=== PATIENT | female | born 1945 | race Caucasian/White ===

== ENCOUNTER 2017-11-04 10:00 | Outpatient (RCR) | payer MEDICARE, BC, SELFPAY | END 2017-11-12 | LOC: INF 10:00 | PROVIDERS: PCP Family Medicine; Visit Provider Family Medicine | DX: Z45.2 Encounter for adjustment and management of vascular access device (principal) | CPT/HCPCS: 96523 ==

== ENCOUNTER → 2018-08-11 15:41 | Outpatient (CLI) | payer MEDICARE, BC, SELFPAY ==
--- NOTE | 2018-08-11 15:43 | DI.RAD.S_ITS ---
PROCEDURE: XR RIBS RT MIN 3V W CXR 1V INDICATIONS: Right sided rib pain TECHNIQUE: 2 views of the right ribs were acquired, along with a single view chest. COMPARISON: None. FINDINGS: Surgical changes and devices: Port-A-Cath from right sided approach extends with tip in normal position to the atrial caval junction.. Bones and chest wall: No fractures or dislocations. No suspicious bony lesions. Overlying soft tissues appear unremarkable. Lungs and pleura: No pleural effusions or pneumothorax. Lungs appear normal considering reduced inspiratory volume. Mediastinum: Mediastinal contours appear normal. Heart size is normal. IMPRESSION: Source of right-sided rib pain is not seen. No osteolytic or blastic lesion is found. Port-A-Cath in normal position, surgical clips right axilla suggest prior breast carcinoma surgery. Depending on the clinical status followup by nuclear medicine bone scan may be warranted. Dictated by: Jaime Masters M.D. on 08/11/2018 at 16:44 Approved by: Jaime Masters M.D. on 08/11/2018 at 16:45
== END ==
PROVIDERS: Family Provider Orthopaedic Surgery; PCP Family Medicine; Visit Provider Family Medicine
DX: R07.81 Pleurodynia (principal)
CPT/HCPCS: 71101

== ENCOUNTER → 2018-08-22 14:15 | Outpatient (CLI) | payer MEDICARE, BC, SELFPAY ==
--- NOTE | 2018-08-22 14:20 | DI.US.S_ITS ---
PROCEDURE: US ABDOMEN COMPLETE INDICATIONS: RUQ abd pain TECHNIQUE: Real-time scanning was performed of the abdominal and retroperitoneal organs, with image documentation. COMPARISON: None. FINDINGS: Liver: Liver is diffusely increased in echogenicity. No focal hepatic abnormalities identified. Normal hepatic size. Gallbladder: No gallstones identified. Normal gallbladder wall. No pericholecystic fluid. Negative sonographic Morris sign. Biliary ducts: Intrahepatic bile ducts are non-dilated. Extrahepatic bile duct caliber measures 6.0 mm. Normal is 6-7 mm or less in diameter, or 10 mm or less post-cholecystectomy. Pancreas: Visualized portions of the pancreas are sonographically normal. Spleen: Spleen is normal in size and homogeneous in echotexture. Kidneys: Kidneys are normal in size and echotexture. Right kidney measures 12 0.9 cm long; left kidney measures 12.7 cm long. No hydronephrosis or nephrolithiasis. No solid masses. Aorta: Visualized aorta is normal in caliber at less than 3 cm. Iliacs: Not well-seen. IVC: Intrahepatic inferior vena cava is patent. Miscellaneous: No free abdominal fluid. IMPRESSION: Increased hepatic echogenicity noted possibly related to hepatic steatosis but other sources of hepatocellular disease cannot be excluded. Recommend clinical correlation. Dictated by: Lee SMITH Interpreted: Luisa Odell MD on 08/22/2018 at 15:37 Approved by: Luisa Odell M.D. on 08/22/2018 at 16:08
== END ==
PROVIDERS: Family Provider Orthopaedic Surgery; PCP Family Medicine; Visit Provider Physician Assistant
DX: R10.11 Right upper quadrant pain (principal)
CPT/HCPCS: 76700

== ENCOUNTER → 2018-12-29 11:34 | Outpatient (CLI) | payer MEDICARE, BC, SELFPAY ==
--- NOTE | 2018-12-29 11:37 | DI.RAD.S_ITS ---
PROCEDURE: XR CHEST 2V INDICATIONS: cough, chest wall pain TECHNIQUE: 2 views of the chest were acquired. COMPARISON: None. FINDINGS: Surgical changes and devices: Right-sided Port-A-Cath is present with distal tip projecting over the distal SVC. Lungs and pleura: Lungs are clear. No pleural effusions or pneumothorax. Increased pulmonary vascularity is present. Mediastinum: Mediastinal contours are normal. Heart size is normal. Bones and chest wall: No suspicious bony abnormalities. Soft tissues appear unremarkable. IMPRESSION: Increased pulmonary vascularity suggestive of edema. Dictated by: Luisa Odell M.D. on 12/29/2018 at 16:16 Approved by: Luisa Odell M.D. on 12/29/2018 at 16:17
== END ==
PROVIDERS: Family Provider Orthopaedic Surgery; PCP Family Medicine; Visit Provider Hospitalist
DX: R05 Cough (principal); R07.89 Other chest pain; Z95.828 Presence of other vascular implants and grafts
CPT/HCPCS: 71046

== ENCOUNTER → 2019-01-03 20:13 | Outpatient (CLI) | payer MEDICARE, BC, SELFPAY | PROVIDERS: Family Provider Orthopaedic Surgery; PCP Family Medicine; Visit Provider Physician Assistant | DX: N30.01 Acute cystitis with hematuria (principal) | CPT/HCPCS: 87086 ==

== ENCOUNTER → 2019-01-09 14:22 | Outpatient (CLI) | payer MEDICARE, BC, SELFPAY ==
--- NOTE | 2019-01-09 14:28 | DI.CT.S_ITS ---
PROCEDURE: CT KIDNEY URETER BLADDER (KUB) INDICATIONS: r/o kidney stone TECHNIQUE: Noncontrast 5 mm thick sections acquired from the diaphragms to the symphysis. 5 mm thick coronal and sagittal reformats were then performed. For radiation dose reduction, the following was used: automated exposure control, adjustment of mA and/or kV according to patient size. COMPARISON: [facility], CR, XR CHEST 2V, 12/29/2018, 11:41. [facility], US, US ABDOMEN COMPLETE, 08/22/2018, 15:04. FINDINGS: Image quality: Excellent. Lung bases: Mild lingular scars. Heart size is normal. There is a tiny hiatal hernia. Urinary system: A couple of 2 mm stones are present in the inferior pole of the right kidney. Both kidneys are normal in size. No kidney stones. No hydronephrosis or perinephric fat stranding. Both ureters appear non-dilated throughout their expected courses. Bladder wall thickness is normal; no calcified bladder stones. Other solid organs: Liver is normal in size. Gallbladder is normal. Pancreas is normal in contours. Spleen is normal in size. No adrenal nodules. Peritoneum and bowel: Stomach wall may be mildly thickened. There is mild stranding around stomach. Unenhanced bowel loops demonstrate normal wall thickness and caliber. There are colonic diverticula. No evidence for acute diverticulitis. No free fluid or air. Nodes and vessels: No retroperitoneal or mesenteric adenopathy by size criteria. Aorta and inferior vena cava are normal in caliber. Abdominal wall: Tiny fat containing umbilical hernia. Pelvis: No free pelvic fluid. No inguinal hernias or adenopathy. Uterus and ovaries are normal. No pathological free fluid. Bones: No suspicious bony lesions. No vertebral body compression fractures. IMPRESSION: 1. Right nephrolithiasis with 2 small nonobstructive right renal calculi. 2. Stomach wall may be mildly thickened. There is mild stranding around stomach. Recommend clinical correlation for gastritis. 3. Diverticulosis without acute diverticulitis. Dictated by: Larry Mcqueen M.D. on 01/09/2019 at 15:40 Approved by: Larry Mcqueen M.D. on 01/09/2019 at 15:48
== END ==
PROVIDERS: PCP Family Medicine; Visit Provider Physician Assistant
DX: R10.9 Unspecified abdominal pain (principal); N20.0 Calculus of kidney; K57.90 Diverticulosis of intestine, part unspecified, without perforation or abscess without bleeding
CPT/HCPCS: 74176

== ENCOUNTER → 2019-01-19 06:50 | Outpatient (CLI) | payer MEDICARE, BC, SELFPAY ==
--- NOTE | 2019-01-19 06:54 | DI.ECHO.S_ITS ---
[facility]---------+ [facility] +---------+ : : [address] : : : : [id number] : : : : Phone: [phone] Echocardiogram Report + + :Name: LUC GUERRA Study Date: 01/19/2019 Height: 61 in : :[facility] Exam Location: [facility] Weight: 220 lb : : Gender: Female BSA: 2.0 m2 : :: 1945 Age: 73 yrs BP: 118/70 mmHg: :Reason For Study: Elevated BNP/ pulmonary : : Performed By: Marilee Page : :Referring: YANIV HEALY : + + Interpretation Summary Left ventricular systolic function is normal without focal wall motion abnormalities with the ejection fraction visually estimated to be 60-65%. There is mild concentric left ventricular hypertrophy. Diastolic parameters suggest a pseudonormalization pattern, consistent with probable elevated filling pressures. The right ventricle is normal in size and function. Pulmonary artery pressures cannot be estimated because of the lack of a measurable TR jet velocity but the IVC suggests a CVP of around 15 mmHg. The left atrium is severely dilated. There is moderate mitral annular calcification with mild to moderate mitral regurgitation with an eccentric jet of mitral regurgitation that is directed anteriorly. There is no other significant valvular heart disease. The ascending aorta and aortic arch are mildly enlarged. Procedure: A two-dimensional transthoracic echocardiogram with color flow and Doppler was performed. The study quality was technically adequate. There is no prior echocardiogram noted for this patient. The heart rate ranged between 53-70 bpm during the study. Left Ventricle: The left ventricle is normal in size. There is mild concentric left ventricular hypertrophy. Left ventricular systolic function is normal without focal wall motion abnormalities. The ejection fraction is estimated to be 60-65%. Diastolic parameters suggest a pseudonormalization pattern, consistent with probable elevated filling pressures. Right Ventricle: The right ventricle is normal in size and function. Atria: The left atrium is severely dilated. Right atrial size is normal. There is no Doppler evidence for an interatrial shunt. Mitral Valve: There is moderate mitral annular calcification. The mitral valve leaflets appear mildly thickened, but open well. There is mild to moderate mitral regurgitation. There is an eccentric jet of mitral regurgitation that is directed anteriorly. Aortic Valve: The aortic valve is trileaflet. The aortic valve is slightly calcified. The aortic valve opens well. No aortic regurgitation is present. Tricuspid Valve: The tricuspid valve is normal in structure and function. There is trace tricuspid regurgitation. Pulmonary artery pressures cannot be estimated because of the lack of a measurable TR jet velocity but the IVC suggests a CVP of around 15 mmHg. Pulmonic Valve: The pulmonic valve is not well visualized. There is no other significant valvular heart disease. Great Vessels: The aortic root is normal size. The ascending aorta is mildly enlarged. The aortic arch is mildly enlarged. The pulmonary is not well visualized. The IVC is dilated (diameter is greater than 2.1 cm) and it collapses less than 50% with a sniff. This suggests a high right atrial pressure of 15 mm Hg. Pericardium/ Pleura There is no pericardial effusion. There is no pleural effusion. MMode/2D Measurements & Calculations LVIDd: 3.6 cm Ao root diam: 3.4 cm LVIDs: 2.6 cm asc Aorta Diam: 3.6 cm FS: 28.7 % Ao Arch Diam (Prox Trans): 3.1 cm IVSd: 1.1 cm LVPWd: 1.1 cm LV walter. diameter/BSA (cm/m^2): 1.8 LV sys. diameter/BSA (cm/m^2): 1.3 LA A2 area: 30.3 cm2 RA long axis: 5.6 cm LA A4 area: 25.9 cm2 RA area: 17.1 cm2 LA length (vol): 6.3 cm RA vol: 44.2 ml LA vol: 105.7 ml RA : 22.4 ml/m2 LA vol index: 53.7 ml/m2 IVC diam: 2.2 cm RVD1 (basal): 3.4 cm RVD2 (mid): 2.5 cm TAPSE: 1.7 cm Doppler Measurements & Calculations Ao V2 max: 133.7 cm/sec LVOT Max Randall: 103.1 cm/sec Ao V2 mean: 89.1 cm/sec LV V1 max P.3 mmHg Ao max P.2 mmHg LV V1 VTI: 21.0 cm Ao mean P.6 mmHg sev ratio: 0.79 Ao V2 VTI: 26.7 cm MV E max randall: 85.9 cm/sec PA V2 max: 63.6 cm/sec MV A max randall: 103.8 cm/sec PA V2 mean: 43.2 cm/sec MV E/A: 0.83 PA mean P.83 mmHg Med Peak E' Randall: 5.4 cm/sec PA Accel Time: 0.11 sec E/E' med: 16.0 Lat Peak E' Randall: 7.8 cm/sec E/E' lat: 11.0 E/e' average: 13.5 MV dec time: 0.25 sec MV P1/2t: 72.1 msec MV /2t max randall: 85.9 cm/sec MVA(2t): 3.0 cm2 Reading Physician:LIAN
== END ==
PROVIDERS: PCP Family Medicine; Visit Provider Family Medicine
DX: I34.0 Nonrheumatic mitral (valve) insufficiency (principal); J81.1 Chronic pulmonary edema; R79.89 Other specified abnormal findings of blood chemistry; I77.89 Other specified disorders of arteries and arterioles
CPT/HCPCS: 93306

== ENCOUNTER 2019-03-03 08:05 | Inpatient (IN) | payer MEDICARE, BC, SELFPAY ==
[2019-03-03] VITALS (11 sets, daily range): BP systolic 102–146; BP diastolic 54–83; PULSE 70–90; RESP 13–20; TEMP 36.7–36.9; O2SAT 94–100; BMI 40.6
--- NOTE | 2019-03-03 08:27 | ED.NAVMDI ---
HPI - Nausea/Vomiting/Diarrhea General Chief complaint: Nausea/Vomiting/Diarrhea Stated complaint: vomiting Time Seen by Provider: 03/03/19 08:25 Source: patient and family () Mode of arrival: ambulatory Limitations: no limitations History of Present Illness HPI Narrative: This is a 73-year-old female comes in with complaint of 5 days of diarrhea followed by vomiting that started yesterday and continued today. Patient states she has also had some abdominal pain that she describes as generalized. She denies any back or flank pain. No fevers or chills. No current chest pain or shortness of breath. Patient denies any black or bloody stools. She states she had 8 episodes of diarrhea overnight. No frequency urgency or dysuria. Patient thought she had urinated this morning but did last night and stated seems sort of dark. Patient states that she has had issues with abdominal pain on and off for several years as well as diarrhea intermittently. She does have a history significant for prior breast cancer which required mastectomy and chemotherapy. She completed treatment a couple years ago but continues to have a port present. She states that she is supposed to follow up with the [employer] support she was told she had good pumping action but had a calcified mitral valve. She has had kidney stones. States she has also had a hysteroscopy and polypectomy in the past. No other abdominal surgeries. Patient denies any tobacco, alcohol or illicit. She states she is pain-free currently. Related Data Home Medications Medication Instructions Recorded Confirmed anastrozole 1 mg PO QDAY #0 12/27/16 03/03/19 aspirin 81 mg PO QDAY #0 12/27/16 03/03/19 cholecalciferol (vitamin D3) 2,000 unit PO #0 12/27/16 02/06/19 [Vitamin D3] citalopram 20 mg PO QDAY #0 12/27/16 03/03/19 metoprolol succinate [Toprol XL] 25 mg PO QDAY #0 12/27/16 03/03/19 multivitamin [Multiple Vitamins] 1 tab PO QDAY #0 12/27/16 03/03/19 olmesartan [Benicar] 20 mg PO QDAY #0 12/27/16 03/03/19 rosuvastatin [Crestor] 5 mg PO SEE INSTRUCTIONS #0 12/27/16 03/03/19 estradiol [Vagifem] 10 mcg VG #0 05/10/17 02/06/19 Previous Rx's Medication Instructions Recorded albuterol sulfate [Ventolin HFA] 2 puff INH QIDP PRN #1 inh 12/27/16 Allergies Allergy/AdvReac Type Severity Reaction Status Date / Time Penicillins [PENICILLINS] Allergy Unknown Verified 03/03/19 08:19 shellfish derived Allergy Unknown Verified 03/03/19 08:19 [SHELLFISH DERIVED] vancomycin [VANCOMYCIN] Allergy Unknown Verified 03/03/19 08:19 Review of Systems Review of Systems ROS Unobtainable: All systems reviewed & are unremarkable except as noted in HPI and below Constitutional Denies chills, Denies fever(s), Denies lethargy and Denies weakness Neurologic Denies weakness [facility] Medical History Essential hypertension (Chronic 05/10/17) Hyperlipidemia (Chronic 05/10/17) Morbid obesity (Chronic 09/13/17) Malignant neoplasm of breast (Inactive 09/13/17) IBS (irritable bowel syndrome) (Chronic) Osteopenia (Chronic) Lymphedema (Chronic 05/10/17) Primary osteoarthritis of both knees (Chronic 09/13/17) Cataract (Chronic 2016) Hayfever (Chronic) Shoulder pain (Chronic 2014) Tinnitus (Chronic) Breast cancer (Resolved 1990) Chicken pox (Resolved ~1949) Diverticulitis (Resolved 2014) History of heavy periods (Resolved) Measles (Resolved ~1949) Mumps (Resolved 1960) Neutropenia (Resolved 2013) Rosacea (Resolved) Skin cancer (Resolved 02/2017) Thyroid nodule (Resolved 2013) Gout (Inactive) Surgical History Anesthesia (Resolved) History of eye surgery (Inactive ~1950) History of toe surgery (Inactive 1994) History of tonsillectomy (Inactive ~1961) Status post delivery (Inactive 01/01/83) Status post partial mastectomy (Inactive 11/05/13) Status post partial mastectomy (Inactive 09/07/90) Family History Father Heart disease Hypertension High cholesterol Stroke Grandfather Heart disease Grandmother Heart disease Diabetes mellitus Pneumonia CAD (coronary artery disease) Mother Cancer Heart disease Head and neck cancer Grandmother Heart disease Heart attack Grandfather Lung cancer Social History Smoking Status: Never smoker alcohol intake: current substance use type: does not use Family History Father Heart disease Hypertension High cholesterol Stroke Grandfather Heart disease Grandmother Heart disease Diabetes mellitus Pneumonia CAD (coronary artery disease) Mother Cancer Heart disease Head and neck cancer Grandmother Heart disease Heart attack Grandfather Lung cancer Social History household members: spouse Smoking Status: Never smoker alcohol intake: current substance use type: does not use Exam Narrative Exam Narrative: GENERAL: Alert and oriented x three, obese, well-appearing female in mild distress. Patient Um is a little bit sweaty and has the shakes HEENT: Head normocephalic, atraumatic, EOMI, pupils reactive, face symmetric, moist mucous membranes NECK: Supple, full range of motion CARDIOVASCULAR: Regular rate and rhythm without murmurs, rubs or gallops. RESPIRATORY: Breath sounds equal bilaterally, no wheezes rales or rhonchi. ABDOMEN: Soft, mild generalized tenderness. Normoactive bowel sounds all 4 quadrants. No guarding or rebound, rigidity, no mass : No CVA tenderness EXTREMITIES: Normal range of motion, no clubbing or edema. Neurovascularly intact NEUROLOGICAL: Cranial nerves II through XII grossly intact. Moving all extremities SKIN: Warm, dry, no petechiae, no rashes or lesions. Initial Vital Signs Initial Vital Signs: Vital Signs Temperature 98.0 F 03/03/19 08:16 Pulse Rate 70 03/03/19 08:16 Respiratory Rate 18 03/03/19 08:16 Blood Pressure 146/83 H 03/03/19 08:16 Pulse Oximetry 98 03/03/19 08:16 Course Orders Ordered: ED Orders 03/03/19 12:42 Consult to Dietitian, Adult Routine 03/04/19 05:00 Basic Metabolic Panel Routine Complete Blood Count AUTO DIFF Routine Enoxaparin Sodium (Lovenox) 40 mg SUBCUT DAILY PADMINI Hydromorphone HCl (Dilaudid) 1 mg IV Q6HR PRN PRN Reason: Pain, Severe (7-10) Last Admin: 03/03/19 13:37 Dose: 0.5 mg Dextrose/Sodium Chloride (Dextrose 5%-0.9% Ns) 1,000 mls @ 125 mls/hr IV CONT PADMINI Last Admin: 03/03/19 13:04 Dose: 125 mls/hr Metoprolol Tartrate (Lopressor) 5 mg IV Q6H PRN PRN Reason: hypertension Morphine Sulfate (Morphine) 1 mg IV Q2HR PRN PRN Reason: Pain, Moderate (4-6) Morphine Sulfate (Morphine) 2 mg IV Q2HR PRN PRN Reason: Pain, Severe (7-10) Naloxone HCl (Narcan) 0.2 mg IV Q2MIN PRN PRN Reason: Opiate Reversal Ondansetron HCl (Zofran) 4 mg IV Q6HR PRN PRN Reason: Nausea And Vomiting Ondansetron HCl (Zofran) 4 mg IV Q4H PRN PRN Reason: Nausea And Vomiting Discontinued Medications Sodium Chloride (Normal Saline 0.9%) 1,000 mls @ 1,000 mls/hr IV BOLUS ONE Stop: 03/03/19 09:37 Last Infusion: 03/03/19 11:16 Dose: 0 mls/hr Admin: 03/03/19 09:00 Dose: 1,000 mls/hr Sodium Chloride (Normal Saline 0.9%) 1,000 mls @ 1,000 mls/hr IV BOLUS ONE Stop: 03/03/19 09:37 Last Admin: 03/03/19 11:17 Dose: 200 mls/hr Ondansetron HCl (Zofran) 4 mg IV NOW ONE Stop: 03/03/19 08:09 Last Admin: 03/03/19 08:47 Dose: 4 mg Ondansetron HCl (Zofran) 4 mg IV NOW ONE Stop: 03/03/19 08:39 Last Admin: 03/03/19 10:33 Dose: 4 mg Ondansetron HCl (Zofran) 4 mg IV Q8HR PRN PRN Reason: Nausea And Vomiting Last Admin: 03/03/19 13:04 Dose: 4 mg Vital Signs - 8 hr 03/03/19 11:55 03/03/19 12:01 03/03/19 15:45 Temperature 98.1 F 98.3 F Pulse Rate 76 82 90 Respiratory Rate 17 18 Blood Pressure 138/67 102/64 Blood Pressure [Left Arm] 129/72 Pulse Oximetry 99 100 98 03/03/19 16:00 Temperature Pulse Rate Respiratory Rate Blood Pressure Blood Pressure [Left Arm] Pulse Oximetry 96 MDM - Nausea/Vomiting/Diarrhea Lab Data Attestation: I reviewed the patient's lab results. Result diagrams: 03/03/19 08:46 03/03/19 08:46 Lab Results 03/03/19 03/03/19 03/03/19 Range/Units 08:46 08:46 09:58 WBC 7.0 (4.5-11.0) X10^3/uL RBC 4.49 (4.0-5.2) X10^6/uL Hgb 13.4 (12.0-16.0) g/dL Hct 39.7 (36-46) % MCV 88.4 (80-100) fL MCH 29.8 (26-34) PG MCHC 33.7 (30-36) % RDW 12.8 (11.6-14.8) % Plt Count 175 (150-400) X10^3/uL Neut % (Auto) 85.3 H (50-75) % Lymph % (Auto) 6.4 L (25-40) % [place] % (Auto) 7.0 (3-14) % Eos % (Auto) 0.9 L (2-4) % Baso % (Auto) 0.4 (0-2) % Neut # (Auto) 5900 (6766-2565) /uL Lymph # (Auto) 400 L (0901-8718) /uL [place] # (Auto) 500 (0-900) /uL Eos # (Auto) 100 (0-450) /uL Baso # (Auto) 0 (0-100) /uL Sodium 139 (137-145) mmol/L Potassium 3.9 (3.4-5.1) mmol/L Chloride 102 (98-107) mmol/L Carbon Dioxide 28 (22-32) mmol/L BUN 21 H (7-17) mg/dL Creatinine 0.80 (0.52-1.04) mg/dL Estimated GFR > 60.0 (>60) mL/min BUN/Creatinine Ratio 26.3 H (6-22) Glucose 132 H (80-110) mg/dL Lactate 0.9 (0.7-2.1) mmol/L Calcium 9.8 (8.4-10.2) mg/dL Total Bilirubin 0.8 (0.2-1.3) mg/dL AST 25 (14-36) IU/L ALT 25 (9-52) IU/L Alkaline Phosphatase 99 (38-126) U/L Total Protein 7.2 (6.3-8.2) g/dL Albumin 4.7 (3.5-5.0) g/dL Globulin 2.5 (1.7-4.1) g/dL Albumin/Globulin Ratio 1.9 (1.0-2.8) Lipase 191 (23-300) U/L Urine RBC (0-5/HPF) Urine WBC (0-5/HPF) Urine Bacteria (None) Ur Culture Indicated? 03/03/19 Range/Units 10:20 WBC (4.5-11.0) X10^3/uL RBC (4.0-5.2) X10^6/uL Hgb (12.0-16.0) g/dL Hct (36-46) % MCV (80-100) fL MCH (26-34) PG MCHC (30-36) % RDW (11.6-14.8) % Plt Count (150-400) X10^3/uL Neut % (Auto) (50-75) % Lymph % (Auto) (25-40) % [place] % (Auto) (3-14) % Eos % (Auto) (2-4) % Baso % (Auto) (0-2) % Neut # (Auto) (5282-7103) /uL Lymph # (Auto) (8708-3338) /uL [place] # (Auto) (0-900) /uL Eos # (Auto) (0-450) /uL Baso # (Auto) (0-100) /uL Sodium (137-145) mmol/L Potassium (3.4-5.1) mmol/L Chloride (98-107) mmol/L Carbon Dioxide (22-32) mmol/L BUN (7-17) mg/dL Creatinine (0.52-1.04) mg/dL Estimated GFR (>60) mL/min BUN/Creatinine Ratio (6-22) Glucose (80-110) mg/dL Lactate (0.7-2.1) mmol/L Calcium (8.4-10.2) mg/dL Total Bilirubin (0.2-1.3) mg/dL AST (14-36) IU/L ALT (9-52) IU/L Alkaline Phosphatase (38-126) U/L Total Protein (6.3-8.2) g/dL Albumin (3.5-5.0) g/dL Globulin (1.7-4.1) g/dL Albumin/Globulin Ratio (1.0-2.8) Lipase (23-300) U/L Urine RBC 0-1/hpf (0-5/HPF) Urine WBC 1-5/hpf (0-5/HPF) Urine Bacteria None seen (None) Ur Culture Indicated? Specimen cultured Point of Care Testing Glucose POC 130 Urine Dip Bedside Urine Glucose Negative Bedside Urine Bilirubin - Negative Bedside Urine Ketone - Negative Urine Specific Poth 1.015 Bedside Urine Occult Blood - Negative Bedside Urine pH 6.5 Bedside Urine Protein +/- 15 Bedside Urine Urobilinogen - Negative Bedside Urine Nitrite - Negative Bedside Urine Leukocytes +/- [address] scan - abdomen: Radiologist's impression: [place] [address] CT Scan Report Signed Patient: Davina Barrett CMR#: [id number] : [id number]:[id number] Age/Sex: 73 / FDate of Service: 03/03/19 Loc: ED Accession Number: [id number] Procedure: CT abdomen pelvis w con Ordering Provider: Linda Hobbs D.O. PROCEDURE: CT ABDOMEN PELVIS W CON INDICATIONS: diarrhea x 5 days, vomiting last night, abdominal steph TECHNIQUE: After the administration of intravenous contrast, 5 mm thick sections acquired from the diaphragm to the symphysis. 5 mm coronal and sagittal reformats were acquired. For radiation dose reduction, the following was used: automated exposure control, adjustment of mA and/or kV according to patient size. COMPARISON: [facility], CT, CT KIDNEY URETER BLADDER (KUB), 01/09/2019, 14:42. FINDINGS: Image quality: Excellent. ABDOMEN: Lung bases: Lung bases are clear. Heart size is normal. Solid organs: Liver is normal in size and enhancement. Gallbladder is unremarkable. Biliary system is non dilated. Pancreas enhances normally. Spleen is normal in size and enhancement. No adrenal nodules. Kidneys demonstrate normal size and enhancement, without hydronephrosis. Peritoneum and bowel: Stomach is moderately distended with gas and fluid. The distal duodenum and the proximal jejunum are dilated and filled with fluid. Additionally, some of the dilated duodenum is filled with solid appearing stool. A focal transition point is present within the left lower quadrant (series 2, image 60 and series 4, image 29). The downstream small bowel is decompressed. The colon is decompressed. The appendix is thin walled. Trace of low-density fluid is present within the pelvis. Nodes and vessels: No retroperitoneal or mesenteric adenopathy by size criteria. Aorta and inferior vena cava are normal in size. Scattered atheromatous calcifications are present throughout the abdominal aorta. Miscellaneous: No ventral hernias. PELVIS: Genitourinary: Bladder wall thickness is normal. The uterus and ovaries are grossly unremarkable. Miscellaneous: No inguinal hernias or adenopathy. Bones: No suspicious bony lesions. No vertebral body compression fractures. IMPRESSION: 1. Small bowel obstruction with a focal transition point in the left lower quadrant. This finding was discussed with Dr. Hobbs at 8:56 AM on 03/03/19. Dictated by: Jaye Enriquez M.D. on 03/03/2019 at 8:52 Approved by: Jaye Enriquez M.D. on 03/03/2019 at 8:57 MDM Narrative Medical decision making narrative: Patient has normal, lactate is pending. CT shows a small bowel obstruction with a focal point transition in left lower quadrant. There is thickening, per Radiology they state that it could potentially be cancerous but they are unable to pull up old images for comparison. Discussed with patient she has not been able to keep anything down since last night. She has had very small amounts of diarrhea. I spoke with Dr. Wilkerson who is covering for primary care and he accepts for admission. He will write orders. Discharge Plan Departure Patient Disposition: Admitted As Inpatient Clinical Impression: Bowel obstruction Discharge Date/Time: 03/03/19 11:56 Interventions: ED Discharge Assessment Last Done: 03/03/19 11:56 Admit Date/Time: 03/03/19 10:47 Admit Provider: Dakota Wilkerson
--- NOTE | 2019-03-03 08:38 | DI.CT.S_ITS ---
PROCEDURE: CT ABDOMEN PELVIS W CON INDICATIONS: diarrhea x 5 days, vomiting last night, abdominal steph TECHNIQUE: After the administration of intravenous contrast, 5 mm thick sections acquired from the diaphragm to the symphysis. 5 mm coronal and sagittal reformats were acquired. For radiation dose reduction, the following was used: automated exposure control, adjustment of mA and/or kV according to patient size. COMPARISON: [facility], CT, CT KIDNEY URETER BLADDER (KUB), 01/09/2019, 14:42. FINDINGS: Image quality: Excellent. ABDOMEN: Lung bases: Lung bases are clear. Heart size is normal. Solid organs: Liver is normal in size and enhancement. Gallbladder is unremarkable. Biliary system is non dilated. Pancreas enhances normally. Spleen is normal in size and enhancement. No adrenal nodules. Kidneys demonstrate normal size and enhancement, without hydronephrosis. Peritoneum and bowel: Stomach is moderately distended with gas and fluid. The distal duodenum and the proximal jejunum are dilated and filled with fluid. Additionally, some of the dilated duodenum is filled with solid appearing stool. A focal transition point is present within the left lower quadrant (series 2, image 60 and series 4, image 29). The downstream small bowel is decompressed. The colon is decompressed. The appendix is thin walled. Trace of low-density fluid is present within the pelvis. Nodes and vessels: No retroperitoneal or mesenteric adenopathy by size criteria. Aorta and inferior vena cava are normal in size. Scattered atheromatous calcifications are present throughout the abdominal aorta. Miscellaneous: No ventral hernias. PELVIS: Genitourinary: Bladder wall thickness is normal. The uterus and ovaries are grossly unremarkable. Miscellaneous: No inguinal hernias or adenopathy. Bones: No suspicious bony lesions. No vertebral body compression fractures. IMPRESSION: 1. Small bowel obstruction with a focal transition point in the left lower quadrant. This finding was discussed with Dr. Hobbs at 8:56 AM on 03/03/19. Dictated by: Jaye Enriquez M.D. on 03/03/2019 at 8:52 Approved by: Jaye Enriquez M.D. on 03/03/2019 at 8:57
--- NOTE | 2019-03-03 08:44 | ED_ITS ---
HPI - Nausea/Vomiting/Diarrhea General Chief complaint: Nausea/Vomiting/Diarrhea Stated complaint: vomiting Time Seen by Provider: 03/03/19 08:25 Source: patient and family () Mode of arrival: ambulatory Limitations: no limitations History of Present Illness HPI Narrative: This is a 73-year-old female comes in with complaint of 5 days of diarrhea followed by vomiting that started yesterday and continued today. Patient states she has also had some abdominal pain that she describes as generalized. She denies any back or flank pain. No fevers or chills. No current chest pain or shortness of breath. Patient denies any black or bloody stools. She states she had 8 episodes of diarrhea overnight. No frequency urgency or dysuria. Patient thought she had urinated this morning but did last night and stated seems sort of dark. Patient states that she has had issues with abdominal pain on and off for several years as well as diarrhea intermittently. She does have a history significant for prior breast cancer which required mastectomy and chemotherapy. She completed treatment a couple years ago but continues to have a port present. 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 She has had kidney stones. States she has also had a hysteroscopy and polypectomy in the past. No other abdominal surgeries. Patient denies any tobacco, alcohol or illicit. She states she is pain-free currently. Related Data Home Medications Medication Instructions Recorded Confirmed anastrozole 1 mg PO QDAY #0 12/27/16 03/03/19 aspirin 81 mg PO QDAY #0 12/27/16 03/03/19 cholecalciferol (vitamin D3) 2,000 unit PO #0 12/27/16 02/06/19 [Vitamin D3] citalopram 20 mg PO QDAY #0 12/27/16 03/03/19 metoprolol succinate [Toprol XL] 25 mg PO QDAY #0 12/27/16 03/03/19 multivitamin [Multiple Vitamins] 1 tab PO QDAY #0 12/27/16 03/03/19 olmesartan [Benicar] 20 mg PO QDAY #0 12/27/16 03/03/19 rosuvastatin [Crestor] 5 mg PO SEE INSTRUCTIONS #0 12/27/16 03/03/19 estradiol [Vagifem] 10 mcg VG #0 05/10/17 02/06/19 Previous Rx's Medication Instructions Recorded albuterol sulfate [Ventolin HFA] 2 puff INH QIDP PRN #1 inh 12/27/16 Allergies Allergy/AdvReac Type Severity Reaction Status Date / Time Penicillins [PENICILLINS] Allergy Unknown Verified 03/03/19 08:19 shellfish derived Allergy Unknown Verified 03/03/19 08:19 [SHELLFISH DERIVED] vancomycin [VANCOMYCIN] Allergy Unknown Verified 03/03/19 08:19 Review of Systems Review of Systems ROS Unobtainable: All systems reviewed & are unremarkable except as noted in HPI and below Constitutional Denies chills, Denies fever(s), Denies lethargy and Denies weakness Neurologic Denies weakness [facility] Medical History Essential hypertension (Chronic 05/10/17) Hyperlipidemia (Chronic 05/10/17) Morbid obesity (Chronic 09/13/17) Malignant neoplasm of breast (Inactive 09/13/17) IBS (irritable bowel syndrome) (Chronic) Osteopenia (Chronic) Lymphedema (Chronic 05/10/17) Primary osteoarthritis of both knees (Chronic 09/13/17) Cataract (Chronic 2016) Hayfever (Chronic) Shoulder pain (Chronic 2014) Tinnitus (Chronic) Breast cancer (Resolved 1990) Chicken pox (Resolved ~1949) Diverticulitis (Resolved 2014) History of heavy periods (Resolved) Measles (Resolved ~1949) Mumps (Resolved 1960) Neutropenia (Resolved 2013) Rosacea (Resolved) Skin cancer (Resolved 02/2017) Thyroid nodule (Resolved 2013) Gout (Inactive) Surgical History Anesthesia (Resolved) History of eye surgery (Inactive ~1950) History of toe surgery (Inactive 1994) History of tonsillectomy (Inactive ~1961) Status post delivery (Inactive 01/01/83) Status post partial mastectomy (Inactive 11/05/13) Status post partial mastectomy (Inactive 09/07/90) Family History Father Heart disease Hypertension High cholesterol Stroke Grandfather Heart disease Grandmother Heart disease Diabetes mellitus Pneumonia CAD (coronary artery disease) Mother Cancer Heart disease Head and neck cancer Grandmother Heart disease Heart attack Grandfather Lung cancer Social History Smoking Status: Never smoker alcohol intake: current substance use type: does not use Family History Father Heart disease Hypertension High cholesterol Stroke Grandfather Heart disease Grandmother Heart disease Diabetes mellitus Pneumonia CAD (coronary artery disease) Mother Cancer Heart disease Head and neck cancer Grandmother Heart disease Heart attack Grandfather Lung cancer Social History household members: spouse Smoking Status: Never smoker alcohol intake: current substance use type: does not use Exam Narrative Exam Narrative: GENERAL: Alert and oriented x three, obese, well-appearing female in mild distress. Patient Um is a little bit sweaty and has the shakes HEENT: Head normocephalic, atraumatic, EOMI, pupils reactive, face symmetric, moist mucous membranes NECK: Supple, full range of motion CARDIOVASCULAR: Regular rate and rhythm without murmurs, rubs or gallops. RESPIRATORY: Breath sounds equal bilaterally, no wheezes rales or rhonchi. ABDOMEN: Soft, mild generalized tenderness. Normoactive bowel sounds all 4 quadrants. No guarding or rebound, rigidity, no mass : No CVA tenderness EXTREMITIES: Normal range of motion, no clubbing or edema. Neurovascularly intact NEUROLOGICAL: Cranial nerves II through XII grossly intact. Moving all extremities SKIN: Warm, dry, no petechiae, no rashes or lesions. Initial Vital Signs Initial Vital Signs: Vital Signs Temperature 98.0 F 03/03/19 08:16 Pulse Rate 70 03/03/19 08:16 Respiratory Rate 18 03/03/19 08:16 Blood Pressure 146/83 H 03/03/19 08:16 Pulse Oximetry 98 03/03/19 08:16 Course Orders Ordered: ED Orders 03/03/19 12:42 Consult to Dietitian, Adult Routine 03/04/19 05:00 Basic Metabolic Panel Routine Complete Blood Count AUTO DIFF Routine Enoxaparin Sodium (Lovenox) 40 mg SUBCUT DAILY PADMINI Hydromorphone HCl (Dilaudid) 1 mg IV Q6HR PRN PRN Reason: Pain, Severe (7-10) Last Admin: 03/03/19 13:37 Dose: 0.5 mg Dextrose/Sodium Chloride (Dextrose 5%-0.9% Ns) 1,000 mls @ 125 mls/hr IV CONT PADMINI Last Admin: 03/03/19 13:04 Dose: 125 mls/hr Metoprolol Tartrate (Lopressor) 5 mg IV Q6H PRN PRN Reason: hypertension Morphine Sulfate (Morphine) 1 mg IV Q2HR PRN PRN Reason: Pain, Moderate (4-6) Morphine Sulfate (Morphine) 2 mg IV Q2HR PRN PRN Reason: Pain, Severe (7-10) Naloxone HCl (Narcan) 0.2 mg IV Q2MIN PRN PRN Reason: Opiate Reversal Ondansetron HCl (Zofran) 4 mg IV Q6HR PRN PRN Reason: Nausea And Vomiting Ondansetron HCl (Zofran) 4 mg IV Q4H PRN PRN Reason: Nausea And Vomiting Discontinued Medications Sodium Chloride (Normal Saline 0.9%) 1,000 mls @ 1,000 mls/hr IV BOLUS ONE Stop: 03/03/19 09:37 Last Infusion: 03/03/19 11:16 Dose: 0 mls/hr Admin: 03/03/19 09:00 Dose: 1,000 mls/hr Sodium Chloride (Normal Saline 0.9%) 1,000 mls @ 1,000 mls/hr IV BOLUS ONE Stop: 03/03/19 09:37 Last Admin: 03/03/19 11:17 Dose: 200 mls/hr Ondansetron HCl (Zofran) 4 mg IV NOW ONE Stop: 03/03/19 08:09 Last Admin: 03/03/19 08:47 Dose: 4 mg Ondansetron HCl (Zofran) 4 mg IV NOW ONE Stop: 03/03/19 08:39 Last Admin: 03/03/19 10:33 Dose: 4 mg Ondansetron HCl (Zofran) 4 mg IV Q8HR PRN PRN Reason: Nausea And Vomiting Last Admin: 03/03/19 13:04 Dose: 4 mg Vital Signs - 8 hr 03/03/19 11:55 03/03/19 12:01 03/03/19 15:45 Temperature 98.1 F 98.3 F Pulse Rate 76 82 90 Respiratory Rate 17 18 Blood Pressure 138/67 102/64 Blood Pressure [Left Arm] 129/72 Pulse Oximetry 99 100 98 03/03/19 16:00 Temperature Pulse Rate Respiratory Rate Blood Pressure Blood Pressure [Left Arm] Pulse Oximetry 96 MDM - Nausea/Vomiting/Diarrhea Lab Data Attestation: I reviewed the patient's lab results. Result diagrams: 03/03/19 08:46 03/03/19 08:46 Lab Results 03/03/19 03/03/19 03/03/19 Range/Units 08:46 08:46 09:58 WBC 7.0 (4.5-11.0) X10^3/uL RBC 4.49 (4.0-5.2) X10^6/uL Hgb 13.4 (12.0-16.0) g/dL Hct 39.7 (36-46) % MCV 88.4 (80-100) fL MCH 29.8 (26-34) PG MCHC 33.7 (30-36) % RDW 12.8 (11.6-14.8) % Plt Count 175 (150-400) X10^3/uL Neut % (Auto) 85.3 H (50-75) % Lymph % (Auto) 6.4 L (25-40) % [place] % (Auto) 7.0 (3-14) % Eos % (Auto) 0.9 L (2-4) % Baso % (Auto) 0.4 (0-2) % Neut # (Auto) 5900 (2035-2325) /uL Lymph # (Auto) 400 L (0907-3167) /uL [place] # (Auto) 500 (0-900) /uL Eos # (Auto) 100 (0-450) /uL Baso # (Auto) 0 (0-100) /uL Sodium 139 (137-145) mmol/L Potassium 3.9 (3.4-5.1) mmol/L Chloride 102 (98-107) mmol/L Carbon Dioxide 28 (22-32) mmol/L BUN 21 H (7-17) mg/dL Creatinine 0.80 (0.52-1.04) mg/dL Estimated GFR > 60.0 (>60) mL/min BUN/Creatinine Ratio 26.3 H (6-22) Glucose 132 H (80-110) mg/dL Lactate 0.9 (0.7-2.1) mmol/L Calcium 9.8 (8.4-10.2) mg/dL Total Bilirubin 0.8 (0.2-1.3) mg/dL AST 25 (14-36) IU/L ALT 25 (9-52) IU/L Alkaline Phosphatase 99 (38-126) U/L Total Protein 7.2 (6.3-8.2) g/dL Albumin 4.7 (3.5-5.0) g/dL Globulin 2.5 (1.7-4.1) g/dL Albumin/Globulin Ratio 1.9 (1.0-2.8) Lipase 191 (23-300) U/L Urine RBC (0-5/HPF) Urine WBC (0-5/HPF) Urine Bacteria (None) Ur Culture Indicated? 03/03/19 Range/Units 10:20 WBC (4.5-11.0) X10^3/uL RBC (4.0-5.2) X10^6/uL Hgb (12.0-16.0) g/dL Hct (36-46) % MCV (80-100) fL MCH (26-34) PG MCHC (30-36) % RDW (11.6-14.8) % Plt Count (150-400) X10^3/uL Neut % (Auto) (50-75) % Lymph % (Auto) (25-40) % [place] % (Auto) (3-14) % Eos % (Auto) (2-4) % Baso % (Auto) (0-2) % Neut # (Auto) (2544-1941) /uL Lymph # (Auto) (2449-3668) /uL [place] # (Auto) (0-900) /uL Eos # (Auto) (0-450) /uL Baso # (Auto) (0-100) /uL Sodium (137-145) mmol/L Potassium (3.4-5.1) mmol/L Chloride (98-107) mmol/L Carbon Dioxide (22-32) mmol/L BUN (7-17) mg/dL Creatinine (0.52-1.04) mg/dL Estimated GFR (>60) mL/min BUN/Creatinine Ratio (6-22) Glucose (80-110) mg/dL Lactate (0.7-2.1) mmol/L Calcium (8.4-10.2) mg/dL Total Bilirubin (0.2-1.3) mg/dL AST (14-36) IU/L ALT (9-52) IU/L Alkaline Phosphatase (38-126) U/L Total Protein (6.3-8.2) g/dL Albumin (3.5-5.0) g/dL Globulin (1.7-4.1) g/dL Albumin/Globulin Ratio (1.0-2.8) Lipase (23-300) U/L Urine RBC 0-1/hpf (0-5/HPF) Urine WBC 1-5/hpf (0-5/HPF) Urine Bacteria None seen (None) Ur Culture Indicated? Specimen cultured Point of Care Testing Glucose POC 130 Urine Dip Bedside Urine Glucose Negative Bedside Urine Bilirubin - Negative Bedside Urine Ketone - Negative Urine Specific [place] 1.015 Bedside Urine Occult Blood - Negative Bedside Urine pH 6.5 Bedside Urine Protein +/- 15 Bedside Urine Urobilinogen - Negative Bedside Urine Nitrite - Negative Bedside Urine Leukocytes +/- [address] scan - abdomen: Radiologist's impression: [place] [address] CT Scan Report Signed Patient: Davina Barrett CMR#: [id number] : [id number]:[id number] Age/Sex: 73 / FDate of Service: 03/03/19 Loc: ED Accession Number: [id number] Procedure: CT abdomen pelvis w con Ordering Provider: Linda Hobbs D.O. PROCEDURE: CT ABDOMEN PELVIS W CON INDICATIONS: diarrhea x 5 days, vomiting last night, abdominal steph TECHNIQUE: After the administration of intravenous contrast, 5 mm thick sections acquired from the diaphragm to the symphysis. 5 mm coronal and sagittal reformats were acquired. For radiation dose reduction, the following was used: automated exposure control, adjustment of mA and/or kV according to patient size. COMPARISON: [facility], CT, CT KIDNEY URETER BLADDER (KUB), 01/09/2019, 14:42. FINDINGS: Image quality: Excellent. ABDOMEN: Lung bases: Lung bases are clear. Heart size is normal. Solid organs: Liver is normal in size and enhancement. Gallbladder is unr emarkable. Biliary system is non dilated. Pancreas enhances normally. Spleen is normal in size and enhancement. No adrenal nodules. Kidneys demonstrate normal size and enhancement, without hydronephrosis. Peritoneum and bowel: Stomach is moderately distended with gas and fluid. The distal duodenum and the proximal jejunum are dilated and filled with fluid. Additionally, some of the dilated duodenum is filled with solid appearing stool. A focal transition point is present within the left lower quadrant (series 2, image 60 and series 4, image 29). The downstream small bowel is decompressed. The colon is decompressed. The appendix is thin walled. Trace of low-density fluid is present within the pelvis. Nodes and vessels: No retroperitoneal or mesenteric adenopathy by size criteria. Aorta and inferior vena cava are normal in size. Scattered atheromatous calcifications are present throughout the abdominal aorta. Miscellaneous: No ventral hernias. PELVIS: Genitourinary: Bladder wall thickness is normal. The uterus and ovaries are grossly unremarkable. Miscellaneous: No inguinal hernias or adenopathy. Bones: No suspicious bony lesions. No vertebral body compression fractures. IMPRESSION: 1. Small bowel obstruction with a focal transition point in the left lower quadrant. This finding was discussed with Dr. Hobbs at 8:56 AM on 03/03/19. Dictated by: Jaye Enriquez M.D. on 03/03/2019 at 8:52 Approved by: Jaye Enriquez M.D. on 03/03/2019 at 8:57 MDM Narrative Medical decision making narrative: Patient has normal, lactate is pending. CT shows a small bowel obstruction with a focal point transition in left lower quadrant. There is thickening, per Radiology they state that it could potentially be cancerous but they are unable to pull up old images for comparison. Discussed with patient she has not been able to keep anything down since last night. She has had very small amounts of diarrhea. I spoke with Dr. Wilkerson who is covering for primary care and he accepts for admission. He will write orders. Discharge Plan Departure Patient Disposition: Admitted As Inpatient Clinical Impression: Bowel obstruction Discharge Date/Time: 03/03/19 11:56 Interventions: ED Discharge Assessment Last Done: 03/03/19 11:56 Admit Date/Time: 03/03/19 10:47 Admit Provider: Dakota Wilkerson
[2019-03-03] MEDS: ONDANSETRON 4 MG/2 ML INJ IV ×4 (08:47→20:43)
[2019-03-03 08:56] LABS: Add Manual Diff / Slide Review NO; Basophils Absolute Auto 0 /uL (0-100); Basophils Percent Auto 0.4 % (0-2); Eosinophils Absolute Auto 100 /uL (0-450); Eosinophils Percent Auto 0.9 % (2-4); Hematocrit 39.7 % (36-46); Hemoglobin 13.4 g/dL (12.0-16.0); Lymphocytes Absolute Auto 400 /uL (1100-4500); Lymphocytes Percent Auto 6.4 % (25-40); Mean Corpuscular HGB Conc 33.7 % (30-36); Mean Corpuscular Hemoglobin 29.8 PG (26-34); Mean Corpuscular Volume 88.4 fL (80-100); Monocytes Absolute Auto 500 /uL (0-900); Neutrophils Absolute Auto 5900 /uL (1500-7000); Neutrophils Percent Auto 85.3 % (50-75); Platelet Count 175 X10^3/uL (150-400); Red Blood Cell Count 4.49 X10^6/uL (4.0-5.2); Red Cell Distribution Width 12.8 % (11.6-14.8)
[2019-03-03] MEDS: SODIUM CHLORIDE 0.9% 1,000 ML 1000 ML IV (09:00)
[2019-03-03 09:07] LABS: Alanine Aminotransferase 25 IU/L (9-52); Albumin 4.7 g/dL (3.5-5.0); Albumin Globulin Ratio 1.9 (1.0-2.8); Alkaline Phosphatase 99 U/L (38-126); Aspartate Aminotransferase 25 IU/L (14-36); BUN Creatinine Ratio 26.3 (6-22); Bilirubin Total 0.8 mg/dL (0.2-1.3); Blood Urea Nitrogen 21 mg/dL (7-17); Calcium 9.8 mg/dL (8.4-10.2); Carbon Dioxide 28 mmol/L (22-32); Chloride 102 mmol/L (98-107); Estimated Glomerular Filt Rate > 60.0 mL/min (>60); Globulin 2.5 g/dL (1.7-4.1); Glucose 132 mg/dL (80-110); HEMOLYSIS < 15 (0-50); Lipase 191 U/L (23-300); Potassium 3.9 mmol/L (3.4-5.1); Sodium 139 mmol/L (137-145); Total Protein 7.2 g/dL (6.3-8.2)
[2019-03-03 10:22] LABS: Bacteria Urine None Seen
[2019-03-03 10:27] LABS: Lactate (Lactic Acid) 0.9 mmol/L (0.7-2.1)
--- NOTE | 2019-03-03 10:40 | P.HP_ITS ---
History of Present Illness Date Patient Seen: 03/03/19 Time Patient Seen: 10:32 Chief complaint: vomitting Narrative: 73-year-old female, normally a patient of Dr. Blackwell, presented to the [facility] emergency department with 5 days of initially diarrhea followed by vomiting and abdominal pain. The vomiting and abdominal pain started yesterday and continued into today the day of admission. Denies any fever chills. Denies any darkness to her stool or red blood per rectum. Has co ntinued to produce urine although the feels like it is somewhat concentrated or darker than usual. Apparently longstanding history of intermittent abdominal symptoms including abdominal pain and intermittent diarrhea. This has been going on for several months which changes in bowels. May be diminished appetite. She has reported some reflux type symptoms and recently been started on treatment for that which is new for her as well. She wonders about some connection between all of those GI disturbances over the last several months and her current condition. In the Emergency department she was evaluated, and felt to have evidence of a bowel obstruction which was confirmed with CT scanning. She admitted for management of her at least partial bowel obstruction (still producing stool so not complete) by making her NPO with IV fluids and IV antiemetics and/or and gastric decompression if necessary. Patient History Medical History Essential hypertension (Chronic 05/10/17) Hyperlipidemia (Chronic 05/10/17) Morbid obesity (Chronic 09/13/17) Malignant neoplasm of breast (Inactive 09/13/17) IBS (irritable bowel syndrome) (Chronic) Osteopenia (Chronic) Lymphedema (Chronic 05/10/17) Primary osteoarthritis of both knees (Chronic 09/13/17) Cataract (Chronic 2016) Hayfever (Chronic) Shoulder pain (Chronic 2014) Tinnitus (Chronic) Breast cancer (Resolved 1990) Chicken pox (Resolved ~1949) Diverticulitis (Resolved 2014) History of heavy periods (Resolved) Measles (Resolved ~1949) Mumps (Resolved 1960) Neutropenia (Resolved 2013) Rosacea (Resolved) Skin cancer (Resolved 02/2017) Thyroid nodule (Resolved 2013) Gout (Inactive) Surgical History Anesthesia (Resolved) History of eye surgery (Inactive ~1950) History of toe surgery (Inactive 1994) History of tonsillectomy (Inactive ~1961) Status post delivery (Inactive 01/01/83) Status post partial mastectomy (Inactive 11/05/13) Status post partial mastectomy (Inactive 09/07/90) Family History Father Heart disease Hypertension High cholesterol Stroke Grandfather Heart disease Grandmother Heart disease Diabetes mellitus Pneumonia CAD (coronary artery disease) Mother Cancer Heart disease Head and neck cancer Grandmother Heart disease Heart attack Grandfather Lung cancer Social History Smoking Status: Never smoker alcohol intake: current substance use type: does not use Family & Social History Family History Father Heart disease Hypertension High cholesterol Stroke Grandfather Heart disease Grandmother Heart disease Diabetes mellitus Pneumonia CAD (coronary artery disease) Mother Cancer Heart disease Head and neck cancer Grandmother Heart disease Heart attack Grandfather Lung cancer Safety & Behavioral: Feels Safe in Current Yes Environment Been Physically Hurt or No Threatened By a Person Tobacco & Substance use: Smoking Status Never smoker alcohol intake current alcohol intake frequency a few times a month Substance Use Type does not use Meds Home Medications Medication Instructions Recorded Confirmed Type albuterol sulfate [Ventolin HFA] 2 puff INH QIDP PRN #1 inh 12/27/16 02/06/19 Rx anastrozole 1 mg PO QDAY #0 12/27/16 02/06/19 History aspirin 81 mg PO QDAY #0 12/27/16 02/06/19 History cholecalciferol (vitamin D3) 2,000 unit PO #0 12/27/16 02/06/19 History [Vitamin D3] citalopram 20 mg PO QDAY #0 12/27/16 02/06/19 History folic acid 1 mg PO QDAY #0 12/27/16 02/06/19 History metoprolol succinate [Toprol XL] 25 mg PO QDAY #0 12/27/16 02/06/19 History multivitamin [Multiple Vitamins] 1 tab PO QDAY #0 12/27/16 02/06/19 History olmesartan [Benicar] 20 mg PO QDAY #0 12/27/16 02/06/19 History rosuvastatin [Crestor] 5 mg PO SEE INSTRUCTIONS #0 12/27/16 02/06/19 History estradiol [Vagifem] 10 mcg VG #0 05/10/17 02/06/19 History Allergies Allergy/AdvReac Type Severity Reaction Status Date / Time Penicillins [PENICILLINS] Allergy Unknown Verified 03/03/19 08:19 shellfish derived Allergy Unknown Verified 03/03/19 08:19 [SHELLFISH DERIVED] vancomycin [VANCOMYCIN] Allergy Unknown Verified 03/03/19 08:19 Review of Systems Constitutional Constitutional: Denies excessive sweating, Denies fever(s), Denies headache(s), Denies weakness, Denies weight gain and Denies weight loss Eyes Eyes: Denies change in vision, Denies itchy eyes, Denies loss of vision and Denies other visual disturbances ENT Ears, Nose, Mouth, and Throat: No headache(s) and No neck pain Cardiovascular Cardiovascular: Denies chest pain, Denies fainting, Denies fast heart rate, Denies irregular heart rhythm, Denies rapid, pounding, or irregular heartbeat, Denies shortness of breath, Denies shortness of breath with activity and Denies slow heart rate Respiratory Respiratory: Denies dyspnea and Denies dyspnea on exertion Genitourinary Genitourinary: Denies hematuria, Denies urinary frequency and Denies difficulty voiding Musculoskeletal Musculoskeletal: Denies abnormal gait, Denies myalgias, Denies arthralgias, Denies limited range of motion and Denies neck pain Neurologic Neurologic: Denies abnormal gait, Denies behavioral changes, Denies confusion, Denies syncope, Denies headache(s), Denies loss of vision, Denies memory loss and Denies weakness Psychiatric Psychiatric: Denies behavioral changes, Denies change in appetite, Denies confusion, Denies difficulty concentrating and Denies memory loss Endocrine Endocrine: Denies excessive sweating and Denies palpitations Hematologic/Lymphatic Hematologic/Lymphatic: Denies easy bleeding, Denies easy bruising and Denies lymphadenopathy Allergic/Immunologic Allergic/Immunologic: Denies itchy eyes Exam Vital Signs (past 8 hours): - 03/03/19 08:16 03/03/19 08:58 03/03/19 09:19 Temperature 98.0 F 98.1 F Pulse Rate 70 72 73 Respiratory Rate 18 20 18 Blood Pressure 146/83 H Blood Pressure [Left Arm] 138/81 125/54 L Pulse Oximetry 98 97 97 Oxygen Delivery Method Room Air Const General: cooperative, healthy appearing, comfortable, well developed and well groomed Nutritional Appearance: well nourished Orientation: alert, awake and oriented x3 [facility] Head: normocephalic, atraumatic, No cyanosis of lips/distal nose, No raccoon eyes and No periorbital ecchymosis Ears: hearing grossly normal bilaterally and external ears normal Nose: external nose normal and nares normal Face and sinus: normal facial exam and face symmetric Mouth: oral mucosae normal, lip normal and tongue normal Eyes Alignment and Position: alignment normal Eyelids: eyelids normal Sclera: sclerae normal Cornea: corneas normal Pupils: PERRL EOM: EOM intact bilaterally Neck Neck: normal visual inspection, full ROM and trachea midline Thyroid: not diffusely enlarged Carotids: normal carotid upstroke Lymphatic: No lymphadenopathy Chest Chest: normal inspection of the chest, No crepitus and No tenderness Resp Effort & Inspection: normal respiratory effort, able to speak in complete sentences, no audible wheezes, no cough, no retractions and not tachypneic Auscultation: clear to auscultation bilaterally, no rales, no rhonchi and no wheezes Cardio Palpation: normal PMI Rate: regular rate Rhythm: regular rhythm Heart Sounds: S1 normal, S2 normal and normal, physiologic split S2 Bruits: no carotid bruits Pulses: radial pulses present GI Inspection: distended (Minimal versus obesity difficult to differentiate) and obesity Palpation: soft and no hepatosplenomegaly Percussion: normal to percussion Auscultation: absent bowel sounds Back/Spine/Pelvis Back: No CVA tenderness Cervical Spine: normal cervical lordosis Thoracic/Lumbar Spine: thoracic and lumbar spine normal to inspection Skin General: no rashes or lesions noted, No excoriations, No induration, No jaundice, No mottling and No petechiae Lesions: no lesions (no worrisome/abl lesions) Rashes: no rashes Trauma: no lacerations or abrasions Wounds: no wounds Hair: normal Neuro General: alert, awake, oriented x3, tone normal and normal light touch, pain and propioception Cranial Nerves: CN's II-XI intact bilaterally Cognition: normal cognition Speech: speech normal Motor: muscle tone normal throughout Sensory Exam: no sensory deficits noted DTR's: Rt Biceps: 2+, Lt Biceps: 2+, Rt Brachioradialis: 2+, Lt Brachioradialis: 2+, Rt Patellar: 2+ and Lt Patellar: 2+ Extrem General: normal to inspection, no clubbing, cyanosis or edema and No calf tende rness Right upper extremity: normal to inspection Left upper extremity: normal to inspection Right lower extremity: normal to inspection Left lower extremity: normal to inspection Psych Appearance: grossly normal Mental Status: mental status grossly normal Speech and Movement: speech and movement normal and speech clear Mood: congruent mood Affect: normal affect Attitude: cooperative Thought Process: normal Thought Content: normal Judgment: judgment good Objective Labs Result Diagrams: 03/03/19 08:46 03/03/19 08:46 Labs: Laboratory Results - last 24 hr 03/03/19 03/03/19 03/03/19 08:46 08:46 09:58 WBC 7.0 RBC 4.49 Hgb 13.4 Hct 39.7 MCV 88.4 MCH 29.8 MCHC 33.7 RDW 12.8 Plt Count 175 Neut % (Auto) 85.3 H Lymph % (Auto) 6.4 L [place] % (Auto) 7.0 Eos % (Auto) 0.9 L Baso % (Auto) 0.4 Neut # (Auto) 5900 Lymph # (Auto) 400 L [place] # (Auto) 500 Eos # (Auto) 100 Baso # (Auto) 0 Sodium 139 Potassium 3.9 Chloride 102 Carbon Dioxide 28 BUN 21 H Creatinine 0.80 Estimated GFR > 60.0 BUN/Creatinine Ratio 26.3 H Glucose 132 H Lactate 0.9 Calcium 9.8 Total Bilirubin 0.8 AST 25 ALT 25 Alkaline Phosphatase 99 Total Protein 7.2 Albumin 4.7 Globulin 2.5 Albumin/Globulin Ratio 1.9 Lipase 191 Assessment & Plan Assessment & Plan narrative: 1. Small bowel obstruction-this appears to be partial at this point. Only a bdominal surgery was a in the past. It appears she has a partial small-bowel obstruction and at this time she does not appear to need an NG tube for decompression. She should be maintained NPO with supplemental IV fluids and antiemetics Will follow her along clinically perhaps repeat imaging depending on clinical course. If it seems like she has resolved or resolving her symptoms then a cautious trial of refeeding with liquids etc would be appropriate. Difficult to connect her current presentation with partial small-bowel obstruction with her previous constellation of GI symptoms over several months including diarrhea GERD etc. perhaps there is some underlying issue that cause those symptoms and has now resulted in a bowel obstruction. That is not clearly present at this t diann based on initial workup via the ED including her abdominal CT scan but has worth considering depending on patient's clinical course 2. Hypertension-patient on multiple antihypertensives including beta-alessandra therapy. I am going to leave her NPO for now including keeping her off her medications. Will use IV metoprolol as necessary for hypertension and/or rebound tachycardia although her baseline dose of metoprolol orally is relatively small and in my opinion this is unlikely become an issue 3. Breast cancer-patient also on hormonal therapy following breast cancer diagnosis. No evidence of active breast cancer or other breast cancer related to her primary reason for admission but she will need to remain NPO off meds for the moment however soon she is taking orals again will resume her usual medications 4. DVT prophylaxis-Lovenox will be employed 5. Code status-patient appropriate for full code as requested Overall patient desires inpatient hospitalization given the nature of her disease (bowel obstruction) need for IV fluids IV antiemetics careful monitoring etc. She likely will be in the hospital greater than 48 hours to include 2 separate midnights
[2019-03-03 10:41] LABS: Culture Indicated Urine Specimen Cultured; RBC Urine 0-1/HPF (0-5/HPF); WBC Urine 1-5/HPF (0-5/HPF)
[2019-03-03] MEDS: SODIUM CHLORIDE 0.9% 1,000 ML 200 ML IV (11:17)
--- NOTE | 2019-03-03 11:18 | PC.NURSE ---
Dr. Hobbs requested Normal Saline bag # 2, to be decreased to 200 cc hour
[2019-03-03] MEDS: DEXTROSE 5%-0.9% NS 1,000 ML 125 ML IV ×2 (13:04→20:46)
[2019-03-03] MEDS: HYDROMORPHONE 1 MG INJ IV (13:37)
--- NOTE | 2019-03-03 15:31 | PC.NURSE ---
Admit: Arrived to room 210 at 1200. Ambulated into BR (1 unmeasured void), then into bed. NPO status reiterated, given oral swabs and chapstick. BT+, very hypoactive. Denies flatus. Abd soft, uncomfortable all over. C/O nausea, no emesis. Medicated with Zofran for nausea. She was C/O nausea about 2 hours after last dose of Zofran. Dr Wilkerson paged, still awaiting call back, to ask about changing anti-emetic orders. Patient did not like the way the IV Dilaudid made her feel, so plan to ask Dr Wilkerson if there is another pain med option we could try. Eboni sabillon RN aware of page out to Dr Wilkerson. Able to make needs known and calls appropriately. Light in reach, bed alarm on.
[2019-03-03] MEDS: MORPHINE 2 MG/ML INJ 1 MG IV (21:21)
[2019-03-04] VITALS (8 sets, daily range): BP systolic 126–156; BP diastolic 59–86; PULSE 73–81; RESP 16–18; TEMP 36.6–37.2; O2SAT 95–98
[2019-03-04] MEDS: ONDANSETRON 4 MG/2 ML INJ IV ×2 (04:09→08:06)
[2019-03-04] MEDS: DEXTROSE 5%-0.9% NS 1,000 ML 125 ML IV ×3 (05:43→21:07)
[2019-03-04 05:46] LABS: Add Manual Diff / Slide Review NO; Basophils Absolute Auto 0 /uL (0-100); Basophils Percent Auto 0.3 % (0-2); Eosinophils Absolute Auto 0 /uL (0-450); Eosinophils Percent Auto 0.8 % (2-4); Hematocrit 33.2 % (36-46); Hemoglobin 11.3 g/dL (12.0-16.0); Lymphocytes Absolute Auto 400 /uL (1100-4500); Lymphocytes Percent Auto 8.1 % (25-40); Mean Corpuscular HGB Conc 33.9 % (30-36); Mean Corpuscular Volume 88.4 fL (80-100); Monocytes Absolute Auto 600 /uL (0-900); Monocytes Percent Auto 11.1 % (3-14); Neutrophils Absolute Auto 4000 /uL (1500-7000); Neutrophils Percent Auto 79.7 % (50-75); Platelet Count 147 X10^3/uL (150-400); Red Blood Cell Count 3.76 X10^6/uL (4.0-5.2); Red Cell Distribution Width 13.5 % (11.6-14.8)
[2019-03-04 06:11] LABS: BUN Creatinine Ratio 21.4 (6-22); Blood Urea Nitrogen 15 mg/dL (7-17); Calcium 8.8 mg/dL (8.4-10.2); Carbon Dioxide 28 mmol/L (22-32); Chloride 106 mmol/L (98-107); Estimated Glomerular Filt Rate > 60.0 mL/min (>60); Glucose 123 mg/dL (80-110); HEMOLYSIS < 15 (0-50); Potassium 3.6 mmol/L (3.4-5.1); Sodium 139 mmol/L (137-145)
[2019-03-04] MEDS: ENOXAPARIN 40 MG/0.4 ML SYRINGE SUBCUT (07:58)
--- NOTE | 2019-03-04 11:05 | PM.PN.1 ---
Subjective Date Patient Seen: 03/04/19 Time Patient Seen: 10:05 Interval history: Patient Is lying in bed comfortably. She tells me that she is no worse than yesterday. Was up to the bathroom and had 2 small stools this morning and is passing infrequent gas. Continues to feel nauseous. However has not vomited. She is accumulating fluid in her upper extremities secondary to post mastectomy lymphedema. She does have upper extremity compression sleeves which she does not have on at this point in time. Has had no shortness of breath. Did respond well to a very low dose of hydromorphone last night. Tells me that it works much better than the morphine which makes her very nauseous. She would like to go forward with the hydromorphone. Exam Vital Signs (past 8 hours): - 03/04/19 05:00 03/04/19 08:27 03/04/19 08:34 Temperature 98.6 F 98.4 F Pulse Rate 75 76 Respiratory Rate 16 16 Blood Pressure 143/67 H 126/86 Pulse Oximetry 97 95 97 Oxygen Delivery Method Room Air Oxygen Flow Rate 0 Narrative Exam Narrative: General: Well-developed, well-nourished, female, no acute distress. Heart: Regular rate and rhythm, no obvious murmurs appreciated Lungs: Clear to auscultation bilaterally, no wheezes, rales or rhonchi Abd: BS+, heard in all 4 quadrants, soft, LLQ tenderness to palpation, nondistended, no rebound, no guarding Extremities: Warm and well perfused, mild nonpitting edema to both her upper and lower extremities, she does have stasis dermatitis changes in the gaiter area Objective Labs Result Diagrams: 03/04/19 05:20 03/04/19 05:20 Labs: Laboratory Results - last 24 hr 03/04/19 03/04/19 05:20 05:20 WBC 5.0 RBC 3.76 L Hgb 11.3 L Hct 33.2 L MCV 88.4 MCH 30.0 MCHC 33.9 RDW 13.5 Plt Count 147 L Neut % (Auto) 79.7 H Lymph % (Auto) 8.1 L [place] % (Auto) 11.1 Eos % (Auto) 0.8 L Baso % (Auto) 0.3 Neut # (Auto) 4000 Lymph # (Auto) 400 L [place] # (Auto) 600 Eos # (Auto) 0 Baso # (Auto) 0 Sodium 139 Potassium 3.6 Chloride 106 Carbon Dioxide 28 BUN 15 Creatinine 0.70 Estimated GFR > 60.0 BUN/Creatinine Ratio 21.4 Glucose 123 H Calcium 8.8 Assessment & Plan Assessment & Plan narrative: 1. Small bowel obstruction-which continues to appear to be partial. Only abdominal surgery was a in the past. We discussed NG tube placement which I do not feel is necessary at this time. She is no worse today so I believe that observation is appropriate. Will continue to monitor for need an NG tube for decompression. She should be maintained NPO with supplemental IV fluids and antiemetics. Will follow her along clinically perhaps repeat imaging depending on clinical course. If it seems like she has resolved or resolving her symptoms then a cautious trial of refeeding with liquids etc would be appropriate. Difficult to connect her current presentation with partial small-bowel obstruction with her previous constellation of GI symptoms over several months including diarrhea GERD etc. perhaps there is some underlying issue that cause those symptoms and has now resulted in a bowel obstruction. That is not clearly present at this time based on initial workup via the ED including her abdominal CT scan but has worth considering depending on patient's clinical course 2. Hypertension-patient on multiple antihypertensives including beta-alessandra therapy. Continue NPO for now including keeping her off her medications. Has been normotensive but has IV metoprolol as necessary for hypertension and/or rebound tachycardia. 3. Breast cancer-patient also on hormonal therapy following breast cancer diagnosis. No evidence of active breast cancer or other breast cancer related to her primary reason for admission but she will need to remain NPO off meds for the moment however soon she is taking orals again will resume her usual medications. 4. Lymphedema. use sleeves. PT for lymphatic massage. 5. DVT prophylaxis-Lovenox will be employed 6. Code status-patient appropriate for full code as requested Overall patient desires inpatient hospitalization given the nature of her disease (bowel obstruction) need for IV fluids IV antiemetics careful monitoring etc. She likely will be in the hospital another 48 hours. Quality VTE Deep Vein Thrombosis/Pulmonary Embolism Present on Admission: No
--- NOTE | 2019-03-04 11:51 | CM.DANOTE ---
DCP: Case received, EMR reviewed and met with patient. , Agustín, also at bedside. Introduced self and role. Was able to obtain baseline health information from patient. DCP assessment was completed based on information currently available. Patient is a 73 year old female who admitted yesterday morning to the care of the hospitalist team. PCP: Dr. Blackwell. Payer: confirmed: Medicare/BCBS Out of [facility]. Patient came to the hospital via family vehicle secondary to vomiting, as well as five days of diarrhea. Patient holds diagnosis of partial small bowel obstruction. She is here for IV fluids, as well as antiemetic treatment. Met with patient, in the room. She was sitting on the edge of her bed. Stated, she was starting to feel better. She currently resides here in [place] with her spouse, Agustín. They have both lived here for approximately three years, but are originally from [place]. She stated that her and her spouse have been retired since about 2007. She is independent, stated, this is a new thing for her. She is expecting to see Dr. Gama today to make her rounds. P: DCP to continue to follow closely for any needs. Patient should be able to go home when she is medically stable. Leola Desir RN/Power Distributor
--- NOTE | 2019-03-04 13:59 | PT.IPTN ---
Current Diagnoses Partial intestinal obstruction, unspecified as to cause (03/03/19) Physical Therapy Treatment Note M3 PT-IP Subjective Start: 03/04/19 13:58 Freq: NEEDED Status: Active Protocol: Document 03/04/19 13:58 IJS (Rec: 03/04/19 13:59 IJS [id number]) Subjective Physical Therapy Visit Type Notes Per nursing this patient has already been up walking in the halls with SBA. Will check again in a.m. for PT needs.
[2019-03-05] VITALS (12 sets, daily range): BP systolic 124–181; BP diastolic 63–95; PULSE 56–72; RESP 16–18; TEMP 36.6–37.2; O2SAT 95–99; BMI 41.6
[2019-03-05] MEDS: DEXTROSE 5%-0.9% NS 1,000 ML 125 ML IV (05:05)
[2019-03-05 07:01] LABS: Add Manual Diff / Slide Review NO; Basophils Absolute Auto 0 /uL (0-100); Basophils Percent Auto 0.7 % (0-2); Eosinophils Absolute Auto 100 /uL (0-450); Eosinophils Percent Auto 2.5 % (2-4); Hematocrit 31.2 % (36-46); Hemoglobin 10.7 g/dL (12.0-16.0); Lymphocytes Absolute Auto 500 /uL (1100-4500); Lymphocytes Percent Auto 16.6 % (25-40); Mean Corpuscular HGB Conc 34.2 % (30-36); Mean Corpuscular Hemoglobin 30.2 PG (26-34); Mean Corpuscular Volume 88.4 fL (80-100); Monocytes Absolute Auto 400 /uL (0-900); Monocytes Percent Auto 13.5 % (3-14); Neutrophils Absolute Auto 1900 /uL (1500-7000); Neutrophils Percent Auto 66.7 % (50-75); Platelet Count 119 X10^3/uL (150-400); Red Blood Cell Count 3.53 X10^6/uL (4.0-5.2); White Blood Cell Count 2.8 X10^3/uL (4.5-11.0)
--- NOTE | 2019-03-05 07:01 | PC.NURSE ---
Pt's second stooling of the night was guaiac positive.
[2019-03-05 07:11] LABS: BUN Creatinine Ratio 15.7 (6-22); Blood Urea Nitrogen 11 mg/dL (7-17); Calcium 8.5 mg/dL (8.4-10.2); Carbon Dioxide 27 mmol/L (22-32); Chloride 111 mmol/L (98-107); Estimated Glomerular Filt Rate > 60.0 mL/min (>60); Glucose 98 mg/dL (80-110); HEMOLYSIS < 15 (0-50); Potassium 3.3 mmol/L (3.4-5.1); Sodium 140 mmol/L (137-145)
[2019-03-05] MEDS: METOPROLOL TARTRATE 5 MG/5 ML INJ IV (08:35)
--- NOTE | 2019-03-05 08:43 | DI.RAD.S_ITS ---
PROCEDURE: FL SMALL BOWEL FOLLOW THROUGH INDICATIONS: sbo COMPARISON: [facility], CT, CT ABDOMEN PELVIS W CON, 03/03/2019, 9:16. FINDINGS: KUB: Preprocedural outdoor adventure leader film demonstrates a normal bowel gas pattern except for slight prominence of small bowel at the left upper quadrant, also seen on prior CT scanning 03/03/19. No suspicious abdominal calcifications. Visualized solid organ contours appear normal. No suspicious bony abnormalities. Small bowel: There is normal transit time of barium through the small bowel and into the colon, under 2 hours. Small bowel loops are of normal caliber throughout. Mucosal folds are smooth and of normal thickness. No strictures, intraluminal masses, or extrinsic mass effects are noted. The terminal ileum is identified, and is normal in morphology. IMPRESSION: Resolution of high-grade small bowel obstruction pattern, no delay in transit of oral contrast into the colon. Followup CT or MR enterography may be warranted for more accurate assessment of the area of suspected transition point at the left lower quadrant, seen on CT scan in 03/03/19. Dictated by: Jaime Masters M.D. on 03/05/2019 at 12:19 Approved by: Jaime Masters M.D. on 03/05/2019 at 12:23
[2019-03-05 08:56] LABS: Magnesium 1.9 mg/dL (1.6-2.3)
--- NOTE | 2019-03-05 09:51 | PM.PN.1 ---
Subjective Date Patient Seen: 03/05/19 Time Patient Seen: 08:00 Interval history: Patient reports she is feeling better this morning compared to admission but still nauseated and uncomfortable in her abdomen. No further emesis. She did have 3 loose stools yesterday and 2 liquid stools this morning. No tiffany blood however last stool this morning was guaiac positive. Last colonoscopy was reportedly in 2014 and normal however recommended follow-up interval was 5 years due to her history of breast cancer. Denies black tarry stools recently or bright red bleeding. Her main complaint this morning is thirsty and her desire to drink some water. Exam Vital Signs (past 8 hours): - 03/05/19 05:31 03/05/19 08:00 03/05/19 08:05 Temperature 98.1 F 97.8 F Pulse Rate 71 66 Respiratory Rate 17 16 Blood Pressure 162/95 H 181/81 H Pulse Oximetry 98 98 98 Oxygen Delivery Method Room Air Oxygen Flow Rate 0 Narrative Exam Narrative: General: Obese older woman. Awake and alert, no acute distress. HEENT: NCAT, EOMI, moist oral mucosa CV: Regular rate and rhythm, no murmurs Lungs: CTAB, no wheezes, rales, or rhonchi Abdomen: Large, obese abdomen. Few bowel tones though bowel tones are present. Tympanic to percussion and upper abdomen. Tender to palpation in left upper quadrant without guarding. Extremities: Warm, trace edema bilateral lower extremities. Objective Labs Result Diagrams: 03/05/19 06:45 03/05/19 06:45 Labs: Laboratory Results - last 24 hr 03/05/19 03/05/19 03/05/19 06:45 06:45 06:45 WBC 2.8 L RBC 3.53 L Hgb 10.7 L Hct 31.2 L MCV 88.4 MCH 30.2 MCHC 34.2 RDW 13.0 Plt Count 119 L Neut % (Auto) 66.7 Lymph % (Auto) 16.6 L [place] % (Auto) 13.5 Eos % (Auto) 2.5 Baso % (Auto) 0.7 Neut # (Auto) 1900 Lymph # (Auto) 500 L [place] # (Auto) 400 Eos # (Auto) 100 Baso # (Auto) 0 Sodium 140 Potassium 3.3 L Chloride 111 H Carbon Dioxide 27 BUN 11 Creatinine 0.70 Estimated GFR > 60.0 BUN/Creatinine Ratio 15.7 Glucose 98 Calcium 8.5 Magnesium 1.9 Assessment & Plan (1) Bowel obstruction: Qualifiers: Intestinal obstruction extent: Intestinal obstruction type: Current visit: Yes Status: Acute (2) Essential hypertension: Current visit: No Status: Chronic (3) Malignant neoplasm of breast: Problem details: 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 Johnston in [place] at [facility], now on anastrozole Current visit: No Status: Inactive (4) Morbid obesity: Current visit: No Status: Chronic Assessment & Plan narrative: 73-year-old female with history of section as well as two separate breast cancers and hypertension admitted with a partial bowel obstruction. She has improved since admission however still is nauseated and uncomfortable. She is passing small amounts of gas and stool suggesting resolution of the obstruction. Due to a decrease in her H and H, stools were guaiaced overnight and the last one returned positive. Patient denies any tiffany blood. I reviewed her CT with Radiology this morning to further inquire as to the thickened segment of colon seen on CT at the transition point of the obstruction. Radiology cannot rule out a malignancy based on the appearance on CT. Consulted Dr. Spaulding who recommended a small-bowel follow-through. He was not particularly concerned about the guaiac-positive stool given the bowel obstruction and the decrease in H&H is almost certainly delusional from IV fluids at this point. Patient's last colonoscopy was in 2014 and reportedly normal. Plan - Small-bowel follow-through today, appreciate consultation by Dr. Spaulding. If normal, no further intervention needed. - Replace potassium and recheck tomorrow - Continue IV metoprolol for blood pressure control, if patient's small-bowel follow-through was normal then will be able to restart her usual meds for hypertension Disposition: Pending results of small-bowel follow-through. May be able to discharge home tomorrow if normal and tolerating a diet. Quality VTE Deep Vein Thrombosis/Pulmonary Embolism Present on Admission: No
--- NOTE | 2019-03-05 10:32 | PT.IIE ---
Current Diagnoses Partial intestinal obstruction, unspecified as to cause (03/03/19) Surgical History (Last Reviewed 03/03/19 @ 10:36 by Dakota Wilkerson MD) Anesthesia (Resolved) History of eye surgery (Inactive ~1950) History of toe surgery (Inactive 1994) History of tonsillectomy (Inactive ~1961) Status post delivery (Inactive 01/01/83) Status post partial mastectomy (Inactive 11/05/13) Status post partial mastectomy (Inactive 09/07/90) Medical History (Last Reviewed 03/03/19 @ 10:36 by Dakota Wilkerson MD) Essential hypertension (Chronic 05/10/17) Hyperlipidemia (Chronic 05/10/17) Morbid obesity (Chronic 09/13/17) Malignant neoplasm of breast (Inactive 09/13/17) IBS (irritable bowel syndrome) (Chronic) Osteopenia (Chronic) Lymphedema (Chronic 05/10/17) Primary osteoarthritis of both knees (Chronic 09/13/17) Cataract (Chronic 2016) Hayfever (Chronic) Shoulder pain (Chronic 2014) Tinnitus (Chronic) Breast cancer (Resolved 1990) Chicken pox (Resolved ~1950) Diverticulitis (Resolved 2014) History of heavy periods (Resolved) Measles (Resolved ~1949) Mumps (Resolved 1960) Neutropenia (Resolved 2013) Rosacea (Resolved) Skin cancer (Resolved 02/2017) Thyroid nodule (Resolved 2013) Gout (Inactive) Physical Therapy Inpatient Evaluation/Re-Eval M1 PT/OT-IP Prior Functional Status Start: 03/04/19 13:58 Freq: NEEDED Status: Active Protocol: Document 03/05/19 10:32 RS (Rec: 03/05/19 10:38 RS [id number]) Medical Review Prior Functional Status Medical History Reviewed Yes Diet/Fluid Consistency Regular Communication no known deficits Mobility and Gait independent Activities of Daily Living and IADL's independent Social History Household Members spouse Living Arrangements House M2 PT-IP Current Condition Start: 03/04/19 13:58 Freq: NEEDED Status: Active Protocol: Document 03/05/19 10:32 RS (Rec: 03/05/19 10:38 RS [id number]) Physical Therapy Current Condition Current Condition Evaluation Date 03/05/19 Treatment Diagnosis deconditioning Onset Date 03/03/19 M3 PT-IP Subjective Start: 03/04/19 13:58 Freq: NEEDED Status: Active Protocol: Document 03/05/19 10:32 RS (Rec: 03/05/19 10:38 RS [id number]) Subjective Physical Therapy Visit Type Type Initial Evaluation Visit Start Time 10:02 Visit Stop Time 10:32 Total Visit Minutes 30 Physical Therapy Visit Comments Patient Goals go home Therapy Pain Assessment Pain When Pain Assessed At Rest Pain Present Pain Present Denied Pain M4 PT-IP Mobility and Gait Start: 03/04/19 13:58 Freq: NEEDED Status: Active Protocol: Document 03/05/19 10:32 RS (Rec: 03/05/19 10:38 RS [id number]) PT-Bed Mobility Assessment Supine to Sit Supine to Sit Independent Sit to Supine Sit to Supine Independent Scooting Scooting to Edge of Bed Independent PT-Transfer Assessment Sit to and From Stand Sit to and from Stand Independent Equipment Transfer Assistive Device None Transfers Transfer Destination Bed Chair Transfer Technique walked Transfer Ability Level of Assist Independent Gait Assessment Gait Gait Assistance Required: Independent PT-Balance Assessment Sitting Balance and Reactions Static Sitting Balance Ability Normal Dynamic Sitting Balance Ability Normal Standing Balance and Reactions Static Standing Balance Ability Normal Dynamic Standing Balance Ability Good Device Used none M5 PT-IP Objective Assessments Start: 03/04/19 13:58 Freq: NEEDED Status: Active Protocol: Document 03/05/19 10:32 RS (Rec: 03/05/19 10:38 RS [id number]) Orientation Orientation/Cognition Level of Alertness Alert Orientation Name Age Birthday Month Date Year Day of Week Place Situation Language Function Ability No Deficits Noted Safety Awareness Understands Safety Issues Memory Description No Deficits Noted Gross Range of Motion Upper Extremity ROM Assessment Within Functional Limits Lower Extremity ROM Assessment Within Functional Limits Strength Upper Extremity Strength Assessment Within Functional Limits Lower Extremity Strength Assessment Within Functional Limits M6 PT-IP Treatment Start: 03/04/19 13:58 Freq: NEEDED Status: Active Protocol: Document 03/05/19 10:32 RS (Rec: 03/05/19 10:38 RS [id number]) Physical Therapy Treatment Education Education Provided Safety M7 PT-IP Assessment and Plan Start: 03/04/19 13:58 Freq: NEEDED Status: Active Protocol: Document 03/05/19 10:32 RS (Rec: 03/05/19 10:38 RS [id number]) PT Summary Assessment and Plan Potential Rehabilitation Potential Good Status of Condition at Evaluation Evolving Summary Progress Towards Goals Safe For Discharge Assessment Summary Pt presents with slight deconditioning but is otherwise completely independent with mobility and near her baseline. Patient will be safe to discharge home once medically ready. Pt has no acute PT goals/needs, therefore, acute PT will sign off with the anticipation that pt will continue to mobilize with staff research scientist encouragement as tolerated while still here. Frequency of Treatment Frequency Of Treatment Discharge Recommendations To Nursing Amount of Assist Needed Independent Discharge Recommendations PT Discharge Recommendations Home
[2019-03-05] MEDS: METOPROLOL ER 25 MG TABLET PO (13:30)
[2019-03-05] MEDS: ONDANSETRON 4 MG/2 ML INJ IV (13:31)
[2019-03-05] MEDS: OLMESARTAN 20 MG TABLET PO (13:31)
[2019-03-05] MEDS: POTASSIUM CHLORIDE 40 MEQ in SODIUM CHLORIDE 0.9% 500 ML 130 ML IV (13:38)
--- NOTE | 2019-03-05 14:23 | PM.CN ---
History of Present Illness Date Patient Seen: 03/05/19 Time Patient Seen: 09:00 Chief complaint: vomitting Reason for consult: Small-bowel obstruction Narrative: 73-year-old woman hospital day 3. Known remote history of section as well as breast cancer. She presented to the hospital with nausea and obstipation consistent with small-bowel obstruction. CT scan demonstrated a transition point of mid jejunum within the left lower quadrant. She was made NPO no nasogastric tube was placed. General surgery was consulted today due to persistent nausea. She reports that in general she is feeling better. By the time I saw her this morning she was passing gas and had had a bowel movement. The time of my discussions with her primary care team -we had placed a nasogastric tube and started her on a Gastrografin challenge. Of note there has been some discussion by her providers whether not her obstruction could constitute a malignant obstruction from metastatic breast cancer. [facility] Medical History Essential hypertension (Chronic 05/10/17) Hyperlipidemia (Chronic 05/10/17) Morbid obesity (Chronic 09/13/17) Malignant neoplasm of breast (Inactive 09/13/17) IBS (irritable bowel syndrome) (Chronic) Osteopenia (Chronic) Lymphedema (Chronic 05/10/17) Primary osteoarthritis of both knees (Chronic 09/13/17) Cataract (Chronic 2016) Hayfever (Chronic) Shoulder pain (Chronic 2014) Tinnitus (Chronic) Breast cancer (Resolved 1990) Chicken pox (Resolved ~1950) Diverticulitis (Resolved 2014) History of heavy periods (Resolved) Measles (Resolved ~1950) Mumps (Resolved 1960) Neutropenia (Resolved 2013) Rosacea (Resolved) Skin cancer (Resolved 02/2017) Thyroid nodule (Resolved 2013) Gout (Inactive) Surgical History Anesthesia (Resolved) History of eye surgery (Inactive ~1950) History of toe surgery (Inactive 1994) History of tonsillectomy (Inactive ~1961) Status post delivery (Inactive 01/01/83) Status post partial mastectomy (Inactive 11/05/13) Status post partial mastectomy (Inactive 09/07/90) Family History Father Heart disease Hypertension High cholesterol Stroke Grandfather Heart disease Grandmother Heart disease Diabetes mellitus Pneumonia CAD (coronary artery disease) Mother Cancer Heart disease Head and neck cancer Grandmother Heart disease Heart attack Grandfather Lung cancer Social History Smoking Status: Never smoker alcohol intake: current substance use type: does not use Family History Father Heart disease Hypertension High cholesterol Stroke Grandfather Heart disease Grandmother Heart disease Diabetes mellitus Pneumonia CAD (coronary artery disease) Mother Cancer Heart disease Head and neck cancer Grandmother Heart disease Heart attack Grandfather Lung cancer Social History household members: spouse Smoking Status: Never smoker alcohol intake: current substance use type: does not use Meds Home Medications Medication Instructions Recorded Confirmed Type albuterol sulfate [Ventolin HFA] 2 puff INH QIDP PRN #1 inh 12/27/16 03/03/19 Rx anastrozole 1 mg PO QDAY #0 12/27/16 03/03/19 History aspirin 81 mg PO QDAY #0 12/27/16 03/03/19 History cholecalciferol (vitamin D3) 2,000 unit PO #0 12/27/16 02/06/19 History [Vitamin D3] citalopram 20 mg PO QDAY #0 12/27/16 03/03/19 History metoprolol succinate [Toprol XL] 25 mg PO QDAY #0 12/27/16 03/03/19 History multivitamin [Multiple Vitamins] 1 tab PO QDAY #0 12/27/16 03/03/19 History olmesartan [Benicar] 20 mg PO QDAY #0 12/27/16 03/03/19 History rosuvastatin [Crestor] 5 mg PO SEE INSTRUCTIONS #0 12/27/16 03/03/19 History estradiol [Vagifem] 10 mcg VG #0 05/10/17 02/06/19 History Allergies Allergy/AdvReac Type Severity Reaction Status Date / Time Penicillins [PENICILLINS] Allergy Unknown Verified 03/03/19 08:19 shellfish derived Allergy Unknown Verified 03/03/19 08:19 [SHELLFISH DERIVED] vancomycin [VANCOMYCIN] Allergy Unknown Verified 03/03/19 08:19 Review of Systems Constitutional Constitutional: Denies fever(s) Eyes Eyes: Denies bulging eyes ENT Ears, Nose, Mouth, and Throat: No lip swelling Cardiovascular Cardiovascular: Denies generalize swelling Respiratory Respiratory: Denies stridor Gastrointestinal Gastrointestinal: Denies coffee ground emesis Musculoskeletal Musculoskeletal: Denies loss of height Integumentary/Breasts Skin/Breast: Denies wounds Neurologic Neurologic: Denies abnormal speech and Denies confusion Psychiatric Psychiatric: Denies confusion Endocrine Endocrine: Denies deepening of the voice Hematologic/Lymphatic Hematologic/Lymphatic: Denies lymphadenopathy Allergic/Immunologic Allergic/Immunologic: Denies lip swelling Exam Vital Signs (past 8 hours): - 03/05/19 08:00 03/05/19 08:05 03/05/19 13:00 Temperature 97.8 F 98.0 F Pulse Rate 66 72 Respiratory Rate 16 16 Blood Pressure 181/81 H 151/76 H Pulse Oximetry 98 98 98 03/05/19 13:30 Temperature Pulse Rate 72 Respiratory Rate Blood Pressure 151/76 H Pulse Oximetry Oxygen Delivery Method Room Air Oxygen Flow Rate 0 Const General: cooperative and healthy appearing Orientation: alert HENMT Head: normal to inspection Nose: nares normal Mouth: oral mucosae normal and lip normal Eyes Eyelids: eyelids normal Conjunctivae: conjunctivae normal Sclera: sclerae normal Neck Neck: supple and other (No thyromegally) Chest Chest: other (LCTAB , regular respiratory effort) Cardio Rhythm: regular rhythm Heart Sounds: S1 normal, S2 normal, no gallops, no murmurs and no rubs GI Other: Abdomen soft, moderately distended, essentially nontender, dull to percussion Skin General: no rashes or lesions noted Neuro General: alert and awake Psych Appearance: grossly normal Affect: normal affect Objective Labs Result Diagrams: 03/05/19 06:45 03/05/19 06:45 Labs: Laboratory Results - last 24 hr 03/05/19 03/05/19 03/05/19 06:45 06:45 06:45 WBC 2.8 L RBC 3.53 L Hgb 10.7 L Hct 31.2 L MCV 88.4 MCH 30.2 MCHC 34.2 RDW 13.0 Plt Count 119 L Neut % (Auto) 66.7 Lymph % (Auto) 16.6 L [place] % (Auto) 13.5 Eos % (Auto) 2.5 Baso % (Auto) 0.7 Neut # (Auto) 1900 Lymph # (Auto) 500 L [place] # (Auto) 400 Eos # (Auto) 100 Baso # (Auto) 0 Sodium 140 Potassium 3.3 L Chloride 111 H Carbon Dioxide 27 BUN 11 Creatinine 0.70 Estimated GFR > 60.0 BUN/Creatinine Ratio 15.7 Glucose 98 Calcium 8.5 Magnesium 1.9 Assessment & Plan Assessment & Plan narrative: 73-year-old female no hospital day 3 admitted for small bowel obstruction with transition point in the mid jejunum -personally reviewing the images I do not see substantial thickening beyond what would be expected from an obstructive process, I do not see evidence of other metastases within the abdomen. Her Gastrografin study shows prompt movement of contrast into the colon within 2 hours of administration. She is clinically passing gas and stool in feeling improved. Taken together her small-bowel obstruction is now resolved -she may have some residual symptoms given the expected bowel edema that accompanies this process I expect this to resolve over the coming week. In general malignant obstructions do not resolve quickly and frequently recur. Hence I would not work her up for recurrent cancer within the abdomen unless she re-presented with an obstruction in the near or moderate term future. Plan: Remove nasogastric tube Start full liquid diet If tolerates diet okay to discharge home she can advance to general diet over the next few days at General surgery will sign off
--- NOTE | 2019-03-05 15:15 | PC.NURSE ---
Day Shift Informed pt needed NGT for gastrograffin study. 16Fr placed in R nare without issue, pt uncomfortable afterwards. Down for small bowel followthrough study. On return to the floor she started have very frequent and uncontrollable diarrhea. started brown liquid opaque, ending up as clear yellow liquid. pt up independently to BR. took several showers to rinse off. Orders placed by MD to remove NGT which was done. pt informed she was on a clear liquid diet and she chose to have water and apple juice, no fulls yet. Encouraged to go slowly. She is still have frequent stools, sitting on BSC. BP was elevated when checked on her leg, pt stated it's ok to check on R arm which was done and BP significantly improved. Did receive oral BP meds, some nausea after swallowing. Zofran given and queeze-eaze/alcohol wipes for smelling to help with nausea. Once NGT removed pt feels better.
--- NOTE | 2019-03-05 15:45 | DIET.PN ---
Dietary Progress Note Assessment: 73y F reporting early satiety, N/V/D and GERD c nutrition consult for MNA score of 10 (at risk for malnutrition) and 10# wt loss over 3 mo. Pt reports uncomfortable feeling of fullness fpc through meals over past 2-3mo, shirin when eating fatty foods. Feels fullness and burpy needs to burp pressure out. Zantac and tums help. 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 Started taking Activia yogurt as probiotic 1w ago. HT: 154.9cm WT: 100kg BMI: 41.7 Labs: HgB steady decline while in hospital 13.4/11.3/10.7 (L) K+ 3.3 (L) Nutrition Diagnosis: unintended weight loss of 10# over 3 mo r/t decreased appetite and early satiety aeb pt reporting eating less than usual, uncomfortable fullness feeling which only resolves when standing and moving around. Consider gut dysbiosis dx r/t low intake probiotic foods, associated bloating, GI discomfort, new onset GERD sx since returning from cruise in November. Interventions: Pt advanced to full liquid diet, gave apple juice and Ensure Clear, tolerating well despite sitting on commode s/p NG transit study c normal findings. Monitoring/Evaluations: Recc RD f/u in outpatient setting r/t GERD, unanswered questions, appropriate wt loss, probiotic use
[2019-03-05] MEDS: POTASSIUM CHLORIDE 20 MEQ/15 ML UDC 40 MEQ PO (18:38)
[2019-03-06 03:00] VITALS: BP 137/75; PULSE 60; RESP 18; TEMP 37; O2SAT 97
[2019-03-06 07:20] VITALS: BP 136/57; PULSE 62; RESP 16; TEMP 36.8; O2SAT 97
--- NOTE | 2019-03-06 08:16 | PM.DS.1 ---
History of Present Illness Date Patient Seen: 03/06/19 Time Patient Seen: 07:49 Chief complaint: vomitting Narrative: From Dr. Rock Doran&Jose Juan: 73-year-old female presented to the [facility] emergency department with 5 days of initially diarrhea followed by vomiting and abdominal pain. The vomiting and abdominal pain started yesterday and continued into today the day of admission. Denies any fever chills. Denies any darkness to her stool or red blood per rectum. Has continued to produce urine although the feels like it is somewhat concentrated or darker than usual. Apparently longstanding history of intermittent abdominal symptoms including abdominal pain and intermittent diarrhea. This has been going on for several months which changes in bowels. May be diminished appetite. She has reported some reflux type symptoms and recently been started on treatment for that which is new for her as well. She wonders about some connection between all of those GI disturbances over the last several months and her current condition. In the Emergency department she was evaluated, and felt to have evidence of a bowel obstruction which was confirmed with CT scanning. She admitted for management of her at least partial bowel obstruction (still producing stool so not complete) by making her NPO with IV fluids and IV antiemetics and/or and gastric decompression if necessary. Discharge Providers Date of admission: 03/03/19 10:47 Discharge Date: 03/06/19 Primary care physician: Janay Champion DO Consults: 03/03/19 12:42 Consult to Dietitian, Adult Routine Comment: Reason For Exam: 10lb unintentional wt loss in 3mo 03/04/19 11:01 Consult to Physical Therapy Evaluate & Treat Comment: lymphatic massage for lymphedema Physician Instructions: Evaluate and Treat 03/05/19 08:26 Consult to General Surgery Routine Comment: Consulting Provider: Jag Spaulding Reason for consultation: Bowel obstruction Has provider been notified: Yes Discharge provider: Janay Champion DO Summary Discharge Diagnosis: Bowel obstruction Hypertension History of breast cancer Hypokalemia Anemia Hospital Course: Patient admitted with partial bowel obstruction. She was initially placed on IV fluids and made NPO though did not require a nasogastric tube. Over a 2 day course her symptoms gradually improved and she started passing loose stools. She did develop anemia so stools were guaiaced and returned positive though she did not have tiffany bleeding. General surgery was consulted due to the appearance of the partial bowel obstruction on CT (some concern for malignancy) as well as guaiac-positive stools. Small-bowel follow-through demonstrated resolution of the bowel obstruction. Patient developed significant loose stools after the Gastrografin however was feeling much improved with respect to nausea and abdominal pain. She was able to eat without nausea or vomiting. Surgery did not feel her intestinal thickening was suggestive of malignancy but likely due to edema of the bowel obstruction alone. Surgery was not particularly concerned about the guaiac-positive stools as this can be seen with a bowel obstruction. The change in her H&H was almost certainly due to dilution as her white count and platelets also decreased. Follow-up CBC done the day of discharge was improved compared to prior. She also received potassium replacement for hypokalemia with normalization of potassium. Blood pressure was controlled with IV metoprolol while she was NPO then she was transitioned back to her usual oral medications without issues. Patient needs to follow up in clinic in 2 weeks. Exam Vital Signs (past 8 hours): - 03/06/19 03:00 03/06/19 07:20 Temperature 98.6 F 98.2 F Pulse Rate 60 62 Respiratory Rate 18 16 Blood Pressure 137/75 136/57 L Pulse Oximetry 97 97 Oxygen Delivery Method Room Air Oxygen Flow Rate 0 Narrative Exam Narrative: General: Obese older woman, well-appearing. Awake and alert, no acute distress. HEENT: NCAT, EOMI, moist oral mucosa CV: Regular rate and rhythm, no murmurs Lungs: CTAB, no wheezes, rales, or rhonchi Abdomen: Large, obese abdomen. Active bowel tones x4 quadrants. Nontender to palpation with the exception of slight tenderness in the left upper quadrant without guarding. Extremities: Warm, trace edema bilateral lower extremities. Objective Imaging Small bowel follow through: Radiologist's impression: PROCEDURE: FL SMALL BOWEL FOLLOW THROUGH INDICATIONS: sbo COMPARISON: [facility], CT, CT ABDOMEN PELVIS W CON, 03/03/2019, 9:16. FINDINGS: KUB: Preprocedural personnel worker film demonstrates a normal bowel gas pattern except for slight prominence of small bowel at the left upper quadrant, also seen on prior CT scanning 03/03/19. No suspicious abdominal calcifications. Visualized solid organ contours appear normal. No suspicious bony abnormalities. Small bowel: There is normal transit time of barium through the small bowel and into the colon, under 2 hours. Small bowel loops are of normal caliber throughout. Mucosal folds are smooth and of normal thickness. No strictures, intraluminal masses, or extrinsic mass effects are noted. The terminal ileum is identified, and is normal in morphology. IMPRESSION: Resolution of high-grade small bowel obstruction pattern, no delay in transit of oral contrast into the colon. Followup CT or MR enterography may be warranted for more accurate assessment of the area of suspected transition point at the left lower quadrant, seen on CT scan in 03/03/19. Dictated by: Jaime Masters M.D. on 03/05/2019 at 12:19 Approved by: Jaime Masters M.D. on 03/05/2019 at 12:23 CT scan - abdomen: Radiologist's impression: PROCEDURE: CT ABDOMEN PELVIS W CON INDICATIONS: diarrhea x 5 days, vomiting last night, abdominal steph TECHNIQUE: After the administration of intravenous contrast, 5 mm thick sections acquired from the diaphragm to the symphysis. 5 mm coronal and sagittal reformats were acquired. For radiation dose reduction, the following was used: automated exposure control, adjustment of mA and/or kV according to patient size. COMPARISON: [facility], CT, CT KIDNEY URETER BLADDER (KUB), 01/09/2019, 14:42. FINDINGS: Image quality: Excellent. ABDOMEN: Lung bases: Lung bases are clear. Heart size is normal. Solid organs: Liver is normal in size and enhancement. Gallbladder is unremarkable. Biliary system is non dilated. Pancreas enhances normally. Spleen is normal in size and enhancement. No adrenal nodules. Kidneys demonstrate normal size and enhancement, without hydronephrosis. Peritoneum and bowel: Stomach is moderately distended with gas and fluid. The distal duodenum and the proximal jejunum are dilated and filled with fluid. Additionally, some of the dilated duodenum is filled with solid appearing stool. A focal transition point is present within the left lower quadrant (series 2, image 60 and series 4, image 29). The downstream small bowel is decompressed. The colon is decompressed. The appendix is thin walled. Trace of low-density fluid is present within the pelvis. Nodes and vessels: No retroperitoneal or mesenteric adenopathy by size criteria. Aorta and inferior vena cava are normal in size. Scattered atheromatous calcifications are present throughout the abdominal aorta. Miscellaneous: No ventral hernias. PELVIS: Genitourinary: Bladder wall thickness is normal. The uterus and ovaries are grossly unremarkable. Miscellaneous: No inguinal hernias or adenopathy. Bones: No suspicious bony lesions. No vertebral body compression fractures. IMPRESSION: 1. Small bowel obstruction with a focal transition point in the left lower quadrant. This finding was discussed with Dr. Hobbs at 8:56 AM on 03/03/19. Dictated by: Jaye Enriquez M.D. on 03/03/2019 at 8:52 Approved by: Jaye Enriquez M.D. on 03/03/2019 at 8:57 Labs Result Diagrams: 03/06/19 08:10 03/06/19 08:10 Labs: Laboratory Results - last 24 hr 03/05/19 06:45 Magnesium 1.9 Discharge Plan Discharge Plan Patient Disposition: Home Discharge Med Rec/Prescriptions Prescriptions: Continued anastrozole 1 MG tablet 1 mg PO QDAY Qty: 0 RF: 0 citalopram 20 MG tablet 20 mg PO QDAY Qty: 0 RF: 0 olmesartan [Benicar] 20 MG tablet 20 mg PO QDAY Qty: 0 RF: 0 rosuvastatin [Crestor] 5 MG tablet 5 mg PO SEE INSTRUCTIONS Qty: 0 RF: 0 metoprolol succinate [Toprol XL] 25 MG tablet extended release 24 hr 25 mg PO QDAY Qty: 0 RF: 0 multivitamin [Multiple Vitamins] 1 EACH tablet 1 tab PO QDAY Qty: 0 RF: 0 aspirin 81 MG tablet,chewable 81 mg PO QDAY Qty: 0 RF: 0 cholecalciferol (vitamin D3) [Vitamin D3] 2,000 UNIT capsule 2,000 unit PO Qty: 0 RF: 0 albuterol sulfate [Ventolin HFA] 90 MCG/PUFF HFA aerosol inhaler 2 puff INH QIDP PRNQty: 1 RF: 1 estradiol [Vagifem] 10 MCG tablet 10 mcg VG Qty: 0 RF: 0 Follow up/Referrals: Janay Champion DO [Primary Care Provider] - 2 Weeks (appt:03/15 @ 11:[address] champion please check in at 0490 @ [address] (dr champion office)) Provider Discharge Instructions Diet: Diet as Tolerated Visit Report/Discharge Packet Instructions: DI for Small Bowel Obstruction Discharge Data Primary Care Provider: Janay Champion Attending Provider: Rosalva,Janay Admit Date/Time: 03/03/19 10:47 Discharge Interventions Interventions: Discharge assessment Last Done: 03/06/19 09:38 Discharges patient from system. Discharge Date/Time: 03/06/19 11:51 Quality VTE Deep Vein Thrombosis/Pulmonary Embolism Present on Admission: No
[2019-03-06 08:21] VITALS: O2SAT 96
[2019-03-06 08:22] LABS: Add Manual Diff / Slide Review NO; Basophils Absolute Auto 0 /uL (0-100); Basophils Percent Auto 0.6 % (0-2); Eosinophils Absolute Auto 100 /uL (0-450); Eosinophils Percent Auto 1.7 % (2-4); Hematocrit 32.7 % (36-46); Hemoglobin 11.2 g/dL (12.0-16.0); Lymphocytes Absolute Auto 500 /uL (1100-4500); Lymphocytes Percent Auto 13.8 % (25-40); Mean Corpuscular HGB Conc 34.4 % (30-36); Mean Corpuscular Hemoglobin 30.2 PG (26-34); Mean Corpuscular Volume 87.8 fL (80-100); Monocytes Absolute Auto 400 /uL (0-900); Monocytes Percent Auto 10.8 % (3-14); Neutrophils Absolute Auto 2800 /uL (1500-7000); Neutrophils Percent Auto 73.1 % (50-75); Platelet Count 132 X10^3/uL (150-400); Red Blood Cell Count 3.72 X10^6/uL (4.0-5.2); Red Cell Distribution Width 13.1 % (11.6-14.8); White Blood Cell Count 3.8 X10^3/uL (4.5-11.0)
[2019-03-06 08:31] LABS: BUN Creatinine Ratio 12.9 (6-22); Blood Urea Nitrogen 9 mg/dL (7-17); Calcium 9.2 mg/dL (8.4-10.2); Carbon Dioxide 28 mmol/L (22-32); Chloride 108 mmol/L (98-107); Estimated Glomerular Filt Rate > 60.0 mL/min (>60); Glucose 96 mg/dL (80-110); HEMOLYSIS < 15 (0-50); Potassium 3.9 mmol/L (3.4-5.1); Sodium 142 mmol/L (137-145)
[2019-03-06] MEDS: OLMESARTAN 20 MG TABLET PO (08:43)
[2019-03-06] MEDS: METOPROLOL ER 25 MG TABLET PO (08:43)
[2019-03-06] MEDS: SODIUM CHLORIDE 0.9% FLUSH 10 ML IV (08:43)
--- NOTE | 2019-03-06 09:45 | PC.NURSE ---
Addendum entered by Lacey Giraldo R.N. 03/06/19 11:47: Discharge: Portacath de-accessed after flushing, good hemostasis. Reviewed all d/c info with patient and her . No new meds, no changes to previous meds. Diet as tolerated, advance cautiously. Patient reports that she talked at length with the emt/paramedic who gave her a 2-week plan for advancing her diet safely. Given follow up info. Verbalized understanding of all d/c instructions and stated no further questions. Wheeled out to private vehicle by nursing staff. All personal belongings collected and sent with patient. Original Note: Shift summary: Awake and alert, oriented X3. Tolerating full liquid diet without issue. Denies N/V. Denies abd pain or tenderness. Continues to stool post-SB follow through yesterday but feels like it is starting to slow down a bit. BT+, flatus+. Abd soft, nontender. Port to R chest heplocked, a.m. labs drawn by this global technical writer without difficulty. Plans to shower approx 1000, then home assuming all of her labs look good. Patient able to make needs known and calls appropriately. Independent with all ADL's, steady on feet.
== END 2019-03-06 11:51 | disposition home or self-care (01) | DRG 389 ==
LOC: ED 10:19 → AC 10:47
PROVIDERS: Family Medicine; Surgery; Admitting Provider Internal Medicine; Emergency Provider Emergency Medicine; PCP Family Medicine; Visit Provider Family Medicine
DX: K56.600 Partial intestinal obstruction, unspecified as to cause (principal); Z68.41 Body mass index [BMI] 40.0-44.9, adult; E66.01 Morbid (severe) obesity due to excess calories; C50.912 Malignant neoplasm of unspecified site of left female breast; I10 Essential (primary) hypertension; E78.5 Hyperlipidemia, unspecified; D64.9 Anemia, unspecified; E87.6 Hypokalemia
CPT/HCPCS: 36415; 36591; 74177; 74250; 80048; 80053; 81003; 81015; 82962; 83605; 83690; 83735; 85025; 87040; 87086; 93005; 96361; 96374; 96376; 96523; 97161; 97530; 99222; 99232; 99233; 99239; 99283; 99285; J1170; J1642; J1650; J2270; J2405; J3480; Q9967

== ENCOUNTER → 2019-03-21 08:49 | Outpatient (CLI) | payer MEDICARE, BC, SELFPAY ==
[2019-03-03 12:31] VITALS: BMI 40.6
--- NOTE | 2019-03-21 08:51 | DI.US.S_ITS ---
PROCEDURE: US THYROID INDICATIONS: NODULE TECHNIQUE: Real-time scanning was performed of the thyroid gland, with image documentation. COMPARISON: None. FINDINGS: Right: Thyroid lobe measures 2.6 x 1.3 x 1.1 cm, and is homogeneous in echotexture. Left: Thyroid lobe measures 3.2 x 2.3 x 1.9 cm, and is diffusely heterogeneous in echotexture. Isthmus: 5.8 mm thick. Nodule number: 1 Location: Left mid Size: 1.5 x 1.0 x 1.4 cm. Composition: Solid Echogenicity: Isoechoic Shape: wider than tall. Margins: Smooth Echogenic foci: None Total points: 3 ACR TI-RADS category: Mildly suspicious IMPRESSION: Mildly suspicious left thyroid nodule. Recommend continued followup ultrasound as detailed below. ACR TI-RADS definitions and recommendations: TI-RADS 1 (benign): 0 points. FNA not needed. TI-RADS 2 (not suspicious): 2 points. FNA not needed. TI-RADS 3 (mildly suspicious): 3 points. * FNA if 2.5 cm or larger, follow up if 1.5 cm or larger (at 1, 3, and 5 years). TI-RADS 4 (moderately suspicious): 4-6 points. * FNA if 1.5 cm or larger, follow up if 1 cm or larger (at 1, 2, 3, and 5 years). TI-RADS 5 (highly suspicious): 7 points or more. * FNA if 1 cm or larger, follow up if 0.5 cm or larger (every year for 5 years). Dictated by: Lee Hameed [facility] Interpreted: Deana Bowman MD on 03/21/2019 at 10:36 Approved by: Deana Bowman MD, PhD on 03/21/2019 at 14:44
== END ==
PROVIDERS: PCP Family Medicine; Visit Provider Family Medicine
DX: E04.1 Nontoxic single thyroid nodule (principal)
CPT/HCPCS: 76536

== ENCOUNTER 2019-04-11 16:48 | Emergency (ER) | payer MEDICARE, BC, SELFPAY ==
[2019-03-03 12:31] VITALS: BMI 40.6
[2019-04-11 16:51] VITALS: BP 139/82; PULSE 71; RESP 18; TEMP 36.8; O2SAT 98; BMI 39.6
--- NOTE | 2019-04-11 19:30 | PC.NURSE ---
pt now states she remembers a shimmering around outside of eye and then having a mild headache.
--- NOTE | 2019-04-11 19:37 | PC.NURSE ---
Patient with a visual disturbance that has resolved. Pt reports having 10 mins of looking through water with flashing lights. Resolved after 10 mins. Patient with no sx at this time.
[2019-04-11 19:39] VITALS: BP 121/73; PULSE 64; RESP 16; TEMP 36.6; O2SAT 99
--- NOTE | 2019-04-11 20:22 | ED_ITS ---
HPI - Eye Problem General Chief complaint: Eye Problems Stated complaint: LEFT EYE THINKS RETINA IS DETATCHING Time Seen by Provider: 04/11/19 19:25 Source: patient Mode of arrival: ambulatory Limitations: no limitations History of Present Illness HPI Narrative: Patient is a 73-year-old female who presents with left eye changes. She states she was watching TV when she had flashes of light and tingles around them. She had blurry vision but no loss of vision no curtain closing. She then started noticed some mild headache above her eyes. However now emergency department her symptoms have completely gone. She has no numbness tingling weakness speech difficulty or facial drooping. MD chief complaint: vision change Onset (ago): hour(s) Location: left eye Place: home Related Data Home Medications Medication Instructions Recorded Confirmed anastrozole 1 mg PO QDAY #0 12/27/16 03/03/19 aspirin 81 mg PO QDAY #0 12/27/16 03/03/19 cholecalciferol (vitamin D3) 2,000 unit PO #0 12/27/16 02/06/19 [Vitamin D3] citalopram 20 mg PO QDAY #0 12/27/16 03/03/19 metoprolol succinate [Toprol XL] 25 mg PO QDAY #0 12/27/16 03/03/19 multivitamin [Multiple Vitamins] 1 tab PO QDAY #0 12/27/16 03/03/19 olmesartan [Benicar] 20 mg PO QDAY #0 12/27/16 03/03/19 rosuvastatin [Crestor] 5 mg PO SEE INSTRUCTIONS #0 12/27/16 03/03/19 estradiol [Vagifem] 10 mcg VG #0 05/10/17 02/06/19 Previous Rx's Medication Instructions Recorded albuterol sulfate [Ventolin HFA] 2 puff INH QIDP PRN #1 inh 12/27/16 Allergies Allergy/AdvReac Type Severity Reaction Status Date / Time Penicillins [PENICILLINS] Allergy Unknown Verified 03/03/19 08:19 shellfish derived Allergy Unknown Verified 03/03/19 08:19 [SHELLFISH DERIVED] vancomycin [VANCOMYCIN] Allergy Unknown Verified 03/03/19 08:19 Review of Systems Review of Systems ROS Unobtainable: All systems reviewed & are unremarkable except as noted in HPI and below Constitutional Constitutional: Denies chills, Denies fever(s), Denies lethargy and Denies weakness Eyes Eyes: Reports as per HPI Cardiovascular Cardiovascular: Denies chest pain, Denies irregular heart rhythm, Denies lightheadedness, Denies palpitations, Denies dyspnea, Denies dyspnea on exertion and Denies orthopnea Respiratory Respiratory: Denies cough, Denies dyspnea, Denies dyspnea on exertion and Denies wheezing Gastrointestinal Gastrointestinal: Denies abdominal pain, Denies change in bowel habits, Denies diarrhea, Denies nausea and Denies vomiting Musculoskeletal Musculoskeletal: Denies back pain, Denies muscle weakness, Denies numbness and Denies tingling Integumentary/Breasts Skin/Breast: Denies pruritus, Denies erythema, Denies rash and Denies wounds Neurologic Neurologic: Denies numbness, Denies tingling and Denies weakness Endocrine Endocrine: Denies palpitations Allergic/Immunologic Allergic/Immunologic: Denies wheezing [facility] Medical History Breast cancer (Resolved 1990) Cataract (Chronic 2016) Chicken pox (Resolved ~1949) Diverticulitis (Resolved 2014) Essential hypertension (Chronic 05/10/17) Gout (Inactive) Hayfever (Chronic) History of heavy periods (Resolved) Hyperlipidemia (Chronic 05/10/17) IBS (irritable bowel syndrome) (Chronic) Lymphedema (Chronic 05/10/17) Malignant neoplasm of breast (Inactive 09/13/17) Measles (Resolved ~1949) Morbid obesity (Chronic 09/13/17) Mumps (Resolved 1960) Neutropenia (Resolved 2013) Osteopenia (Chronic) Primary osteoarthritis of both knees (Chronic 09/13/17) Rosacea (Resolved) Shoulder pain (Chronic 2014) Skin cancer (Resolved 02/2017) Thyroid nodule (Resolved 2013) Tinnitus (Chronic) Surgical History Anesthesia (Resolved) History of eye surgery (Inactive ~1950) History of toe surgery (Inactive 1994) History of tonsillectomy (Inactive ~1961) Status post delivery (Inactive 01/01/83) Status post partial mastectomy (Inactive 11/05/13) Status post partial mastectomy (Inactive 09/07/90) Family History Father Heart disease Hypertension High cholesterol Stroke Grandfather Heart disease Grandmother Heart disease Diabetes mellitus Pneumonia CAD (coronary artery disease) Mother Cancer Heart disease Head and neck cancer Grandmother Heart disease Heart attack Grandfather Lung cancer Social History household members: spouse Smoking Status: Never smoker alcohol intake: current substance use type: does not use Family History Father Heart disease Hypertension High cholesterol Stroke Grandfather Heart disease Grandmother Heart disease Diabetes mellitus Pneumonia CAD (coronary artery disease) Mother Cancer Heart disease Head and neck cancer Grandmother Heart disease Heart attack Grandfather Lung cancer Social History household members: spouse Smoking Status: Never smoker alcohol intake: current substance use type: does not use Exam Initial Vital Signs Initial Vital Signs: Vital Signs Temperature 98.2 F 04/11/19 16:51 Pulse Rate 71 04/11/19 16:51 Respiratory Rate 18 04/11/19 16:51 Blood Pressure 139/82 04/11/19 16:51 Pulse Oximetry 98 04/11/19 16:51 GENERAL: Well-appearing, well-nourished and in no acute distress. CARDIOVASCULAR: peripheral pulses in tact, cap refill <2 sec RESPIRATORY: No respiratory distress, speaks in full sentences without difficulty [ABDOMEN: Soft, nontender, no guarding or rebound] EXTREMITIES: Normal range of motion, no clubbing or edema. Neurovascularly intact NEUROLOGICAL: Cranial nerves II through XII grossly intact. Normal gait and speech. SKIN: Warm, dry, no petechiae, no rashes or lesions. Eyes General: appearance normal, both eyes and all related structures Visual Blanc: normal visual blanc by confrontation Alignment and Position: alignment normal Periorbital: periorbital findings normal Eyelids: eyelids normal Conjunctivae: conjunctivae normal Sclera: sclerae normal Cornea: corneas normal and fluorescein used (No dye uptake in left eye) Pupils: PERRL, normal by confrontation and pupil size EOM: EOM intact bilaterally Direct ophthalmoscopy: normal light reflex Other: Pressure in left eye 13 mg of mercury, pressure in right eye 14 mg of mercury Ultrasound used on the left eye, no retinal or vitreous humor detached. Images have been saved on ultrasound. Scores NIH Stroke Scale Level of Conciousness: Alert, keenly responsive Ask month/age: Answers both questions correctly. Open/close eyes, close hand: Performs both tasks correctly Best gaze horizontal: Normal Visual blanc: No visual loss Facial palsy: Normal symetrical movement Left arm drift: No drift for full 10 sec Right arm drift: No drift for full 10 sec Left leg drift: No drift for full 10 sec Right leg drift: No drift for full 10 sec Limb ataxia: Absent Sensory on face/arms/legs: Normal, no sensory loss Best language: No aphasia, normal Dysarthria: Normal Extinction or inattention: No abnormality Total NIH Stroke scale score: 0 Course Orders Ordered: Discontinued Medications Proparacaine HCl (Parcaine 0.5% Ophth Mayi) 1 drops EYE-BOTH NOW ONE Stop: 04/11/19 20:20 Last Admin: 04/11/19 20:25 Dose: 2 drop Documented by: LREED Vital Signs Vital signs: Vital Signs - 8 hr 04/11/19 19:39 04/11/19 21:06 Temperature 97.9 F 98.0 F Pulse Rate 64 65 Respiratory Rate 16 16 Blood Pressure 117/60 Blood Pressure [Right Arm] 121/73 Pulse Oximetry 99 100 MDM - Eye Problem MDM Narrative Medical decision making narrative: At this time patient likely has ocular migraine. Symptoms do not correlate with retinal detachment or vitreous humor detachment. Her symptoms have overall improved. She has no focal deficits to suggest stroke she has no loss of vision. I have explained stroke symptoms to her. I did recommend that she follow up with an land reclamation specialist. Discharge Plan Departure Patient Disposition: Home Clinical Impression: Ocular migraine Discharge Date/Time: 04/11/19 21:06 Instructions: DI for Eye Floaters Activity Restrictions/Additional Instructions: *You have been diagnosed with ocular migraines *What to do: He likely had an ocular migraine today. Eye exam was within normal limits. *Continue to take medications as directed *Follow up with your primary care provider in 2-3 days, recommend following up with Ophthalmology call tomorrow to schedule appointment *Return to ER if you should have blackening loss of vision, numbness tingling, facial droop or any new, worsening or concerning symptoms Prescriptions: No Action anastrozole 1 MG tablet 1 mg PO QDAY Qty: 0 RF: 0 citalopram 20 MG tablet 20 mg PO QDAY Qty: 0 RF: 0 olmesartan [Benicar] 20 MG tablet 20 mg PO QDAY Qty: 0 RF: 0 rosuvastatin [Crestor] 5 MG tablet 5 mg PO SEE INSTRUCTIONS Qty: 0 RF: 0 metoprolol succinate [Toprol XL] 25 MG tablet extended release 24 hr 25 mg PO QDAY Qty: 0 RF: 0 multivitamin [Multiple Vitamins] 1 EACH tablet 1 tab PO QDAY Qty: 0 RF: 0 aspirin 81 MG tablet,chewable 81 mg PO QDAY Qty: 0 RF: 0 cholecalciferol (vitamin D3) [Vitamin D3] 2,000 UNIT capsule 2,000 unit PO Qty: 0 RF: 0 albuterol sulfate [Ventolin HFA] 90 MCG/PUFF HFA aerosol inhaler 2 puff INH QIDP PRNQty: 1 RF: 1 estradiol [Vagifem] 10 MCG tablet 10 mcg VG Qty: 0 RF: 0 Referrals: Shirlene Hairston MD [Physician] - Nael Hoyt MD [Physician] - Janay Blackwell DO [Primary Care Provider] -
[2019-04-11] MEDS: PROPARACAINE 0.5% OPHTH SOL 1 DROPS EYE-BOTH (20:25)
[2019-04-11 21:06] VITALS: BP 117/60; PULSE 65; RESP 16; TEMP 36.7; O2SAT 100
== END 2019-04-11 21:06 | disposition home or self-care (01) ==
PROVIDERS: Emergency Provider Emergency Medicine; PCP Family Medicine
DX: G43.109 Migraine with aura, not intractable, without status migrainosus (principal)
CPT/HCPCS: 99282; 99283

== ENCOUNTER → 2019-05-09 12:34 | Outpatient (CLI) | payer MEDICARE, BC, SELFPAY ==
[2019-03-03 12:31] VITALS: BMI 40.6
--- NOTE | 2019-05-09 12:57 | DIET.PN ---
Dietary Progress Note Assessment: 73y F pt always has had sensitive stomach-spicy foods do irritate, br ca x2. Had Influenza A in November on cruise, then developed GERD, dx c IBS, had SBO. Reports mother likely had digestive issues, didn't eat a lot, and didn't talk openly about health conditions. foods which cause issue: fatty fried foods, not sure of others. Pt has handouts on GERD, IBS, and other dietary patterns but feeling confused on what she can actually eat. Started using almond milk and almond yogurt to reduce dairy intake. Not so sure she can tolerate many beans or large amounts of dairy (milk and ice cream). WT: 210# Usual Intake: 7am wakes up has lemon water (occasionally wakes c D) 8am black tea c sugar, baybel cheese 11am packet oatmeal c craisins, almond milk, brown sugar, sometimes sprinkle of walnuts/almonds, water or more tea 2pm half can chicken noodle or chicken wild rice soup, or fruit, or leftovers Dinner 7pm: WW style meals-fish, chicken, some beef, salad and veg 1030 yogurt, slice toast, fruit if hungry GERD Sx:burping, repetitive burping, fullness and px in breastbone, not necessarily burning, but passes. not so much at night. sometimes spits up but is instantaneous. Feels like prilosec does seem to help. IBS sx: waking c diarrhea in am, some urgency during day, occasional constipation. Pt does use immodium type products and carries change of clothes. Nutrition Diagnosis: Nutrition related knowledge deficit r/t foods which cause GI upset aeb pt has multiple nutrition handouts but feels advice contradicts, pt has diarrhea almost daily, fullness in breastbone even with small meals. Interventions: Discussed foods which tend to aggravate GERD, to only avoid those which actively cause symptoms. Pt will trial tomato soup to see if cooked tomato products cause problems. Discussed moderating fiber consumption at each meal as a high fiber load likely triggers diarrhea. Pt will use fiber handout to learn high fiber foods and use trial and error to see how much she can tolerate at one time. 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 Pt will continue eating yogurt daily (dairy based or other) as probiotic supp. Pt will stick to oatmeal, pb and toast, or hard boiled egg for breakfasts, Protein on salad c light dressing and/or cup of broth based soup for lunch, and focus on lean PRO c veggies for dinner while on vacation next week. Monitoring/Evaluations: Pt will come to f/u after GI appt and endo to further refine reccs. Consider low FODMAP diet if pt has not found considerable relief.
== END ==
PROVIDERS: PCP Family Medicine; Visit Provider Family Medicine
DX: K58.9 Irritable bowel syndrome, unspecified (principal); K21.9 Gastro-esophageal reflux disease without esophagitis
CPT/HCPCS: 97802

== ENCOUNTER 2019-06-03 10:29 | Emergency (ER) | payer MEDICARE, BC, SELFPAY ==
[2019-03-03 12:31] VITALS: BMI 40.6
[2019-06-03 10:46] VITALS: BP 130/67; PULSE 77; RESP 16; TEMP 36.6; O2SAT 97
--- NOTE | 2019-06-03 10:55 | PC.NURSE ---
Diarrhea x 8 days. has been taking immodium. Has gone 8-12 times and needing to wear Depends. reports Loose and appears mucous-y and light in color Reports h/o Bowel Obx last spring. h/o Double Mastectomy for B/L Breast CA. Port [facility] and under care of [facility]. Has been seeing Paliwal for pulmonary edema issues Denies SOB denies CP. Lungs clear. Made aware of stool and urine sample
--- NOTE | 2019-06-03 11:05 | DI.RAD.S_ITS ---
PROCEDURE: XR ACUTE ABDOMEN SERIES INDICATIONS: cramping, h/o bowel obstruction TECHNIQUE: One view chest and two views of the abdomen were acquired. COMPARISON: [facility], CT, CT ABDOMEN PELVIS W CON, 03/03/2019, 9:16. FINDINGS: Surgical changes and devices: Right-sided chest port is present.. Chest: Lungs are clear. Heart size is normal. No pleural effusions. No pneumoperitoneum. Abdomen: There are dilated loops of small bowel in the central abdomen with associated air-fluid levels. No definite air identified in the colon or rectum. No suspicious calcifications. Visualized solid organ contours appear normal. Bones: No suspicious bony lesions. Degenerative changes of the spine. IMPRESSION: Findings suggestive of a small bowel obstruction. Dictated by: Daryl Beckett M.D. on 06/03/2019 at 10:46 Approved by: Daryl Beckett M.D. on 06/03/2019 at 10:50
--- NOTE | 2019-06-03 11:31 | PC.NURSE ---
Pt is moving around freely after motrin, denies arm/elbow pain. playing on ipad. NAD
[2019-06-03 11:40] LABS: Bacteria Urine Few (2-10); Culture Indicated Urine Specimen Cultured; Mucus Urine 1+ (Negative); RBC Urine 0-1/HPF (0-5/HPF); Squamous Epithelial Cell Urine 0-1 /HPF (0-5/HPF); WBC Urine 10-30/HPF (0-5/HPF)
--- NOTE | 2019-06-03 12:45 | ED_ITS ---
HPI - Nausea/Vomiting/Diarrhea General Chief complaint: Nausea/Vomiting/Diarrhea Stated complaint: bowel movement issue Time Seen by Provider: 06/03/19 11:34 Source: patient Mode of arrival: Ambulatory Limitations: no limitations History of Present Illness HPI Narrative: Patient comes emergency department complaining of diarrhea for the last 8 days. Episodes have been intermittent. Patient states she traveled to [place] but has not been anywhere exotic recently. She states that she had a ?stomach flu? type of illness in the summer and that her bowels have not been the same since. She states that normally, she swings between diarrhea and constipation with her IBS, but that over the last several days, she has had watery diarrhea which sometimes comes out spontaneously. She states she took some Imodium yesterday and it seemed to help somewhat. Patient had about 5 episodes of diarrhea this morning prior to coming, but now, states she has no urge to defecate whatsoever. Patient denies any fevers or chills. No nausea or vomiting. She states she was recently treated for urinary tract infection, and finished antibiotics yesterday. No other complaints at this time. No abdominal pain. Related Data Home Medications Medication Instructions Recorded Confirmed anastrozole 1 mg PO QDAY #0 12/27/16 03/03/19 aspirin 81 mg PO QDAY #0 12/27/16 03/03/19 cholecalciferol (vitamin D3) 2,000 unit PO #0 12/27/16 02/06/19 [Vitamin D3] citalopram 20 mg PO QDAY #0 12/27/16 03/03/19 metoprolol succinate [Toprol XL] 25 mg PO QDAY #0 12/27/16 03/03/19 multivitamin [Multiple Vitamins] 1 tab PO QDAY #0 12/27/16 03/03/19 olmesartan [Benicar] 20 mg PO QDAY #0 12/27/16 03/03/19 rosuvastatin [Crestor] 5 mg PO SEE INSTRUCTIONS #0 12/27/16 03/03/19 estradiol [Vagifem] 10 mcg VG #0 05/10/17 02/06/19 Previous Rx's Medication Instructions Recorded albuterol sulfate [Ventolin HFA] 2 puff INH QIDP PRN #1 inh 12/27/16 Allergies Allergy/AdvReac Type Severity Reaction Status Date / Time Penicillins [PENICILLINS] Allergy Unknown Verified 03/03/19 08:19 shellfish derived Allergy Unknown Verified 03/03/19 08:19 [SHELLFISH DERIVED] vancomycin [VANCOMYCIN] Allergy Unknown Verified 03/03/19 08:19 Review of Systems Constitutional Constitutional: Denies chills, Denies fatigue, Denies fever(s), Denies frequent falls, Denies lethargy and Denies weakness Eyes Eyes: Denies change in vision, Denies eye discharge, Denies irritation and Denies loss of vision ENT Ears, Nose, Mouth, and Throat: Denies change in voice, Denies dizziness, Denies neck pain, Denies sore throat and Denies throat swelling Cardiovascular Cardiovascular: Denies chest pain, Denies irregular heart rhythm, Denies lightheadedness, Denies palpitations, Denies dyspnea, Denies dyspnea on exertion and Denies orthopnea Respiratory Respiratory: Denies cough, Denies dyspnea, Denies dyspnea on exertion and Denies wheezing Gastrointestinal Gastrointestinal: Denies abdominal pain, Denies change in bowel habits, Reports diarrhea, Denies nausea and Denies vomiting Genitourinary Genitourinary: Denies hematuria, Denies flank pain, Denies urinary incontinence and Denies urinary urgency Musculoskeletal Musculoskeletal: Denies back pain, Denies muscle weakness, Denies neck pain, Denies numbness and Denies tingling Integumentary/Breasts Skin/Breast: Denies pruritus, Denies erythema, Denies rash and Denies wounds Neurologic Neurologic: Denies behavioral changes, Denies confusion, Denies dizziness, Denies frequent falls, Denies loss of vision, Denies numbness, Denies tingling and Denies weakness Psychiatric Psychiatric: Denies anxiety, Denies behavioral changes, Denies confusion, Denies depression, Denies homicidal ideation and Denies suicidal ideation Endocrine Endocrine: Denies fatigue, Denies flushing and Denies palpitations Hematologic/Lymphatic Hematologic/Lymphatic: Denies easy bruising Allergic/Immunologic Allergic/Immunologic: Denies urticaria, Denies throat swelling and Denies wheezing Patient History Medical History Breast cancer (Resolved 1990) Cataract (Chronic 2016) Chicken pox (Resolved ~1950) Diverticulitis (Resolved 2014) Essential hypertension (Chronic 05/10/17) Gout (Inactive) Hayfever (Chronic) History of heavy periods (Resolved) Hyperlipidemia (Chronic 05/10/17) IBS (irritable bowel syndrome) (Chronic) Lymphedema (Chronic 05/10/17) Malignant neoplasm of breast (Inactive 09/13/17) Measles (Resolved ~1949) Morbid obesity (Chronic 09/13/17) Mumps (Resolved 1960) Neutropenia (Resolved 2013) Osteopenia (Chronic) Primary osteoarthritis of both knees (Chronic 09/13/17) Rosacea (Resolved) Shoulder pain (Chronic 2014) Skin cancer (Resolved 02/2017) Thyroid nodule (Resolved 2013) Tinnitus (Chronic) Surgical History Anesthesia (Resolved) History of eye surgery (Inactive ~1950) History of toe surgery (Inactive 1994) History of tonsillectomy (Inactive ~1961) Status post delivery (Inactive 01/01/83) Status post partial mastectomy (Inactive 11/05/13) Status post partial mastectomy (Inactive 09/07/90) Family History Father Heart disease Hypertension High cholesterol Stroke Grandfather Heart disease Grandmother Heart disease Diabetes mellitus Pneumonia CAD (coronary artery disease) Mother Cancer Heart disease Head and neck cancer Grandmother Heart disease Heart attack Grandfather Lung cancer Social History household members: spouse Smoking Status: Never smoker alcohol intake: current substance use type: does not use Family History Father Heart disease Hypertension High cholesterol Stroke Grandfather Heart disease Grandmother Heart disease Diabetes mellitus Pneumonia CAD (coronary artery disease) Mother Cancer Heart disease Head and neck cancer Grandmother Heart disease Heart attack Grandfather Lung cancer Social History household members: spouse Smoking Status: Never smoker alcohol intake: current substance use type: does not use alcohol intake frequency: a few times a month Substance Use Type: does not use Exam Initial Vital Signs Initial Vital Signs: Vital Signs Temperature 97.9 F 06/03/19 10:46 Pulse Rate 77 06/03/19 10:46 Respiratory Rate 16 06/03/19 10:46 Blood Pressure 130/67 06/03/19 10:46 Pulse Oximetry 97 06/03/19 10:46 Const General: cooperative and well developed Nutritional Appearance: well nourished Orientation: alert, awake, oriented x3 and not confused [facility] Head: normocephalic and atraumatic Ears: external ears normal Nose: external nose normal and No nasal discharge Face and sinus: face symmetric and No dry mucous membranes Mouth: oral mucosae normal and moist mucous membranes Teeth and gingiva: dentition normal Eyes General: appearance normal, both eyes and all related structures Eyelids: eyelids normal Conjunctivae: conjunctivae normal Sclera: sclerae normal Pupils: PERRL EOM: EOM intact bilaterally Neck Neck: normal visual inspection, trachea midline, No lymphadenopathy, No midline deformity and No JVD Lymphatic: No lymphedema Chest Chest: normal inspection of the chest Resp Effort & Inspection: normal respiratory effort, able to speak in complete sentences, no respiratory distress and no use of accessory muscles Auscultation: clear to auscultation bilaterally, no rales, no rhonchi and no wheezes Cardio Rate: regular rate Rhythm: regular rhythm Heart Sounds: no click, no gallops, no murmurs and no rubs Pulses: normal peripheral pulses GI Inspection: non-distended Palpation: soft, no hepatosplenomegaly, No guarding, No pulsatile mass and No tender Auscultation: normal bowel sounds Back/Spine/Pelvis Back: No CVA tenderness Cervical Spine: cervical ROM normal and No pain with cervical ROM Thoracic/Lumbar Spine: thoracic and lumbar spine normal to inspection Skin General: no rashes or lesions noted, No jaundice and No petechiae Neuro General: alert, oriented x3, gait normal and no focal motor deficits Speech: speech normal Extrem General: full ROM, no clubbing, cyanosis or edema, no pedal edema and no calf tenderness Psych Appearance: well kempt Mental Status: mental status grossly normal Attitude: cooperative Thought Content: normal and suicidality Judgment: judgment good Course Course Course Narrative: The patient was well appearing overall, and I discussed with her that the most helpful test that we could do in the emergency department would be to send a stool sample for evaluation. Urinalysis was also obtained, and found to be very mildly positive with presence of white blood cells and bacteria. The patient was not able to give a stool sample, and I discussed with her that she may try to obtain 1 at home and bring it to her primary care physician's office tomorrow. The patient is advised regarding diet for diarrhea. She has Imodium already. She is afebrile and without clinically significant abdominal pain or tenderness, and I feel she is stable for discharge. We will wait for urine culture to determine whether any further urine treatment is needed. We have discussed the usual indications for return. Orders Ordered: ED Orders 06/03/19 11:05 XR acute abdomen series Stat 06/03/19 11:19 Urine Culture Stat Urine Microscopic Stat 06/03/19 13:37 GI Panel (Film Array) Stat Stool Culture Stat Vital Signs Vital signs: Vital Signs - 8 hr 06/03/19 10:46 Temperature 97.9 F Pulse Rate 77 Respiratory Rate 16 Blood Pressure 130/67 Pulse Oximetry 97 MDM - Nausea/Vomiting/Diarrhea Medical Records Attestation: I reviewed the patient's medical records. Lab Data Attestation: I reviewed the patient's lab results. Labs: Lab Results 06/03/19 Range/Units 11:19 Urine RBC 0-1/hpf (0-5/HPF) Urine WBC 10-30/hpf H (0-5/HPF) Ur Squamous Epith Cells 0-1 /hpf (0-5/HPF) Urine Bacteria Few (2-10) H (None) Urine Mucus 1+ H (Negative) Ur Culture Indicated? Specimen cultured Urine Dip Bedside Urine Ketone +/- 5 Urine Specific Elora 1.020 Bedside Urine Occult Blood - Negative Bedside Urine pH 6.0 Bedside Urine Protein + 30 Bedside Urine Urobilinogen - Negative Bedside Urine Nitrite - Negative Bedside Urine Leukocytes +++ 500 Esterase Discharge Plan Departure Patient Disposition: Home Clinical Impression: Diarrhea Qualifiers: Diarrhea type: unspecified type Qualified Code(s): R19.7 - Diarrhea, unspecified Irritable bowel syndrome Qualifiers: Irritable bowel syndrome type: with diarrhea Qualified Code(s): K58.0 - Irritable bowel syndrome with diarrhea Instructions: DI for Diarrhea and Traveler's Diarrhea -- Adult Prescriptions: No Action anastrozole 1 MG tablet 1 mg PO QDAY Qty: 0 RF: 0 citalopram 20 MG tablet 20 mg PO QDAY Qty: 0 RF: 0 olmesartan [Benicar] 20 MG tablet 20 mg PO QDAY Qty: 0 RF: 0 rosuvastatin [Crestor] 5 MG tablet 5 mg PO SEE INSTRUCTIONS Qty: 0 RF: 0 metoprolol succinate [Toprol XL] 25 MG tablet extended release 24 hr 25 mg PO QDAY Qty: 0 RF: 0 multivitamin [Multiple Vitamins] 1 EACH tablet 1 tab PO QDAY Qty: 0 RF: 0 aspirin 81 MG tablet,chewable 81 mg PO QDAY Qty: 0 RF: 0 cholecalciferol (vitamin D3) [Vitamin D3] 2,000 UNIT capsule 2,000 unit PO Qty: 0 RF: 0 albuterol sulfate [Ventolin HFA] 90 MCG/PUFF HFA aerosol inhaler 2 puff INH QIDP PRNQty: 1 RF: 1 estradiol [Vagifem] 10 MCG tablet 10 mcg VG Qty: 0 RF: 0 Referrals: Janay Blackwell DO [Primary Care Provider] -
[2019-06-03 13:53] VITALS: BP 129/80; PULSE 62; RESP 16; O2SAT 98
[2019-06-04 14:56] LABS: Adenovirus F 40/41 Not Detected (Not Detect); Astrovirus Not Detected (Not Detect); Campylobacter Not Detected (Not Detect); Clostridium difficile toxin AB Not Detected (Not Detect); Cryptosporidium Not Detected (Not Detect); Cyclospora cayetanensis Not Detected (Not Detect); Entamoeba histolytica Not Detected (Not Detect); Enteroaggregative E.coli Not Detected (Not Detect); Enteropathogenic E.coli Not Detected (Not Detect); Enterotoxigenic E.coli It/st Not Detected (Not Detect); Giardia lamblia Not Detected (Not Detect); Norovirus GI/GII Not Detected (Not Detect); Plesiomonsa shigelloides Not Detected (Not Detect); Rotavirus A Not Detected (Not Detect); Salmonella Not Detected (Not Detect); Shiga-like toxin-prod E.coli Not Detected (Not Detect); Shigella/Enteroinvasive E.coli Not Detected (Not Detect); Vibrio Not Detected (Not Detect); Vibrio cholerae Not Detected (Not Detect); Yersinia enterocolitica Not Detected (Not Detect)
== END 2019-06-03 14:20 | disposition home or self-care (01) ==
PROVIDERS: Emergency Provider Emergency Medicine; PCP Family Medicine
DX: K58.0 Irritable bowel syndrome with diarrhea (principal); R10.9 Unspecified abdominal pain
CPT/HCPCS: 74022; 81003; 81015; 87086; 87177; 87507; 99283

== ENCOUNTER → 2019-06-14 09:54 | Outpatient (CLI) | payer MEDICARE, BC, SELFPAY ==
[2019-03-03 12:31] VITALS: BMI 40.6
[2019-06-18 14:25] LABS: Fecal Fat, Qualitative NORMAL (NORMAL)
[2019-06-20 20:36] LABS: Calprotectin, Stool 82.4 mcg/g
== END ==
PROVIDERS: Family Provider Family Medicine; PCP Family Medicine; Visit Provider Internal Medicine
DX: R19.7 Diarrhea, unspecified (principal); G47.30 Sleep apnea, unspecified; E66.01 Morbid (severe) obesity due to excess calories
CPT/HCPCS: 82710; 83993; 87177; 87329

== ENCOUNTER 2019-06-15 06:20 | Inpatient (IN) | payer MEDICARE, BC, SELFPAY ==
[2019-03-03 12:31] VITALS: BMI 40.6
[2019-06-15] VITALS (12 sets, daily range): BP systolic 118–143; BP diastolic 61–95; PULSE 69–90; RESP 16–18; TEMP 36.4–37.4; O2SAT 94–99; BMI 37.8
--- NOTE | 2019-06-15 06:42 | ED_ITS ---
HPI - Abdominal Pain <Alba Johannafany, DO - Last Filed: 06/21/19 07:11> General Chief Complaint: Abdominal Pain Stated Complaint: thinks she has bowel obstruction/vomiting/diarrhea Time Seen by Provider: 06/15/19 06:34 Source: patient Mode of arrival: Family Vehicle Limitations: no limitations History of Present Illness HPI narrative: Patient is a 73-year-old female with history of small-bowel obstruction, recurrent breast cancer pain diarrhea and vomiting. She says it started around midnight last night. She is has had multiple episodes of vomiting since unable to keep anything down to feels like her abdomen is bloated and distended. She has also had multiple episodes of diarrhea. Both which are nonbloody. She denies any fever or chills she has no chest pain dizziness lightheadedness or heart palpitations. She says this feels similar to her previous small bowel obstruction when she was admitted at this hospital in February. Treated conservatively and resolved on its own. MD complaint: abdominal pain Onset (ago): hour(s) Pain Consistency: intermittent Location: diffuse Severity: mild Quality: cramping Radiation: none Migration to: no migration Relieving factors: nothing Related Data Home Medications Medication Instructions Recorded Confirmed anastrozole 1 mg PO DAILY #0 12/27/16 06/15/19 aspirin 81 mg PO DAILY #0 12/27/16 06/15/19 cholecalciferol (vitamin D3) 2,000 unit PO DAILY #0 12/27/16 06/15/19 [Vitamin D3] citalopram 20 mg PO DAILY #0 12/27/16 06/15/19 multivitamin [Multiple Vitamins] 1 tab PO DAILY #0 12/27/16 06/15/19 olmesartan [Benicar] 20 mg PO DAILY #0 12/27/16 06/15/19 rosuvastatin [Crestor] 5 mg PO SEE INSTRUCTIONS #0 12/27/16 06/15/19 estradiol [Vagifem] 10 mcg VG DIRECTED #0 05/10/17 06/15/19 furosemide 20 mg PO DAILY 06/15/19 06/15/19 Previous Rx's Medication Instructions Recorded albuterol sulfate [Ventolin HFA] 2 puff INH QIDP PRN #1 inh 12/27/16 Allergies Allergy/AdvReac Type Severity Reaction Status Date / Time Penicillins [PENICILLINS] Allergy Unknown Verified 03/03/19 08:19 shellfish derived Allergy Unknown Verified 03/03/19 08:19 [SHELLFISH DERIVED] vancomycin [VANCOMYCIN] Allergy Unknown Verified 03/03/19 08:19 Review of Systems <Alba Leahy DO - Last Filed: 06/21/19 07:11> Review of Systems Narrative: GENERAL: Denies chills, fatigue, malaise, fever, sweats, travel HEENT: Denies sinus pain, ear pain, sore throat, difficulty swallowing, neck pain RESPIRATORY: Denies dyspnea, cough, wheezing, hemoptysis, sputum. CARDIOVASCULAR: Denies chest pain, palpitations, orthopnea, edema GASTROINTESTINAL: See HPI : Denies dysuria, frequency, incontinence, hematuria, urinary retention, flank pain. MUSCULOSKELETAL: Denies weakness, joint pain, or bony pain SKIN: No rash, no erythema, no pruritus NEUROLOGIC: Denies weakness, dizziness, headache, numbness, change in speech, confusion PSYCHIATRIC: No concerning psychosocial issues. 12 point review of systems is negative except for those stated above and HPI Patient History <Alba Leahy DO - Last Filed: 06/21/19 07:11> Medical History Breast cancer (Resolved 1990) Cataract (Chronic 2016) Chicken pox (Resolved ~1949) Diverticulitis (Resolved 2014) Essential hypertension (Chronic 05/10/17) Gout (Inactive) Hayfever (Chronic) History of heavy periods (Resolved) Hyperlipidemia (Chronic 05/10/17) IBS (irritable bowel syndrome) (Chronic) Lymphedema (Chronic 05/10/17) Malignant neoplasm of breast (Inactive 09/13/17) Measles (Resolved ~1950) Morbid obesity (Chronic 09/13/17) Mumps (Resolved 1960) Neutropenia (Resolved 2013) Osteopenia (Chronic) Primary osteoarthritis of both knees (Chronic 09/13/17) Rosacea (Resolved) Shoulder pain (Chronic 2014) Skin cancer (Resolved 02/2017) Thyroid nodule (Resolved 2013) Tinnitus (Chronic) Surgical History Anesthesia (Resolved) History of eye surgery (Inactive ~1950) History of toe surgery (Inactive 1994) History of tonsillectomy (Inactive ~1961) Status post delivery (Inactive 01/01/83) Status post partial mastectomy (Inactive 11/05/13) Status post partial mastectomy (Inactive 09/07/90) Family History Father Heart disease Hypertension High cholesterol Stroke Grandfather Heart disease Grandmother Heart disease Diabetes mellitus Pneumonia CAD (coronary artery disease) Mother Cancer Heart disease Head and neck cancer Grandmother Heart disease Heart attack Grandfather Lung cancer Social History household members: spouse Smoking Status: Never smoker alcohol intake: current substance use type: does not use alcohol intake frequency: a few times a month Alcohol type: wine Substance Use Type: does not use Exam <Alba eLahy DO - Last Filed: 06/21/19 07:11> Initial Vital Signs Initial Vital Signs: Vital Signs Temperature 97.8 F 06/15/19 06:31 GENERAL: Alert pleasant female and in no acute distress. HEENT: Head atraumatic,EOMI, pupils reactive, face symmetric, CARDIOVASCULAR: Regular rate and rhythm without murmurs, rubs or gallops. RESPIRATORY: Breath sounds equal bilaterally, no wheezes rales or rhonchi. ABDOMEN: Soft, mild distension no guarding no rebound no localization of pain EXTREMITIES: Normal range of motion, no clubbing or edema. Neurovascularly intact NEUROLOGICAL: Alert and oriented x4.Normal gait and speech. Cranial nerves II through XII grossly intact. SKIN: Warm, dry, no laceration, no petechiae, no rashes or lesions. <Linda Hobbs DO - Last Filed: 06/15/19 18:10> Initial Vital Signs Initial Vital Signs: Vital Signs Temperature 97.8 F 06/15/19 06:31 <Janay Blackwell DO - Last Filed: 06/17/19 09:03> Initial Vital Signs Initial Vital Signs: Vital Signs Temperature 97.8 F 06/15/19 06:31 Course <Alba Leahy DO - Last Filed: 06/21/19 07:11> Orders Ordered: Discontinued Medications Enoxaparin Sodium (Lovenox) 40 mg SUBCUT DAILY [facility] Last Admin: 06/17/19 08:10 Dose: 40 mg Documented by: Admin: 06/16/19 09:07 Dose: 40 mg Documented by: MICHAEL Furosemide (Lasix) 20 mg PO DAILY [facility] Last Admin: 06/17/19 10:17 Dose: 20 mg Documented by: ANKITA Heparin Sodium (Porcine) (Heparin Lock Port) 500 unit IV PRN PRN PRN Reason: Flush Hydromorphone HCl (Dilaudid) 0.5 mg IV Q6H PRN PRN Reason: Pain, Moderate (4-6) Sodium Chloride (Normal Saline 0.9%) 1,000 mls @ 1,000 mls/hr IV BOLUS ONE Stop: 06/15/19 08:46 Last Infusion: 06/15/19 08:35 Dose: 0 mls/hr Documented by: Admin: 06/15/19 07:48 Dose: 1,000 mls/hr Documented by: TRAVIS Sodium Chloride (Normal Saline 0.9%) 1,000 mls @ 100 mls/hr IV CONT PADMINI Last Admin: 06/17/19 01:20 PST Dose: 100 mls/hr Documented by: Infusion: 06/17/19 01:00 PST Dose: 100 mls/hr Documented by: Admin: 06/16/19 16:55 Dose: 100 mls/hr Documented by: Infusion: 06/16/19 16:32 Dose: 100 mls/hr Documented by: Infusion: 06/16/19 09:03 Dose: 100 mls/hr Documented by: Admin: 06/16/19 07:47 Dose: 200 mls/hr Documented by: Infusion: 06/16/19 07:28 Dose: 200 mls/hr Documented by: Admin: 06/16/19 02:28 Dose: 200 mls/hr Documented by: Infusion: 06/16/19 02:28 Dose: 200 mls/hr Documented by: Admin: 06/15/19 22:08 Dose: 200 mls/hr Documented by: Infusion: 06/15/19 22:08 Dose: 200 mls/hr Documented by: Admin: 06/15/19 16:43 Dose: 200 mls/hr Documented by: Infusion: 06/15/19 16:43 Dose: 200 mls/hr Documented by: Admin: 06/15/19 11:28 Dose: 200 mls/hr Documented by: CLEO Lidocaine HCl (Xylocaine 1% (Pf)) 2 ml INJ NOW ONE Stop: 06/15/19 06:40 Last Admin: 06/15/19 06:44 Dose: 2 ml Documented by: KENDRA Metoclopramide HCl (Reglan) 5 mg IV Q6HR PRN PRN Reason: Nausea And Vomiting Last Admin: 06/16/19 17:22 Dose: 5 mg Documented by: Admin: 06/16/19 11:52 Dose: 5 mg Documented by: Admin: 06/16/19 06:05 Dose: 5 mg Documented by: Admin: 06/15/19 13:41 Dose: 5 mg Documented by: CLEO Morphine Sulfate (Morphine) 2 mg IV NOW ONE Stop: 06/15/19 06:56 Last Admin: 06/15/19 07:35 Dose: 2 mg Documented by: TRAVIS Ondansetron HCl (Zofran) 4 mg IV NOW ONE Stop: 06/15/19 06:56 Last Admin: 06/15/19 07:34 Dose: 4 mg Documented by: TRAVIS Ondansetron HCl (Zofran) 4 mg IV Q8HR PRN PRN Reason: Nausea And Vomiting Last Admin: 06/15/19 11:28 Dose: 4 mg Documented by: CLEO Ondansetron HCl (Zofran) 4 mg IV Q4H PRN PRN Reason: Nausea And Vomiting Last Admin: 06/15/19 23:56 Dose: 4 mg Documented by: EVAN Pantoprazole Sodium (Protonix) 40 mg IV NOW ONE Stop: 06/15/19 10:34 Last Admin: 06/15/19 10:47 Dose: 40 mg Documented by: TRAVIS Ranitidine HCl (Zantac) 150 mg PO NOW ONE Stop: 06/17/19 09:00 Last Admin: 06/17/19 10:17 Dose: 150 mg Documented by: ANKITA Sodium Chloride (Normal Saline 0.9% Flush) 10 ml IV PRN PRN PRN Reason: Flush Last Admin: 06/16/19 06:07 Dose: 10 ml Documented by: EVAN Vital Signs Vital signs: Vital Signs - 8 hr 06/15/19 06:31 06/15/19 06:34 06/15/19 07:41 Temperature 97.8 F Pulse Rate 76 77 Respiratory Rate 18 16 Blood Pressure [Left Arm] 143/95 H 143/95 H Pulse Oximetry 97 97 06/15/19 08:33 Temperature Pulse Rate 71 Respiratory Rate 16 Blood Pressure [Left Arm] 133/72 Pulse Oximetry 94 <Linda Hobbs DO - Last Filed: 06/15/19 18:10> Orders Ordered: Discontinued Medications Enoxaparin Sodium (Lovenox) 40 mg SUBCUT DAILY [facility] Last Admin: 06/17/19 08:10 Dose: 40 mg Documented by: Admin: 06/16/19 09:07 Dose: 40 mg Documented by: MICHAEL Furosemide (Lasix) 20 mg PO DAILY [facility] Last Admin: 06/17/19 10:17 Dose: 20 mg Documented by: ANKITA Heparin Sodium (Porcine) (Heparin Lock Port) 500 unit IV PRN PRN PRN Reason: Flush Hydromorphone HCl (Dilaudid) 0.5 mg IV Q6H PRN PRN Reason: Pain, Moderate (4-6) Sodium Chloride (Normal Saline 0.9%) 1,000 mls @ 1,000 mls/hr IV BOLUS ONE Stop: 06/15/19 08:46 Last Infusion: 06/15/19 08:35 Dose: 0 mls/hr Documented by: Admin: 06/15/19 07:48 Dose: 1,000 mls/hr Documented by: TRAVIS Sodium Chloride (Normal Saline 0.9%) 1,000 mls @ 100 mls/hr IV CONT [facility] Last Admin: 06/17/19 01:20 PST Dose: 100 mls/hr Documented by: Infusion: 06/17/19 01:00 PST Dose: 100 mls/hr Documented by: Admin: 06/16/19 16:55 Dose: 100 mls/hr Documented by: Infusion: 06/16/19 16:32 Dose: 100 mls/hr Documented by: Infusion: 06/16/19 09:03 Dose: 100 mls/hr Documented by: Admin: 06/16/19 07:47 Dose: 200 mls/hr Documented by: Infusion: 06/16/19 07:28 Dose: 200 mls/hr Documented by: Admin: 06/16/19 02:28 Dose: 200 mls/hr Documented by: Infusion: 06/16/19 02:28 Dose: 200 mls/hr Documented by: Admin: 06/15/19 22:08 Dose: 200 mls/hr Documented by: Infusion: 06/15/19 22:08 Dose: 200 mls/hr Documented by: Admin: 06/15/19 16:43 Dose: 200 mls/hr Documented by: Infusion: 06/15/19 16:43 Dose: 200 mls/hr Documented by: Admin: 06/15/19 11:28 Dose: 200 mls/hr Documented by: CLEO Lidocaine HCl (Xylocaine 1% (Pf)) 2 ml INJ NOW ONE Stop: 06/15/19 06:40 Last Admin: 06/15/19 06:44 Dose: 2 ml Documented by: KENDRA Metoclopramide HCl (Reglan) 5 mg IV Q6HR PRN PRN Reason: Nausea And Vomiting Last Admin: 06/16/19 17:22 Dose: 5 mg Documented by: Admin: 06/16/19 11:52 Dose: 5 mg Documented by: Admin: 06/16/19 06:05 Dose: 5 mg Documented by: Admin: 06/15/19 13:41 Dose: 5 mg Documented by: CLEO Morphine Sulfate (Morphine) 2 mg IV NOW ONE Stop: 06/15/19 06:56 Last Admin: 06/15/19 07:35 Dose: 2 mg Documented by: TRAVIS Ondansetron HCl (Zofran) 4 mg IV NOW ONE Stop: 06/15/19 06:56 Last Admin: 06/15/19 07:34 Dose: 4 mg Documented by: TRAVIS Ondansetron HCl (Zofran) 4 mg IV Q8HR PRN PRN Reason: Nausea And Vomiting Last Admin: 06/15/19 11:28 Dose: 4 mg Documented by: CLEO Ondansetron HCl (Zofran) 4 mg IV Q4H PRN PRN Reason: Nausea And Vomiting Last Admin: 06/15/19 23:56 Dose: 4 mg Documented by: EVAN Pantoprazole Sodium (Protonix) 40 mg IV NOW ONE Stop: 06/15/19 10:34 Last Admin: 06/15/19 10:47 Dose: 40 mg Documented by: TRAVIS Ranitidine HCl (Zantac) 150 mg PO NOW ONE Stop: 06/17/19 09:00 Last Admin: 06/17/19 10:17 Dose: 150 mg Documented by: ANKITA Sodium Chloride (Normal Saline 0.9% Flush) 10 ml IV PRN PRN PRN Reason: Flush Last Admin: 06/16/19 06:07 Dose: 10 ml Documented by: EVAN Vital Signs Vital signs: Vital Signs - 8 hr 06/15/19 06:31 06/15/19 06:34 06/15/19 07:41 Temperature 97.8 F Pulse Rate 76 77 Respiratory Rate 18 16 Blood Pressure [Left Arm] 143/95 H 143/95 H Pulse Oximetry 97 97 06/15/19 08:33 Temperature Pulse Rate 71 Respiratory Rate 16 Blood Pressure [Left Arm] 133/72 Pulse Oximetry 94 <Janay Blackwell DO - Last Filed: 06/17/19 09:03> Orders Ordered: Discontinued Medications Enoxaparin Sodium (Lovenox) 40 mg SUBCUT DAILY [facility] Last Admin: 06/17/19 08:10 Dose: 40 mg Documented by: Admin: 06/16/19 09:07 Dose: 40 mg Documented by: MICHAEL Furosemide (Lasix) 20 mg PO DAILY [facility] Last Admin: 06/17/19 10:17 Dose: 20 mg Documented by: ANKITA Heparin Sodium (Porcine) (Heparin Lock Port) 500 unit IV PRN PRN PRN Reason: Flush Hydromorphone HCl (Dilaudid) 0.5 mg IV Q6H PRN PRN Reason: Pain, Moderate (4-6) Sodium Chloride (Normal Saline 0.9%) 1,000 mls @ 1,000 mls/hr IV BOLUS ONE Stop: 06/15/19 08:46 Last Infusion: 06/15/19 08:35 Dose: 0 mls/hr Documented by: Admin: 06/15/19 07:48 Dose: 1,000 mls/hr Documented by: TRAVIS Sodium Chloride (Normal Saline 0.9%) 1,000 mls @ 100 mls/hr IV CONT PADMINI Last Admin: 06/17/19 01:20 PST Dose: 100 mls/hr Documented by: Infusion: 06/17/19 01:00 PST Dose: 100 mls/hr Documented by: Admin: 06/16/19 16:55 Dose: 100 mls/hr Documented by: Infusion: 06/16/19 16:32 Dose: 100 mls/hr Documented by: Infusion: 06/16/19 09:03 Dose: 100 mls/hr Documented by: Admin: 06/16/19 07:47 Dose: 200 mls/hr Documented by: Infusion: 06/16/19 07:28 Dose: 200 mls/hr Documented by: Admin: 06/16/19 02:28 Dose: 200 mls/hr Documented by: Infusion: 06/16/19 02:28 Dose: 200 mls/hr Documented by: Admin: 06/15/19 22:08 Dose: 200 mls/hr Documented by: Infusion: 06/15/19 22:08 Dose: 200 mls/hr Documented by: Admin: 06/15/19 16:43 Dose: 200 mls/hr Documented by: Infusion: 06/15/19 16:43 Dose: 200 mls/hr Documented by: Admin: 06/15/19 11:28 Dose: 200 mls/hr Documented by: CLEO Lidocaine HCl (Xylocaine 1% (Pf)) 2 ml INJ NOW ONE Stop: 06/15/19 06:40 Last Admin: 06/15/19 06:44 Dose: 2 ml Documented by: KENDRA Metoclopramide HCl (Reglan) 5 mg IV Q6HR PRN PRN Reason: Nausea And Vomiting Last Admin: 06/16/19 17:22 Dose: 5 mg Documented by: Admin: 06/16/19 11:52 Dose: 5 mg Documented by: Admin: 06/16/19 06:05 Dose: 5 mg Documented by: Admin: 06/15/19 13:41 Dose: 5 mg Documented by: CLEO Morphine Sulfate (Morphine) 2 mg IV NOW ONE Stop: 06/15/19 06:56 Last Admin: 06/15/19 07:35 Dose: 2 mg Documented by: TRAVIS Ondansetron HCl (Zofran) 4 mg IV NOW ONE Stop: 06/15/19 06:56 Last Admin: 06/15/19 07:34 Dose: 4 mg Documented by: TRAVIS Ondansetron HCl (Zofran) 4 mg IV Q8HR PRN PRN Reason: Nausea And Vomiting Last Admin: 06/15/19 11:28 Dose: 4 mg Documented by: CLEO Ondansetron HCl (Zofran) 4 mg IV Q4H PRN PRN Reason: Nausea And Vomiting Last Admin: 06/15/19 23:56 Dose: 4 mg Documented by: EVAN Pantoprazole Sodium (Protonix) 40 mg IV NOW ONE Stop: 06/15/19 10:34 Last Admin: 06/15/19 10:47 Dose: 40 mg Documented by: TRAVIS Ranitidine HCl (Zantac) 150 mg PO NOW ONE Stop: 06/17/19 09:00 Last Admin: 06/17/19 10:17 Dose: 150 mg Documented by: ANKITA Sodium Chloride (Normal Saline 0.9% Flush) 10 ml IV PRN PRN PRN Reason: Flush Last Admin: 06/16/19 06:07 Dose: 10 ml Documented by: EVAN Vital Signs Vital signs: Vital Signs - 8 hr 06/15/19 06:31 06/15/19 06:34 06/15/19 07:41 Temperature 97.8 F Pulse Rate 76 77 Respiratory Rate 18 16 Blood Pressure [Left Arm] 143/95 H 143/95 H Pulse Oximetry 97 97 06/15/19 08:33 Temperature Pulse Rate 71 Respiratory Rate 16 Blood Pressure [Left Arm] 133/72 Pulse Oximetry 94 MDM - Abdominal Pain <Alba Leahy DO - Last Filed: 06/21/19 07:11> Lab Data Result diagrams: 06/17/19 05:53 06/17/19 05:53 Labs: Lab Results 06/15/19 06/15/19 06/15/19 Range/Units 07:28 07:28 07:28 WBC 6.3 (4.5-11.0) X10^3/uL RBC 4.26 (4.0-5.2) X10^6/uL Hgb 12.6 (12.0-16.0) g/dL Hct 36.9 (36-46) % MCV 86.6 (80-100) fL MCH 29.7 (26-34) PG MCHC 34.3 (30-36) % RDW 13.1 (11.6-14.8) % Plt Count 163 (150-400) X10^3/uL Neut % (Auto) 87.3 H (50-75) % Lymph % (Auto) 7.9 L (25-40) % [place] % (Auto) 3.9 (3-14) % Eos % (Auto) 0.3 L (2-4) % Baso % (Auto) 0.6 (0-2) % Neut # (Auto) 5500 (8074-4301) /uL Lymph # (Auto) 500 L (1508-3383) /uL [place] # (Auto) 200 (0-900) /uL Eos # (Auto) 0 (0-450) /uL Baso # (Auto) 0 (0-100) /uL PT 12.6 (10.1-12.7) SECONDS INR 1.1 (0.9-1.3) APTT 50 H (26.4-36.2) SECONDS Sodium 139 (137-145) mmol/L Potassium 4.2 (3.4-5.1) mmol/L Chloride 103 (98-107) mmol/L Carbon Dioxide 27 (22-32) mmol/L BUN 16 (7-17) mg/dL Creatinine 0.70 (0.52-1.04) mg/dL Estimated GFR > 60.0 (>60) mL/min BUN/Creatinine Ratio 22.9 H (6-22) Glucose 122 H (80-110) mg/dL Calcium 9.3 (8.4-10.2) mg/dL Total Bilirubin 0.7 (0.2-1.3) mg/dL AST 32 (14-36) IU/L ALT 25 (<35) IU/L Alkaline Phosphatase 88 (38-126) U/L Total Protein 6.6 (6.3-8.2) g/dL Albumin 4.4 (3.5-5.0) g/dL Globulin 2.2 (1.7-4.1) g/dL Albumin/Globulin Ratio 2.0 (1.0-2.8) Lipase 7952 H (23-300) U/L Urine RBC (0-5/HPF) Urine WBC (0-5/HPF) Ur Squamous Epith Cells (0-5/HPF) Amorphous Sediment Urine Bacteria (None) Urine Mucus (Negative) Ur Culture Indicated? 06/15/19 Range/Units 07:50 WBC (4.5-11.0) X10^3/uL RBC (4.0-5.2) X10^6/uL Hgb (12.0-16.0) g/dL Hct (36-46) % MCV (80-100) fL MCH (26-34) PG MCHC (30-36) % RDW (11.6-14.8) % Plt Count (150-400) X10^3/uL Neut % (Auto) (50-75) % Lymph % (Auto) (25-40) % [place] % (Auto) (3-14) % Eos % (Auto) (2-4) % Baso % (Auto) (0-2) % Neut # (Auto) (5909-9478) /uL Lymph # (Auto) (1655-2106) /uL [place] # (Auto) (0-900) /uL Eos # (Auto) (0-450) /uL Baso # (Auto) (0-100) /uL PT (10.1-12.7) SECONDS INR (0.9-1.3) APTT (26.4-36.2) SECONDS Sodium (137-145) mmol/L Potassium (3.4-5.1) mmol/L Chloride (98-107) mmol/L Carbon Dioxide (22-32) mmol/L BUN (7-17) mg/dL Creatinine (0.52-1.04) mg/dL Estimated GFR (>60) mL/min BUN/Creatinine Ratio (6-22) Glucose (80-110) mg/dL Calcium (8.4-10.2) mg/dL Total Bilirubin (0.2-1.3) mg/dL AST (14-36) IU/L ALT (<35) IU/L Alkaline Phosphatase (38-126) U/L Total Protein (6.3-8.2) g/dL Albumin (3.5-5.0) g/dL Globulin (1.7-4.1) g/dL Albumin/Globulin Ratio (1.0-2.8) Lipase (23-300) U/L Urine RBC 0-1/hpf (0-5/HPF) Urine WBC 30-100/hpf H (0-5/HPF) Ur Squamous Epith Cells 0-1 /hpf (0-5/HPF) Amorphous Sediment 1+ Urine Bacteria Few (2-10) H (None) Urine Mucus 1+ H (Negative) Ur Culture Indicated? Specimen cultured Point of care testing: Urine Dip Bedside Urine Glucose Negative Bedside Urine Bilirubin - Negative Bedside Urine Ketone ++ 40 Urine Specific [place] 1.015 Bedside Urine Occult Blood +/- Bedside Urine pH 6.5 Bedside Urine Protein +/- 15 Bedside Urine Urobilinogen - Negative Bedside Urine Nitrite - Negative Bedside Urine Leukocytes +++ 500 Esterase MDM Narrative Medical decision making narrative: Patient signed out to Dr. Hobbs for further management. Blood work and CT pending <Linda Hobbs, - Last Filed: 06/15/19 18:10> Lab Data Attestation: I reviewed the patient's lab results. Labs: Lab Results 06/15/19 06/15/19 06/15/19 Range/Units 07:28 07:28 07:28 WBC 6.3 (4.5-11.0) X10^3/uL RBC 4.26 (4.0-5.2) X10^6/uL Hgb 12.6 (12.0-16.0) g/dL Hct 36.9 (36-46) % MCV 86.6 (80-100) fL MCH 29.7 (26-34) PG MCHC 34.3 (30-36) % RDW 13.1 (11.6-14.8) % Plt Count 163 (150-400) X10^3/uL Neut % (Auto) 87.3 H (50-75) % Lymph % (Auto) 7.9 L (25-40) % [place] % (Auto) 3.9 (3-14) % Eos % (Auto) 0.3 L (2-4) % Baso % (Auto) 0.6 (0-2) % Neut # (Auto) 5500 (6497-2923) /uL Lymph # (Auto) 500 L (2964-1732) /uL [place] # (Auto) 200 (0-900) /uL Eos # (Auto) 0 (0-450) /uL Baso # (Auto) 0 (0-100) /uL PT 12.6 (10.1-12.7) SECONDS INR 1.1 (0.9-1.3) APTT 50 H (26.4-36.2) SECONDS Sodium 139 (137-145) mmol/L Potassium 4.2 (3.4-5.1) mmol/L Chloride 103 (98-107) mmol/L Carbon Dioxide 27 (22-32) mmol/L BUN 16 (7-17) mg/dL Creatinine 0.70 (0.52-1.04) mg/dL Estimated GFR > 60.0 (>60) mL/min BUN/Creatinine Ratio 22.9 H (6-22) Glucose 122 H (80-110) mg/dL Calcium 9.3 (8.4-10.2) mg/dL Total Bilirubin 0.7 (0.2-1.3) mg/dL AST 32 (14-36) IU/L ALT 25 (<35) IU/L Alkaline Phosphatase 88 (38-126) U/L Total Protein 6.6 (6.3-8.2) g/dL Albumin 4.4 (3.5-5.0) g/dL Globulin 2.2 (1.7-4.1) g/dL Albumin/Globulin Ratio 2.0 (1.0-2.8) Lipase 7952 H (23-300) U/L Urine RBC (0-5/HPF) Urine WBC (0-5/HPF) Ur Squamous Epith Cells (0-5/HPF) Amorphous Sediment Urine Bacteria (None) Urine Mucus (Negative) Ur Culture Indicated? 06/15/19 Range/Units 07:50 WBC (4.5-11.0) X10^3/uL RBC (4.0-5.2) X10^6/uL Hgb (12.0-16.0) g/dL Hct (36-46) % MCV (80-100) fL MCH (26-34) PG MCHC (30-36) % RDW (11.6-14.8) % Plt Count (150-400) X10^3/uL Neut % (Auto) (50-75) % Lymph % (Auto) (25-40) % [place] % (Auto) (3-14) % Eos % (Auto) (2-4) % Baso % (Auto) (0-2) % Neut # (Auto) (8209-6673) /uL Lymph # (Auto) (2502-1932) /uL [place] # (Auto) (0-900) /uL Eos # (Auto) (0-450) /uL Baso # (Auto) (0-100) /uL PT (10.1-12.7) SECONDS INR (0.9-1.3) APTT (26.4-36.2) SECONDS Sodium (137-145) mmol/L Potassium (3.4-5.1) mmol/L Chloride (98-107) mmol/L Carbon Dioxide (22-32) mmol/L BUN (7-17) mg/dL Creatinine (0.52-1.04) mg/dL Estimated GFR (>60) mL/min BUN/Creatinine Ratio (6-22) Glucose (80-110) mg/dL Calcium (8.4-10.2) mg/dL Total Bilirubin (0.2-1.3) mg/dL AST (14-36) IU/L ALT (<35) IU/L Alkaline Phosphatase (38-126) U/L Total Protein (6.3-8.2) g/dL Albumin (3.5-5.0) g/dL Globulin (1.7-4.1) g/dL Albumin/Globulin Ratio (1.0-2.8) Lipase (23-300) U/L Urine RBC 0-1/hpf (0-5/HPF) Urine WBC 30-100/hpf H (0-5/HPF) Ur Squamous Epith Cells 0-1 /hpf (0-5/HPF) Amorphous Sediment 1+ Urine Bacteria Few (2-10) H (None) Urine Mucus 1+ H (Negative) Ur Culture Indicated? Specimen cultured Point of care testing: Urine Dip Bedside Urine Glucose Negative Bedside Urine Bilirubin - Negative Bedside Urine Ketone ++ 40 Urine Specific Edwards 1.015 Bedside Urine Occult Blood +/- Bedside Urine pH 6.5 Bedside Urine Protein +/- 15 Bedside Urine Urobilinogen - Negative Bedside Urine Nitrite - Negative Bedside Urine Leukocytes +++ [address] scan - abdomen: Radiologist's impression: [address] [address] [address] Scan Report Signed Patient: Davina Barrett CMR#: [id number] : 7Acct:[id number] Age/Sex: 73 / FDate of Service: 06/15/19 Loc: ED Accession Number: [id number] Procedure: CT abdomen pelvis w con Ordering Provider: Alba Leahy D.O. PROCEDURE: CT ABDOMEN PELVIS W CON INDICATIONS: vomiting diarrhea history of small bowel obstruction TECHNIQUE: After the administration of intravenous contrast, 5 mm thick sections acquired from the diaphragm to the symphysis. 5 mm coronal and sagittal reformats were acquired. For radiation dose reduction, the following was used: automated exposure control, adjustment of mA and/or kV according to patient size. COMPARISON: [facility], CT, CT ABDOMEN PELVIS W CON, 03/03/2019, 9:16. FINDINGS: Image quality: Excellent. ABDOMEN: Lung bases: Lung bases are clear. Heart size is enlarged, no pericardial effusion. Solid organs: Liver is normal in size and enhancement. Hepatic steatosis is seen. Gallbladder is within normal limits. Biliary system is non dilated. Pancreas enhances normally. Spleen is normal in size and enhancement. No adrenal nodules. Kidneys demonstrate normal size and enhancement, without hydronephrosis. Peritoneum and bowel: There is mild to moderate mid to distal gastric wall thickening. Moderately distended gastric lumen is seen with air fluid level. Fluid distended distal duodenum and proximal jejunum is seen with few air-fluid levels in maximal diameter of 4.3 cm. There is a focal transition point seen in left lower quadrant series 2 image 54 and series 4 image 17. More distal portion of small bowel loops and colon loops are normal in caliber. No free fluid or free air. Mild sigmoid diverticulosis is seen, no CT evidence of acute diverticulitis. Nodes and vessels: No retroperitoneal or mesenteric adenopathy by size criteria. Aorta and inferior vena cava are normal in size. Miscellaneous: No ventral hernias. PELVIS: Genitourinary: Bladder wall thickness is normal. Miscellaneous: No inguinal hernias or adenopathy. Bones: No suspicious bony lesions. No vertebral body compression fractures. IMPRESSION: 1. Findings suggestive of small bowel obstruction with transition point involving proximal to mid jejunum in left lower quadrant abdomen. 2. Sigmoid diverticulosis, no CT evidence of acute diverticulitis. 3. Mild mid to distal gastric wall thickening, suspicious for infectious or inflammatory gastritis. No free fluid or free air. 4. Hepatic steatosis. Dictated by: Blake Foster M.D. on 06/15/2019 at 8:46 Approved by: Blake Foster M.D. on 06/15/2019 at 8:58 MDM Narrative Medical decision making narrative: Patient signed out to myself by Dr. Leahy, patient's case was reviewed, she was re-evaluated. She is feeling better at this time. Her labs show a pancreatitis with a lipase in the 7900 range., anemia and platelets are 163. Patient has neutrophils at 87%. Patient's CMP shows a glucose of 122 otherwise normal LFTs, renal function electrolytes. Patient's CT does not show any changes to the pancreas, intrahepatic bile ducts or surrounding area there is finding suspicious for a bowel obstruction and with patient's recent history of vomiting and diarrhea potentially partial bowel obstruction. Patient's primary care is Dr. Blackwell who was contacted for admission she accepts the patient. Will defer NG tube is patient is not actively vomiting at this time. Patient's pain has improved while she is in the department. <Janay Blackwell, DO - Last Filed: 06/17/19 09:03> Lab Data Labs: Lab Results 06/15/19 06/15/19 06/15/19 Range/Units 07:28 07:28 07:28 WBC 6.3 (4.5-11.0) X10^3/uL RBC 4.26 (4.0-5.2) X10^6/uL Hgb 12.6 (12.0-16.0) g/dL Hct 36.9 (36-46) % MCV 86.6 (80-100) fL MCH 29.7 (26-34) PG MCHC 34.3 (30-36) % RDW 13.1 (11.6-14.8) % Plt Count 163 (150-400) X10^3/uL Neut % (Auto) 87.3 H (50-75) % Lymph % (Auto) 7.9 L (25-40) % [place] % (Auto) 3.9 (3-14) % Eos % (Auto) 0.3 L (2-4) % Baso % (Auto) 0.6 (0-2) % Neut # (Auto) 5500 (6470-4058) /uL Lymph # (Auto) 500 L (6092-0074) /uL [place] # (Auto) 200 (0-900) /uL Eos # (Auto) 0 (0-450) /uL Baso # (Auto) 0 (0-100) /uL PT 12.6 (10.1-12.7) SECONDS INR 1.1 (0.9-1.3) APTT 50 H (26.4-36.2) SECONDS Sodium 139 (137-145) mmol/L Potassium 4.2 (3.4-5.1) mmol/L Chloride 103 (98-107) mmol/L Carbon Dioxide 27 (22-32) mmol/L BUN 16 (7-17) mg/dL Creatinine 0.70 (0.52-1.04) mg/dL Estimated GFR > 60.0 (>60) mL/min BUN/Creatinine Ratio 22.9 H (6-22) Glucose 122 H (80-110) mg/dL Calcium 9.3 (8.4-10.2) mg/dL Total Bilirubin 0.7 (0.2-1.3) mg/dL AST 32 (14-36) IU/L ALT 25 (<35) IU/L Alkaline Phosphatase 88 (38-126) U/L Total Protein 6.6 (6.3-8.2) g/dL Albumin 4.4 (3.5-5.0) g/dL Globulin 2.2 (1.7-4.1) g/dL Albumin/Globulin Ratio 2.0 (1.0-2.8) Lipase 7952 H (23-300) U/L Urine RBC (0-5/HPF) Urine WBC (0-5/HPF) Ur Squamous Epith Cells (0-5/HPF) Amorphous Sediment Urine Bacteria (None) Urine Mucus (Negative) Ur Culture Indicated? 06/15/19 Range/Units 07:50 WBC (4.5-11.0) X10^3/uL RBC (4.0-5.2) X10^6/uL Hgb (12.0-16.0) g/dL Hct (36-46) % MCV (80-100) fL MCH (26-34) PG MCHC (30-36) % RDW (11.6-14.8) % Plt Count (150-400) X10^3/uL Neut % (Auto) (50-75) % Lymph % (Auto) (25-40) % [place] % (Auto) (3-14) % Eos % (Auto) (2-4) % Baso % (Auto) (0-2) % Neut # (Auto) (5405-0099) /uL Lymph # (Auto) (8182-7239) /uL [place] # (Auto) (0-900) /uL Eos # (Auto) (0-450) /uL Baso # (Auto) (0-100) /uL PT (10.1-12.7) SECONDS INR (0.9-1.3) APTT (26.4-36.2) SECONDS Sodium (137-145) mmol/L Potassium (3.4-5.1) mmol/L Chloride (98-107) mmol/L Carbon Dioxide (22-32) mmol/L BUN (7-17) mg/dL Creatinine (0.52-1.04) mg/dL Estimated GFR (>60) mL/min BUN/Creatinine Ratio (6-22) Glucose (80-110) mg/dL Calcium (8.4-10.2) mg/dL Total Bilirubin (0.2-1.3) mg/dL AST (14-36) IU/L ALT (<35) IU/L Alkaline Phosphatase (38-126) U/L Total Protein (6.3-8.2) g/dL Albumin (3.5-5.0) g/dL Globulin (1.7-4.1) g/dL Albumin/Globulin Ratio (1.0-2.8) Lipase (23-300) U/L Urine RBC 0-1/hpf (0-5/HPF) Urine WBC 30-100/hpf H (0-5/HPF) Ur Squamous Epith Cells 0-1 /hpf (0-5/HPF) Amorphous Sediment 1+ Urine Bacteria Few (2-10) H (None) Urine Mucus 1+ H (Negative) Ur Culture Indicated? Specimen cultured Point of care testing: Urine Dip Bedside Urine Glucose Negative Bedside Urine Bilirubin - Negative Bedside Urine Ketone ++ 40 Urine Specific [place] 1.015 Bedside Urine Occult Blood +/- Bedside Urine pH 6.5 Bedside Urine Protein +/- 15 Bedside Urine Urobilinogen - Negative Bedside Urine Nitrite - Negative Bedside Urine Leukocytes +++ 500 Esterase Discharge Plan Departure Patient Disposition: Admitted As Inpatient Clinical Impression: Pancreatitis, Partial bowel obstruction Discharge Date/Time: 06/15/19 10:51 Instructions: DI for Pancreatitis, DI for Small Bowel Obstruction Referrals: Janay Blackwell DO [Primary Care Provider] - 2 Weeks Admit Date/Time: 06/15/19 10:24 Admit Provider: Janay Blackwell
[2019-06-15] MEDS: LIDOCAINE 1% (PF) 2 ML INJ (06:44)
--- NOTE | 2019-06-15 06:55 | DI.CT.S_ITS ---
PROCEDURE: CT ABDOMEN PELVIS W CON INDICATIONS: vomiting diarrhea history of small bowel obstruction TECHNIQUE: After the administration of intravenous contrast, 5 mm thick sections acquired from the diaphragm to the symphysis. 5 mm coronal and sagittal reformats were acquired. For radiation dose reduction, the following was used: automated exposure control, adjustment of mA and/or kV according to patient size. COMPARISON: [facility], CT, CT ABDOMEN PELVIS W CON, 03/03/2019, 9:16. FINDINGS: Image quality: Excellent. ABDOMEN: Lung bases: Lung bases are clear. Heart size is enlarged, no pericardial effusion. Solid organs: Liver is normal in size and enhancement. Hepatic steatosis is seen. Gallbladder is within normal limits. Biliary system is non dilated. Pancreas enhances normally. Spleen is normal in size and enhancement. No adrenal nodules. Kidneys demonstrate normal size and enhancement, without hydronephrosis. Peritoneum and bowel: There is mild to moderate mid to distal gastric wall thickening. Moderately distended gastric lumen is seen with air fluid level. Fluid distended distal duodenum and proximal jejunum is seen with few air-fluid levels in maximal diameter of 4.3 cm. There is a focal transition point seen in left lower quadrant series 2 image 54 and series 4 image 17. More distal portion of small bowel loops and colon loops are normal in caliber. No free fluid or free air. Mild sigmoid diverticulosis is seen, no CT evidence of acute diverticulitis. Nodes and vessels: No retroperitoneal or mesenteric adenopathy by size criteria. Aorta and inferior vena cava are normal in size. Miscellaneous: No ventral hernias. PELVIS: Genitourinary: Bladder wall thickness is normal. Miscellaneous: No inguinal hernias or adenopathy. Bones: No suspicious bony lesions. No vertebral body compression fractures. IMPRESSION: 1. Findings suggestive of small bowel obstruction with transition point involving proximal to mid jejunum in left lower quadrant abdomen. 2. Sigmoid diverticulosis, no CT evidence of acute diverticulitis. 3. Mild mid to distal gastric wall thickening, suspicious for infectious or inflammatory gastritis. No free fluid or free air. 4. Hepatic steatosis. Dictated by: Blake Foster M.D. on 06/15/2019 at 8:46 Approved by: Blake Foster M.D. on 06/15/2019 at 8:58
[2019-06-15 07:34] LABS: Add Manual Diff / Slide Review NO; Basophils Absolute Auto 0 /uL (0-100); Basophils Percent Auto 0.6 % (0-2); Eosinophils Absolute Auto 0 /uL (0-450); Eosinophils Percent Auto 0.3 % (2-4); Hematocrit 36.9 % (36-46); Hemoglobin 12.6 g/dL (12.0-16.0); Lymphocytes Absolute Auto 500 /uL (1100-4500); Lymphocytes Percent Auto 7.9 % (25-40); Mean Corpuscular HGB Conc 34.3 % (30-36); Mean Corpuscular Hemoglobin 29.7 PG (26-34); Mean Corpuscular Volume 86.6 fL (80-100); Monocytes Absolute Auto 200 /uL (0-900); Monocytes Percent Auto 3.9 % (3-14); Neutrophils Absolute Auto 5500 /uL (1500-7000); Neutrophils Percent Auto 87.3 % (50-75); Platelet Count 163 X10^3/uL (150-400); Red Blood Cell Count 4.26 X10^6/uL (4.0-5.2); Red Cell Distribution Width 13.1 % (11.6-14.8); White Blood Cell Count 6.3 X10^3/uL (4.5-11.0)
[2019-06-15] MEDS: ONDANSETRON 4 MG/2 ML INJ IV ×3 (07:34→23:56)
[2019-06-15] MEDS: MORPHINE 2 MG/ML INJ IV (07:35)
[2019-06-15 07:41] LABS: INR 1.1 (0.9-1.3); Prothrombin Time 12.6 SECONDS (10.1-12.7)
[2019-06-15 07:44] LABS: PTT Partial Thromboplastin Tim 50 SECONDS (26.4-36.2)
[2019-06-15 07:47] LABS: Alanine Aminotransferase 25 IU/L (<35); Albumin 4.4 g/dL (3.5-5.0); Alkaline Phosphatase 88 U/L (38-126); Aspartate Aminotransferase 32 IU/L (14-36); BUN Creatinine Ratio 22.9 (6-22); Bilirubin Total 0.7 mg/dL (0.2-1.3); Blood Urea Nitrogen 16 mg/dL (7-17); Calcium 9.3 mg/dL (8.4-10.2); Carbon Dioxide 27 mmol/L (22-32); Chloride 103 mmol/L (98-107); Estimated Glomerular Filt Rate > 60.0 mL/min (>60); Globulin 2.2 g/dL (1.7-4.1); Glucose 122 mg/dL (80-110); HEMOLYSIS < 15 (0-50); Potassium 4.2 mmol/L (3.4-5.1); Sodium 139 mmol/L (137-145); Total Protein 6.6 g/dL (6.3-8.2)
[2019-06-15] MEDS: SODIUM CHLORIDE 0.9% 1,000 ML 1000 ML IV (07:48)
[2019-06-15 08:05] LABS: Lipase 7952 U/L (23-300)
[2019-06-15 08:28] LABS: Amorphous Sediment Urine 1+; Bacteria Urine Few (2-10); Culture Indicated Urine Specimen Cultured; Mucus Urine 1+ (Negative); RBC Urine 0-1/HPF (0-5/HPF); Squamous Epithelial Cell Urine 0-1 /HPF (0-5/HPF); WBC Urine 30-100/HPF (0-5/HPF)
[2019-06-15] MEDS: PANTOPRAZOLE 40 MG VIAL IV (10:47)
[2019-06-15] MEDS: SODIUM CHLORIDE 0.9% 1,000 ML 200 ML IV ×3 (11:28→22:08)
--- NOTE | 2019-06-15 12:16 | PM.HP.1 ---
History of Present Illness History of Present Illness Date Patient Seen: 06/15/19 Time Patient Seen: 12:00 Chief complaint: thinks she has bowel obstruction/vomiting/diarrhea Patient History Medical History Breast cancer (Resolved 1990) Cataract (Chronic 2016) Chicken pox (Resolved ~1950) Diverticulitis (Resolved 2014) Essential hypertension (Chronic 05/10/17) Gout (Inactive) Hayfever (Chronic) History of heavy periods (Resolved) Hyperlipidemia (Chronic 05/10/17) IBS (irritable bowel syndrome) (Chronic) Lymphedema (Chronic 05/10/17) Malignant neoplasm of breast (Inactive 09/13/17) Measles (Resolved ~1950) Morbid obesity (Chronic 09/13/17) Mumps (Resolved 1960) Neutropenia (Resolved 2013) Osteopenia (Chronic) Primary osteoarthritis of both knees (Chronic 09/13/17) Rosacea (Resolved) Shoulder pain (Chronic 2014) Skin cancer (Resolved 02/2017) Thyroid nodule (Resolved 2013) Tinnitus (Chronic) Surgical History Anesthesia (Resolved) History of eye surgery (Inactive ~1950) History of toe surgery (Inactive 1994) History of tonsillectomy (Inactive ~1961) Status post delivery (Inactive 01/01/83) Status post partial mastectomy (Inactive 11/05/13) Status post partial mastectomy (Inactive 09/07/90) Family & Social History Family History Father Heart disease Hypertension High cholesterol Stroke Grandfather Heart disease Grandmother Heart disease Diabetes mellitus Pneumonia CAD (coronary artery disease) Mother Cancer Heart disease Head and neck cancer Grandmother Heart disease Heart attack Grandfather Lung cancer Social History: household members spouse Safety & Behavioral: Feels Safe in Current Yes Environment Tobacco & Substance use: Smoking Status Never smoker alcohol intake current alcohol intake frequency a few times a month Substance Use Type does not use Meds Home Medications and Allergies Home Medications Medication Instructions Recorded Confirmed Type albuterol sulfate [Ventolin HFA] 2 puff INH QIDP PRN #1 inh 12/27/16 06/15/19 Rx anastrozole 1 mg PO DAILY #0 12/27/16 06/15/19 History aspirin 81 mg PO DAILY #0 12/27/16 06/15/19 History cholecalciferol (vitamin D3) 2,000 unit PO DAILY #0 12/27/16 06/15/19 History [Vitamin D3] citalopram 20 mg PO DAILY #0 12/27/16 06/15/19 History multivitamin [Multiple Vitamins] 1 tab PO DAILY #0 12/27/16 06/15/19 History olmesartan [Benicar] 20 mg PO DAILY #0 12/27/16 06/15/19 History rosuvastatin [Crestor] 5 mg PO SEE INSTRUCTIONS #0 12/27/16 06/15/19 History estradiol [Vagifem] 10 mcg VG DIRECTED #0 05/10/17 06/15/19 History furosemide 20 mg PO DAILY 06/15/19 06/15/19 History metoprolol tartrate 25 mg PO DAILY 06/15/19 06/15/19 History Allergies Allergy/AdvReac Type Severity Reaction Status Date / Time Penicillins [PENICILLINS] Allergy Unknown Verified 03/03/19 08:19 shellfish derived Allergy Unknown Verified 03/03/19 08:19 [SHELLFISH DERIVED] vancomycin [VANCOMYCIN] Allergy Unknown Verified 03/03/19 08:19 Exam Vital Signs (past 8 hours): - 06/15/19 06:31 06/15/19 06:34 06/15/19 07:41 Temperature 97.8 F Pulse Rate 76 77 Respiratory Rate 18 16 Blood Pressure Blood Pressure [Left Arm] 143/95 H 143/95 H Pulse Oximetry 97 97 06/15/19 08:33 06/15/19 10:42 06/15/19 11:06 Temperature 97.6 F Pulse Rate 71 74 77 Respiratory Rate 16 16 17 Blood Pressure 139/84 Blood Pressure [Left Arm] 133/72 120/64 Pulse Oximetry 94 98 96 06/15/19 12:00 Temperature 98 F Pulse Rate 90 Respiratory Rate 16 Blood Pressure 123/80 Blood Pressure [Left Arm] Pulse Oximetry 95 Oxygen Delivery Method Room Air Oxygen Flow Rate 0 Objective Labs Result Diagrams: 06/15/19 07:28 06/15/19 07:28 Labs: Laboratory Results - last 24 hr 06/15/19 06/15/19 06/15/19 07:28 07:28 07:28 WBC 6.3 RBC 4.26 Hgb 12.6 Hct 36.9 MCV 86.6 MCH 29.7 MCHC 34.3 RDW 13.1 Plt Count 163 Neut % (Auto) 87.3 H Lymph % (Auto) 7.9 L [place] % (Auto) 3.9 Eos % (Auto) 0.3 L Baso % (Auto) 0.6 Neut # (Auto) 5500 Lymph # (Auto) 500 L [place] # (Auto) 200 Eos # (Auto) 0 Baso # (Auto) 0 PT 12.6 INR 1.1 APTT 50 H Sodium 139 Potassium 4.2 Chloride 103 Carbon Dioxide 27 BUN 16 Creatinine 0.70 Estimated GFR > 60.0 BUN/Creatinine Ratio 22.9 H Glucose 122 H Calcium 9.3 Total Bilirubin 0.7 AST 32 ALT 25 Alkaline Phosphatase 88 Total Protein 6.6 Albumin 4.4 Globulin 2.2 Albumin/Globulin Ratio 2.0 Lipase 7952 H Urine RBC Urine WBC Ur Squamous Epith Cells Amorphous Sediment Urine Bacteria Urine Mucus Ur Culture Indicated? 06/15/19 07:50 WBC RBC Hgb Hct MCV MCH MCHC RDW Plt Count Neut % (Auto) Lymph % (Auto) [place] % (Auto) Eos % (Auto) Baso % (Auto) Neut # (Auto) Lymph # (Auto) [place] # (Auto) Eos # (Auto) Baso # (Auto) PT INR APTT Sodium Potassium Chloride Carbon Dioxide BUN Creatinine Estimated GFR BUN/Creatinine Ratio Glucose Calcium Total Bilirubin AST ALT Alkaline Phosphatase Total Protein Albumin Globulin Albumin/Globulin Ratio Lipase Urine RBC 0-1/hpf Urine WBC 30-100/hpf H Ur Squamous Epith Cells 0-1 /hpf Amorphous Sediment 1+ Urine Bacteria Few (2-10) H Urine Mucus 1+ H Ur Culture Indicated? Specimen cultured
--- NOTE | 2019-06-15 12:56 | PM.HP.1 ---
History of Present Illness History of Present Illness Date Patient Seen: 06/15/19 Time Patient Seen: 12:00 Chief complaint: Vomiting Narrative: 73-year-old female with history of 2 separate breast cancers, hypertension, prior and hospitalization for bowel obstruction in February of this year now with vomiting and abdominal pain similar to when she had a bowel obstruction. She has not felt right for several months due to ongoing GERD and diarrhea issues but felt acutely worse last night about 11:00 p.m. when she developed profuse vomiting, diarrhea and epigastric/right upper quadrant pain. She thinks she has had about 20 episodes of diarrhea and 20 episodes of vomiting since last night. Now she is ?dry a bone and nauseated though states she also feels hungry. Pain is currently a 3/10 in the epigastric and right upper quadrant regions. She passed a considerable amount of gas with her diarrhea during the night but denies passing of gas this morning. She presented to the ER early this morning where CT showed evidence of a small-bowel obstruction and lipase was quite elevated as well. Patient drinks very little alcohol denies a past history of pancreatitis. She was treated in the ER with pain medication, IV fluids and Zofran. Will be admitted for continued evaluation and treatment. In February her bowel obstruction resolved with conservative treatment and she did not require an NG tube for decompression. She was seen by surgery. There was some question as to whether the area of interest for the obstruction could be due to malignancy due to the appearance on CT however general surgery did not feel this was likely. She did have an NG tube placed for Gastrografin administration for a small-bowel follow-through which was normal. She did well immediately after the hospitalization. Most recently she saw Gastroenterology last week due to ongoing diarrhea. Further workup is pending and there is a plan for an EGD and colonoscopy in August. Patient History Medical History Breast cancer (Resolved 1990) Cataract (Chronic 2016) Chicken pox (Resolved ~1950) Diverticulitis (Resolved 2014) Essential hypertension (Chronic 05/10/17) Gout (Inactive) Hayfever (Chronic) History of heavy periods (Resolved) Hyperlipidemia (Chronic 05/10/17) IBS (irritable bowel syndrome) (Chronic) Lymphedema (Chronic 05/10/17) Malignant neoplasm of breast (Inactive 09/13/17) Measles (Resolved ~1950) Morbid obesity (Chronic 09/13/17) Mumps (Resolved 1960) Neutropenia (Resolved 2013) Osteopenia (Chronic) Primary osteoarthritis of both knees (Chronic 09/13/17) Rosacea (Resolved) Shoulder pain (Chronic 2014) Skin cancer (Resolved 02/2017) Thyroid nodule (Resolved 2013) Tinnitus (Chronic) Surgical History Anesthesia (Resolved) History of eye surgery (Inactive ~1950) History of toe surgery (Inactive 1994) History of tonsillectomy (Inactive ~1961) Status post delivery (Inactive 01/01/83) Status post partial mastectomy (Inactive 11/05/13) Status post partial mastectomy (Inactive 09/07/90) Family & Social History Family History Father Heart disease Hypertension High cholesterol Stroke Grandfather Heart disease Grandmother Heart disease Diabetes mellitus Pneumonia CAD (coronary artery disease) Mother Cancer Heart disease Head and neck cancer Grandmother Heart disease Heart attack Grandfather Lung cancer Social History: household members spouse Safety & Behavioral: Feels Safe in Current Yes Environment Tobacco & Substance use: Smoking Status Never smoker alcohol intake current alcohol intake frequency a few times a month Substance Use Type does not use Meds Home Medications and Allergies Home Medications Medication Instructions Recorded Confirmed Type albuterol sulfate [Ventolin HFA] 2 puff INH QIDP PRN #1 inh 12/27/16 06/15/19 Rx anastrozole 1 mg PO DAILY #0 12/27/16 06/15/19 History aspirin 81 mg PO DAILY #0 12/27/16 06/15/19 History cholecalciferol (vitamin D3) 2,000 unit PO DAILY #0 12/27/16 06/15/19 History [Vitamin D3] citalopram 20 mg PO DAILY #0 12/27/16 06/15/19 History multivitamin [Multiple Vitamins] 1 tab PO DAILY #0 12/27/16 06/15/19 History olmesartan [Benicar] 20 mg PO DAILY #0 12/27/16 06/15/19 History rosuvastatin [Crestor] 5 mg PO SEE INSTRUCTIONS #0 12/27/16 06/15/19 History estradiol [Vagifem] 10 mcg VG DIRECTED #0 05/10/17 06/15/19 History furosemide 20 mg PO DAILY 06/15/19 06/15/19 History metoprolol tartrate 25 mg PO DAILY 06/15/19 06/15/19 History Allergies Allergy/AdvReac Type Severity Reaction Status Date / Time Penicillins [PENICILLINS] Allergy Unknown Verified 03/03/19 08:19 shellfish derived Allergy Unknown Verified 03/03/19 08:19 [SHELLFISH DERIVED] vancomycin [VANCOMYCIN] Allergy Unknown Verified 03/03/19 08:19 Review of Systems Constitutional Constitutional: Reports fatigue and Denies fever(s) Cardiovascular Cardiovascular: Denies chest pain and Denies shortness of breath Respiratory Respiratory: Denies cough and Denies dyspnea Gastrointestinal Gastrointestinal: Reports abdominal pain, Reports loose stools, Reports nausea and Reports vomiting Genitourinary Genitourinary: Denies urinary urgency and Denies other (Dysuria) Endocrine Endocrine: Reports fatigue Exam Vital Signs (past 8 hours): - 06/15/19 06:31 06/15/19 06:34 06/15/19 07:41 Temperature 97.8 F Pulse Rate 76 77 Respiratory Rate 18 16 Blood Pressure Blood Pressure [Left Arm] 143/95 H 143/95 H Pulse Oximetry 97 97 06/15/19 08:33 06/15/19 10:42 06/15/19 11:06 Temperature 97.6 F Pulse Rate 71 74 77 Respiratory Rate 16 16 17 Blood Pressure 139/84 Blood Pressure [Left Arm] 133/72 120/64 Pulse Oximetry 94 98 96 06/15/19 12:00 Temperature 98 F Pulse Rate 90 Respiratory Rate 16 Blood Pressure 123/80 Blood Pressure [Left Arm] Pulse Oximetry 95 Oxygen Delivery Method Room Air Oxygen Flow Rate 0 Narrative Exam Narrative: General: Awake and alert, no acute distress. Resting in bed holding emesis bag. HEENT: NCAT, EOMI, tacky mucous membranes CV: Regular rate and rhythm, no murmurs, rubs or gallops Lungs: CTAB, no wheezes, rales, or rhonchi Abdomen: Large obese abdomen. Bowel tones active x4. Tender to palpation in epigastric and right upper quadrant without guarding. Nontender and remainder of abdomen. Extremities: Warm, trace edema bilaterally Objective Imaging CT scan - abdomen: Radiologist's impression: PROCEDURE: CT ABDOMEN PELVIS W CON INDICATIONS: vomiting diarrhea history of small bowel obstruction TECHNIQUE: After the administration of intravenous contrast, 5 mm thick sections acquired from the diaphragm to the symphysis. 5 mm coronal and sagittal reformats were acquired. For radiation dose reduction, the following was used: automated exposure control, adjustment of mA and/or kV according to patient size. COMPARISON: [facility], CT, CT ABDOMEN PELVIS W CON, 03/03/2019, 9:16. FINDINGS: Image quality: Excellent. ABDOMEN: Lung bases: Lung bases are clear. Heart size is enlarged, no pericardial effusion. Solid organs: Liver is normal in size and enhancement. Hepatic steatosis is seen. Gallbladder is within normal limits. Biliary system is non dilated. Pancreas enhances normally. Spleen is normal in size and enhancement. No adrenal nodules. Kidneys demonstrate normal size and enhancement, without hydronephrosis. Peritoneum and bowel: There is mild to moderate mid to distal gastric wall thickening. Moderately distended gastric lumen is seen with air fluid level. Fluid distended distal duodenum and proximal jejunum is seen with few air-fluid levels in maximal diameter of 4.3 cm. There is a focal transition point seen in left lower quadrant series 2 image 54 and series 4 image 17. More distal portion of small bowel loops and colon loops are normal in caliber. No free fluid or free air. Mild sigmoid diverticulosis is seen, no CT evidence of acute diverticulitis. Nodes and vessels: No retroperitoneal or mesenteric adenopathy by size criteria. Aorta and inferior vena cava are normal in size. Miscellaneous: No ventral hernias. PELVIS: Genitourinary: Bladder wall thickness is normal. Miscellaneous: No inguinal hernias or adenopathy. Bones: No suspicious bony lesions. No vertebral body compression fractures. IMPRESSION: 1. Findings suggestive of small bowel obstruction with transition point involving proximal to mid jejunum in left lower quadrant abdomen. 2. Sigmoid diverticulosis, no CT evidence of acute diverticulitis. 3. Mild mid to distal gastric wall thickening, suspicious for infectious or inflammatory gastritis. No free fluid or free air. 4. Hepatic steatosis. Dictated by: Blake Fotser M.D. on 06/15/2019 at 8:46 Approved by: Blake Foster M.D. on 06/15/2019 at 8:58 Labs Result Diagrams: 06/15/19 07:28 06/15/19 07:28 Labs: Laboratory Results - last 24 hr 06/15/19 06/15/19 06/15/19 07:28 07:28 07:28 WBC 6.3 RBC 4.26 Hgb 12.6 Hct 36.9 MCV 86.6 MCH 29.7 MCHC 34.3 RDW 13.1 Plt Count 163 Neut % (Auto) 87.3 H Lymph % (Auto) 7.9 L [place] % (Auto) 3.9 Eos % (Auto) 0.3 L Baso % (Auto) 0.6 Neut # (Auto) 5500 Lymph # (Auto) 500 L [place] # (Auto) 200 Eos # (Auto) 0 Baso # (Auto) 0 PT 12.6 INR 1.1 APTT 50 H Sodium 139 Potassium 4.2 Chloride 103 Carbon Dioxide 27 BUN 16 Creatinine 0.70 Estimated GFR > 60.0 BUN/Creatinine Ratio 22.9 H Glucose 122 H Calcium 9.3 Total Bilirubin 0.7 AST 32 ALT 25 Alkaline Phosphatase 88 Total Protein 6.6 Albumin 4.4 Globulin 2.2 Albumin/Globulin Ratio 2.0 Lipase 7952 H Urine RBC Urine WBC Ur Squamous Epith Cells Amorphous Sediment Urine Bacteria Urine Mucus Ur Culture Indicated? 06/15/19 07:50 WBC RBC Hgb Hct MCV MCH MCHC RDW Plt Count Neut % (Auto) Lymph % (Auto) [place] % (Auto) Eos % (Auto) Baso % (Auto) Neut # (Auto) Lymph # (Auto) [place] # (Auto) Eos # (Auto) Baso # (Auto) PT INR APTT Sodium Potassium Chloride Carbon Dioxide BUN Creatinine Estimated GFR BUN/Creatinine Ratio Glucose Calcium Total Bilirubin AST ALT Alkaline Phosphatase Total Protein Albumin Globulin Albumin/Globulin Ratio Lipase Urine RBC 0-1/hpf Urine WBC 30-100/hpf H Ur Squamous Epith Cells 0-1 /hpf Amorphous Sediment 1+ Urine Bacteria Few (2-10) H Urine Mucus 1+ H Ur Culture Indicated? Specimen cultured Assessment & Plan Assessment and plan (1) Partial bowel obstruction: Current visit: Yes Status: Acute (2) Pancreatitis: Current visit: Yes Status: Acute (3) Malignant neoplasm of breast: Problem details: 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 Johnston in [place] at [facility], now on anastrozole Current visit: No Status: Inactive (4) Morbid obesity: Current visit: No Status: Chronic (5) Essential hypertension: Current visit: No Status: Chronic Assessment & Plan narrative: 73-year-old female with history of breast cancer, hypertension and hospitalization in February of this year for small bowel obstruction now with recurrent partial obstruction as well as evidence of pancreatitis. She has had numerous episodes of emesis though I am not sure that can cause quite the elevation in lipase that she has. Denies regular alcohol use or history of pancreatitis. She responded well to fluids, pain medication and antiemetics in the ER. She has also been undergoing an outpatient evaluation with GI due to diarrhea and is scheduled for a colonoscopy and EGD in August of 2019. Partial bowel obstruction: Will hold off on NG tube at this time as she has bowel tones. Continue aggressive IV fluids and antiemetics. Hydromorphone as needed. She does not do well with morphine. Pancreatitis: Fortunately appears mild. Normal transaminases. Patient does not appear septic. Will trend lipase, IV fluids as above. Increase diet as able but she will remain NPO until tomorrow at least. Hypertension: Hold all oral medications, will treat hypertension with IV metoprolol if needed. Breast cancer: No evidence of active disease. Managed with anastrozole which we will hold for now but resume when she is taking orals. Diet: NPO DVT prophylaxis: SCDs and Lovenox Code status: Full code. Disposition: Anticipate the care of this patient to require at least 2 midnights due to the need for IV fluids, pain medication and antiemetics well awaiting return of bowel function.
[2019-06-15] MEDS: METOCLOPRAMIDE 10 MG/2 ML INJ 5 MG IV (13:41)
--- NOTE | 2019-06-15 15:37 | PC.NURSE ---
Day Shift- Report rec'd from RN Coordinator Emiliano at 1049 who had previously taken report from ED. Pt arrived at 1105 via stretcher into room 221 with all belongings. Pt assisted to BR by COLOR CHECKER, stated feeling nauseated and generally slight weakness upon arrival. No history of any recent falls. Pt oriented to call light, ambulation OOB, IVF started per order into right chest post. Brisk blood return and flushes well. PRN Zofran IV given at 1128, pt had 1 episode of emesis at 1245 for approx 300mls unseen by this RN. PRN Reglan IV given at 1340 with good effect. Pt remains NPO per order. Mouth swabs and lip balm given for comfort.
[2019-06-16] VITALS (8 sets, daily range): BP systolic 115–136; BP diastolic 66–86; PULSE 71–81; RESP 16–18; TEMP 37.1–37.7; O2SAT 95–97
[2019-06-16] MEDS: SODIUM CHLORIDE 0.9% 1,000 ML 200 ML IV ×2 (02:28→07:47)
--- NOTE | 2019-06-16 04:04 | PC.NURSE ---
Pt VSS, denies nausea, pain. Pt's abdomen is soft and tender, bowel tones positive in all 4 quadrants. Pt is NPO, NS running at 200ml/hr. Call light is within reach. Pt refused SCD's this night.
[2019-06-16] MEDS: METOCLOPRAMIDE 10 MG/2 ML INJ 5 MG IV ×3 (06:05→17:22)
[2019-06-16] MEDS: SODIUM CHLORIDE 0.9% FLUSH 10 ML IV (06:07)
[2019-06-16 06:16] LABS: Add Manual Diff / Slide Review NO; Basophils Absolute Auto 0 /uL (0-100); Basophils Percent Auto 0.9 % (0-2); Eosinophils Absolute Auto 200 /uL (0-450); Eosinophils Percent Auto 3.3 % (2-4); Hematocrit 31.8 % (36-46); Hemoglobin 10.9 g/dL (12.0-16.0); Lymphocytes Absolute Auto 600 /uL (1100-4500); Lymphocytes Percent Auto 10.9 % (25-40); Mean Corpuscular HGB Conc 34.2 % (30-36); Mean Corpuscular Volume 87.7 fL (80-100); Monocytes Absolute Auto 600 /uL (0-900); Monocytes Percent Auto 10.8 % (3-14); Neutrophils Absolute Auto 3900 /uL (1500-7000); Neutrophils Percent Auto 74.1 % (50-75); Platelet Count 123 X10^3/uL (150-400); Red Blood Cell Count 3.63 X10^6/uL (4.0-5.2); Red Cell Distribution Width 12.7 % (11.6-14.8); White Blood Cell Count 5.3 X10^3/uL (4.5-11.0)
[2019-06-16 06:20] LABS: Alanine Aminotransferase 18 IU/L (<35); Albumin 3.3 g/dL (3.5-5.0); Albumin Globulin Ratio 1.7 (1.0-2.8); Alkaline Phosphatase 67 U/L (38-126); Aspartate Aminotransferase 22 IU/L (14-36); Bilirubin Total 0.8 mg/dL (0.2-1.3); Blood Urea Nitrogen 12 mg/dL (7-17); Calcium 8.3 mg/dL (8.4-10.2); Carbon Dioxide 26 mmol/L (22-32); Chloride 108 mmol/L (98-107); Estimated Glomerular Filt Rate > 60.0 mL/min (>60); Glucose 94 mg/dL (80-110); HEMOLYSIS < 15 (0-50); Lipase 858 U/L (23-300); Potassium 3.7 mmol/L (3.4-5.1); Sodium 138 mmol/L (137-145); Total Protein 5.3 g/dL (6.3-8.2)
--- NOTE | 2019-06-16 08:46 | PM.PN.1 ---
Subjective Subjective Date Patient Seen: 06/16/19 Time Patient Seen: 08:30 Interval history: ?I am bored, hungry and thirsty.? Patient had an uneventful night. Her last episode of emesis was yesterday afternoon and her last episode of diarrhea was yesterday morning. Today she denies nausea though she did have some Reglan several hours ago. She has passed a small amount of gas, not much per her report. Abdominal pain has resolved. She feels sore from all of the vomiting but does not have the pain she did on admission. She would like to try drinking some water and having some broth. Exam Vital Signs (past 8 hours): - 06/16/19 04:52 06/16/19 08:01 Temperature 99.0 F Pulse Rate 77 Respiratory Rate 16 Blood Pressure 125/66 Pulse Oximetry 97 96 Oxygen Delivery Method Room Air Oxygen Flow Rate 0 Narrative Exam Narrative: General: Obese older woman period Awake and alert, no acute distress. HEENT: NCAT, EOMI, moist oral mucosa CV: Regular rate and rhythm, no murmurs, rubs or gallops Lungs: CTAB, no wheezes, rales, or rhonchi Abdomen: Obese abdomen. Few bowel tones but bowel tones are present. Nontender to palpation. Extremities: Warm, no edema Objective Labs Result Diagrams: 06/16/19 05:34 06/16/19 05:34 Labs: Laboratory Results - last 24 hr 06/16/19 06/16/19 05:34 05:34 WBC 5.3 RBC 3.63 L Hgb 10.9 L Hct 31.8 L MCV 87.7 MCH 30.0 MCHC 34.2 RDW 12.7 Plt Count 123 L Neut % (Auto) 74.1 Lymph % (Auto) 10.9 L [place] % (Auto) 10.8 Eos % (Auto) 3.3 Baso % (Auto) 0.9 Neut # (Auto) 3900 Lymph # (Auto) 600 L [place] # (Auto) 600 Eos # (Auto) 200 Baso # (Auto) 0 Sodium 138 Potassium 3.7 Chloride 108 H Carbon Dioxide 26 BUN 12 Creatinine 0.80 Estimated GFR > 60.0 BUN/Creatinine Ratio 15.0 Glucose 94 Calcium 8.3 L Total Bilirubin 0.8 AST 22 ALT 18 Alkaline Phosphatase 67 Total Protein 5.3 L Albumin 3.3 L Globulin 2.0 Albumin/Globulin Ratio 1.7 Lipase 858 H D Assessment & Plan Assessment and plan (1) Partial bowel obstruction: Current visit: Yes Status: Acute (2) Pancreatitis: Current visit: Yes Status: Acute (3) Malignant neoplasm of breast: Problem details: 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 Johnston in [place] at [facility], now on anastrozole Current visit: No Status: Inactive (4) Morbid obesity: Current visit: No Status: Chronic (5) Essential hypertension: Current visit: No Status: Chronic Assessment & Plan narrative: Partial bowel obstruction: Clinically improving with bowel rest and IV fluids. Will try clear liquids today. Pancreatitis: Pain has resolved and lipase dramatically improved compared to yesterday after IV fluids. Suspect elevated lipase secondary to copious emesis rather than pancreatitis. Hypertension: Normotensive without medications. Breast cancer: No evidence of active disease. Will resume anastrozole if she tolerates clear liquids. Diet: Clear liquid diet DVT prophylaxis: SCDs and Lovenox Code status: Full code. Disposition: If she continues to clinically improve and tolerate advancing her diet, I anticipate she may be able to discharge home tomorrow.
[2019-06-16] MEDS: ENOXAPARIN 40 MG/0.4 ML SYRINGE SUBCUT (09:07)
--- NOTE | 2019-06-16 14:32 | PC.NURSE ---
Day shift: Pt tolerating clear liquid diet. No nausea and no emesis. Denies any pain or discomfort. Steady on feet. Urine yellow and appears concentrated. IV fluids at 100 ml/hr per MD. Pt also reports passing flatus. Encouraged to ambulate in halls and Pt has done so. Uses call light proper. Friends and family in room for support. Call light in reach.
--- NOTE | 2019-06-16 16:08 | CM.DANOTE ---
Discharge Planning/Care Management DCP: assessment: case received, EMR reviewed. Discussed in Team Rounds Pt is a 73 year old female who admitted yesterday to care of PCP: Dr. Blackwell. Pt with multiple episodes of diarrhea and emesis and concern for bowel obstruction. Pt with hx of bowel obstruction in February of 2019. She has hx of breast CA with recurrance and dx of morbid obesity. (90.2kg Payer: Medicare and [facility] Admission status: INPT: confirmed by UR RN Ramón. Checked in on pt who was just being assessed by the lynn nurse. Pt has been up and ambulating in he halls today as per instructed by Dr. Blackwell. Is on clears, taking anti-nausea medication. Dr. Blackwell states she is considering a d/c to home setting tomorrow if pt continues to improve. P: check in tomorrow and follow prn for any d/c needs that may arise. Advanced directive, confirm from FAMILY Start: 06/15/19 11:34 Freq: Q24H Status: Active Protocol: Document 06/16/19 11:32 YAD (Rec: 06/16/19 11:34 YAD [id number]) Advance Directive, confirm on record Time 11:34 Person contacted patient Copy received No CM Discharge Assessment Start: 06/16/19 16:07 Freq: Status: Active Protocol: Document 06/16/19 16:07 ITV (Rec: 06/16/19 16:08 ITV [id number]) Discharge Planning Assessment Advance Directives? Yes History Provided By Patient,Medical Record Household Members spouse Independent with ADL's Yes Is patient alert and oriented? Yes Whiteboard Updated in Patient Room with Yes name and ext. # of Lamp Cleaner Review Status In Process
[2019-06-16] MEDS: SODIUM CHLORIDE 0.9% 1,000 ML 100 ML IV (16:55)
[2019-06-17 00:10] VITALS: BP 123/60; PULSE 83; RESP 18; TEMP 36.6; O2SAT 96
[2019-06-17] MEDS: SODIUM CHLORIDE 0.9% 1,000 ML 100 ML IV (01:20)
[2019-06-17 03:11] VITALS: BP 113/51; PULSE 70; RESP 16; TEMP 36.3; O2SAT 94
[2019-06-17 05:59] LABS: Add Manual Diff / Slide Review NO; Basophils Absolute Auto 0 /uL (0-100); Basophils Percent Auto 0.6 % (0-2); Eosinophils Absolute Auto 200 /uL (0-450); Eosinophils Percent Auto 3.5 % (2-4); Lymphocytes Absolute Auto 500 /uL (1100-4500); Lymphocytes Percent Auto 11.5 % (25-40); Mean Corpuscular HGB Conc 34.5 % (30-36); Mean Corpuscular Hemoglobin 30.1 PG (26-34); Mean Corpuscular Volume 87.2 fL (80-100); Monocytes Absolute Auto 500 /uL (0-900); Monocytes Percent Auto 11.5 % (3-14); Neutrophils Absolute Auto 3300 /uL (1500-7000); Neutrophils Percent Auto 72.9 % (50-75); Platelet Count 125 X10^3/uL (150-400); Red Blood Cell Count 3.67 X10^6/uL (4.0-5.2); Red Cell Distribution Width 13.2 % (11.6-14.8); White Blood Cell Count 4.5 X10^3/uL (4.5-11.0)
[2019-06-17 06:11] LABS: Alanine Aminotransferase 16 IU/L (<35); Albumin 3.4 g/dL (3.5-5.0); Albumin Globulin Ratio 1.5 (1.0-2.8); Alkaline Phosphatase 68 U/L (38-126); Aspartate Aminotransferase 22 IU/L (14-36); BUN Creatinine Ratio 11.4 (6-22); Bilirubin Total 0.9 mg/dL (0.2-1.3); Blood Urea Nitrogen 8 mg/dL (7-17); Calcium 8.5 mg/dL (8.4-10.2); Carbon Dioxide 26 mmol/L (22-32); Chloride 106 mmol/L (98-107); Estimated Glomerular Filt Rate > 60.0 mL/min (>60); Globulin 2.2 g/dL (1.7-4.1); Glucose 94 mg/dL (80-110); HEMOLYSIS < 15 (0-50); Lipase 332 U/L (23-300); Potassium 3.6 mmol/L (3.4-5.1); Sodium 138 mmol/L (137-145); Total Protein 5.6 g/dL (6.3-8.2)
--- NOTE | 2019-06-17 08:01 | PC.NURSE ---
ASSESS-Pt is a&Ox3. She denies pain. Abdomen is distended and bowel tones heard only in upper right quadrant. Pt has lymph edema to her upper arms from breast cancer two different times in her life. She wears compression wraps to each arm. Lower extremities with 1+edema, non pitting just puffy. She complains of acid reflux, will ask if she can get something ordered for this. Tolerating clear liquids, she is going to stay away from juice at this time, as she feels like the apple juice is what caused her reflux. Pt is a sba to get out of bed and up to the chair or bathroom.
[2019-06-17] MEDS: ENOXAPARIN 40 MG/0.4 ML SYRINGE SUBCUT (08:10)
[2019-06-17 09:00] VITALS: BP 125/69; PULSE 71; RESP 16; TEMP 36.9; O2SAT 97
--- NOTE | 2019-06-17 09:04 | P.PN_ITS ---
Subjective Subjective Date Patient Seen: 06/17/19 Time Patient Seen: 08:45 Interval history: Patient is pleased to report she feels better. She did pass a large amount gas when she first got up this morning. Denies nausea, vomiting or diarrhea. Her abdominal pain is also gone. She is tolerating a clear liquid diet and interested in trying a full liquid diet. She has not had a bowel movement since admission. She worries she could have a UTI because of how f requently she is urinating, every 2 hours. Urine is quite clear. She has been receiving IV fluids. Overall much improved though feeling weak from being in the hospital. Exam Vital Signs (past 8 hours): - 06/17/19 03:11 Temperature 97.4 F L Pulse Rate 70 Respiratory Rate 16 Blood Pressure 113/51 L Pulse Oximetry 94 Oxygen Delivery Method Room Air Oxygen Flow Rate 0 Narrative Exam Narrative: General: Obese older woman. Sitting up eating clear liquid breakfast. HEENT: NCAT, EOMI, moist oral mucosa CV: Regular rate and rhythm, no murmurs, rubs or gallops Lungs: CTAB, no wheezes, rales, or rhonchi Abdomen: Obese abdomen. Bowel tones present x4. Nontender to palpation. Extremities: Warm, 1+ pitting edema of upper extremities bilaterally. Trace edema of lower extremities bilaterally. Objective Labs Result Diagrams: 06/17/19 05:53 06/17/19 05:53 Labs: Laboratory Results - last 24 hr 06/17/19 06/17/19 05:53 05:53 WBC 4.5 RBC 3.67 L Hgb 11.0 L Hct 32.0 L MCV 87.2 MCH 30.1 MCHC 34.5 RDW 13.2 Plt Count 125 L Neut % (Auto) 72.9 Lymph % (Auto) 11.5 L [place] % (Auto) 11.5 Eos % (Auto) 3.5 Baso % (Auto) 0.6 Neut # (Auto) 3300 Lymph # (Auto) 500 L [place] # (Auto) 500 Eos # (Auto) 200 Baso # (Auto) 0 Sodium 138 Potassium 3.6 Chloride 106 Carbon Dioxide 26 BUN 8 Creatinine 0.70 Estimated GFR > 60.0 BUN/Creatinine Ratio 11.4 Glucose 94 Calcium 8.5 Total Bilirubin 0.9 AST 22 ALT 16 Alkaline Phosphatase 68 Total Protein 5.6 L Albumin 3.4 L Globulin 2.2 Albumin/Globulin Ratio 1.5 Lipase 332 H D Assessment & Plan Assessment and plan (1) Partial bowel obstruction: Current visit: Yes Status: Acute (2) Pancreatitis: Current visit: Yes Status: Acute (3) Essential hypertension: Current visit: No Status: Chronic (4) Morbid obesity: Current visit: No Status: Chronic (5) Malignant neoplasm of breast: Problem details: Ductal carcinoma 1990 in right breast, treated with right mastectomy and chemo therapy with 5-FU Infiltrating lobular carcinoma of left breast 2013, left mastectomy and lymph node dissection (removed 17 lymph nodes), aggressive chemo and radiation Oncologist Dr. Johnston in [place] at [facility], now on anastrozole Current visit: No Status: Inactive Assessment & Plan narrative: Patient is symptomatically much improved today. Will advance diet to full liquid diet and if tolerated, discharge home later today. She is concerned about a UTI due to urinary frequency. Explained that she has received considerable amount of IV fluids which likely is the source of her frequency but will check a UA per her request. Blood pressure well controlled without her usual medications. No indication to restart at this time. Anticipate discharge home later today unless she is unable to tolerate advancing her diet.
[2019-06-17] MEDS: FUROSEMIDE 20 MG TABLET PO (10:17)
--- NOTE | 2019-06-17 13:23 | P.DS_ITS ---
History of Present Illness History of Present Illness Chief complaint: Vomiting Narrative: 73-year-old female with history of 2 separate breast cancers, hypertension, prior and hospitalization for bowel obstruction in February of this year now with vomiting and abdominal pain similar to when she had a bowel obstruction. She has not felt right for several months due to ongoing GERD and diarrhea issues but felt acutely worse last night about 11:00 p.m. when she developed profuse vomiting, diarrhea and epigastric/right upper quadrant pain. She thinks she has had about 20 episodes of diarrhea and 20 episodes of vomiting since last night. Now she is ?dry a bone and nauseated though states she also feels hungry. Pain is currently a 3/10 in the epigastric and right upper quadrant regions. She passed a considerable amount of gas with her diarrhea during the night but denies passing of gas this morning. She presented to the ER morning of admission where CT showed evidence of a small-bowel obstruction and lipase was quite elevated as well. Patient drinks very little alcohol denies a past history of pancreatitis. She was treated in the ER with pain medication, IV fluids and Zofran. Will be admitted for continued evaluation and treatment. In February her bowel obstruction resolved with conservative treatment and she did not require an NG tube for decompression. She was seen by surgery. There was some question as to whether the area of interest for the obstruction could be due to malignancy due to the appearance on CT however general surgery did not feel this was likely. She did have an NG tube placed for Gastrografin administration for a small-bowel follow-through which was normal. She did well immediately after the hospitalization. Most recently she saw Gastroenterology last week due to ongoing diarrhea. Further workup is pending and there is a plan for an EGD and colonoscopy in August. Discharge Providers Provider Date of admission: 06/15/19 10:24 Discharge Date: 06/17/19 Primary care physician: Janay Blackwell DO Discharge provider: Janay Blackwell DO Summary Hospital Course Discharge Diagnosis: Small-bowel obstruction Pancreatitis Acute dehydration Hypertension History of breast cancer Hospital Course: Patient was admitted due to partial bowel obstruction as well as possible pancreatitis versus elevated lipase from excessive emesis. She responded very well to IV fluids and did not require NG tube for decompression. Abdominal pain resolved shortly after admission. She did well with clear liquids with return of flatus without nausea or vomiting. She was able to tolerate a full liquid diet was eager to return home. Blood pressure medications were held and blood pressure was normal throughout her hospitalization. Olmesartan restarted on discharge however metoprolol held. No active issues with respect to her history of breast cancer. Resume anastrozole on discharge. She is scheduled to see GI again in August for EGD and colonoscopy and was requesting that these procedures be moved up. I will see what I can do about having these done sooner. May or may not help complete the picture of why she has recurrent small-bowel obstructions since her only abdominal surgery is a C- section. Follow-up in clinic in 2 weeks or sooner if needed. Status at Discharge Cognitive/behavioral status at discharge: at baseline, oriented Overall status at discharge: patient is progressing back to baseline Time Spent with Patient Time spent: Less than 30 minutes Exam Vital Signs (past 8 hours): - 06/17/19 09:00 Temperature 98.4 F Pulse Rate 71 Respiratory Rate 16 Blood Pressure 125/69 Pulse Oximetry 97 Oxygen Delivery Method Room Air Oxygen Flow Rate 0 Narrative Exam Narrative: Please see exam from progress note of the same day Objective Imaging CT scan - abdomen: Radiologist's impression: IMPRESSION: 1. Findings suggestive of small bowel obstruction with transition point involving proximal to mid jejunum in left lower quadrant abdomen. 2. Sigmoid diverticulosis, no CT evidence of acute diverticulitis. 3. Mild mid to distal gastric wall thickening, suspicious for infectious or inflammatory gastritis. No free fluid or free air. 4. Hepatic steatosis. Dictated by: Blake Foster M.D. on 06/15/2019 at 8:46 Approved by: Blake Foster M.D. on 06/15/2019 at 8:58 Labs Result Diagrams: 06/17/19 05:53 06/17/19 05:53 Labs: Laboratory Results - last 24 hr 06/17/19 06/17/19 05:53 05:53 WBC 4.5 RBC 3.67 L Hgb 11.0 L Hct 32.0 L MCV 87.2 MCH 30.1 MCHC 34.5 RDW 13.2 Plt Count 125 L Neut % (Auto) 72.9 Lymph % (Auto) 11.5 L [place] % (Auto) 11.5 Eos % (Auto) 3.5 Baso % (Auto) 0.6 Neut # (Auto) 3300 Lymph # (Auto) 500 L [place] # (Auto) 500 Eos # (Auto) 200 Baso # (Auto) 0 Sodium 138 Potassium 3.6 Chloride 106 Carbon Dioxide 26 BUN 8 Creatinine 0.70 Estimated GFR > 60.0 BUN/Creatinine Ratio 11.4 Glucose 94 Calcium 8.5 Total Bilirubin 0.9 AST 22 ALT 16 Alkaline Phosphatase 68 Total Protein 5.6 L Albumin 3.4 L Globulin 2.2 Albumin/Globulin Ratio 1.5 Lipase 332 H D Discharge Plan Discharge Plan Patient Disposition: Home Discharge Med Rec/Prescriptions Prescriptions: Continued anastrozole 1 MG tablet 1 mg PO DAILY Qty: 0 RF: 0 citalopram 20 MG tablet 20 mg PO DAILY Qty: 0 RF: 0 olmesartan [Benicar] 20 MG tablet 20 mg PO DAILY Qty: 0 RF: 0 rosuvastatin [Crestor] 5 MG tablet 5 mg PO SEE INSTRUCTIONS Qty: 0 RF: 0 multivitamin [Multiple Vitamins] 1 EACH tablet 1 tab PO DAILY Qty: 0 RF: 0 aspirin 81 MG tablet,chewable 81 mg PO DAILY Qty: 0 RF: 0 cholecalciferol (vitamin D3) [Vitamin D3] 2,000 UNIT capsule 2,000 unit PO DAILY Qty: 0 RF: 0 albuterol sulfate [Ventolin HFA] 90 MCG/PUFF HFA aerosol inhaler 2 puff INH QIDP PRNQty: 1 RF: 1 estradiol [Vagifem] 10 MCG tablet 10 mcg VG DIRECTED Qty: 0 RF: 0 furosemide 20 mg tablet 20 mg PO DAILY RF: 0 Discontinued metoprolol tartrate 25 mg tablet 25 mg PO DAILY RF: 0 Follow up/Referrals: Janay Blackwell DO [Primary Care Provider] - 2 Weeks Provider Discharge Instructions Diet: Diet as Tolerated Visit Report/Discharge Packet Instructions: DI for Pancreatitis, DI for Small Bowel Obstruction Visit Report Forms: Patient Portal/API, Stroke Signs & Symptoms Discharge Data Primary Care Provider: Janay Blackwell Discharges patient from system. Discharge Date/Time: 06/17/19 14:15
--- NOTE | 2019-06-17 15:14 | CM.DPC ---
DCP: continued: Pt did continue to improve as expected and was able to d/c to home setting this afternoon. She will followup with Dr. Blackwell in clinic.
== END 2019-06-17 14:15 | disposition home or self-care (01) | DRG 388 ==
LOC: ED 10:01 → AC 10:24
PROVIDERS: Emergency Medicine; Admitting Provider Family Medicine; Emergency Provider Emergency Medicine; Family Provider Family Medicine; PCP Family Medicine; Visit Provider Family Medicine
DX: K56.600 Partial intestinal obstruction, unspecified as to cause (principal); K85.90 Acute pancreatitis without necrosis or infection, unspecified; C50.912 Malignant neoplasm of unspecified site of left female breast; E66.9 Obesity, unspecified; Z68.36 Body mass index [BMI] 36.0-36.9, adult; I10 Essential (primary) hypertension; E78.5 Hyperlipidemia, unspecified; K21.9 Gastro-esophageal reflux disease without esophagitis; E86.0 Dehydration
CPT/HCPCS: 36415; 74177; 80053; 81003; 81015; 82438; 82710; 83690; 83993; 84302; 84311; 85025; 85610; 85730; 87086; 87177; 87329; 96361; 96374; 96375; 97110; 97140; 99223; 99233; 99238; 99283; 99284; C9113; J1650; J2270; J2405; J2765; Q9967

== ENCOUNTER → 2019-07-17 11:35 | Outpatient (CLI) | payer MEDICARE, BC, SELFPAY ==
[2019-06-15 11:06] VITALS: BMI 37.8
== END ==
PROVIDERS: PCP Family Medicine; Visit Provider Family Medicine
DX: K56.609 Unspecified intestinal obstruction, unspecified as to partial versus complete obstruction (principal); Z53.8 Procedure and treatment not carried out for other reasons

== ENCOUNTER → 2019-07-25 11:02 | Outpatient (CLI) | payer MEDICARE, BC, SELFPAY ==
[2019-06-15 11:06] VITALS: BMI 37.8
--- NOTE | 2019-07-25 | DI.CT.S_ITS ---
PROCEDURE: CT ABDOMEN PELVIS W CON INDICATIONS: unspecified intestinal obstruction, TECHNIQUE: After the administration of intravenous contrast, 5 mm thick sections acquired from the diaphragm to the symphysis. 5 mm coronal and sagittal reformats were acquired. For radiation dose reduction, the following was used: automated exposure control, adjustment of mA and/or kV according to patient size. COMPARISON: [facility], CT, CT KIDNEY URETER BLADDER (KUB), 01/09/2019, 14:42. [facility], CR, XR ACUTE ABDOMEN SERIES, 06/03/2019, 11:15. [facility], CT, CT ABDOMEN PELVIS W CON, 06/15/2019, 7:55. [facility], CT, CT ABDOMEN PELVIS W CON, 03/03/2019, 9:16. FINDINGS: Image quality: Excellent. ABDOMEN: Lung bases: Lung bases are clear. Heart size is normal. Solid organs: Liver is normal in size and enhancement. Gallbladder appears normal, partially contracted. Biliary system is non dilated. Pancreas enhances normally. Spleen is normal in size and enhancement. No adrenal nodules. Kidneys demonstrate normal size and enhancement, without hydronephrosis. Peritoneum and bowel: Bowel loops demonstrate normal wall thickness and caliber. No free fluid or air. There is an unusual pattern of mural thickening of the gastric antrum and distal body, virtually identical in appearance to that present 06/15/19. The gastric wall measures up to 2.1 cm at the distal gastric antrum, and the appearance may represent a manifestation of infiltrative neoplasm such as linitis plastica) gastric adenocarcinoma) or infiltrative lymphoma. Nodes and vessels: No retroperitoneal or mesenteric adenopathy by size criteria. Aorta and inferior vena cava are normal in size. Miscellaneous: No ventral hernias. PELVIS: Genitourinary: Bladder wall thickness is normal. Miscellaneous: No inguinal hernias or adenopathy. Bones: No suspicious bony lesions. No vertebral body compression fractures. IMPRESSION: Prior CT scanning has raised concern for possible small bowel obstructive events, but the current study does not show evidence of small bowel obstruction. Rather, a gastric abnormality with fixed wall thickening is present extending through the distal gastric body and antrum towards the duodenal bulb. As noted above linitis plastica (infiltrative gastric adenocarcinoma) and lymphoma both can produce such an appearance. The exact duplication of such an appearance on CT scanning over time is a worrisome finding. Endoscopic assessment or consideration of nuclear medicine PET CT scanning may be warranted. Dictated by: Jaime Masters M.D. on 07/25/2019 at 13:32 Approved by: Jaime Masters M.D. on 07/25/2019 at 13:41
== END ==
PROVIDERS: Family Provider Internal Medicine; PCP Family Medicine; Visit Provider Family Medicine
DX: K56.609 Unspecified intestinal obstruction, unspecified as to partial versus complete obstruction (principal)
CPT/HCPCS: 74177; Q9967

== ENCOUNTER 2019-07-26 11:15 | Outpatient (RCR) | payer MEDICARE, BC, SELFPAY ==
[2019-03-03 12:31] VITALS: BMI 40.6
--- NOTE | 2019-04-05 17:48 | PT.OIE ---
Current Diagnoses Lymphedema, not elsewhere classified (04/03/19) Pain in left shoulder (04/03/19) Stiffness of right shoulder, not elsewhere classified (04/03/19) Stiffness of left shoulder, not elsewhere classified (04/03/19) Abnormal posture (04/03/19) Past Medical History (Last Reviewed 03/17/19 @ 06:32 by Janay Blackwell DO) Essential hypertension (Chronic 05/10/17) Hyperlipidemia (Chronic 05/10/17) Morbid obesity (Chronic 09/13/17) Malignant neoplasm of breast (Inactive 09/13/17) IBS (irritable bowel syndrome) (Chronic) Osteopenia (Chronic) Lymphedema (Chronic 05/10/17) Primary osteoarthritis of both knees (Chronic 09/13/17) Cataract (Chronic 2016) Hayfever (Chronic) Shoulder pain (Chronic 2014) Tinnitus (Chronic) Breast cancer (Resolved 1990) Chicken pox (Resolved ~1950) Diverticulitis (Resolved 2014) History of heavy periods (Resolved) Measles (Resolved ~1949) Mumps (Resolved 1960) Neutropenia (Resolved 2013) Rosacea (Resolved) Skin cancer (Resolved 02/2017) Thyroid nodule (Resolved 2013) Gout (Inactive) Past Surgical History (Last Reviewed 03/17/19 @ 06:32 by Janay Blackwell DO) Anesthesia (Resolved) History of eye surgery (Inactive ~1950) History of toe surgery (Inactive 1994) History of tonsillectomy (Inactive ~1961) Status post delivery (Inactive 01/01/83) Status post partial mastectomy (Inactive 11/05/13) Status post partial mastectomy (Inactive 09/07/90) Provider Visit Care Team Role Provider Type Janay Blackwell DO Attending Provider Physician Primary Care Provider Specialty: Family [facility] Address: [address] [place] [address], [facility] Email: [email or web address] Physical Therapy Initial Evaluation PT-OP-A Visit Information Start: 04/03/19 13:46 Freq: Status: Active Protocol: Document 04/03/19 13:47 JHONATHAN (Rec: 04/05/19 17:45 JHONATHAN [id number]) Out-Patient Physical Therapy Visit Information Visit Information Visit Type Initial Evaluation Visit Start Time 13:45 Visit Stop Time 14:45 Total Visit Minutes 60 Visit Number 1 PT-OP-B Current Condition Start: 04/03/19 13:46 Freq: Status: Active Protocol: Document 04/03/19 13:47 [facility] (Rec: 04/03/19 14:07 [facility] [id number]) Current Condition History of Current Condition Onset Date 1990 Current Complaints lymphedema bilateral UE's History of Current Condition Since last seen in PT patient has had multiple medical issues including influenza December 02 diagnosed while on cruise. Polyps removed due to vaginal bleeding. Then developed pain right side diagnosed as UTI and kidney stones. Also small bowel obstruction, treated non surgically. Diagnosed with GERD and IBS. Diagnosed with initial stages of CHF. Seeing chicle grinder feeder . During all of the above had difficulty being compliant to lymphedema home management, except for mostly wearing compression sleeve. Reports 14lb weight loss due to medical issues. Having some increased shoulder pain and reports feeling her edema has increased some in her arms. Also reporting her chest scarring feels tighter. May need to order new compression sleeves soon. Prior Functional Status Baseline Function- ADL's Independent Baseline Function- Mobility Independent Current Functional Impairments (Reported) Functional Limitations- ADL's more difficulty reaching behind her back and overhead bilateral UE's Personal Factors Other Personal Factors That May Effect multiple recent medical issues Therapy/Recovery as above including CHF. PT-OP-C Subjective Start: 04/03/19 13:46 Freq: Status: Active Protocol: Document 04/03/19 13:47 [facility] (Rec: 04/05/19 17:45 [facility] [id number]) OP-PT Subjective Patient Comments Patient Comments CHF OP-PT Pain Assessment Pain Assessment Grid Paper Pain Assessment Grid Completed Yes Location left subaxillary region Intensity 3 Scale Used Numeric (1 - 10) Description Pulling Tender Frequency Frequent Pain Behaviors Pain Behaviors Facial Grimacing Wincing PT-OP-E Functional Tests Start: 04/03/19 13:46 Freq: Status: Active Protocol: Document 04/03/19 13:47 [facility] (Rec: 04/05/19 17:45 [facility] [id number]) Functional Tests Apley's Scratch Test Action 1- Left anterior shoulder Action 1- Right posterior shoulder Action 2- Left side of neck Action 2- Right T1 Action 3- Left T10 Action 3- Right T7 PT-OP-J Posture/Palpation/Skin Start: 04/03/19 13:46 Freq: Status: Active Protocol: Document 04/03/19 13:47 [facility] (Rec: 04/05/19 17:45 [facility] [id number]) Posture Evaluation Position Standing Head/C-Spine Posture Forward Head T-Spine Posture Increased Kyphosis Shoulder Posture (L) Rounded (R) Rounded Scapula Posture (L) Protracted (R) Protracted Arm Posture (L) Internally Rotated (R) Internally Rotated Palpation Assessment Location left chest and subaxillary region Palpation Findings Edema Soft Tissue Tightness Tenderness Palpation Details from mastectomy scar 2cm long axillary cording PT-OP-K Range of Motion Start: 04/03/19 13:46 Freq: Status: Active Protocol: Document 04/03/19 13:47 [facility]AK (Rec: 04/05/19 17:45 [facility]AK [id number]) Cervical Spine Range of Motion Cervical Spine Active Testing Position Sitting Comments WNL Shoulder Goniometric Range of Motion Shoulder Left Shoulder ROM WFL No Testing Position Sitting Flexion 114 Extension 15 Abduction 110 External Rotation at 45 degrees 45 Abduction Internal Rotation Behind Back (text) T10 right Shoulder ROM WFL No Testing Position Sitting Flexion 122 Extension 20 Abduction 120 External Rotation at 45 degrees 55 Abduction Internal Rotation Behind Back (text) T7 Shoulder ROM Limitations Shoulder ROM Limitations Soft Tissue Tightness Pain PT-OP-N Lymphedema Start: 04/03/19 13:46 Freq: Status: Active Protocol: Document 04/03/19 13:47 [facility]AK (Rec: 04/05/19 17:45 SAK [id number]) Lymphedema Measurements Upper Extremity Circumference Measurements right MCP 20 cm Wrist 19.5 cm 5 cm From Distal Crease 22.4 cm 10 cm From Distal Crease 26.9 cm 15 cm From Distal Crease 30.3 cm 20 cm From Distal Crease 31 cm 25 cm From Distal Crease 30.9 cm 30 cm From Distal Crease 33.6 cm 35 cm From Distal Crease 36.4 cm 40 cm From Distal Crease 37.7 cm 45 cm From Distal Crease 39.6 cm Axilla 39.5 cm left MCP 19.5 cm Wrist 18.9 cm 5 cm From Distal Crease 21.4 cm 10 cm From Distal Crease 24.6 cm 15 cm From Distal Crease 28 cm 20 cm From Distal Crease 29.5 cm 25 cm From Distal Crease 30 cm 30 cm From Distal Crease 32 cm 35 cm From Distal Crease 34.9 cm 40 cm From Distal Crease 36.6 cm 45 cm From Distal Crease 38.7 cm Axilla 41.7 cm Comments Lymphedema Comments measurements taken every 4 cm as with prior visits for comparison: 4,16,20,24,28 ,32,36,40 PT-OP-Q Treatments Start: 04/03/19 13:46 Freq: Status: Active Protocol: Document 04/03/19 13:47 [facility] (Rec: 04/05/19 17:45 [facility] [id number]) Therapeutic Exercises Supine Exercises pec stretch Side bilateral Reps/Minutes 1 min Sitting Exercises pulleys Sitting Exercise Name flexion and scaption Side bilateral Standing Exercises shoulder extension Side bilateral Resistance L1 TB Reps/Minutes 10x row Side bilateral Resistance L1 TB Reps/Minutes 10x Manual Therapy Treatment Soft Tissue Mobilization left chest and subaxillary region Mobilization Type Myofascial Release Self-Care/Home Management Treatment Education Patient Education Home Exercise Program Pain Management Lymphedema Treatment Patient Education Other Encouraged to restart prior lymphedema self-management program and bring prior HEP in for review PT-OP-T Assessment and Plan Start: 04/03/19 13:46 Freq: Status: Active Protocol: Document 04/03/19 13:47 [facility] (Rec: 04/05/19 17:45 [facility] [id number]) Physical Therapy Assessment Rehab Potential Rehabilitation Potential Good Evaluation Complexity Number of Personal Factors/Comorbidities 3 or More Number of Body Systems Impaired 3 Clinical Presentation at Evaluation Evolving Impairments Impairments Edema Pain ROM Soft Tissue Mobility Goals pain Impairment left shoulder pain Lockstitch Topstitcher Goal (LTG) Decrease pain to no greater than 1-2/10 LTG Duration 06/04/19 soft tissue mobility Impairment decreased soft tissue mobility left chest and subaxillary region Lockstitch Topstitcher Goal (LTG) Improve soft tissue mobility left chest and subaxillary region to WNL LTG Duration 06/04/19 ROM Impairment decreased shoulder ROM Lockstitch Topstitcher Goal (LTG) Improve bilateral shoulder ROM to allow her to reach overhead and behind her back for performance of ADL's and usual activities. LTG Duration 06/04/19 edema Impairment cliff UE lymphedema Halfway Goal (LTG) Decrease and stabilize UE lymphedema and make sure patient has correctly-fitting compression sleeves bilaterally. Eliminate axillary cording LTG Duration 06/04/19 Assessment Summary Assessment Patient presents with exacerbation of lymphedema bilateral UE's as well as decreased bilateral shoulder ROM, and palpable axillary cording on the left. Additionally noting increased soft tissue tightness left shoulder and subaxillary region as well as impingement symptoms bilateral UE's. Recommend skilled physical therapy for lymphedema mangement, soft tissue mobilization, ROM and therapeutic exercises to address impingement symptoms bilateral shoulders which will include postural correction exercises due to significant forward head and rounded shoulder posturing. Physical Therapy Plan Frequency and Duration Frequency of Treatment 2x/Week Duration of Treatment 8 wks Plan of Care Start Date 04/03/19 Plan of Care End Date 06/04/19 Therapeutic Interventions Therapeutic Interventions Aquatic Therapy Home Exercise Program Joint Mobilizations Lymphedema Management Manual Therapy Patient/Caregiver Education Self-Care/Home Management Soft Tissue Mobilization Taping Therapeutic Activities Therapeutic Exercises Next Visit Focus/Plan Next Note Type Treatment Note Next Visit Plan Review HEP, progress with rotator cuff exercises, ROM, postural correction exercises, lymphedma management to include manual lymphatic drainage and sequential lymphedema exercises. Assess fit of compression sleeves ( patient did not bring today.)
--- NOTE | 2019-04-05 17:48 | PT.OPPOC ---
Current Diagnoses Lymphedema, not elsewhere classified (04/03/19) Pain in left shoulder (04/03/19) Stiffness of right shoulder, not elsewhere classified (04/03/19) Stiffness of left shoulder, not elsewhere classified (04/03/19) Abnormal posture (04/03/19) Provider Visit Care Team Role Provider Type Janay Blackwell DO Attending Provider Physician Primary Care Provider Specialty: Family Practice Address: [address] [place] [address], [facility] Email: [email or web address] Plan Of Care PT-OP-T Assessment and Plan Start: 04/03/19 13:46 Freq: Status: Active Protocol: Document 04/03/19 13:47 JHONATHAN (Rec: 04/05/19 17:45 SAK [id number]) Physical Therapy Assessment Rehab Potential Rehabilitation Potential Good Evaluation Complexity Number of Personal Factors/Comorbidities 3 or More Number of Body Systems Impaired 3 Clinical Presentation at Evaluation Evolving Impairments Impairments Edema Pain ROM Soft Tissue Mobility Goals pain Impairment left shoulder pain Snf Goal (LTG) Decrease pain to no greater than 1-2/10 LTG Duration 06/04/19 soft tissue mobility Impairment decreased soft tissue mobility left chest and subaxillary region Snf Goal (LTG) Improve soft tissue mobility left chest and subaxillary region to WNL LTG Duration 06/04/19 ROM Impairment decreased shoulder ROM Clinical Trial Data Manager Goal (LTG) Improve bilateral shoulder ROM to allow her to reach overhead and behind her back for performance of ADL's and usual activities. LTG Duration 06/04/19 edema Impairment cliff UE lymphedema Clinical Trial Data Manager Goal (LTG) Decrease and stabilize UE lymphedema and make sure patient has correctly-fitting compression sleeves bilaterally. Eliminate axillary cording LTG Duration 06/04/19 Assessment Summary Assessment Patient presents with exacerbation of lymphedema bilateral UE's as well as decreased bilateral shoulder ROM, and palpable axillary cording on the left. Additionally noting increased soft tissue tightness left shoulder and subaxillary region as well as impingement symptoms bilateral UE's. Recommend skilled physical therapy for lymphedema mangement, soft tissue mobilization, ROM and therapeutic exercises to address impingement symptoms bilateral shoulders which will include postural correction exercises due to significant forward head and rounded shoulder posturing. Physical Therapy Plan Frequency and Duration Frequency of Treatment 2x/Week Duration of Treatment 8 wks Plan of Care Start Date 04/03/19 Plan of Care End Date 06/04/19 Therapeutic Interventions Therapeutic Interventions Aquatic Therapy Home Exercise Program Joint Mobilizations Lymphedema Management Manual Therapy Patient/Caregiver Education Self-Care/Home Management Soft Tissue Mobilization Taping Therapeutic Activities Therapeutic Exercises Next Visit Focus/Plan Next Note Type Treatment Note Next Visit Plan Review HEP, progress with rotator cuff exercises, ROM, postural correction exercises, lymphedma management to include manual lymphatic drainage and sequential lymphedema exercises. Assess fit of compression sleeves ( patient did not bring today.) Plan of Care Dates Plan of Care Start Date 04/03/19 Plan of Care End Date 06/04/19 Please Sign and Return: I have reviewed this Plan of Care and certify that the skilled therapy services above are required to meet the patient?s needs. Physician Signature Date Printed Name and Credentials Clinical Instructor Signature Printed Name and Credentials
--- NOTE | 2019-04-11 16:52 | PT.OTN ---
Current Diagnoses Lymphedema, not elsewhere classified (04/11/19) Pain in left shoulder (04/11/19) Stiffness of right shoulder, not elsewhere classified (04/11/19) Stiffness of left shoulder, not elsewhere classified (04/11/19) Abnormal posture (04/11/19) Physical Therapy Treatment Note PT-OP-A Visit Information Start: 04/03/19 13:46 Freq: Status: Active Protocol: Document 04/11/19 08:47 SAK (Rec: 04/11/19 09:24 SAK [id number]) Out-Patient Physical Therapy Visit Information Visit Information Visit Type Initial Evaluation Visit Start Time 08:45 Visit Stop Time 09:55 Total Visit Minutes 70 Visit Number 2 Number of HAND MARKER Visits 0 PT-OP-B Current Condition Start: 04/03/19 13:46 Freq: Status: Active Protocol: Document 04/03/19 13:47 SAK (Rec: 04/03/19 14:07 SAK [id number]) Current Condition History of Current Condition Onset Date 1990 Current Complaints lymphedema bilateral UE's History of Current Condition Since last seen in PT patient has had multiple medical issues including influenza December 02 diagnosed while on cruise. Polyps removed due to vaginal bleeding. Then developed pain right side diagnosed as UTI and kidney stones. Also small bowel obstruction, treated non surgically. Diagnosed with GERD and IBS. Diagnosed with initial stages of CHF. Seeing oracle bpm developer . During all of the above had difficulty being compliant to lymphedema home management, except for mostly wearing compression sleeve. Reports 14lb weight loss due to medical issues. Having some increased shoulder pain and reports feeling her edema has increased some in her arms. Also reporting her chest scarring feels tighter. May need to order new compression sleeves soon. Prior Functional Status Baseline Function- ADL's Independent Baseline Function- Mobility Independent Current Functional Impairments (Reported) Functional Limitations- ADL's more difficulty reaching behind her back and overhead bilateral UE's Personal Factors Other Personal Factors That May Effect multiple recent medical issues Therapy/Recovery as above including CHF. PT-OP-C Subjective Start: 04/03/19 13:46 Freq: Status: Active Protocol: Document 04/03/19 13:47 SAK (Rec: 04/05/19 17:45 SAK [id number]) OP-PT Subjective Patient Comments Patient Comments CHF OP-PT Pain Assessment Pain Assessment Grid Paper Pain Assessment Grid Completed Yes Location left subaxillary region Intensity 3 Scale Used Numeric (1 - 10) Description Pulling,Tender Frequency Frequent Pain Behaviors Pain Behaviors Facial Grimacing,Wincing PT-OP-E Functional Tests Start: 04/03/19 13:46 Freq: Status: Active Protocol: Document 04/03/19 13:47 SAK (Rec: 04/05/19 17:45 [facility] [id number]) Functional Tests Apley's Scratch Test Action 1- Left anterior shoulder Action 1- Right posterior shoulder Action 2- Left side of neck Action 2- Right T1 Action 3- Left T10 Action 3- Right T7 PT-OP-J Posture/Palpation/Skin Start: 04/03/19 13:46 Freq: Status: Active Protocol: Document 04/03/19 13:47 SAK (Rec: 04/05/19 17:45 [facility] [id number]) Posture Evaluation Position Standing Head/C-Spine Posture Forward Head T-Spine Posture Increased Kyphosis Shoulder Posture (L) Rounded,(R) Rounded Scapula Posture (L) Protracted,(R) Protracted Arm Posture (L) Internally Rotated,(R) Internally Rotated Palpation Assessment Location left chest and subaxillary region Palpation Findings Edema,Soft Tissue Tightness, Tenderness Palpation Details from mastectomy scar 2cm long axillary cording PT-OP-K Range of Motion Start: 04/03/19 13:46 Freq: Status: Active Protocol: Document 04/03/19 13:47 SAK (Rec: 04/05/19 17:45 [facility] [id number]) Cervical Spine Range of Motion Cervical Spine Active Testing Position Sitting Comments WNL Shoulder Goniometric Range of Motion Shoulder Left Shoulder ROM WFL No Testing Position Sitting Flexion 114 Extension 15 Abduction 110 External Rotation at 45 degrees 45 Abduction Internal Rotation Behind Back (text) T10 right Shoulder ROM WFL No Testing Position Sitting Flexion 122 Extension 20 Abduction 120 External Rotation at 45 degrees 55 Abduction Internal Rotation Behind Back (text) T7 Shoulder ROM Limitations Shoulder ROM Limitations Soft Tissue Tightness,Pain PT-OP-N Lymphedema Start: 04/03/19 13:46 Freq: Status: Active Protocol: Document 04/03/19 13:47 SAK (Rec: 04/05/19 17:45 [facility] [id number]) Lymphedema Measurements Upper Extremity Circumference Measurements right MCP 20 cm Wrist 19.5 cm 5 cm From Distal Crease 22.4 cm 10 cm From Distal Crease 26.9 cm 15 cm From Distal Crease 30.3 cm 20 cm From Distal Crease 31 cm 25 cm From Distal Crease 30.9 cm 30 cm From Distal Crease 33.6 cm 35 cm From Distal Crease 36.4 cm 40 cm From Distal Crease 37.7 cm 45 cm From Distal Crease 39.6 cm Axilla 39.5 cm left MCP 19.5 cm Wrist 18.9 cm 5 cm From Distal Crease 21.4 cm 10 cm From Distal Crease 24.6 cm 15 cm From Distal Crease 28 cm 20 cm From Distal Crease 29.5 cm 25 cm From Distal Crease 30 cm 30 cm From Distal Crease 32 cm 35 cm From Distal Crease 34.9 cm 40 cm From Distal Crease 36.6 cm 45 cm From Distal Crease 38.7 cm Axilla 41.7 cm Comments Lymphedema Comments measurements taken every 4 cm as with prior visits for comparison: 4,03/26/16,20,24,28 ,32,36,40 PT-OP-Q Treatments Start: 04/03/19 13:46 Freq: Status: Active Protocol: Document 04/11/19 08:47 [facility] (Rec: 04/11/19 09:24 [facility] [id number]) Cardio Equipment Recumbent Stepper (Sci-Fit) Duration (Minutes) 5 Resistance 1 Seat Position 6 Therapeutic Exercises Supine Exercises shoulder flexion Equipment Used wand Reps/Minutes 10x chest press Equipment Used wand Reps/Minutes 10x Sidelying Exercises shoulder abd Reps/Minutes 5x reach and roll Reps/Minutes 5x Comments manual facilitaiton Sitting Exercises pulleys Sitting Exercise Name flexion and scaption Side bilateral Standing Exercises shld extension Equipment Used wand Reps/Minutes 10x shoulder ER Resistance L1 TB Reps/Minutes 10x shoulder extension Side bilateral Resistance L1 TB Reps/Minutes 10x row Side bilateral Resistance L1 TB Reps/Minutes 10x Lymphedema Treatment Manual Lymphatic Drainage Location left UE Comments included scar mobilization left chest region Compression Garment Assessment Compression Garment Assessment Details helped patient don compression sleeve left. Will bring all compression garments next session PT-OP-T Assessment and Plan Start: 04/03/19 13:46 Freq: Status: Active Protocol: Document 04/11/19 08:47 [facility] (Rec: 04/11/19 09:24 SAK [id number]) Physical Therapy Assessment Goals pain Impairment left shoulder pain Retirement Goal (LTG) Decrease pain to no greater than 1-2/10 LTG Duration 06/04/19 soft tissue mobility Impairment decreased soft tissue mobility left chest and subaxillary region Retirement Goal (LTG) Improve soft tissue mobility left chest and subaxillary region to WNL LTG Duration 06/04/19 ROM Impairment decreased shoulder ROM Director Religious Education Goal (LTG) Improve bilateral shoulder ROM to allow her to reach overhead and behind her back for performance of ADL's and usual activities. LTG Duration 06/04/19 edema Impairment cliff UE lymphedema Director Religious Education Goal (LTG) Decrease and stabilize UE lymphedema and make sure patient has correctly-fitting compression sleeves bilaterally. Eliminate axillary cording LTG Duration 06/04/19 Assessment Summary Assessment Fair tolerance for progression of ex with cues to exercise in pain-free ROM; want stretch not pain in shoulder. Cues to increase compliance to self -management program for lymphedema. Recommended bring HEP notebook and box of compression garments next session for review. Physical Therapy Plan Frequency and Duration Frequency of Treatment 2x/Week Duration of Treatment 8 wks Plan of Care Start Date 04/03/19 Plan of Care End Date 06/04/19 Therapeutic Interventions Therapeutic Interventions Aquatic Therapy,Home Exercise Program,Joint Mobilizations, Lymphedema Management,Manual Therapy,Patient/Caregiver Education,Self-Care/Home Management,Soft Tissue Mobilization,Taping, Therapeutic Activities, Therapeutic Exercises Next Visit Focus/Plan Next Note Type Treatment Note Next Visit Plan Patient to bring HEP notebook for further review and modification as needed. Continue lymphedema management , ther ex and manual therapy techniques to address impingement symptoms.
--- NOTE | 2019-04-18 09:49 | PT.OTN ---
Current Diagnoses Lymphedema, not elsewhere classified (04/18/19) Pain in left shoulder (04/18/19) Stiffness of right shoulder, not elsewhere classified (04/18/19) Stiffness of left shoulder, not elsewhere classified (04/18/19) Abnormal posture (04/18/19) Physical Therapy Treatment Note PT-OP-A Visit Information Start: 04/03/19 13:46 Freq: Status: Active Protocol: Document 04/18/19 08:16 SAK (Rec: 04/18/19 08:30 SAK [id number]) Out-Patient Physical Therapy Visit Information Visit Information Visit Type Treatment Note Visit Start Time 08:25 Visit Stop Time 09:35 Total Visit Minutes 70 Visit Number 3 Number of ELECTRONICS ASSEMBLER Visits 0 Precautions Precautions CHF PT-OP-B Current Condition Start: 04/03/19 13:46 Freq: Status: Active Protocol: Document 04/03/19 13:47 SAK (Rec: 04/03/19 14:07 SAK [id number]) Current Condition History of Current Condition Onset Date 1990 Current Complaints lymphedema bilateral UE's History of Current Condition Since last seen in PT patient has had multiple medical issues including influenza December 02 diagnosed while on cruise. Polyps removed due to vaginal bleeding. Then developed pain right side diagnosed as UTI and kidney stones. Also small bowel obstruction, treated non surgically. Diagnosed with GERD and IBS. Diagnosed with initial stages of CHF. Seeing road conductor . During all of the above had difficulty being compliant to lymphedema home management, except for mostly wearing compression sleeve. Reports 14lb weight loss due to medical issues. Having some increased shoulder pain and reports feeling her edema has increased some in her arms. Also reporting her chest scarring feels tighter. May need to order new compression sleeves soon. Prior Functional Status Baseline Function- ADL's Independent Baseline Function- Mobility Independent Current Functional Impairments (Reported) Functional Limitations- ADL's more difficulty reaching behind her back and overhead bilateral UE's Personal Factors Other Personal Factors That May Effect multiple recent medical issues Therapy/Recovery as above including CHF. PT-OP-C Subjective Start: 04/03/19 13:46 Freq: Status: Active Protocol: Document 04/18/19 08:16 SAK (Rec: 04/18/19 09:46 SAK [id number]) OP-PT Subjective Patient Comments Patient Comments Has had 2 ocularheadaches since last seen, in ER 04/11/[address] Hoyt yesterday, checked lot ok. Then had another SHARMA yesterday. PT-OP-E Functional Tests Start: 04/03/19 13:46 Freq: Status: Active Protocol: Document 04/03/19 13:47 SAK (Rec: 04/05/19 17:45 [facility] [id number]) Functional Tests Apley's Scratch Test Action 1- Left anterior shoulder Action 1- Right posterior shoulder Action 2- Left side of neck Action 2- Right T1 Action 3- Left T10 Action 3- Right T7 PT-OP-J Posture/Palpation/Skin Start: 04/03/19 13:46 Freq: Status: Active Protocol: Document 04/03/19 13:47 SAK (Rec: 04/05/19 17:45 [facility] [id number]) Posture Evaluation Position Standing Head/C-Spine Posture Forward Head T-Spine Posture Increased Kyphosis Shoulder Posture (L) Rounded,(R) Rounded Scapula Posture (L) Protracted,(R) Protracted Arm Posture (L) Internally Rotated,(R) Internally Rotated Palpation Assessment Location left chest and subaxillary region Palpation Findings Edema,Soft Tissue Tightness, Tenderness Palpation Details from mastectomy scar 2cm long axillary cording PT-OP-K Range of Motion Start: 04/03/19 13:46 Freq: Status: Active Protocol: Document 04/03/19 13:47 SAK (Rec: 04/05/19 17:45 [facility] [id number]) Cervical Spine Range of Motion Cervical Spine Active Testing Position Sitting Comments WNL Shoulder Goniometric Range of Motion Shoulder Left Shoulder ROM WFL No Testing Position Sitting Flexion 114 Extension 15 Abduction 110 External Rotation at 45 degrees 45 Abduction Internal Rotation Behind Back (text) T10 right Shoulder ROM WFL No Testing Position Sitting Flexion 122 Extension 20 Abduction 120 External Rotation at 45 degrees 55 Abduction Internal Rotation Behind Back (text) T7 Shoulder ROM Limitations Shoulder ROM Limitations Soft Tissue Tightness,Pain PT-OP-N Lymphedema Start: 04/03/19 13:46 Freq: Status: Active Protocol: Document 04/03/19 13:47 SAK (Rec: 04/05/19 17:45 [facility] [id number]) Lymphedema Measurements Upper Extremity Circumference Measurements right MCP 20 cm Wrist 19.5 cm 5 cm From Distal Crease 22.4 cm 10 cm From Distal Crease 26.9 cm 15 cm From Distal Crease 30.3 cm 20 cm From Distal Crease 31 cm 25 cm From Distal Crease 30.9 cm 30 cm From Distal Crease 33.6 cm 35 cm From Distal Crease 36.4 cm 40 cm From Distal Crease 37.7 cm 45 cm From Distal Crease 39.6 cm Axilla 39.5 cm left MCP 19.5 cm Wrist 18.9 cm 5 cm From Distal Crease 21.4 cm 10 cm From Distal Crease 24.6 cm 15 cm From Distal Crease 28 cm 20 cm From Distal Crease 29.5 cm 25 cm From Distal Crease 30 cm 30 cm From Distal Crease 32 cm 35 cm From Distal Crease 34.9 cm 40 cm From Distal Crease 36.6 cm 45 cm From Distal Crease 38.7 cm Axilla 41.7 cm Comments Lymphedema Comments measurements taken every 4 cm as with prior visits for comparison: 4,03/26/16,20,24,28 ,32,36,40 PT-OP-Q Treatments Start: 04/03/19 13:46 Freq: Status: Active Protocol: Document 04/18/19 08:16 [facility] (Rec: 04/18/19 09:46 [facility] [id number]) Cardio Equipment Recumbent Stepper (Sci-Fit) Duration (Minutes) 6 Resistance 1 Seat Position 6 Therapeutic Exercises Supine Exercises serratus punch Reps/Minutes 10x shoulder flexion Equipment Used wand Reps/Minutes 10x chest press Equipment Used wand Reps/Minutes 10x pec stretch Side bilateral Reps/Minutes 1 min Sidelying Exercises shoulder abd Reps/Minutes 5x reach and roll Reps/Minutes 5x Comments manual facilitaiton Sitting Exercises pulleys Sitting Exercise Name flexion and scaption Side bilateral Standing Exercises UT stretch Reps/Minutes 2x shld extension Equipment Used wand Reps/Minutes 10x shoulder ER Resistance L1 TB Reps/Minutes 10x shoulder extension Side bilateral Resistance L1 TB Reps/Minutes 10x row Side bilateral Resistance L1 TB Reps/Minutes 10x Manual Therapy Treatment Soft Tissue Mobilization left chest and subaxillary region Mobilization Type Myofascial Release Joint Mobilizations scapulo-thoracic Joint left Direction all planes Grade III Body Position Sidelying Self-Care/Home Management Treatment Education Patient Education Home Exercise Program,Pain Management Lymphedema Treatment Manual Lymphatic Drainage Location left UE Comments included scar mobilization left chest region Other Other circumferential measurements cliff UE to assess size for Jobtst Compression garments ( right 7-8, left 10) PT-OP-T Assessment and Plan Start: 04/03/19 13:46 Freq: Status: Active Protocol: Document 04/18/19 08:16 JHONATHAN (Rec: 04/18/19 09:46 [facility] [id number]) Physical Therapy Assessment Goals pain Impairment left shoulder pain Care Home Goal (LTG) Decrease pain to no greater than 1-2/10 LTG Duration 06/04/19 soft tissue mobility Impairment decreased soft tissue mobility left chest and subaxillary region Marine Machinist Goal (LTG) Improve soft tissue mobility left chest and subaxillary region to WNL LTG Duration 06/04/19 ROM Impairment decreased shoulder ROM Marine Machinist Goal (LTG) Improve bilateral shoulder ROM to allow her to reach overhead and behind her back for performance of ADL's and usual activities. LTG Duration 06/04/19 edema Impairment cliff UE lymphedema Care Home Goal (LTG) Decrease and stabilize UE lymphedema and make sure patient has correctly-fitting compression sleeves bilaterally. Eliminate axillary cording LTG Duration 06/04/19 Assessment Summary Assessment Patient has difficulty with any overhead activities left UE. Mod muscle tension throughout scapular region with poor scapular mobility. Demonstrated good understanding of modifications made to HEP Physical Therapy Plan Frequency and Duration Frequency of Treatment 2x/Week Duration of Treatment 8 wks Plan of Care Start Date 04/03/19 Plan of Care End Date 06/04/19 Therapeutic Interventions Therapeutic Interventions Aquatic Therapy,Home Exercise Program,Joint Mobilizations, Lymphedema Management,Manual Therapy,Patient/Caregiver Education,Self-Care/Home Management,Soft Tissue Mobilization,Taping, Therapeutic Activities, Therapeutic Exercises Next Visit Focus/Plan Next Note Type Treatment Note Next Visit Plan Continue PT per POC, combination land and aquatic PT. Encourage deep breathing, muscle relaxation due to high muscle tenswion level throughout.
--- NOTE | 2019-04-24 12:57 | PT.OTN ---
Current Diagnoses Lymphedema, not elsewhere classified (04/23/19) Pain in left shoulder (04/23/19) Stiffness of right shoulder, not elsewhere classified (04/23/19) Stiffness of left shoulder, not elsewhere classified (04/23/19) Abnormal posture (04/23/19) Physical Therapy Treatment Note PT-OP-A Visit Information Start: 04/03/19 13:46 Freq: Status: Active Protocol: Document 04/23/19 17:10 SAK (Rec: 04/23/19 17:44 [facility] [id number]) Out-Patient Physical Therapy Visit Information Visit Information Visit Type Treatment Note Visit Start Time 11:00 Visit Stop Time 11:45 Total Visit Minutes 45 Visit Number 4 Number of MATE SHIP Visits 0 Precautions Precautions CHF PT-OP-B Current Condition Start: 04/03/19 13:46 Freq: Status: Active Protocol: Document 04/03/19 13:47 SAK (Rec: 04/03/19 14:07 SAK [id number]) Current Condition History of Current Condition Onset Date 1990 Current Complaints lymphedema bilateral UE's History of Current Condition Since last seen in PT patient has had multiple medical issues including influenza December 02 diagnosed [place] on cruise. Polyps removed due to vaginal bleeding. Then developed pain right side diagnosed as UTI and kidney stones. Also small bowel obstruction, treated non surgically. Diagnosed with GERD and IBS. Diagnosed with initial stages of CHF. Seeing classer . During all of the above had difficulty being compliant to lymphedema home management, except for mostly wearing compression sleeve. Reports 14lb weight loss due to medical issues. Having some increased shoulder pain and reports feeling her edema has increased some in her arms. Also reporting her chest scarring feels tighter. May need to order new compression sleeves soon. Prior Functional Status Baseline Function- ADL's Independent Baseline Function- Mobility Independent Current Functional Impairments (Reported) Functional Limitations- ADL's more difficulty reaching behind her back and overhead bilateral UE's Personal Factors Other Personal Factors That May Effect multiple recent medical issues Therapy/Recovery as above including CHF. PT-OP-C Subjective Start: 04/03/19 13:46 Freq: Status: Active Protocol: Document 04/23/19 17:10 SAK (Rec: 04/23/19 17:44 [facility] [id number]) OP-PT Subjective Patient Comments Patient Comments No new c/o, looking forward to aquatic PT trial. PT-OP-E Functional Tests Start: 04/03/19 13:46 Freq: Status: Active Protocol: Document 04/03/19 13:47 SAK (Rec: 04/05/19 17:45 SAK [id number]) Functional Tests Apley's Scratch Test Action 1- Left anterior shoulder Action 1- Right posterior shoulder Action 2- Left side of neck Action 2- Right T1 Action 3- Left T10 Action 3- Right T7 PT-OP-J Posture/Palpation/Skin Start: 04/03/19 13:46 Freq: Status: Active Protocol: Document 04/03/19 13:47 SAK (Rec: 04/05/19 17:45 SAK [id number]) Posture Evaluation Position Standing Head/C-Spine Posture Forward Head T-Spine Posture Increased Kyphosis Shoulder Posture (L) Rounded,(R) Rounded Scapula Posture (L) Protracted,(R) Protracted Arm Posture (L) Internally Rotated,(R) Internally Rotated Palpation Assessment Location left chest and subaxillary region Palpation Findings Edema,Soft Tissue Tightness, Tenderness Palpation Details from mastectomy scar 2cm long axillary cording PT-OP-K Range of Motion Start: 04/03/19 13:46 Freq: Status: Active Protocol: Document 04/03/19 13:47 SAK (Rec: 04/05/19 17:45 [facility] [id number]) Cervical Spine Range of Motion Cervical Spine Active Testing Position Sitting Comments WNL Shoulder Goniometric Range of Motion Shoulder Left Shoulder ROM WFL No Testing Position Sitting Flexion 114 Extension 15 Abduction 110 External Rotation at 45 degrees 45 Abduction Internal Rotation Behind Back (text) T10 right Shoulder ROM WFL No Testing Position Sitting Flexion 122 Extension 20 Abduction 120 External Rotation at 45 degrees 55 Abduction Internal Rotation Behind Back (text) T7 Shoulder ROM Limitations Shoulder ROM Limitations Soft Tissue Tightness,Pain PT-OP-N Lymphedema Start: 04/03/19 13:46 Freq: Status: Active Protocol: Document 04/03/19 13:47 SAK (Rec: 04/05/19 17:45 [facility] [id number]) Lymphedema Measurements Upper Extremity Circumference Measurements right MCP 20 cm Wrist 19.5 cm 5 cm From Distal Crease 22.4 cm 10 cm From Distal Crease 26.9 cm 15 cm From Distal Crease 30.3 cm 20 cm From Distal Crease 31 cm 25 cm From Distal Crease 30.9 cm 30 cm From Distal Crease 33.6 cm 35 cm From Distal Crease 36.4 cm 40 cm From Distal Crease 37.7 cm 45 cm From Distal Crease 39.6 cm Axilla 39.5 cm left MCP 19.5 cm Wrist 18.9 cm 5 cm From Distal Crease 21.4 cm 10 cm From Distal Crease 24.6 cm 15 cm From Distal Crease 28 cm 20 cm From Distal Crease 29.5 cm 25 cm From Distal Crease 30 cm 30 cm From Distal Crease 32 cm 35 cm From Distal Crease 34.9 cm 40 cm From Distal Crease 36.6 cm 45 cm From Distal Crease 38.7 cm Axilla 41.7 cm Comments Lymphedema Comments measurements taken every 4 cm as with prior visits for comparison: 4,03/26/16,20,24,28 ,32,36,40 PT-OP-Q Treatments Start: 04/03/19 13:46 Freq: Status: Active Protocol: Document 04/18/19 08:16 [facility] (Rec: 04/18/19 09:46 [facility] [id number]) Cardio Equipment Recumbent Stepper (Sci-Fit) Duration (Minutes) 6 Resistance 1 Seat Position 6 Therapeutic Exercises Supine Exercises serratus punch Reps/Minutes 10x shoulder flexion Equipment Used wand Reps/Minutes 10x chest press Equipment Used wand Reps/Minutes 10x pec stretch Side bilateral Reps/Minutes 1 min Sidelying Exercises shoulder abd Reps/Minutes 5x reach and roll Reps/Minutes 5x Comments manual facilitaiton Sitting Exercises pulleys Sitting Exercise Name flexion and scaption Side bilateral Standing Exercises UT stretch Reps/Minutes 2x shld extension Equipment Used wand Reps/Minutes 10x shoulder ER Resistance L1 TB Reps/Minutes 10x shoulder extension Side bilateral Resistance L1 TB Reps/Minutes 10x row Side bilateral Resistance L1 TB Reps/Minutes 10x Manual Therapy Treatment Soft Tissue Mobilization left chest and subaxillary region Mobilization Type Myofascial Release Joint Mobilizations scapulo-thoracic Joint left Direction all planes Grade III Body Position Sidelying Self-Care/Home Management Treatment Education Patient Education Home Exercise Program,Pain Management Lymphedema Treatment Manual Lymphatic Drainage Location left UE Comments included scar mobilization left chest region Other Other circumferential measurements cliff UE to assess size for Jobtst Compression garments ( right 7-8, left 10) PT-OP-S Aquatic Treatment Start: 04/03/19 13:46 Freq: Status: Active Protocol: Document 04/23/19 17:10 [facility] (Rec: 04/23/19 17:44 [facility] [id number]) Aquatics Treatment Pool Entry/Exit Pool Entry/Exit Method Stairs Assistance Verbal Cues Water Walking october with opposite UE reach Water Level Chest Level Level of Assistance Verbal Cues sideways with shoulder ab/ad Water Level Chest Level Level of Assistance Verbal Cues backward with reverse breastroke UE's Water Level Chest Level Level of Assistance Verbal Cues forward with breastroke UE's Water Level Chest Level Level of Assistance Verbal Cues Upper Extremity Exercises shoulder IR/ER Body Position Standing Water Level Chest Level shoulder flex/ext Water Level Chest Level Reps/Duration 10x hor ab/ad Body Position Standing Water Level Chest Level Reps/Duration 10x circles Body Position Standing Water Level Chest Level Reps/Duration 10x Upper Extremity Stretches walk with pec stretch Equipment small noodle held in UE's behind back [place] Activities [place] Activities Bicycle Equipment flotation belt Comments breastroke UE's with scapular retraction Manual Techniques [place] passive for shoulder girdle ROM: supine with yellow neck float and LE floats Aquatic Massage left periscapular region, left biceps, deltoid, UT PT-OP-T Assessment and Plan Start: 04/03/19 13:46 Freq: Status: Active Protocol: Document 04/23/19 17:10 [facility] (Rec: 04/23/19 17:44 [facility] [id number]) Physical Therapy Assessment Goals pain Impairment left shoulder pain Skilled Nursing Goal (LTG) Decrease pain to no greater than 1-2/10 LTG Duration 06/04/19 soft tissue mobility Impairment decreased soft tissue mobility left chest and subaxillary region Skilled Nursing Goal (LTG) Improve soft tissue mobility left chest and subaxillary region to WNL LTG Duration 06/04/19 ROM Impairment decreased shoulder ROM Wheat Farmer Goal (LTG) Improve bilateral shoulder ROM to allow her to reach overhead and behind her back for performance of ADL's and usual activities. LTG Duration 06/04/19 edema Impairment cliff UE lymphedema Wheat Farmer Goal (LTG) Decrease and stabilize UE lymphedema and make sure patient has correctly-fitting compression sleeves bilaterally. Eliminate axillary cording LTG Duration 06/04/19 Assessment Summary Assessment Good tolerance for aquatic therapy session; combination of therapeutic aquatic exercises and aquatic manual therapy techniques. Physical Therapy Plan Frequency and Duration Frequency of Treatment 2x/Week Duration of Treatment 8 wks Plan of Care Start Date 04/03/19 Plan of Care End Date 06/04/19 Therapeutic Interventions Therapeutic Interventions Aquatic Therapy,Home Exercise Program,Joint Mobilizations, Lymphedema Management,Manual Therapy,Patient/Caregiver Education,Self-Care/Home Management,Soft Tissue Mobilization,Taping, Therapeutic Activities, Therapeutic Exercises Next Visit Focus/Plan Next Note Type Treatment Note Next Visit Plan ASsess response to aquatic PT session, continue per POC.
--- NOTE | 2019-04-26 16:27 | PT.OTN ---
Current Diagnoses Lymphedema, not elsewhere classified (04/26/19) Pain in left shoulder (04/26/19) Stiffness of right shoulder, not elsewhere classified (04/26/19) Stiffness of left shoulder, not elsewhere classified (04/26/19) Abnormal posture (04/26/19) Physical Therapy Treatment Note PT-OP-A Visit Information Start: 04/03/19 13:46 Freq: Status: Active Protocol: Document 04/26/19 09:03 SAK (Rec: 04/26/19 09:37 SAK [id number]) Out-Patient Physical Therapy Visit Information Visit Information Visit Type Treatment Note Visit Start Time 09:02 Visit Stop Time 10:08 Total Visit Minutes 66 Visit Number 5 Number of CARGO MATE Visits 0 Precautions Precautions CHF PT-OP-B Current Condition Start: 04/03/19 13:46 Freq: Status: Active Protocol: Document 04/03/19 13:47 SAK (Rec: 04/03/19 14:07 SAK [id number]) Current Condition History of Current Condition Onset Date 1990 Current Complaints lymphedema bilateral UE's History of Current Condition Since last seen in PT patient has had multiple medical issues including influenza December 02 diagnosed while on cruise. Polyps removed due to vaginal bleeding. Then developed pain right side diagnosed as UTI and kidney stones. Also small bowel obstruction, treated non surgically. Diagnosed with GERD and IBS. Diagnosed with initial stages of CHF. Seeing medical billing clerk . During all of the above had difficulty being compliant to lymphedema home management, except for mostly wearing compression sleeve. Reports 14lb weight loss due to medical issues. Having some increased shoulder pain and reports feeling her edema has increased some in her arms. Also reporting her chest scarring feels tighter. May need to order new compression sleeves soon. Prior Functional Status Baseline Function- ADL's Independent Baseline Function- Mobility Independent Current Functional Impairments (Reported) Functional Limitations- ADL's more difficulty reaching behind her back and overhead bilateral UE's Personal Factors Other Personal Factors That May Effect multiple recent medical issues Therapy/Recovery as above including CHF. PT-OP-C Subjective Start: 04/03/19 13:46 Freq: Status: Active Protocol: Document 04/26/19 09:03 SAK (Rec: 04/26/19 09:37 SAK [id number]) OP-PT Subjective Patient Comments Patient Comments 'I felt the muscles, but no increase in pain with aquatic therapy. PT-OP-E Functional Tests Start: 04/03/19 13:46 Freq: Status: Active Protocol: Document 04/03/19 13:47 SAK (Rec: 04/05/19 17:45 [facility] [id number]) Functional Tests Apley's Scratch Test Action 1- Left anterior shoulder Action 1- Right posterior shoulder Action 2- Left side of neck Action 2- Right T1 Action 3- Left T10 Action 3- Right T7 PT-OP-J Posture/Palpation/Skin Start: 04/03/19 13:46 Freq: Status: Active Protocol: Document 04/03/19 13:47 SAK (Rec: 04/05/19 17:45 [facility] [id number]) Posture Evaluation Position Standing Head/C-Spine Posture Forward Head T-Spine Posture Increased Kyphosis Shoulder Posture (L) Rounded,(R) Rounded Scapula Posture (L) Protracted,(R) Protracted Arm Posture (L) Internally Rotated,(R) Internally Rotated Palpation Assessment Location left chest and subaxillary region Palpation Findings Edema,Soft Tissue Tightness, Tenderness Palpation Details from mastectomy scar 2cm long axillary cording PT-OP-K Range of Motion Start: 04/03/19 13:46 Freq: Status: Active Protocol: Document 04/03/19 13:47 [facility] (Rec: 04/05/19 17:45 [facility] [id number]) Cervical Spine Range of Motion Cervical Spine Active Testing Position Sitting Comments WNL Shoulder Goniometric Range of Motion Shoulder Left Shoulder ROM WFL No Testing Position Sitting Flexion 114 Extension 15 Abduction 110 External Rotation at 45 degrees 45 Abduction Internal Rotation Behind Back (text) T10 right Shoulder ROM WFL No Testing Position Sitting Flexion 122 Extension 20 Abduction 120 External Rotation at 45 degrees 55 Abduction Internal Rotation Behind Back (text) T7 Shoulder ROM Limitations Shoulder ROM Limitations Soft Tissue Tightness,Pain PT-OP-N Lymphedema Start: 04/03/19 13:46 Freq: Status: Active Protocol: Document 04/03/19 13:47 [facility] (Rec: 04/05/19 17:45 [facility] [id number]) Lymphedema Measurements Upper Extremity Circumference Measurements right MCP 20 cm Wrist 19.5 cm 5 cm From Distal Crease 22.4 cm 10 cm From Distal Crease 26.9 cm 15 cm From Distal Crease 30.3 cm 20 cm From Distal Crease 31 cm 25 cm From Distal Crease 30.9 cm 30 cm From Distal Crease 33.6 cm 35 cm From Distal Crease 36.4 cm 40 cm From Distal Crease 37.7 cm 45 cm From Distal Crease 39.6 cm Axilla 39.5 cm left MCP 19.5 cm Wrist 18.9 cm 5 cm From Distal Crease 21.4 cm 10 cm From Distal Crease 24.6 cm 15 cm From Distal Crease 28 cm 20 cm From Distal Crease 29.5 cm 25 cm From Distal Crease 30 cm 30 cm From Distal Crease 32 cm 35 cm From Distal Crease 34.9 cm 40 cm From Distal Crease 36.6 cm 45 cm From Distal Crease 38.7 cm Axilla 41.7 cm Comments Lymphedema Comments measurements taken every 4 cm as with prior visits for comparison: 4,03/26/16,20,24,28 ,32,36,40 PT-OP-Q Treatments Start: 04/03/19 13:46 Freq: Status: Active Protocol: Document 04/26/19 09:03 [facility] (Rec: 04/26/19 09:37 [facility] [id number]) Cardio Equipment Recumbent Stepper (Sci-Fit) Duration (Minutes) 7 Resistance 1 Seat Position 7 Therapeutic Exercises Supine Exercises serratus punch Reps/Minutes 10x shoulder flexion Equipment Used wand Reps/Minutes 10x chest press Equipment Used wand Reps/Minutes 10x pec stretch Side bilateral Reps/Minutes 1 min Sidelying Exercises shoulder abd Reps/Minutes 5x reach and roll Reps/Minutes 5x Comments manual facilitaiton Sitting Exercises lat pull Resistance 15 Reps/Minutes 10x pulleys Sitting Exercise Name flexion and scaption Side bilateral Standing Exercises UT stretch Reps/Minutes 2x shld extension Equipment Used wand Reps/Minutes 10x shoulder ER Resistance L1 TB Reps/Minutes 10x shoulder extension Side bilateral Resistance L1 TB Reps/Minutes 10x row Side bilateral Resistance L1 TB Reps/Minutes 10x Manual Therapy Treatment Taping kinesiotape Body Location right biceps Treatment Focus inhibition Type of Tape kinesiotape Skin Inspection intact Comments educated to remove if uncomfortable or increase in pain, itching. Remove after 5 days if feeling ok. Lymphedema Treatment Manual Lymphatic Drainage Location left UE Comments included scar mobilization left chest region PT-OP-S Aquatic Treatment Start: 04/03/19 13:46 Freq: Status: Active Protocol: Document 04/23/19 17:10 [facility] (Rec: 04/23/19 17:44 [facility] [id number]) Aquatics Treatment Pool Entry/Exit Pool Entry/Exit Method Stairs Assistance Verbal Cues Water Walking october with opposite UE reach Water Level Chest Level Level of Assistance Verbal Cues sideways with shoulder ab/ad Water Level Chest Level Level of Assistance Verbal Cues backward with reverse breastroke UE's Water Level Chest Level Level of Assistance Verbal Cues forward with breastroke UE's Water Level Chest Level Level of Assistance Verbal Cues Upper Extremity Exercises shoulder IR/ER Body Position Standing Water Level Chest Level shoulder flex/ext Water Level Chest Level Reps/Duration 10x hor ab/ad Body Position Standing Water Level Chest Level Reps/Duration 10x circles Body Position Standing Water Level Chest Level Reps/Duration 10x Upper Extremity Stretches walk with pec stretch Equipment small noodle held in UE's behind back [place] Activities [place] Activities Bicycle Equipment flotation belt Comments breastroke UE's with scapular retraction Manual Techniques Bad Ragaz passive for shoulder girdle ROM: supine with yellow neck float and LE floats Aquatic Massage left periscapular region, left biceps, deltoid, UT PT-OP-T Assessment and Plan Start: 04/03/19 13:46 Freq: Status: Active Protocol: Document 04/26/19 09:03 [facility] (Rec: 04/26/19 09:37 [facility] [id number]) Physical Therapy Assessment Goals pain Impairment left shoulder pain Retail Stocker Goal (LTG) Decrease pain to no greater than 1-2/10 LTG Duration 06/04/19 soft tissue mobility Impairment decreased soft tissue mobility left chest and subaxillary region Retail Stocker Goal (LTG) Improve soft tissue mobility left chest and subaxillary region to WNL LTG Duration 06/04/19 ROM Impairment decreased shoulder ROM Retail Stocker Goal (LTG) Improve bilateral shoulder ROM to allow her to reach overhead and behind her back for performance of ADL's and usual activities. LTG Duration 06/04/19 edema Impairment cliff UE lymphedema Retail Stocker Goal (LTG) Decrease and stabilize UE lymphedema and make sure patient has correctly-fitting compression sleeves bilaterally. Eliminate axillary cording LTG Duration 06/04/19 Assessment Summary Assessment impingment signs still evident , requires moderate cues for correct exercise performance, especially to prevent overactivation of upper trap musculature. Physical Therapy Plan Frequency and Duration Frequency of Treatment 2x/Week Duration of Treatment 8 wks Plan of Care Start Date 04/03/19 Plan of Care End Date 06/04/19 Therapeutic Interventions Therapeutic Interventions Aquatic Therapy,Home Exercise Program,Joint Mobilizations, Lymphedema Management,Manual Therapy,Patient/Caregiver Education,Self-Care/Home Management,Soft Tissue Mobilization,Taping, Therapeutic Activities, Therapeutic Exercises Next Visit Focus/Plan Next Note Type Treatment Note Next Visit Plan ASsess response to kinesiotape , consider kinesiotape into left anterior chest/axilla for edema reduction and scar mobility. Continue treatment for lymphedema management and pain left UE.
--- NOTE | 2019-05-01 15:48 | PT.OTN ---
Current Diagnoses Lymphedema, not elsewhere classified (05/01/19) Pain in left shoulder (05/01/19) Stiffness of right shoulder, not elsewhere classified (05/01/19) Stiffness of left shoulder, not elsewhere classified (05/01/19) Abnormal posture (05/01/19) Physical Therapy Treatment Note PT-OP-A Visit Information Start: 04/03/19 13:46 Freq: Status: Active Protocol: Document 05/01/19 14:32 SAK (Rec: 05/01/19 14:46 SAK [id number]) Out-Patient Physical Therapy Visit Information Visit Information Visit Type Treatment Note Visit Start Time 14:30 Visit Stop Time 15:30 Total Visit Minutes 60 Visit Number 6 Number of SURVEY WORKERS SUPERVISOR Visits 0 Precautions Precautions CHF PT-OP-B Current Condition Start: 04/03/19 13:46 Freq: Status: Active Protocol: Document 04/03/19 13:47 SAK (Rec: 04/03/19 14:07 SAK [id number]) Current Condition History of Current Condition Onset Date 1990 Current Complaints lymphedema bilateral UE's History of Current Condition Since last seen in PT patient has had multiple medical issues including influenza December 02 diagnosed [place] on cruise. Polyps removed due to vaginal bleeding. Then developed pain right side diagnosed as UTI and kidney stones. Also small bowel obstruction, treated non surgically. Diagnosed with GERD and IBS. Diagnosed with initial stages of CHF. Seeing galvanometer assembler . During all of the above had difficulty being compliant to lymphedema home management, except for mostly wearing compression sleeve. Reports 14lb weight loss due to medical issues. Having some increased shoulder pain and reports feeling her edema has increased some in her arms. Also reporting her chest scarring feels tighter. May need to order new compression sleeves soon. Prior Functional Status Baseline Function- ADL's Independent Baseline Function- Mobility Independent Current Functional Impairments (Reported) Functional Limitations- ADL's more difficulty reaching behind her back and overhead bilateral UE's Personal Factors Other Personal Factors That May Effect multiple recent medical issues Therapy/Recovery as above including CHF. PT-OP-C Subjective Start: 04/03/19 13:46 Freq: Status: Active Protocol: Document 04/26/19 09:03 SAK (Rec: 04/26/19 09:37 SAK [id number]) OP-PT Subjective Patient Comments Patient Comments 'I felt the muscles, but no increase in pain with aquatic therapy. PT-OP-E Functional Tests Start: 04/03/19 13:46 Freq: Status: Active Protocol: Document 04/03/19 13:47 SAK (Rec: 04/05/19 17:45 [facility] [id number]) Functional Tests Apley's Scratch Test Action 1- Left anterior shoulder Action 1- Right posterior shoulder Action 2- Left side of neck Action 2- Right T1 Action 3- Left T10 Action 3- Right T7 PT-OP-J Posture/Palpation/Skin Start: 04/03/19 13:46 Freq: Status: Active Protocol: Document 04/03/19 13:47 SAK (Rec: 04/05/19 17:45 [facility] [id number]) Posture Evaluation Position Standing Head/C-Spine Posture Forward Head T-Spine Posture Increased Kyphosis Shoulder Posture (L) Rounded,(R) Rounded Scapula Posture (L) Protracted,(R) Protracted Arm Posture (L) Internally Rotated,(R) Internally Rotated Palpation Assessment Location left chest and subaxillary region Palpation Findings Edema,Soft Tissue Tightness, Tenderness Palpation Details from mastectomy scar 2cm long axillary cording PT-OP-K Range of Motion Start: 04/03/19 13:46 Freq: Status: Active Protocol: Document 04/03/19 13:47 [facility] (Rec: 04/05/19 17:45 [facility] [id number]) Cervical Spine Range of Motion Cervical Spine Active Testing Position Sitting Comments WNL Shoulder Goniometric Range of Motion Shoulder Left Shoulder ROM WFL No Testing Position Sitting Flexion 114 Extension 15 Abduction 110 External Rotation at 45 degrees 45 Abduction Internal Rotation Behind Back (text) T10 right Shoulder ROM WFL No Testing Position Sitting Flexion 122 Extension 20 Abduction 120 External Rotation at 45 degrees 55 Abduction Internal Rotation Behind Back (text) T7 Shoulder ROM Limitations Shoulder ROM Limitations Soft Tissue Tightness,Pain PT-OP-N Lymphedema Start: 04/03/19 13:46 Freq: Status: Active Protocol: Document 04/03/19 13:47 [facility] (Rec: 04/05/19 17:45 [facility] [id number]) Lymphedema Measurements Upper Extremity Circumference Measurements right MCP 20 cm Wrist 19.5 cm 5 cm From Distal Crease 22.4 cm 10 cm From Distal Crease 26.9 cm 15 cm From Distal Crease 30.3 cm 20 cm From Distal Crease 31 cm 25 cm From Distal Crease 30.9 cm 30 cm From Distal Crease 33.6 cm 35 cm From Distal Crease 36.4 cm 40 cm From Distal Crease 37.7 cm 45 cm From Distal Crease 39.6 cm Axilla 39.5 cm left MCP 19.5 cm Wrist 18.9 cm 5 cm From Distal Crease 21.4 cm 10 cm From Distal Crease 24.6 cm 15 cm From Distal Crease 28 cm 20 cm From Distal Crease 29.5 cm 25 cm From Distal Crease 30 cm 30 cm From Distal Crease 32 cm 35 cm From Distal Crease 34.9 cm 40 cm From Distal Crease 36.6 cm 45 cm From Distal Crease 38.7 cm Axilla 41.7 cm Comments Lymphedema Comments measurements taken every 4 cm as with prior visits for comparison: 4,03/26/16,20,24,28 ,32,36,40 PT-OP-Q Treatments Start: 04/03/19 13:46 Freq: Status: Active Protocol: Document 05/01/19 14:32 [facility] (Rec: 05/01/19 14:46 [facility] [id number]) Cardio Equipment Recumbent Stepper (Sci-Fit) Duration (Minutes) 5 Resistance 1 Seat Position 7 Therapeutic Exercises Supine Exercises UT stretch Reps/Minutes 2x Comments manual serratus punch Reps/Minutes 15x Comments verbal and manual cues Sidelying Exercises external rotation Comments next session Sitting Exercises pulleys Sitting Exercise Name flexion and scaption Side bilateral Standing Exercises bicep stretch Reps/Minutes 2x30 Manual Therapy Treatment Soft Tissue Mobilization left chest and subaxillary region Mobilization Type Myofascial Release Taping kinesiotape Body Location between scapulae Treatment Focus postural correction Type of Tape kinesiotape Skin Inspection intact Comments 2 I strips. educated to remove if uncomfortable or increase in pain, itching. Remove after 5 days if feeling ok. Lymphedema Treatment Manual Lymphatic Drainage Location left UE Comments included scar mobilization left chest region Other Other soft tissue mobilization along left bicep and pec due to tightness, proximal axillary cording PT-OP-S Aquatic Treatment Start: 04/03/19 13:46 Freq: Status: Active Protocol: Document 04/23/19 17:10 [facility] (Rec: 04/23/19 17:44 [facility] [id number]) Aquatics Treatment Pool Entry/Exit Pool Entry/Exit Method Stairs Assistance Verbal Cues Water Walking october with opposite UE reach Water Level Chest Level Level of Assistance Verbal Cues sideways with shoulder ab/ad Water Level Chest Level Level of Assistance Verbal Cues backward with reverse breastroke UE's Water Level Chest Level Level of Assistance Verbal Cues forward with breastroke UE's Water Level Chest Level Level of Assistance Verbal Cues Upper Extremity Exercises shoulder IR/ER Body Position Standing Water Level Chest Level shoulder flex/ext Water Level Chest Level Reps/Duration 10x hor ab/ad Body Position Standing Water Level Chest Level Reps/Duration 10x circles Body Position Standing Water Level Chest Level Reps/Duration 10x Upper Extremity Stretches walk with pec stretch Equipment small noodle held in UE's behind back [place] Activities [place] Activities Bicycle Equipment flotation belt Comments breastroke UE's with scapular retraction Manual Techniques Bad Ragaz passive for shoulder girdle ROM: supine with yellow neck float and LE floats Aquatic Massage left periscapular region, left biceps, deltoid, UT PT-OP-T Assessment and Plan Start: 04/03/19 13:46 Freq: Status: Active Protocol: Document 05/01/19 14:32 [facility] (Rec: 05/01/19 15:48 [facility] [id number]) Physical Therapy Assessment Goals pain Impairment left shoulder pain Care Home Goal (LTG) Decrease pain to no greater than 1-2/10 LTG Duration 06/04/19 soft tissue mobility Impairment decreased soft tissue mobility left chest and subaxillary region Care Home Goal (LTG) Improve soft tissue mobility left chest and subaxillary region to WNL LTG Duration 06/04/19 ROM Impairment decreased shoulder ROM Cloth Mercerizer Operator Goal (LTG) Improve bilateral shoulder ROM to allow her to reach overhead and behind her back for performance of ADL's and usual activities. LTG Duration 06/04/19 edema Impairment cliff UE lymphedema Care Home Goal (LTG) Decrease and stabilize UE lymphedema and make sure patient has correctly-fitting compression sleeves bilaterally. Eliminate axillary cording LTG Duration 06/04/19 Assessment Summary Assessment Increased time on manual techniques due to axillary cording as well as well as impingement symptoms. Patient has high tension in her upper traps with elevation of first rib left greater than right. Trial postural taping today. Physical Therapy Plan Frequency and Duration Frequency of Treatment 2x/Week Duration of Treatment 8 wks Plan of Care Start Date 04/03/19 Plan of Care End Date 06/04/19 Therapeutic Interventions Therapeutic Interventions Aquatic Therapy,Home Exercise Program,Joint Mobilizations, Lymphedema Management,Manual Therapy,Patient/Caregiver Education,Self-Care/Home Management,Soft Tissue Mobilization,Taping, Therapeutic Activities, Therapeutic Exercises Next Visit Focus/Plan Next Note Type Treatment Note Next Visit Plan ASsess response to kinesiotape , consider kinesiotape into left anterior chest/axilla for edema reduction and scar mobility. Continue treatment for lymphedema management and pain left UE.
--- NOTE | 2019-05-04 16:06 | PT.OTN ---
Current Diagnoses Lymphedema, not elsewhere classified (05/04/19) Pain in left shoulder (05/04/19) Stiffness of right shoulder, not elsewhere classified (05/04/19) Stiffness of left shoulder, not elsewhere classified (05/04/19) Abnormal posture (05/04/19) Physical Therapy Treatment Note PT-OP-A Visit Information Start: 04/03/19 13:46 Freq: Status: Active Protocol: Document 05/04/19 10:15 LJ (Rec: 05/04/19 16:05 LJ [id number]) Out-Patient Physical Therapy Visit Information Visit Information Visit Type Aquatic Treatment Note Visit Start Time 10:15 Visit Stop Time 11:00 Total Visit Minutes 45 Visit Number 7 Number of TUBE LASER OPERATOR Visits 1 PT-OP-B Current Condition Start: 04/03/19 13:46 Freq: Status: Active Protocol: Document 04/03/19 13:47 SAK (Rec: 04/03/19 14:07 SAK [id number]) Current Condition History of Current Condition Onset Date 1990 Current Complaints lymphedema bilateral UE's History of Current Condition Since last seen in PT patient has had multiple medical issues including influenza December 02 diagnosed while on cruise. Polyps removed due to vaginal bleeding. Then developed pain right side diagnosed as UTI and kidney stones. Also small bowel obstruction, treated non surgically. Diagnosed with GERD and IBS. Diagnosed with initial stages of CHF. Seeing furniture removalist's assistant . During all of the above had difficulty being compliant to lymphedema home management, except for mostly wearing compression sleeve. Reports 14lb weight loss due to medical issues. Having some increased shoulder pain and reports feeling her edema has increased some in her arms. Also reporting her chest scarring feels tighter. May need to order new compression sleeves soon. Prior Functional Status Baseline Function- ADL's Independent Baseline Function- Mobility Independent Current Functional Impairments (Reported) Functional Limitations- ADL's more difficulty reaching behind her back and overhead bilateral UE's Personal Factors Other Personal Factors That May Effect multiple recent medical issues Therapy/Recovery as above including CHF. PT-OP-C Subjective Start: 04/03/19 13:46 Freq: Status: Active Protocol: Document 05/04/19 10:15 LJ (Rec: 05/04/19 16:05 LJ [email or web address]) OP-PT Subjective Patient Comments Patient Comments Enjoyed aquatic therapy. Was not sore after last session PT-OP-E Functional Tests Start: 04/03/19 13:46 Freq: Status: Active Protocol: Document 04/03/19 13:47 SAK (Rec: 04/05/19 17:45 SAK [id number]) Functional Tests Apley's Scratch Test Action 1- Left anterior shoulder Action 1- Right posterior shoulder Action 2- Left side of neck Action 2- Right T1 Action 3- Left T10 Action 3- Right T7 PT-OP-J Posture/Palpation/Skin Start: 04/03/19 13:46 Freq: Status: Active Protocol: Document 04/03/19 13:47 SAK (Rec: 04/05/19 17:45 [facility] [id number]) Posture Evaluation Position Standing Head/C-Spine Posture Forward Head T-Spine Posture Increased Kyphosis Shoulder Posture (L) Rounded,(R) Rounded Scapula Posture (L) Protracted,(R) Protracted Arm Posture (L) Internally Rotated,(R) Internally Rotated Palpation Assessment Location left chest and subaxillary region Palpation Findings Edema,Soft Tissue Tightness, Tenderness Palpation Details from mastectomy scar 2cm long axillary cording PT-OP-K Range of Motion Start: 04/03/19 13:46 Freq: Status: Active Protocol: Document 04/03/19 13:47 SAK (Rec: 04/05/19 17:45 [facility] [id number]) Cervical Spine Range of Motion Cervical Spine Active Testing Position Sitting Comments WNL Shoulder Goniometric Range of Motion Shoulder Left Shoulder ROM WFL No Testing Position Sitting Flexion 114 Extension 15 Abduction 110 External Rotation at 45 degrees 45 Abduction Internal Rotation Behind Back (text) T10 right Shoulder ROM WFL No Testing Position Sitting Flexion 122 Extension 20 Abduction 120 External Rotation at 45 degrees 55 Abduction Internal Rotation Behind Back (text) T7 Shoulder ROM Limitations Shoulder ROM Limitations Soft Tissue Tightness,Pain PT-OP-N Lymphedema Start: 04/03/19 13:46 Freq: Status: Active Protocol: Document 04/03/19 13:47 SAK (Rec: 04/05/19 17:45 [facility] [id number]) Lymphedema Measurements Upper Extremity Circumference Measurements right MCP 20 cm Wrist 19.5 cm 5 cm From Distal Crease 22.4 cm 10 cm From Distal Crease 26.9 cm 15 cm From Distal Crease 30.3 cm 20 cm From Distal Crease 31 cm 25 cm From Distal Crease 30.9 cm 30 cm From Distal Crease 33.6 cm 35 cm From Distal Crease 36.4 cm 40 cm From Distal Crease 37.7 cm 45 cm From Distal Crease 39.6 cm Axilla 39.5 cm left MCP 19.5 cm Wrist 18.9 cm 5 cm From Distal Crease 21.4 cm 10 cm From Distal Crease 24.6 cm 15 cm From Distal Crease 28 cm 20 cm From Distal Crease 29.5 cm 25 cm From Distal Crease 30 cm 30 cm From Distal Crease 32 cm 35 cm From Distal Crease 34.9 cm 40 cm From Distal Crease 36.6 cm 45 cm From Distal Crease 38.7 cm Axilla 41.7 cm Comments Lymphedema Comments measurements taken every 4 cm as with prior visits for comparison: 4,03/26/16,20,24,28 ,32,36,40 PT-OP-Q Treatments Start: 04/03/19 13:46 Freq: Status: Active Protocol: Document 05/01/19 14:32 SAK (Rec: 05/01/19 14:46 SAK [id number]) Cardio Equipment Recumbent Stepper (Sci-Fit) Duration (Minutes) 5 Resistance 1 Seat Position 7 Therapeutic Exercises Supine Exercises UT stretch Reps/Minutes 2x Comments manual serratus punch Reps/Minutes 15x Comments verbal and manual cues Sidelying Exercises external rotation Comments next session Sitting Exercises pulleys Sitting Exercise Name flexion and scaption Side bilateral Standing Exercises bicep stretch Reps/Minutes 2x30 Manual Therapy Treatment Soft Tissue Mobilization left chest and subaxillary region Mobilization Type Myofascial Release Taping kinesiotape Body Location between scapulae Treatment Focus postural correction Type of Tape kinesiotape Skin Inspection intact Comments 2 I strips. educated to remove if uncomfortable or increase in pain, itching. Remove after 5 days if feeling ok. Lymphedema Treatment Manual Lymphatic Drainage Location left UE Comments included scar mobilization left chest region Other Other soft tissue mobilization along left bicep and pec due to tightness, proximal axillary cording PT-OP-S Aquatic Treatment Start: 04/03/19 13:46 Freq: Status: Active Protocol: Document 05/04/19 10:15 [facility] (Rec: 05/04/19 16:05 LJ [email or web address]) Aquatics Treatment Pool Entry/Exit Pool Entry/Exit Method Stairs Assistance Verbal Cues Water Walking october with opposite UE reach Water Level Chest Level Level of Assistance Verbal Cues sideways with shoulder ab/ad Water Level Chest Level Level of Assistance Verbal Cues backward with reverse breastroke UE's Water Level Chest Level Level of Assistance Verbal Cues forward with breastroke UE's Water Level Chest Level Level of Assistance Verbal Cues Upper Extremity Exercises rows Details standing back to wall Body Position Standing Water Level Chest Level Equipment hydro band Reps/Duration 15 Comments cues to touck wall with elbows shoulder IR/ER Body Position Standing Water Level Chest Level Equipment hydro band Reps/Duration 10 shoulder flex/ext Water Level Chest Level Reps/Duration 10x hor ab/ad Body Position Standing Water Level Chest Level Reps/Duration 10x circles Body Position Standing Water Level Chest Level Reps/Duration 10x Upper Extremity Stretches walk with pec stretch Equipment small noodle held in UE's behind back Turner Activities Turner Activities Bicycle Equipment flotation belt Comments breastroke UE's with scapular retraction Manual Techniques Bad Ragaz passive for shoulder girdle ROM: supine with yellow neck float and LE floats Aquatic Massage left periscapular region, left biceps, deltoid, UT PT-OP-T Assessment and Plan Start: 04/03/19 13:46 Freq: Status: Active Protocol: Document 05/04/19 10:15 [facility] (Rec: 05/04/19 16:05 [facility] [id number]) Physical Therapy Assessment Goals pain Impairment left shoulder pain Nursing Home Goal (LTG) Decrease pain to no greater than 1-2/10 LTG Duration 06/04/19 soft tissue mobility Impairment decreased soft tissue mobility left chest and subaxillary region Safety Grooving Machine Operator Goal (LTG) Improve soft tissue mobility left chest and subaxillary region to WNL LTG Duration 06/04/19 ROM Impairment decreased shoulder ROM Nursing Home Goal (LTG) Improve bilateral shoulder ROM to allow her to reach overhead and behind her back for performance of ADL's and usual activities. LTG Duration 06/04/19 edema Impairment cliff UE lymphedema Safety Grooving Machine Operator Goal (LTG) Decrease and stabilize UE lymphedema and make sure patient has correctly-fitting compression sleeves bilaterally. Eliminate axillary cording LTG Duration 06/04/19 Assessment Summary Assessment Pt very tight in UT and pectoral region. Educated on how to retract and depress scaps for improving shoulder ROM and posture. Tolerated deep water exercise with no increase in pain. Physical Therapy Plan Frequency and Duration Frequency of Treatment 2x/Week Duration of Treatment 8 wks Plan of Care Start Date 04/03/19 Plan of Care End Date 06/04/19 Therapeutic Interventions Therapeutic Interventions Aquatic Therapy,Home Exercise Program,Joint Mobilizations, Lymphedema Management,Manual Therapy,Patient/Caregiver Education,Self-Care/Home Management,Soft Tissue Mobilization,Taping, Therapeutic Activities, Therapeutic Exercises Next Visit Focus/Plan Next Note Type Treatment Note Next Visit Plan ASsess response to kinesiotape , consider kinesiotape into left anterior chest/axilla for edema reduction and scar mobility. Continue treatment for lymphedema management and pain left UE. Continue with aquatic therapy as tolerated.
--- NOTE | 2019-05-08 16:06 | PT.OTN ---
Current Diagnoses Lymphedema, not elsewhere classified (05/08/19) Pain in left shoulder (05/08/19) Stiffness of right shoulder, not elsewhere classified (05/08/19) Stiffness of left shoulder, not elsewhere classified (05/08/19) Abnormal posture (05/08/19) Physical Therapy Treatment Note PT-OP-A Visit Information Start: 04/03/19 13:46 Freq: Status: Active Protocol: Document 05/08/19 14:29 SAK (Rec: 05/08/19 14:45 SAK [id number]) Out-Patient Physical Therapy Visit Information Visit Information Visit Type Aquatic Treatment Note Visit Start Time 14:32 Visit Stop Time 15:33 Total Visit Minutes 61 Visit Number 8 Number of CREDIT OFFICE MANAGER Visits 1 Precautions Precautions CHF PT-OP-B Current Condition Start: 04/03/19 13:46 Freq: Status: Active Protocol: Document 04/03/19 13:47 SAK (Rec: 04/03/19 14:07 SAK [id number]) Current Condition History of Current Condition Onset Date 1990 Current Complaints lymphedema bilateral UE's History of Current Condition Since last seen in PT patient has had multiple medical issues including influenza December 02 diagnosed [place] on cruise. Polyps removed due to vaginal bleeding. Then developed pain right side diagnosed as UTI and kidney stones. Also small bowel obstruction, treated non surgically. Diagnosed with GERD and IBS. Diagnosed with initial stages of CHF. Seeing information developer . During all of the above had difficulty being compliant to lymphedema home management, except for mostly wearing compression sleeve. Reports 14lb weight loss due to medical issues. Having some increased shoulder pain and reports feeling her edema has increased some in her arms. Also reporting her chest scarring feels tighter. May need to order new compression sleeves soon. Prior Functional Status Baseline Function- ADL's Independent Baseline Function- Mobility Independent Current Functional Impairments (Reported) Functional Limitations- ADL's more difficulty reaching behind her back and overhead bilateral UE's Personal Factors Other Personal Factors That May Effect multiple recent medical issues Therapy/Recovery as above including CHF. PT-OP-C Subjective Start: 04/03/19 13:46 Freq: Status: Active Protocol: Document 05/08/19 14:29 SAK (Rec: 05/08/19 14:45 SAK [id number]) OP-PT Subjective Patient Comments Patient Comments No results from stress test yet. Tolerating kinesiotape ok . Brought all handouts for HEP to review and modify as needed. Brought pulleys to check length of handles. PT-OP-E Functional Tests Start: 04/03/19 13:46 Freq: Status: Active Protocol: Document 04/03/19 13:47 [facility] (Rec: 04/05/19 17:45 [facility] [id number]) Functional Tests Apley's Scratch Test Action 1- Left anterior shoulder Action 1- Right posterior shoulder Action 2- Left side of neck Action 2- Right T1 Action 3- Left T10 Action 3- Right T7 PT-OP-J Posture/Palpation/Skin Start: 04/03/19 13:46 Freq: Status: Active Protocol: Document 04/03/19 13:47 [facility] (Rec: 04/05/19 17:45 [facility] [id number]) Posture Evaluation Position Standing Head/C-Spine Posture Forward Head T-Spine Posture Increased Kyphosis Shoulder Posture (L) Rounded,(R) Rounded Scapula Posture (L) Protracted,(R) Protracted Arm Posture (L) Internally Rotated,(R) Internally Rotated Palpation Assessment Location left chest and subaxillary region Palpation Findings Edema,Soft Tissue Tightness, Tenderness Palpation Details from mastectomy scar 2cm long axillary cording PT-OP-K Range of Motion Start: 04/03/19 13:46 Freq: Status: Active Protocol: Document 04/03/19 13:47 [facility] (Rec: 04/05/19 17:45 [facility] [id number]) Cervical Spine Range of Motion Cervical Spine Active Testing Position Sitting Comments WNL Shoulder Goniometric Range of Motion Shoulder Left Shoulder ROM WFL No Testing Position Sitting Flexion 114 Extension 15 Abduction 110 External Rotation at 45 degrees 45 Abduction Internal Rotation Behind Back (text) T10 right Shoulder ROM WFL No Testing Position Sitting Flexion 122 Extension 20 Abduction 120 External Rotation at 45 degrees 55 Abduction Internal Rotation Behind Back (text) T7 Shoulder ROM Limitations Shoulder ROM Limitations Soft Tissue Tightness,Pain PT-OP-N Lymphedema Start: 04/03/19 13:46 Freq: Status: Active Protocol: Document 04/03/19 13:47 [facility] (Rec: 04/05/19 17:45 [facility] [id number]) Lymphedema Measurements Upper Extremity Circumference Measurements right MCP 20 cm Wrist 19.5 cm 5 cm From Distal Crease 22.4 cm 10 cm From Distal Crease 26.9 cm 15 cm From Distal Crease 30.3 cm 20 cm From Distal Crease 31 cm 25 cm From Distal Crease 30.9 cm 30 cm From Distal Crease 33.6 cm 35 cm From Distal Crease 36.4 cm 40 cm From Distal Crease 37.7 cm 45 cm From Distal Crease 39.6 cm Axilla 39.5 cm left MCP 19.5 cm Wrist 18.9 cm 5 cm From Distal Crease 21.4 cm 10 cm From Distal Crease 24.6 cm 15 cm From Distal Crease 28 cm 20 cm From Distal Crease 29.5 cm 25 cm From Distal Crease 30 cm 30 cm From Distal Crease 32 cm 35 cm From Distal Crease 34.9 cm 40 cm From Distal Crease 36.6 cm 45 cm From Distal Crease 38.7 cm Axilla 41.7 cm Comments Lymphedema Comments measurements taken every 4 cm as with prior visits for comparison: 4,03/26/16,20,24,28 ,32,36,40 PT-OP-Q Treatments Start: 04/03/19 13:46 Freq: Status: Active Protocol: Document 05/08/19 14:29 [facility] (Rec: 05/08/19 14:45 [facility] [id number]) Cardio Equipment Recumbent Stepper (Sci-Fit) Duration (Minutes) 5 Resistance 1 Seat Position 7 Therapeutic Exercises Supine Exercises UT stretch Reps/Minutes 2x Comments manual serratus punch Reps/Minutes 15x Comments verbal and manual cues pec stretch Side bilateral Reps/Minutes 1 min Comments manual Sidelying Exercises scapular clocks Reps/Minutes 10x Comments verbal and tactile cues external rotation Reps/Minutes 10x Sitting Exercises trunk extension Equipment Used 12 ball at sequential levels of mid thoracic spine Reps/Minutes 3x each level Comments extending up and over ball, seated in chair pulleys Sitting Exercise Name flexion and scaption Side bilateral Comments patient purchased own Standing Exercises bicep stretch Reps/Minutes 2x30 Manual Therapy Treatment Soft Tissue Mobilization left chest and subaxillary region Mobilization Type Myofascial Release Intensity/Depth gentle Body Position Hooklying Comments including mastectomy scar Joint Mobilizations scapulo-thoracic Joint left Direction all planes Grade III Body Position Sidelying Taping for edema reduction left subaxillary region Type of Tape Kinesio Tape Skin Inspection intact Comments 2 fan strips kinesiotape Body Location between scapulae Treatment Focus postural correction Type of Tape kinesiotape Skin Inspection intact Comments 2 I strips. educated to remove if uncomfortable or increase in pain, itching. Remove after 5 days if feeling ok. Lymphedema Treatment Manual Lymphatic Drainage Location left UE Comments included scar mobilization left chest region Lymphedema Wrapping Other patient wearing compression sleeve; as above kinesiotape for subaxillary edema PT-OP-S Aquatic Treatment Start: 04/03/19 13:46 Freq: Status: Active Protocol: Document 05/04/19 10:15 LJ (Rec: 05/04/19 16:05 LJ [id number]) Aquatics Treatment Pool Entry/Exit Pool Entry/Exit Method Stairs Assistance Verbal Cues Water Walking march with opposite UE reach Water Level Chest Level Level of Assistance Verbal Cues sideways with shoulder ab/ad Water Level Chest Level Level of Assistance Verbal Cues backward with reverse breastroke UE's Water Level Chest Level Level of Assistance Verbal Cues forward with breastroke UE's Water Level Chest Level Level of Assistance Verbal Cues Upper Extremity Exercises rows Details standing back to wall Body Position Standing Water Level Chest Level Equipment hydro band Reps/Duration 15 Comments cues to touck wall with elbows shoulder IR/ER Body Position Standing Water Level Chest Level Equipment hydro band Reps/Duration 10 shoulder flex/ext Water Level Chest Level Reps/Duration 10x hor ab/ad Body Position Standing Water Level Chest Level Reps/Duration 10x circles Body Position Standing Water Level Chest Level Reps/Duration 10x Upper Extremity Stretches walk with pec stretch Equipment small noodle held in UE's behind back Half Way Activities Half Way Activities Bicycle Equipment flotation belt Comments breastroke UE's with scapular retraction Manual Techniques Bad Ragaz passive for shoulder girdle ROM: supine with yellow neck float and LE floats Aquatic Massage left periscapular region, left biceps, deltoid, UT PT-OP-T Assessment and Plan Start: 04/03/19 13:46 Freq: Status: Active Protocol: Document 05/08/19 14:29 SAK (Rec: 05/08/19 14:45 SAK [id number]) Physical Therapy Assessment Goals pain Impairment left shoulder pain Drilling Field Professional Goal (LTG) Decrease pain to no greater than 1-2/10 LTG Duration 06/04/19 soft tissue mobility Impairment decreased soft tissue mobility left chest and subaxillary region Drilling Field Professional Goal (LTG) Improve soft tissue mobility left chest and subaxillary region to WNL LTG Duration 06/04/19 ROM Impairment decreased shoulder ROM Snf Goal (LTG) Improve bilateral shoulder ROM to allow her to reach overhead and behind her back for performance of ADL's and usual activities. LTG Duration 06/04/19 edema Impairment cliff UE lymphedema Snf Goal (LTG) Decrease and stabilize UE lymphedema and make sure patient has correctly-fitting compression sleeves bilaterally. Eliminate axillary cording LTG Duration 06/04/19 Progress Towards Goals Progress Towards Goals Progressing Toward Goals Assessment Summary Assessment Patient demonstrated improved ability to relax during manual treatments, allowing increased ROM to left shoulder to be attained. Demonstrated good understanding of trunk extension over ball exercise and was issued handout regarding bicep stretch with good understanding. Moderate verbal and tactile cues required for scapular mobility with patient having difficulty isolating movement. Physical Therapy Plan Frequency and Duration Frequency of Treatment 2x/Week Duration of Treatment 8 wks Plan of Care Start Date 04/03/19 Plan of Care End Date 06/04/19 Therapeutic Interventions Therapeutic Interventions Aquatic Therapy,Home Exercise Program,Joint Mobilizations, Lymphedema Management,Manual Therapy,Patient/Caregiver Education,Self-Care/Home Management,Soft Tissue Mobilization,Taping, Therapeutic Activities, Therapeutic Exercises Next Visit Focus/Plan Next Note Type Treatment Note Next Visit Plan Continue treatment for lymphedema management and pain left UE. Assess response to new kinesiotape of left subaxillar region.
--- NOTE | 2019-05-11 13:10 | PT.OTN ---
Current Diagnoses Lymphedema, not elsewhere classified (05/11/19) Pain in left shoulder (05/11/19) Stiffness of right shoulder, not elsewhere classified (05/11/19) Stiffness of left shoulder, not elsewhere classified (05/11/19) Abnormal posture (05/11/19) Physical Therapy Treatment Note PT-OP-A Visit Information Start: 04/03/19 13:46 Freq: Status: Active Protocol: Document 05/11/19 10:15 AMADOR (Rec: 05/11/19 13:10 LJ [email or web address]) Out-Patient Physical Therapy Visit Information Visit Information Visit Type Aquatic Treatment Note Visit Start Time 10:15 Visit Stop Time 11:00 Total Visit Minutes 45 Visit Number 9 Number of CLIN NURSE SPEC Visits 1 Precautions Precautions CHF PT-OP-B Current Condition Start: 04/03/19 13:46 Freq: Status: Active Protocol: Document 04/03/19 13:47 SAK (Rec: 04/03/19 14:07 SAK [id number]) Current Condition History of Current Condition Onset Date 1990 Current Complaints lymphedema bilateral UE's History of Current Condition Since last seen in PT patient has had multiple medical issues including influenza December 02 diagnosed while on cruise. Polyps removed due to vaginal bleeding. Then developed pain right side diagnosed as UTI and kidney stones. Also small bowel obstruction, treated non surgically. Diagnosed with GERD and IBS. Diagnosed with initial stages of CHF. Seeing recycling sorter . During all of the above had difficulty being compliant to lymphedema home management, except for mostly wearing compression sleeve. Reports 14lb weight loss due to medical issues. Having some increased shoulder pain and reports feeling her edema has increased some in her arms. Also reporting her chest scarring feels tighter. May need to order new compression sleeves soon. Prior Functional Status Baseline Function- ADL's Independent Baseline Function- Mobility Independent Current Functional Impairments (Reported) Functional Limitations- ADL's more difficulty reaching behind her back and overhead bilateral UE's Personal Factors Other Personal Factors That May Effect multiple recent medical issues Therapy/Recovery as above including CHF. PT-OP-C Subjective Start: 04/03/19 13:46 Freq: Status: Active Protocol: Document 05/11/19 10:15 AMADOR (Rec: 05/11/19 13:10 AMADOR [id number]) OP-PT Subjective Patient Comments Patient Comments states she was really worked over last therapy appointment in the clinic. Says she does exercises at home. PT-OP-E Functional Tests Start: 04/03/19 13:46 Freq: Status: Active Protocol: Document 04/03/19 13:47 SAK (Rec: 04/05/19 17:45 [facility] [id number]) Functional Tests Apley's Scratch Test Action 1- Left anterior shoulder Action 1- Right posterior shoulder Action 2- Left side of neck Action 2- Right T1 Action 3- Left T10 Action 3- Right T7 PT-OP-J Posture/Palpation/Skin Start: 04/03/19 13:46 Freq: Status: Active Protocol: Document 04/03/19 13:47 SAK (Rec: 04/05/19 17:45 [facility] [id number]) Posture Evaluation Position Standing Head/C-Spine Posture Forward Head T-Spine Posture Increased Kyphosis Shoulder Posture (L) Rounded,(R) Rounded Scapula Posture (L) Protracted,(R) Protracted Arm Posture (L) Internally Rotated,(R) Internally Rotated Palpation Assessment Location left chest and subaxillary region Palpation Findings Edema,Soft Tissue Tightness, Tenderness Palpation Details from mastectomy scar 2cm long axillary cording PT-OP-K Range of Motion Start: 04/03/19 13:46 Freq: Status: Active Protocol: Document 04/03/19 13:47 [facility] (Rec: 04/05/19 17:45 [facility] [id number]) Cervical Spine Range of Motion Cervical Spine Active Testing Position Sitting Comments WNL Shoulder Goniometric Range of Motion Shoulder Left Shoulder ROM WFL No Testing Position Sitting Flexion 114 Extension 15 Abduction 110 External Rotation at 45 degrees 45 Abduction Internal Rotation Behind Back (text) T10 right Shoulder ROM WFL No Testing Position Sitting Flexion 122 Extension 20 Abduction 120 External Rotation at 45 degrees 55 Abduction Internal Rotation Behind Back (text) T7 Shoulder ROM Limitations Shoulder ROM Limitations Soft Tissue Tightness,Pain PT-OP-N Lymphedema Start: 04/03/19 13:46 Freq: Status: Active Protocol: Document 04/03/19 13:47 [facility] (Rec: 04/05/19 17:45 [facility] [id number]) Lymphedema Measurements Upper Extremity Circumference Measurements right MCP 20 cm Wrist 19.5 cm 5 cm From Distal Crease 22.4 cm 10 cm From Distal Crease 26.9 cm 15 cm From Distal Crease 30.3 cm 20 cm From Distal Crease 31 cm 25 cm From Distal Crease 30.9 cm 30 cm From Distal Crease 33.6 cm 35 cm From Distal Crease 36.4 cm 40 cm From Distal Crease 37.7 cm 45 cm From Distal Crease 39.6 cm Axilla 39.5 cm left MCP 19.5 cm Wrist 18.9 cm 5 cm From Distal Crease 21.4 cm 10 cm From Distal Crease 24.6 cm 15 cm From Distal Crease 28 cm 20 cm From Distal Crease 29.5 cm 25 cm From Distal Crease 30 cm 30 cm From Distal Crease 32 cm 35 cm From Distal Crease 34.9 cm 40 cm From Distal Crease 36.6 cm 45 cm From Distal Crease 38.7 cm Axilla 41.7 cm Comments Lymphedema Comments measurements taken every 4 cm as with prior visits for comparison: 4,03/26/16,20,24,28 ,32,36,40 PT-OP-Q Treatments Start: 04/03/19 13:46 Freq: Status: Active Protocol: Document 05/08/19 14:29 [facility] (Rec: 05/08/19 14:45 [facility] [id number]) Cardio Equipment Recumbent Stepper (Sci-Fit) Duration (Minutes) 5 Resistance 1 Seat Position 7 Therapeutic Exercises Supine Exercises UT stretch Reps/Minutes 2x Comments manual serratus punch Reps/Minutes 15x Comments verbal and manual cues pec stretch Side bilateral Reps/Minutes 1 min Comments manual Sidelying Exercises scapular clocks Reps/Minutes 10x Comments verbal and tactile cues external rotation Reps/Minutes 10x Sitting Exercises trunk extension Equipment Used 12 ball at sequential levels of mid thoracic spine Reps/Minutes 3x each level Comments extending up and over ball, seated in chair pulleys Sitting Exercise Name flexion and scaption Side bilateral Comments patient purchased own Standing Exercises bicep stretch Reps/Minutes 2x30 Manual Therapy Treatment Soft Tissue Mobilization left chest and subaxillary region Mobilization Type Myofascial Release Intensity/Depth gentle Body Position Hooklying Comments including mastectomy scar Joint Mobilizations scapulo-thoracic Joint left Direction all planes Grade III Body Position Sidelying Taping for edema reduction left subaxillary region Type of Tape Kinesio Tape Skin Inspection intact Comments 2 fan strips kinesiotape Body Location between scapulae Treatment Focus postural correction Type of Tape kinesiotape Skin Inspection intact Comments 2 I strips. educated to remove if uncomfortable or increase in pain, itching. Remove after 5 days if feeling ok. Lymphedema Treatment Manual Lymphatic Drainage Location left UE Comments included scar mobilization left chest region Lymphedema Wrapping Other patient wearing compression sleeve; as above kinesiotape for subaxillary edema PT-OP-S Aquatic Treatment Start: 04/03/19 13:46 Freq: Status: Active Protocol: Document 05/11/19 10:15 AMADOR (Rec: 05/11/19 13:10 [email or web address]) Aquatics Treatment Pool Entry/Exit Pool Entry/Exit Method Stairs Assistance Verbal Cues Water Walking october with opposite UE reach Water Level Chest Level Level of Assistance Verbal Cues sideways with shoulder ab/ad Water Level Chest Level Level of Assistance Verbal Cues backward with reverse breastroke UE's Water Level Chest Level Level of Assistance Verbal Cues forward with breastroke UE's Water Level Chest Level Level of Assistance Verbal Cues Upper Extremity Exercises ryan Details hydroband hooked on lift Body Position Standing Water Level Chest Level Equipment hydroband Reps/Duration 2 min rows Details standing back to wall Body Position Standing Water Level Chest Level Equipment hydro band Reps/Duration 15 Comments cues to touck wall with elbows shoulder IR/ER Body Position Standing Water Level Chest Level Equipment smiles Reps/Duration 10 shoulder flex/ext Water Level Chest Level Equipment smiles Reps/Duration 10x hor ab/ad Body Position Standing Water Level Chest Level Reps/Duration 10x circles Body Position Standing Water Level Chest Level Reps/Duration 10x Upper Extremity Stretches corner Body Position Standing Water Level Chest Level Reps/Duration 2x45 walk with pec stretch Equipment smiles Reps/Duration 30 m Comments cues to keep shoulders relaxed PT-OP-T Assessment and Plan Start: 04/03/19 13:46 Freq: Status: Active Protocol: Document 05/11/19 10:15 AMADOR (Rec: 05/11/19 13:10 AMADOR [email or web address]) Physical Therapy Assessment Goals pain Impairment left shoulder pain Usp Goal (LTG) Decrease pain to no greater than 1-2/10 LTG Duration 06/04/19 soft tissue mobility Impairment decreased soft tissue mobility left chest and subaxillary region Usp Goal (LTG) Improve soft tissue mobility left chest and subaxillary region to WNL LTG Duration 06/04/19 ROM Impairment decreased shoulder ROM Usp Goal (LTG) Improve bilateral shoulder ROM to allow her to reach overhead and behind her back for performance of ADL's and usual activities. LTG Duration 06/04/19 edema Impairment cliff UE lymphedema Director Of Engineering Goal (LTG) Decrease and stabilize UE lymphedema and make sure patient has correctly-fitting compression sleeves bilaterally. Eliminate axillary cording LTG Duration 06/04/19 Assessment Summary Assessment Pt had no pain with exercises. States the ryan with band worked well. Needs reminding to keep floats pulled underwater and shoulders extended in forwrd walking stretch. Physical Therapy Plan Frequency and Duration Frequency of Treatment 2x/Week Duration of Treatment 8 wks Plan of Care Start Date 04/03/19 Plan of Care End Date 06/04/19 Therapeutic Interventions Therapeutic Interventions Aquatic Therapy,Home Exercise Program,Joint Mobilizations, Lymphedema Management,Manual Therapy,Patient/Caregiver Education,Self-Care/Home Management,Soft Tissue Mobilization,Taping, Therapeutic Activities, Therapeutic Exercises Next Visit Focus/Plan Next Note Type Treatment Note Next Visit Plan Continue with aquatic therapy as tolerated with gradual increase in intensity and resistance equipment
--- NOTE | 2019-05-14 12:30 | PT.OPPN ---
Current Diagnoses Lymphedema, not elsewhere classified (05/14/19) Pain in left shoulder (05/14/19) Stiffness of right shoulder, not elsewhere classified (05/14/19) Stiffness of left shoulder, not elsewhere classified (05/14/19) Abnormal posture (05/14/19) Physical Therapy Progress Note PT-OP-A Visit Information Start: 04/03/19 13:46 Freq: Status: Active Protocol: Document 05/14/19 12:30 SAK (Rec: 05/15/19 10:52 [facility] [id number]) Out-Patient Physical Therapy Visit Information Visit Information Visit Type Aquatic Treatment Note Visit Start Time 12:30 Visit Stop Time 11:15 Total Visit Minutes 45 Visit Number 10 Number of HOME PERFORMANCE CONSULTANT Visits 1 Precautions Precautions CHF PT-OP-B Current Condition Start: 04/03/19 13:46 Freq: Status: Active Protocol: Document 04/03/19 13:47 SAK (Rec: 04/03/19 14:07 SAK [id number]) Current Condition History of Current Condition Onset Date 1990 Current Complaints lymphedema bilateral UE's History of Current Condition Since last seen in PT patient has had multiple medical issues including influenza December 02 diagnosed [place] on cruise. Polyps removed due to vaginal bleeding. Then developed pain right side diagnosed as UTI and kidney stones. Also small bowel obstruction, treated non surgically. Diagnosed with GERD and IBS. Diagnosed with initial stages of CHF. 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 During all of the above had difficulty being compliant to lymphedema home management, except for mostly wearing compression sleeve. Reports 14lb weight loss due to medical issues. Having some increased shoulder pain and reports feeling her edema has increased some in her arms. Also reporting her chest scarring feels tighter. May need to order new compression sleeves soon. Prior Functional Status Baseline Function- ADL's Independent Baseline Function- Mobility Independent Current Functional Impairments (Reported) Functional Limitations- ADL's more difficulty reaching behind her back and overhead bilateral UE's Personal Factors Other Personal Factors That May Effect multiple recent medical issues Therapy/Recovery as above including CHF. PT-OP-C Subjective Start: 04/03/19 13:46 Freq: Status: Active Protocol: Document 05/14/19 12:30 SAK (Rec: 05/15/19 10:52 [facility] [id number]) OP-PT Subjective Patient Comments Patient Comments No new c/o. Had busy weekend so minimal ex at home. PT-OP-E Functional Tests Start: 04/03/19 13:46 Freq: Status: Active Protocol: Document 04/03/19 13:47 [facility] (Rec: 04/05/19 17:45 [facility] [id number]) Functional Tests Apley's Scratch Test Action 1: The subject is instructed to touch the opposite shoulder with his/her hand. This motion checks Glenohumeral adduction, internal rotation , horizontal adduction and scapular protraction Action 2: The subject is instructed to place his/her arm overhead and reach behind the neck to touch his/her upper back. This motion checks Glenohumeral abduction, external rotation and scapular upward rotation and elevation. Action 3: The subject puts his/her hand on the lower back and reaches upward as far as possible. This motion checks glenohumeral adduction, internal rotation and scapular retraction with downward rotation Action 1- Left anterior shoulder Action 1- Right posterior shoulder Action 2- Left side of neck Action 2- Right T1 Action 3- Left T10 Action 3- Right T7 PT-OP-J Posture/Palpation/Skin Start: 04/03/19 13:46 Freq: Status: Active Protocol: Document 04/03/19 13:47 [facility] (Rec: 04/05/19 17:45 [facility] [id number]) Posture Evaluation Position Standing Head/C-Spine Posture Forward Head T-Spine Posture Increased Kyphosis Shoulder Posture (L) Rounded,(R) Rounded Scapula Posture (L) Protracted,(R) Protracted Arm Posture (L) Internally Rotated,(R) Internally Rotated Palpation Assessment Location left chest and subaxillary region Palpation Findings Edema,Soft Tissue Tightness, Tenderness Palpation Details from mastectomy scar 2cm long axillary cording PT-OP-K Range of Motion Start: 04/03/19 13:46 Freq: Status: Active Protocol: Document 04/03/19 13:47 [facility] (Rec: 04/05/19 17:45 [facility] [id number]) Cervical Spine Range of Motion Cervical Spine Active Testing Position Sitting Comments WNL Shoulder Goniometric Range of Motion Shoulder Measured in Degrees Left Shoulder ROM WFL No Testing Position Sitting Flexion 114 Extension 15 Abduction 110 External Rotation at 45 degrees 45 Abduction Internal Rotation Behind Back (text) T10 right Shoulder ROM WFL No Testing Position Sitting Flexion 122 Extension 20 Abduction 120 External Rotation at 45 degrees 55 Abduction Internal Rotation Behind Back (text) T7 Shoulder ROM Limitations Shoulder ROM Limitations Soft Tissue Tightness,Pain PT-OP-N Lymphedema Start: 04/03/19 13:46 Freq: Status: Active Protocol: Document 04/03/19 13:47 JHONATHAN (Rec: 04/05/19 17:45 [facility] [id number]) Lymphedema Measurements Upper Extremity Circumference Measurements right MCP 20 cm Wrist 19.5 cm 5 cm From Distal Crease 22.4 cm 10 cm From Distal Crease 26.9 cm 15 cm From Distal Crease 30.3 cm 20 cm From Distal Crease 31 cm 25 cm From Distal Crease 30.9 cm 30 cm From Distal Crease 33.6 cm 35 cm From Distal Crease 36.4 cm 40 cm From Distal Crease 37.7 cm 45 cm From Distal Crease 39.6 cm Axilla 39.5 cm left MCP 19.5 cm Wrist 18.9 cm 5 cm From Distal Crease 21.4 cm 10 cm From Distal Crease 24.6 cm 15 cm From Distal Crease 28 cm 20 cm From Distal Crease 29.5 cm 25 cm From Distal Crease 30 cm 30 cm From Distal Crease 32 cm 35 cm From Distal Crease 34.9 cm 40 cm From Distal Crease 36.6 cm 45 cm From Distal Crease 38.7 cm Axilla 41.7 cm Comments Lymphedema Comments measurements taken every 4 cm as with prior visits for comparison: 4,16,20,24,28 ,32,36,40 PT-OP-T Assessment and Plan Start: 04/03/19 13:46 Freq: Status: Active Protocol: Document 05/14/19 12:30 [facility] (Rec: 05/15/19 10:52 [facility] [id number]) Physical Therapy Assessment Goals pain Impairment left shoulder pain Certified Procedural Coder Goal (LTG) Decrease pain to no greater than 1-2/10 LTG Duration 06/04/19 soft tissue mobility Impairment decreased soft tissue mobility left chest and subaxillary region Shelter Goal (LTG) Improve soft tissue mobility left chest and subaxillary region to WNL LTG Duration 06/04/19 ROM Impairment decreased shoulder ROM Certified Procedural Coder Goal (LTG) Improve bilateral shoulder ROM to allow her to reach overhead and behind her back for performance of ADL's and usual activities. LTG Duration 06/04/19 edema Impairment cliff UE lymphedema Certified Procedural Coder Goal (LTG) Decrease and stabilize UE lymphedema and make sure patient has correctly-fitting compression sleeves bilaterally. Eliminate axillary cording LTG Duration 06/04/19 Physical Therapy Plan Frequency and Duration Frequency of Treatment 2x/Week Duration of Treatment 8 wks Plan of Care Start Date 04/03/19 Plan of Care End Date 06/04/19 Therapeutic Interventions Therapeutic Interventions Aquatic Therapy,Home Exercise Program,Joint Mobilizations, Lymphedema Management,Manual Therapy,Patient/Caregiver Education,Self-Care/Home Management,Soft Tissue Mobilization,Taping, Therapeutic Activities, Therapeutic Exercises Next Visit Focus/Plan Next Note Type Treatment Note Next Visit Plan next aquatic PT session sequential lymphedema exercises, continue with postural correction, strengthening, and ROM left shoulder to decrease her pain and improve function. Continue lymphedema management .
--- NOTE | 2019-05-14 12:30 | PT.OTN ---
Current Diagnoses Lymphedema, not elsewhere classified (05/14/19) Pain in left shoulder (05/14/19) Stiffness of right shoulder, not elsewhere classified (05/14/19) Stiffness of left shoulder, not elsewhere classified (05/14/19) Abnormal posture (05/14/19) Physical Therapy Treatment Note PT-OP-A Visit Information Start: 04/03/19 13:46 Freq: Status: Active Protocol: Document 05/14/19 12:30 SAK (Rec: 05/15/19 10:52 [facility] [id number]) Out-Patient Physical Therapy Visit Information Visit Information Visit Type Aquatic Treatment Note Visit Start Time 12:30 Visit Stop Time 11:15 Total Visit Minutes 45 Visit Number 10 Number of BAG END SEWER Visits 1 Precautions Precautions CHF PT-OP-B Current Condition Start: 04/03/19 13:46 Freq: Status: Active Protocol: Document 04/03/19 13:47 SAK (Rec: 04/03/19 14:07 SAK [id number]) Current Condition History of Current Condition Onset Date 1990 Current Complaints lymphedema bilateral UE's History of Current Condition Since last seen in PT patient has had multiple medical issues including influenza December 02 diagnosed while on cruise. Polyps removed due to vaginal bleeding. Then developed pain right side diagnosed as UTI and kidney stones. Also small bowel obstruction, treated non surgically. Diagnosed with GERD and IBS. Diagnosed with initial stages of CHF. Seeing property analyst . During all of the above had difficulty being compliant to lymphedema home management, except for mostly wearing compression sleeve. Reports 14lb weight loss due to medical issues. Having some increased shoulder pain and reports feeling her edema has increased some in her arms. Also reporting her chest scarring feels tighter. May need to order new compression sleeves soon. Prior Functional Status Baseline Function- ADL's Independent Baseline Function- Mobility Independent Current Functional Impairments (Reported) Functional Limitations- ADL's more difficulty reaching behind her back and overhead bilateral UE's Personal Factors Other Personal Factors That May Effect multiple recent medical issues Therapy/Recovery as above including CHF. PT-OP-C Subjective Start: 04/03/19 13:46 Freq: Status: Active Protocol: Document 05/14/19 12:30 SAK (Rec: 05/15/19 10:52 [facility] [id number]) OP-PT Subjective Patient Comments Patient Comments No new c/o. Had busy weekend so minimal ex at home. PT-OP-E Functional Tests Start: 04/03/19 13:46 Freq: Status: Active Protocol: Document 04/03/19 13:47 SAK (Rec: 04/05/19 17:45 [facility] [id number]) Functional Tests Apley's Scratch Test Action 1- Left anterior shoulder Action 1- Right posterior shoulder Action 2- Left side of neck Action 2- Right T1 Action 3- Left T10 Action 3- Right T7 PT-OP-J Posture/Palpation/Skin Start: 04/03/19 13:46 Freq: Status: Active Protocol: Document 04/03/19 13:47 SAK (Rec: 04/05/19 17:45 SAK [id number]) Posture Evaluation Position Standing Head/C-Spine Posture Forward Head T-Spine Posture Increased Kyphosis Shoulder Posture (L) Rounded,(R) Rounded Scapula Posture (L) Protracted,(R) Protracted Arm Posture (L) Internally Rotated,(R) Internally Rotated Palpation Assessment Location left chest and subaxillary region Palpation Findings Edema,Soft Tissue Tightness, Tenderness Palpation Details from mastectomy scar 2cm long axillary cording PT-OP-K Range of Motion Start: 04/03/19 13:46 Freq: Status: Active Protocol: Document 04/03/19 13:47 SAK (Rec: 04/05/19 17:45 [facility] [id number]) Cervical Spine Range of Motion Cervical Spine Active Testing Position Sitting Comments WNL Shoulder Goniometric Range of Motion Shoulder Left Shoulder ROM WFL No Testing Position Sitting Flexion 114 Extension 15 Abduction 110 External Rotation at 45 degrees 45 Abduction Internal Rotation Behind Back (text) T10 right Shoulder ROM WFL No Testing Position Sitting Flexion 122 Extension 20 Abduction 120 External Rotation at 45 degrees 55 Abduction Internal Rotation Behind Back (text) T7 Shoulder ROM Limitations Shoulder ROM Limitations Soft Tissue Tightness,Pain PT-OP-N Lymphedema Start: 04/03/19 13:46 Freq: Status: Active Protocol: Document 04/03/19 13:47 SAK (Rec: 04/05/19 17:45 [facility] [id number]) Lymphedema Measurements Upper Extremity Circumference Measurements right MCP 20 cm Wrist 19.5 cm 5 cm From Distal Crease 22.4 cm 10 cm From Distal Crease 26.9 cm 15 cm From Distal Crease 30.3 cm 20 cm From Distal Crease 31 cm 25 cm From Distal Crease 30.9 cm 30 cm From Distal Crease 33.6 cm 35 cm From Distal Crease 36.4 cm 40 cm From Distal Crease 37.7 cm 45 cm From Distal Crease 39.6 cm Axilla 39.5 cm left MCP 19.5 cm Wrist 18.9 cm 5 cm From Distal Crease 21.4 cm 10 cm From Distal Crease 24.6 cm 15 cm From Distal Crease 28 cm 20 cm From Distal Crease 29.5 cm 25 cm From Distal Crease 30 cm 30 cm From Distal Crease 32 cm 35 cm From Distal Crease 34.9 cm 40 cm From Distal Crease 36.6 cm 45 cm From Distal Crease 38.7 cm Axilla 41.7 cm Comments Lymphedema Comments measurements taken every 4 cm as with prior visits for comparison: 4,03/26/16,20,24,28 ,32,36,40 PT-OP-Q Treatments Start: 04/03/19 13:46 Freq: Status: Active Protocol: Document 05/08/19 14:29 [facility] (Rec: 05/08/19 14:45 [facility] [id number]) Cardio Equipment Recumbent Stepper (Sci-Fit) Duration (Minutes) 5 Resistance 1 Seat Position 7 Therapeutic Exercises Supine Exercises UT stretch Reps/Minutes 2x Comments manual serratus punch Reps/Minutes 15x Comments verbal and manual cues pec stretch Side bilateral Reps/Minutes 1 min Comments manual Sidelying Exercises scapular clocks Reps/Minutes 10x Comments verbal and tactile cues external rotation Reps/Minutes 10x Sitting Exercises trunk extension Equipment Used 12 ball at sequential levels of mid thoracic spine Reps/Minutes 3x each level Comments extending up and over ball, seated in chair pulleys Sitting Exercise Name flexion and scaption Side bilateral Comments patient purchased own Standing Exercises bicep stretch Reps/Minutes 2x30 Manual Therapy Treatment Soft Tissue Mobilization left chest and subaxillary region Mobilization Type Myofascial Release Intensity/Depth gentle Body Position Hooklying Comments including mastectomy scar Joint Mobilizations scapulo-thoracic Joint left Direction all planes Grade III Body Position Sidelying Taping for edema reduction left subaxillary region Type of Tape Kinesio Tape Skin Inspection intact Comments 2 fan strips kinesiotape Body Location between scapulae Treatment Focus postural correction Type of Tape kinesiotape Skin Inspection intact Comments 2 I strips. educated to remove if uncomfortable or increase in pain, itching. Remove after 5 days if feeling ok. Lymphedema Treatment Manual Lymphatic Drainage Location left UE Comments included scar mobilization left chest region Lymphedema Wrapping Other patient wearing compression sleeve; as above kinesiotape for subaxillary edema PT-OP-S Aquatic Treatment Start: 04/03/19 13:46 Freq: Status: Active Protocol: Document 05/14/19 12:30 [facility] (Rec: 05/15/19 10:52 [facility] [id number]) Aquatics Treatment Pool Entry/Exit Pool Entry/Exit Method Stairs Assistance Verbal Cues Water Walking march with opposite UE reach Water Level Chest Level Level of Assistance Verbal Cues sideways with shoulder ab/ad Water Level Chest Level Level of Assistance Verbal Cues backward with reverse breastroke UE's Water Level Chest Level Level of Assistance Verbal Cues forward with breastroke UE's Water Level Chest Level Level of Assistance Verbal Cues Upper Extremity Exercises ryan Details hydroband hooked on lift Body Position Standing Water Level Chest Level Equipment hydroband Reps/Duration 2 min rows Details standing back to wall Body Position Standing Water Level Chest Level Equipment hydro band Reps/Duration 15 Comments cues to touck wall with elbows shoulder IR/ER Body Position Standing Water Level Chest Level Equipment smiles Reps/Duration 10 hor ab/ad Body Position Standing Water Level Chest Level Reps/Duration 10x Comments at wall; touching wall with UE 's Upper Extremity Stretches corner Body Position Standing Water Level Chest Level Reps/Duration 2x45 walk with pec stretch Equipment Small Noodle Reps/Duration 30 m Comments cues to keep shoulders relaxed [place] Activities [place] Activities Bicycle Equipment flotation belt Comments breastroke UE's with scapular retraction Manual Techniques Bad Ragaz passive for shoulder girdle ROM: supine with yellow neck float and LE floats Aquatic Massage left periscapular region, left biceps, deltoid, UT PT-OP-T Assessment and Plan Start: 04/03/19 13:46 Freq: Status: Active Protocol: Document 05/14/19 12:30 [facility] (Rec: 05/15/19 10:52 [facility] [id number]) Physical Therapy Assessment Goals pain Impairment left shoulder pain Hoeing Row Boss Goal (LTG) Decrease pain to no greater than 1-2/10 LTG Duration 06/04/19 soft tissue mobility Impairment decreased soft tissue mobility left chest and subaxillary region Fpc Goal (LTG) Improve soft tissue mobility left chest and subaxillary region to WNL LTG Duration 06/04/19 ROM Impairment decreased shoulder ROM Fpc Goal (LTG) Improve bilateral shoulder ROM to allow her to reach overhead and behind her back for performance of ADL's and usual activities. LTG Duration 06/04/19 edema Impairment cliff UE lymphedema Hoeing Row Boss Goal (LTG) Decrease and stabilize UE lymphedema and make sure patient has correctly-fitting compression sleeves bilaterally. Eliminate axillary cording LTG Duration 06/04/19 Physical Therapy Plan Frequency and Duration Frequency of Treatment 2x/Week Duration of Treatment 8 wks Plan of Care Start Date 04/03/19 Plan of Care End Date 06/04/19 Therapeutic Interventions Therapeutic Interventions Aquatic Therapy,Home Exercise Program,Joint Mobilizations, Lymphedema Management,Manual Therapy,Patient/Caregiver Education,Self-Care/Home Management,Soft Tissue Mobilization,Taping, Therapeutic Activities, Therapeutic Exercises Next Visit Focus/Plan Next Note Type Treatment Note Next Visit Plan next aquatic PT session sequential lymphedema exercises, continue with postural correction, strengthening, and ROM left shoulder to decrease her pain and improve function. Continue lymphedema management .
--- NOTE | 2019-05-16 08:27 | PT-OP ANOTE ---
cancelled due to being ill
--- NOTE | 2019-06-05 12:46 | PT.OTN ---
Current Diagnoses Lymphedema, not elsewhere classified (06/05/19) Pain in left shoulder (06/05/19) Stiffness of right shoulder, not elsewhere classified (06/05/19) Stiffness of left shoulder, not elsewhere classified (06/05/19) Abnormal posture (06/05/19) Physical Therapy Treatment Note PT-OP-A Visit Information Start: 04/03/19 13:46 Freq: Status: Active Protocol: Document 06/05/19 11:48 GGD (Rec: 06/05/19 12:46 GGD [email or web address]) Out-Patient Physical Therapy Visit Information Visit Information Visit Type Treatment Note Visit Start Time 09:00 Visit Stop Time 10:10 Total Visit Minutes 70 Visit Number 11 Number of LOOM FIXER HELPER Visits 1 PT-OP-B Current Condition Start: 04/03/19 13:46 Freq: Status: Active Protocol: Document 04/03/19 13:47 SAK (Rec: 04/03/19 14:07 SAK [id number]) Current Condition History of Current Condition Onset Date 1990 Current Complaints lymphedema bilateral UE's History of Current Condition Since last seen in PT patient has had multiple medical issues including influenza December 02 diagnosed while on cruise. Polyps removed due to vaginal bleeding. Then developed pain right side diagnosed as UTI and kidney stones. Also small bowel obstruction, treated non surgically. Diagnosed with GERD and IBS. Diagnosed with initial stages of CHF. 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 During all of the above had difficulty being compliant to lymphedema home management, except for mostly wearing compression sleeve. Reports 14lb weight loss due to medical issues. Having some increased shoulder pain and reports feeling her edema has increased some in her arms. Also reporting her chest scarring feels tighter. May need to order new compression sleeves soon. Prior Functional Status Baseline Function- ADL's Independent Baseline Function- Mobility Independent Current Functional Impairments (Reported) Functional Limitations- ADL's more difficulty reaching behind her back and overhead bilateral UE's Personal Factors Other Personal Factors That May Effect multiple recent medical issues Therapy/Recovery as above including CHF. PT-OP-C Subjective Start: 04/03/19 13:46 Freq: Status: Active Protocol: Document 06/05/19 11:48 GGD (Rec: 06/05/19 12:46 GGD [email or web address]) OP-PT Subjective Patient Comments Patient Comments Pt states she been ill and has lost weight. She been doing HEP a few times a week. OP-PT Pain Assessment Location left subaxillary region Intensity 4 Scale Used Numeric (1 - 10) Description Pulling,Tender Frequency Frequent PT-OP-E Functional Tests Start: 04/03/19 13:46 Freq: Status: Active Protocol: Document 04/03/19 13:47 SAK (Rec: 04/05/19 17:45 SAK [id number]) Functional Tests Apley's Scratch Test Action 1- Left anterior shoulder Action 1- Right posterior shoulder Action 2- Left side of neck Action 2- Right T1 Action 3- Left T10 Action 3- Right T7 PT-OP-J Posture/Palpation/Skin Start: 04/03/19 13:46 Freq: Status: Active Protocol: Document 04/03/19 13:47 SAK (Rec: 04/05/19 17:45 [facility] [id number]) Posture Evaluation Position Standing Head/C-Spine Posture Forward Head T-Spine Posture Increased Kyphosis Shoulder Posture (L) Rounded,(R) Rounded Scapula Posture (L) Protracted,(R) Protracted Arm Posture (L) Internally Rotated,(R) Internally Rotated Palpation Assessment Location left chest and subaxillary region Palpation Findings Edema,Soft Tissue Tightness, Tenderness Palpation Details from mastectomy scar 2cm long axillary cording PT-OP-K Range of Motion Start: 04/03/19 13:46 Freq: Status: Active Protocol: Document 06/05/19 11:48 GGD (Rec: 06/05/19 12:46 GGD [email or web address]) Shoulder Goniometric Range of Motion Shoulder Left Shoulder ROM WFL No Testing Position Sitting Flexion 114 Extension 20 Abduction 110 External Rotation at 45 degrees 45 Abduction Internal Rotation Behind Back (text) T9 right Shoulder ROM WFL No Testing Position Sitting Flexion 126 Extension 20 Abduction 135 External Rotation at 45 degrees 55 Abduction Internal Rotation Behind Back (text) T7 PT-OP-N Lymphedema Start: 04/03/19 13:46 Freq: Status: Active Protocol: Document 06/05/19 11:48 GGD (Rec: 06/05/19 12:46 GGD [email or web address]) Lymphedema Measurements Upper Extremity Circumference Measurements right MCP 19.9 cm Wrist 19.5 cm 5 cm From Distal Crease 21.5 cm 10 cm From Distal Crease 26.1 cm 15 cm From Distal Crease 29.9 cm 20 cm From Distal Crease 31.2 cm 25 cm From Distal Crease 30.6 cm 30 cm From Distal Crease 32.6 cm 35 cm From Distal Crease 36.1 cm 40 cm From Distal Crease 37 cm 45 cm From Distal Crease 38 cm Axilla 39 cm left MCP 20 cm Wrist 18.3 cm 5 cm From Distal Crease 20.5 cm 10 cm From Distal Crease 24.1 cm 15 cm From Distal Crease 28.1 cm 20 cm From Distal Crease 29 cm 25 cm From Distal Crease 30.4 cm 30 cm From Distal Crease 30 cm 35 cm From Distal Crease 33.9 cm 40 cm From Distal Crease 37 cm 45 cm From Distal Crease 40.2 cm Axilla 41.7 cm PT-OP-Q Treatments Start: 04/03/19 13:46 Freq: Status: Active Protocol: Document 06/05/19 11:48 GGD (Rec: 06/05/19 12:46 GGD [email or web address]) Therapeutic Exercises Supine Exercises UT stretch Reps/Minutes 2x Comments manual serratus punch Reps/Minutes 15x Comments verbal and manual cues pec stretch Side bilateral Reps/Minutes 1 min Comments manual Sidelying Exercises scapular clocks Reps/Minutes 10x Comments verbal and tactile cues external rotation Reps/Minutes 10x Sitting Exercises trunk extension Equipment Used 12 ball at sequential levels of mid thoracic spine Reps/Minutes 3x each level Comments extending up and over ball, seated in chair pulleys Sitting Exercise Name flexion and scaption Side bilateral Standing Exercises bicep stretch Reps/Minutes 2x30 Manual Therapy Treatment Soft Tissue Mobilization left chest and subaxillary region Mobilization Type Myofascial Release Intensity/Depth gentle Body Position Hooklying Comments including mastectomy scar Joint Mobilizations scapulo-thoracic Joint left Direction all planes Grade III Body Position Sidelying Taping kinesiotape Body Location between scapulae Treatment Focus postural correction Type of Tape kinesiotape Skin Inspection intact Comments 2 I strips. Lymphedema Treatment Manual Lymphatic Drainage Location left UE Comments included scar mobilization left chest region Other Other soft tissue mobilization along left bicep and pec due to tightness, proximal axillary cording PT-OP-S Aquatic Treatment Start: 04/03/19 13:46 Freq: Status: Active Protocol: Document 05/14/19 12:30 SAK (Rec: 05/15/19 10:52 SAK [id number]) Aquatics Treatment Pool Entry/Exit Pool Entry/Exit Method Stairs Assistance Verbal Cues Water Walking october with opposite UE reach Water Level Chest Level Level of Assistance Verbal Cues sideways with shoulder ab/ad Water Level Chest Level Level of Assistance Verbal Cues backward with reverse breastroke UE's Water Level Chest Level Level of Assistance Verbal Cues forward with breastroke UE's Water Level Chest Level Level of Assistance Verbal Cues Upper Extremity Exercises ryan Details hydroband hooked on lift Body Position Standing Water Level Chest Level Equipment hydroband Reps/Duration 2 min rows Details standing back to wall Body Position Standing Water Level Chest Level Equipment hydro band Reps/Duration 15 Comments cues to touck wall with elbows shoulder IR/ER Body Position Standing Water Level Chest Level Equipment smiles Reps/Duration 10 hor ab/ad Body Position Standing Water Level Chest Level Reps/Duration 10x Comments at wall; touching wall with UE 's Upper Extremity Stretches corner Body Position Standing Water Level Chest Level Reps/Duration 2x45 walk with pec stretch Equipment Small Noodle Reps/Duration 30 m Comments cues to keep shoulders relaxed Garita Activities Garita Activities Bicycle Equipment flotation belt Comments breastroke UE's with scapular retraction Manual Techniques Bad Ragaz passive for shoulder girdle ROM: supine with yellow neck float and LE floats Aquatic Massage left periscapular region, left biceps, deltoid, UT PT-OP-T Assessment and Plan Start: 04/03/19 13:46 Freq: Status: Active Protocol: Document 06/05/19 11:48 GGD (Rec: 06/05/19 12:46 GGD [email or web address]) Physical Therapy Assessment Goals pain Impairment left shoulder pain Longterm Goal (LTG) Decrease pain to no greater than 1-2/10 06/05/19: 4/10 with activity LTG Duration 08/04/19 soft tissue mobility Impairment decreased soft tissue mobility left chest and subaxillary region Longterm Goal (LTG) Improve soft tissue mobility left chest and subaxillary region to WNL 06/05/19: making progress with tissue mobility. LTG Duration 08/04/19 ROM Impairment decreased shoulder ROM Die Stamper Goal (LTG) Improve bilateral shoulder ROM to allow her to reach overhead and behind her back for performance of ADL's and usual activities. 06/05/19: Improving IR ROM. LTG Duration 08/04/19 edema Impairment cliff UE lymphedema Longterm Goal (LTG) Decrease and stabilize UE lymphedema and make sure patient has correctly-fitting compression sleeves bilaterally. Eliminate axillary cording 06/05/19: Decrease in circumferential LTG Duration 06/04/19 Assessment Summary Assessment Pt improving slowly with shoulder ROM. She has improved postural awareness. Pt contiunes to have shoulder pain with overhead activities. Pt good tolerance to scar mobility. Physical Therapy Plan Frequency and Duration Frequency of Treatment 2x/Week Duration of Treatment 8 wks Plan of Care Start Date 06/05/19 Plan of Care End Date 08/04/19 Therapeutic Interventions Therapeutic Interventions Aquatic Therapy,Home Exercise Program,Joint Mobilizations, Lymphedema Management,Manual Therapy,Patient/Caregiver Education,Self-Care/Home Management,Soft Tissue Mobilization,Taping, Therapeutic Activities, Therapeutic Exercises Next Visit Focus/Plan Next Note Type Treatment Note Next Visit Plan next aquatic PT session sequential lymphedema exercises, continue with postural correction, strengthening, and ROM left shoulder to decrease her pain and improve function. Continue lymphedema management .
--- NOTE | 2019-06-05 15:07 | PT.OPPN ---
Current Diagnoses Lymphedema, not elsewhere classified (06/05/19) Pain in left shoulder (06/05/19) Stiffness of right shoulder, not elsewhere classified (06/05/19) Stiffness of left shoulder, not elsewhere classified (06/05/19) Abnormal posture (06/05/19) Physical Therapy Progress Note PT-OP-A Visit Information Start: 04/03/19 13:46 Freq: Status: Active Protocol: Document 06/05/19 11:48 GGD (Rec: 06/05/19 12:46 GGD [email or web address]) Out-Patient Physical Therapy Visit Information Visit Information Visit Type Treatment Note Visit Start Time 09:00 Visit Stop Time 10:10 Total Visit Minutes 70 Visit Number 11 Number of HARNESSMAKER Visits 1 PT-OP-B Current Condition Start: 04/03/19 13:46 Freq: Status: Active Protocol: Document 04/03/19 13:47 SAK (Rec: 04/03/19 14:07 SAK [id number]) Current Condition History of Current Condition Onset Date 1990 Current Complaints lymphedema bilateral UE's History of Current Condition Since last seen in PT patient has had multiple medical issues including influenza December 02 diagnosed [place] on cruise. Polyps removed due to vaginal bleeding. Then developed pain right side diagnosed as UTI and kidney stones. Also small bowel obstruction, treated non surgically. Diagnosed with GERD and IBS. Diagnosed with initial stages of CHF. 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 During all of the above had difficulty being compliant to lymphedema home management, except for mostly wearing compression sleeve. Reports 14lb weight loss due to medical issues. Having some increased shoulder pain and reports feeling her edema has increased some in her arms. Also reporting her chest scarring feels tighter. May need to order new compression sleeves soon. Prior Functional Status Baseline Function- ADL's Independent Baseline Function- Mobility Independent Current Functional Impairments (Reported) Functional Limitations- ADL's more difficulty reaching behind her back and overhead bilateral UE's Personal Factors Other Personal Factors That May Effect multiple recent medical issues Therapy/Recovery as above including CHF. PT-OP-C Subjective Start: 04/03/19 13:46 Freq: Status: Active Protocol: Document 06/05/19 11:48 GGD (Rec: 06/05/19 12:46 GGD [email or web address]) OP-PT Subjective Patient Comments Patient Comments Pt states she been ill and has lost weight. She been doing HEP a few times a week. OP-PT Pain Assessment Location left subaxillary region Intensity 4 Scale Used Numeric (1 - 10) Description Pulling,Tender Frequency Frequent PT-OP-E Functional Tests Start: 04/03/19 13:46 Freq: Status: Active Protocol: Document 04/03/19 13:47 [facility] (Rec: 04/05/19 17:45 [facility] [id number]) Functional Tests Apley's Scratch Test Action 1: The subject is instructed to touch the opposite shoulder with his/her hand. This motion checks Glenohumeral adduction, internal rotation , horizontal adduction and scapular protraction Action 2: The subject is instructed to place his/her arm overhead and reach behind the neck to touch his/her upper back. This motion checks Glenohumeral abduction, external rotation and scapular upward rotation and elevation. Action 3: The subject puts his/her hand on the lower back and reaches upward as far as possible. This motion checks glenohumeral adduction, internal rotation and scapular retraction with downward rotation Action 1- Left anterior shoulder Action 1- Right posterior shoulder Action 2- Left side of neck Action 2- Right T1 Action 3- Left T10 Action 3- Right T7 PT-OP-J Posture/Palpation/Skin Start: 04/03/19 13:46 Freq: Status: Active Protocol: Document 04/03/19 13:47 [facility] (Rec: 04/05/19 17:45 [facility] [id number]) Posture Evaluation Position Standing Head/C-Spine Posture Forward Head T-Spine Posture Increased Kyphosis Shoulder Posture (L) Rounded,(R) Rounded Scapula Posture (L) Protracted,(R) Protracted Arm Posture (L) Internally Rotated,(R) Internally Rotated Palpation Assessment Location left chest and subaxillary region Palpation Findings Edema,Soft Tissue Tightness, Tenderness Palpation Details from mastectomy scar 2cm long axillary cording PT-OP-K Range of Motion Start: 04/03/19 13:46 Freq: Status: Active Protocol: Document 06/05/19 11:48 GGD (Rec: 06/05/19 12:46 GGD [email or web address]) Shoulder Goniometric Range of Motion Shoulder Measured in Degrees Left Shoulder ROM WFL No Testing Position Sitting Flexion 114 Extension 20 Abduction 110 External Rotation at 45 degrees 45 Abduction Internal Rotation Behind Back (text) T9 right Shoulder ROM WFL No Testing Position Sitting Flexion 126 Extension 20 Abduction 135 External Rotation at 45 degrees 55 Abduction Internal Rotation Behind Back (text) T7 PT-OP-N Lymphedema Start: 04/03/19 13:46 Freq: Status: Active Protocol: Document 06/05/19 11:48 GGD (Rec: 06/05/19 12:46 GGD [email or web address]) Lymphedema Measurements Upper Extremity Circumference Measurements right MCP 19.9 cm Wrist 19.5 cm 5 cm From Distal Crease 21.5 cm 10 cm From Distal Crease 26.1 cm 15 cm From Distal Crease 29.9 cm 20 cm From Distal Crease 31.2 cm 25 cm From Distal Crease 30.6 cm 30 cm From Distal Crease 32.6 cm 35 cm From Distal Crease 36.1 cm 40 cm From Distal Crease 37 cm 45 cm From Distal Crease 38 cm Axilla 39 cm left MCP 20 cm Wrist 18.3 cm 5 cm From Distal Crease 20.5 cm 10 cm From Distal Crease 24.1 cm 15 cm From Distal Crease 28.1 cm 20 cm From Distal Crease 29 cm 25 cm From Distal Crease 30.4 cm 30 cm From Distal Crease 30 cm 35 cm From Distal Crease 33.9 cm 40 cm From Distal Crease 37 cm 45 cm From Distal Crease 40.2 cm Axilla 41.7 cm PT-OP-T Assessment and Plan Start: 04/03/19 13:46 Freq: Status: Active Protocol: Document 06/05/19 11:48 GGD (Rec: 06/05/19 12:46 GGD [email or web address]) Physical Therapy Assessment Goals pain Impairment left shoulder pain Skilled Nursing Goal (LTG) Decrease pain to no greater than 1-2/10 06/05/19: 4/10 with activity LTG Duration 08/04/19 soft tissue mobility Impairment decreased soft tissue mobility left chest and subaxillary region Skilled Nursing Goal (LTG) Improve soft tissue mobility left chest and subaxillary region to WNL 06/05/19: making progress with tissue mobility. LTG Duration 08/04/19 ROM Impairment decreased shoulder ROM Decorating Kiln Operator Goal (LTG) Improve bilateral shoulder ROM to allow her to reach overhead and behind her back for performance of ADL's and usual activities. 06/05/19: Improving IR ROM. LTG Duration 08/04/19 edema Impairment cliff UE lymphedema Skilled Nursing Goal (LTG) Decrease and stabilize UE lymphedema and make sure patient has correctly-fitting compression sleeves bilaterally. Eliminate axillary cording 06/05/19: Decrease in circumferential LTG Duration 06/04/19 Assessment Summary Assessment Pt improving slowly with shoulder ROM. She has improved postural awareness. Pt contiunes to have shoulder pain with overhead activities. Pt good tolerance to scar mobility. Physical Therapy Plan Frequency and Duration Frequency of Treatment 2x/Week Duration of Treatment 8 wks Plan of Care Start Date 06/05/19 Plan of Care End Date 08/04/19 Therapeutic Interventions Therapeutic Interventions Aquatic Therapy,Home Exercise Program,Joint Mobilizations, Lymphedema Management,Manual Therapy,Patient/Caregiver Education,Self-Care/Home Management,Soft Tissue Mobilization,Taping, Therapeutic Activities, Therapeutic Exercises Next Visit Focus/Plan Next Note Type Treatment Note Next Visit Plan next aquatic PT session sequential lymphedema exercises, continue with postural correction, strengthening, and ROM left shoulder to decrease her pain and improve function. Continue lymphedema management .
--- NOTE | 2019-06-05 15:12 | PT.OPPOC ---
Current Diagnoses Lymphedema, not elsewhere classified (06/05/19) Pain in left shoulder (06/05/19) Stiffness of right shoulder, not elsewhere classified (06/05/19) Stiffness of left shoulder, not elsewhere classified (06/05/19) Abnormal posture (06/05/19) Visit Care Team Role Provider Type Janay Blackwell DO Attending Provider Physician Primary Care Provider Specialty: [facility] Practice Address: [address] [place] [address], [place], [place], [facility] Email: [email or web address] Plan Of Care PT-OP-T Assessment and Plan Start: 04/03/19 13:46 Freq: Status: Active Protocol: Document 06/05/19 11:48 GGD (Rec: 06/05/19 12:46 GGD [email or web address]) Physical Therapy Assessment Goals pain Impairment left shoulder pain Longterm Goal (LTG) Decrease pain to no greater than 1-2/10 06/05/19: 4/10 with activity LTG Duration 08/04/19 soft tissue mobility Impairment decreased soft tissue mobility left chest and subaxillary region Longterm Goal (LTG) Improve soft tissue mobility left chest and subaxillary region to WNL 06/05/19: making progress with tissue mobility. LTG Duration 08/04/19 ROM Impairment decreased shoulder ROM Lien Searcher Goal (LTG) Improve bilateral shoulder ROM to allow her to reach overhead and behind her back for performance of ADL's and usual activities. 06/05/19: Improving IR ROM. LTG Duration 08/04/19 edema Impairment cliff UE lymphedema Lien Searcher Goal (LTG) Decrease and stabilize UE lymphedema and make sure patient has correctly-fitting compression sleeves bilaterally. Eliminate axillary cording 06/05/19: Decrease in circumferential LTG Duration 06/04/19 Assessment Summary Assessment Pt improving slowly with shoulder ROM. She has improved postural awareness. Pt contiunes to have shoulder pain with overhead activities. Pt good tolerance to scar mobility. Physical Therapy Plan Frequency and Duration Frequency of Treatment 2x/Week Duration of Treatment 8 wks Plan of Care Start Date 06/05/19 Plan of Care End Date 08/04/19 Therapeutic Interventions Therapeutic Interventions Aquatic Therapy,Home Exercise Program,Joint Mobilizations, Lymphedema Management,Manual Therapy,Patient/Caregiver Education,Self-Care/Home Management,Soft Tissue Mobilization,Taping, Therapeutic Activities, Therapeutic Exercises Next Visit Focus/Plan Next Note Type Treatment Note Next Visit Plan next aquatic PT session sequential lymphedema exercises, continue with postural correction, strengthening, and ROM left shoulder to decrease her pain and improve function. Continue lymphedema management . Plan of Care Dates Plan of Care Start Date 06/05/19 Plan of Care End Date 08/04/19
--- NOTE | 2019-06-08 14:50 | PT.OTN ---
Current Diagnoses Lymphedema, not elsewhere classified (06/08/19) Pain in left shoulder (06/08/19) Stiffness of right shoulder, not elsewhere classified (06/08/19) Stiffness of left shoulder, not elsewhere classified (06/08/19) Abnormal posture (06/08/19) Physical Therapy Treatment Note PT-OP-A Visit Information Start: 04/03/19 13:46 Freq: Status: Active Protocol: Document 06/08/19 10:15 LJ (Rec: 06/08/19 14:50 LJ [id number]) Out-Patient Physical Therapy Visit Information Visit Information Visit Type Aquatic Treatment Note Visit Start Time 10:15 Visit Stop Time 11:00 Total Visit Minutes 45 Visit Number 12 Number of PRE K LEAD TEACHER Visits 2 PT-OP-B Current Condition Start: 04/03/19 13:46 Freq: Status: Active Protocol: Document 04/03/19 13:47 SAK (Rec: 04/03/19 14:07 SAK [id number]) Current Condition History of Current Condition Onset Date 1990 Current Complaints lymphedema bilateral UE's History of Current Condition Since last seen in PT patient has had multiple medical issues including influenza December 02 diagnosed while on cruise. Polyps removed due to vaginal bleeding. Then developed pain right side diagnosed as UTI and kidney stones. Also small bowel obstruction, treated non surgically. Diagnosed with GERD and IBS. Diagnosed with initial stages of CHF. 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 During all of the above had difficulty being compliant to lymphedema home management, except for mostly wearing compression sleeve. Reports 14lb weight loss due to medical issues. Having some increased shoulder pain and reports feeling her edema has increased some in her arms. Also reporting her chest scarring feels tighter. May need to order new compression sleeves soon. Prior Functional Status Baseline Function- ADL's Independent Baseline Function- Mobility Independent Current Functional Impairments (Reported) Functional Limitations- ADL's more difficulty reaching behind her back and overhead bilateral UE's Personal Factors Other Personal Factors That May Effect multiple recent medical issues Therapy/Recovery as above including CHF. PT-OP-C Subjective Start: 04/03/19 13:46 Freq: Status: Active Protocol: Document 06/08/19 10:15 LJ (Rec: 06/08/19 14:50 LJ [id number]) OP-PT Subjective Patient Comments Patient Comments Pt reports she is still experiencing tightness in her petcoral muscles and shoulder ROM PT-OP-E Functional Tests Start: 04/03/19 13:46 Freq: Status: Active Protocol: Document 04/03/19 13:47 SAK (Rec: 04/05/19 17:45 SAK [id number]) Functional Tests Apley's Scratch Test Action 1- Left anterior shoulder Action 1- Right posterior shoulder Action 2- Left side of neck Action 2- Right T1 Action 3- Left T10 Action 3- Right T7 PT-OP-J Posture/Palpation/Skin Start: 04/03/19 13:46 Freq: Status: Active Protocol: Document 04/03/19 13:47 SAK (Rec: 04/05/19 17:45 SAK [id number]) Posture Evaluation Position Standing Head/C-Spine Posture Forward Head T-Spine Posture Increased Kyphosis Shoulder Posture (L) Rounded,(R) Rounded Scapula Posture (L) Protracted,(R) Protracted Arm Posture (L) Internally Rotated,(R) Internally Rotated Palpation Assessment Location left chest and subaxillary region Palpation Findings Edema,Soft Tissue Tightness, Tenderness Palpation Details from mastectomy scar 2cm long axillary cording PT-OP-K Range of Motion Start: 04/03/19 13:46 Freq: Status: Active Protocol: Document 06/05/19 11:48 GGD (Rec: 06/05/19 12:46 GGD [id number]) Shoulder Goniometric Range of Motion Shoulder Left Shoulder ROM WFL No Testing Position Sitting Flexion 114 Extension 20 Abduction 110 External Rotation at 45 degrees 45 Abduction Internal Rotation Behind Back (text) T9 right Shoulder ROM WFL No Testing Position Sitting Flexion 126 Extension 20 Abduction 135 External Rotation at 45 degrees 55 Abduction Internal Rotation Behind Back (text) T7 PT-OP-N Lymphedema Start: 04/03/19 13:46 Freq: Status: Active Protocol: Document 06/05/19 11:48 GGD (Rec: 06/05/19 12:46 GGD [id number]) Lymphedema Measurements Upper Extremity Circumference Measurements right MCP 19.9 cm Wrist 19.5 cm 5 cm From Distal Crease 21.5 cm 10 cm From Distal Crease 26.1 cm 15 cm From Distal Crease 29.9 cm 20 cm From Distal Crease 31.2 cm 25 cm From Distal Crease 30.6 cm 30 cm From Distal Crease 32.6 cm 35 cm From Distal Crease 36.1 cm 40 cm From Distal Crease 37 cm 45 cm From Distal Crease 38 cm Axilla 39 cm left MCP 20 cm Wrist 18.3 cm 5 cm From Distal Crease 20.5 cm 10 cm From Distal Crease 24.1 cm 15 cm From Distal Crease 28.1 cm 20 cm From Distal Crease 29 cm 25 cm From Distal Crease 30.4 cm 30 cm From Distal Crease 30 cm 35 cm From Distal Crease 33.9 cm 40 cm From Distal Crease 37 cm 45 cm From Distal Crease 40.2 cm Axilla 41.7 cm PT-OP-Q Treatments Start: 04/03/19 13:46 Freq: Status: Active Protocol: Document 06/05/19 11:48 GGD (Rec: 06/05/19 12:46 GGD [id number]) Therapeutic Exercises Supine Exercises UT stretch Reps/Minutes 2x Comments manual serratus punch Reps/Minutes 15x Comments verbal and manual cues pec stretch Side bilateral Reps/Minutes 1 min Comments manual Sidelying Exercises scapular clocks Reps/Minutes 10x Comments verbal and tactile cues external rotation Reps/Minutes 10x Sitting Exercises trunk extension Equipment Used 12 ball at sequential levels of mid thoracic spine Reps/Minutes 3x each level Comments extending up and over ball, seated in chair pulleys Sitting Exercise Name flexion and scaption Side bilateral Standing Exercises bicep stretch Reps/Minutes 2x30 Manual Therapy Treatment Soft Tissue Mobilization left chest and subaxillary region Mobilization Type Myofascial Release Intensity/Depth gentle Body Position Hooklying Comments including mastectomy scar Joint Mobilizations scapulo-thoracic Joint left Direction all planes Grade III Body Position Sidelying Taping kinesiotape Body Location between scapulae Treatment Focus postural correction Type of Tape kinesiotape Skin Inspection intact Comments 2 I strips. Lymphedema Treatment Manual Lymphatic Drainage Location left UE Comments included scar mobilization left chest region Other Other soft tissue mobilization along left bicep and pec due to tightness, proximal axillary cording PT-OP-S Aquatic Treatment Start: 04/03/19 13:46 Freq: Status: Active Protocol: Document 06/08/19 10:15 LJ (Rec: 06/08/19 14:50 LJ [id number]) Aquatics Treatment Pool Entry/Exit Pool Entry/Exit Method Stairs Assistance Verbal Cues Water Walking [place] October Water Level Chest Level Level of Assistance Verbal Cues march with opposite UE reach Water Level Chest Level Level of Assistance Verbal Cues sideways with shoulder ab/ad Water Level Chest Level Level of Assistance Verbal Cues backward with reverse breastroke UE's Water Level Chest Level Level of Assistance Verbal Cues forward with breastroke UE's Water Level Chest Level Level of Assistance Verbal Cues Upper Extremity Exercises ryan Details hydroband hooked on lift Body Position Standing Water Level Chest Level Equipment hydroband Reps/Duration 2 min rows Details standing back to wall Body Position Standing Water Level Chest Level Equipment hydro band Reps/Duration 15 Comments cues to touck wall with elbows shoulder IR/ER Body Position Standing Water Level Chest Level Equipment UE paddles Reps/Duration 10 shoulder flex/ext Water Level Chest Level Equipment UE paddles Reps/Duration 10x hor ab/ad Body Position Standing Water Level Chest Level Equipment UE paddles Reps/Duration 10x Comments at wall; touching wall with UE 's circles Body Position Standing Water Level Chest Level Reps/Duration 10x Upper Extremity Stretches corner Body Position Standing Water Level Chest Level Reps/Duration 2x45 walk with pec stretch Equipment UE paddles Reps/Duration 30 m Comments cues to keep shoulders relaxed Wingate Activities Wingate Activities Bicycle Equipment flotation belt Comments breastroke UE's with scapular retraction Manual Techniques [place]az passive for shoulder girdle ROM: supine with yellow neck float and LE floats Aquatic Massage left periscapular region, left biceps, deltoid, UT PT-OP-T Assessment and Plan Start: 04/03/19 13:46 Freq: Status: Active Protocol: Document 06/08/19 10:15 AMADOR (Rec: 06/08/19 14:50 AMADOR [id number]) Physical Therapy Assessment Goals pain Impairment left shoulder pain Air Conditioning Coil Assembler Goal (LTG) Decrease pain to no greater than 1-2/10 06/05/19: 4/10 with activity LTG Duration 08/04/19 soft tissue mobility Impairment decreased soft tissue mobility left chest and subaxillary region Detention Goal (LTG) Improve soft tissue mobility left chest and subaxillary region to WNL 06/05/19: making progress with tissue mobility. LTG Duration 08/04/19 ROM Impairment decreased shoulder ROM Air Conditioning Coil Assembler Goal (LTG) Improve bilateral shoulder ROM to allow her to reach overhead and behind her back for performance of ADL's and usual activities. 06/05/19: Improving IR ROM. LTG Duration 08/04/19 edema Impairment cliff UE lymphedema Detention Goal (LTG) Decrease and stabilize UE lymphedema and make sure patient has correctly-fitting compression sleeves bilaterally. Eliminate axillary cording 06/05/19: Decrease in circumferential LTG Duration 06/04/19 Assessment Summary Assessment Pt improving with ROM and scapular control. Still requires cueing to activate muscles more during exercises rather than performing very gentle and small movements. Physical Therapy Plan Frequency and Duration Frequency of Treatment 2x/Week Duration of Treatment 8 wks Plan of Care Start Date 06/05/19 Plan of Care End Date 08/04/19 Therapeutic Interventions Therapeutic Interventions Aquatic Therapy,Home Exercise Program,Joint Mobilizations, Lymphedema Management,Manual Therapy,Patient/Caregiver Education,Self-Care/Home Management,Soft Tissue Mobilization,Taping, Therapeutic Activities, Therapeutic Exercises Next Visit Focus/Plan Next Note Type Treatment Note Next Visit Plan next aquatic PT session sequential lymphedema exercises, continue with postural correction, strengthening, and ROM left shoulder to decrease her pain and improve function. Continue lymphedema management .
--- NOTE | 2019-06-11 15:10 | PT.OTN ---
Current Diagnoses Lymphedema, not elsewhere classified (06/08/19) Pain in left shoulder (06/08/19) Stiffness of right shoulder, not elsewhere classified (06/08/19) Stiffness of left shoulder, not elsewhere classified (06/08/19) Abnormal posture (06/08/19) Physical Therapy Treatment Note PT-OP-A Visit Information Start: 04/03/19 13:46 Freq: Status: Active Protocol: Document 06/11/19 10:15 AMADOR (Rec: 06/11/19 15:10 AMADOR [id number]) Out-Patient Physical Therapy Visit Information Visit Information Visit Type Aquatic Treatment Note Visit Start Time 10:18 Visit Stop Time 11:00 Total Visit Minutes 42 Visit Number 13 Number of SCALEHOUSE ATTENDANT Visits 3 PT-OP-B Current Condition Start: 04/03/19 13:46 Freq: Status: Active Protocol: Document 04/03/19 13:47 SAK (Rec: 04/03/19 14:07 SAK [id number]) Current Condition History of Current Condition Onset Date 1990 Current Complaints lymphedema bilateral UE's History of Current Condition Since last seen in PT patient has had multiple medical issues including influenza December 02 diagnosed [place] on cruise. Polyps removed due to vaginal bleeding. Then developed pain right side diagnosed as UTI and kidney stones. Also small bowel obstruction, treated non surgically. Diagnosed with GERD and IBS. Diagnosed with initial stages of CHF. Seeing marketing program coordinator . During all of the above had difficulty being compliant to lymphedema home management, except for mostly wearing compression sleeve. Reports 14lb weight loss due to medical issues. Having some increased shoulder pain and reports feeling her edema has increased some in her arms. Also reporting her chest scarring feels tighter. May need to order new compression sleeves soon. Prior Functional Status Baseline Function- ADL's Independent Baseline Function- Mobility Independent Current Functional Impairments (Reported) Functional Limitations- ADL's more difficulty reaching behind her back and overhead bilateral UE's Personal Factors Other Personal Factors That May Effect multiple recent medical issues Therapy/Recovery as above including CHF. PT-OP-C Subjective Start: 04/03/19 13:46 Freq: Status: Active Protocol: Document 06/11/19 10:15 AMADOR (Rec: 06/11/19 15:10 AMADOR [id number]) OP-PT Subjective Patient Comments Patient Comments Pt has nothing new to report PT-OP-E Functional Tests Start: 04/03/19 13:46 Freq: Status: Active Protocol: Document 04/03/19 13:47 SAK (Rec: 04/05/19 17:45 SAK [id number]) Functional Tests Apley's Scratch Test Action 1- Left anterior shoulder Action 1- Right posterior shoulder Action 2- Left side of neck Action 2- Right T1 Action 3- Left T10 Action 3- Right T7 PT-OP-J Posture/Palpation/Skin Start: 04/03/19 13:46 Freq: Status: Active Protocol: Document 04/03/19 13:47 SAK (Rec: 04/05/19 17:45 SAK [id number]) Posture Evaluation Position Standing Head/C-Spine Posture Forward Head T-Spine Posture Increased Kyphosis Shoulder Posture (L) Rounded,(R) Rounded Scapula Posture (L) Protracted,(R) Protracted Arm Posture (L) Internally Rotated,(R) Internally Rotated Palpation Assessment Location left chest and subaxillary region Palpation Findings Edema,Soft Tissue Tightness, Tenderness Palpation Details from mastectomy scar 2cm long axillary cording PT-OP-K Range of Motion Start: 04/03/19 13:46 Freq: Status: Active Protocol: Document 06/05/19 11:48 GGD (Rec: 06/05/19 12:46 GGD [id number]) Shoulder Goniometric Range of Motion Shoulder Left Shoulder ROM WFL No Testing Position Sitting Flexion 114 Extension 20 Abduction 110 External Rotation at 45 degrees 45 Abduction Internal Rotation Behind Back (text) T9 right Shoulder ROM WFL No Testing Position Sitting Flexion 126 Extension 20 Abduction 135 External Rotation at 45 degrees 55 Abduction Internal Rotation Behind Back (text) T7 PT-OP-N Lymphedema Start: 04/03/19 13:46 Freq: Status: Active Protocol: Document 06/05/19 11:48 GGD (Rec: 06/05/19 12:46 GGD [email or web address]) Lymphedema Measurements Upper Extremity Circumference Measurements right MCP 19.9 cm Wrist 19.5 cm 5 cm From Distal Crease 21.5 cm 10 cm From Distal Crease 26.1 cm 15 cm From Distal Crease 29.9 cm 20 cm From Distal Crease 31.2 cm 25 cm From Distal Crease 30.6 cm 30 cm From Distal Crease 32.6 cm 35 cm From Distal Crease 36.1 cm 40 cm From Distal Crease 37 cm 45 cm From Distal Crease 38 cm Axilla 39 cm left MCP 20 cm Wrist 18.3 cm 5 cm From Distal Crease 20.5 cm 10 cm From Distal Crease 24.1 cm 15 cm From Distal Crease 28.1 cm 20 cm From Distal Crease 29 cm 25 cm From Distal Crease 30.4 cm 30 cm From Distal Crease 30 cm 35 cm From Distal Crease 33.9 cm 40 cm From Distal Crease 37 cm 45 cm From Distal Crease 40.2 cm Axilla 41.7 cm PT-OP-Q Treatments Start: 04/03/19 13:46 Freq: Status: Active Protocol: Document 06/05/19 11:48 GGD (Rec: 06/05/19 12:46 GGD [email or web address]) Therapeutic Exercises Supine Exercises UT stretch Reps/Minutes 2x Comments manual serratus punch Reps/Minutes 15x Comments verbal and manual cues pec stretch Side bilateral Reps/Minutes 1 min Comments manual Sidelying Exercises scapular clocks Reps/Minutes 10x Comments verbal and tactile cues external rotation Reps/Minutes 10x Sitting Exercises trunk extension Equipment Used 12 ball at sequential levels of mid thoracic spine Reps/Minutes 3x each level Comments extending up and over ball, seated in chair pulleys Sitting Exercise Name flexion and scaption Side bilateral Standing Exercises bicep stretch Reps/Minutes 2x30 Manual Therapy Treatment Soft Tissue Mobilization left chest and subaxillary region Mobilization Type Myofascial Release Intensity/Depth gentle Body Position Hooklying Comments including mastectomy scar Joint Mobilizations scapulo-thoracic Joint left Direction all planes Grade III Body Position Sidelying Taping kinesiotape Body Location between scapulae Treatment Focus postural correction Type of Tape kinesiotape Skin Inspection intact Comments 2 I strips. Lymphedema Treatment Manual Lymphatic Drainage Location left UE Comments included scar mobilization left chest region Other Other soft tissue mobilization along left bicep and pec due to tightness, proximal axillary cording PT-OP-S Aquatic Treatment Start: 04/03/19 13:46 Freq: Status: Active Protocol: Document 06/11/19 10:15 AMADOR (Rec: 06/11/19 15:10 LJ [id number]) Aquatics Treatment Pool Entry/Exit Pool Entry/Exit Method Stairs Assistance Independent Comments #2 wts Water Walking [place] October Water Level Chest Level Level of Assistance Verbal Cues Comments #2 wts march with opposite UE reach Water Level Chest Level Level of Assistance Verbal Cues Comments #2 wts sideways with shoulder ab/ad Water Level Chest Level Level of Assistance Verbal Cues Comments #2 wts backward with reverse breastroke UE's Water Level Chest Level Level of Assistance Verbal Cues Comments #2 wts forward with breastroke UE's Water Level Chest Level Level of Assistance Verbal Cues Comments #2 wts Upper Extremity Exercises wipers Body Position Standing Water Level Chest Level Equipment UE paddles Reps/Duration 15 each direction rows Body Position Standing Water Level Chest Level Equipment UE paddles Reps/Duration 15 Comments cues to adduct elbows shoulder IR/ER Body Position Standing Water Level Chest Level Equipment UE paddles Reps/Duration 2x12 shoulder flex/ext Body Position Standing Water Level Chest Level Equipment UE paddles Reps/Duration 2x12 hor ab/ad Body Position Standing Water Level Chest Level Equipment UE paddles Reps/Duration 10x circles Details CW and CCW Body Position Standing Water Level Chest Level Reps/Duration 10x bilateral Upper Extremity Stretches LUE shoulder abduction Body Position Standing Water Level Chest Level Reps/Duration 1 min Comments holding onto lift chair arm rest corner Body Position Standing Water Level Chest Level Reps/Duration 2x45 walk with pec stretch Equipment UE paddles Reps/Duration 30 m Comments cues to keep shoulders relaxed [place] Activities [place] Activities Bicycle,[place],Hip Abduction/Adduction Other Activities backwards with reverse b stroke ab/ad UEs forward with b stroke Equipment flotation belt, #2 wts PT-OP-T Assessment and Plan Start: 04/03/19 13:46 Freq: Status: Active Protocol: Document 06/11/19 10:15 AMADOR (Rec: 06/11/19 15:10 AMADOR [id number]) Physical Therapy Assessment Goals pain Impairment left shoulder pain Mcc Goal (LTG) Decrease pain to no greater than 1-2/10 06/05/19: 4/10 with activity LTG Duration 08/04/19 soft tissue mobility Impairment decreased soft tissue mobility left chest and subaxillary region Mcc Goal (LTG) Improve soft tissue mobility left chest and subaxillary region to WNL 06/05/19: making progress with tissue mobility. LTG Duration 08/04/19 ROM Impairment decreased shoulder ROM Mcc Goal (LTG) Improve bilateral shoulder ROM to allow her to reach overhead and behind her back for performance of ADL's and usual activities. 06/05/19: Improving IR ROM. LTG Duration 08/04/19 edema Impairment cliff UE lymphedema Heater Worker Goal (LTG) Decrease and stabilize UE lymphedema and make sure patient has correctly-fitting compression sleeves bilaterally. Eliminate axillary cording 06/05/19: Decrease in circumferential LTG Duration 06/04/19 Assessment Summary Assessment Pt improving with ROM and scapular control. Still requires cueing for posture and scapular retraction especially in deep water exercises. Physical Therapy Plan Frequency and Duration Frequency of Treatment 2x/Week Duration of Treatment 8 wks Plan of Care Start Date 06/05/19 Plan of Care End Date 08/04/19 Therapeutic Interventions Therapeutic Interventions Aquatic Therapy,Home Exercise Program,Joint Mobilizations, Lymphedema Management,Manual Therapy,Patient/Caregiver Education,Self-Care/Home Management,Soft Tissue Mobilization,Taping, Therapeutic Activities, Therapeutic Exercises Next Visit Focus/Plan Next Visit Plan next aquatic PT session sequential lymphedema exercises, continue with postural correction, strengthening, and ROM left shoulder to decrease her pain and improve function. Continue lymphedema management .
--- NOTE | 2019-06-13 15:22 | PT.OTN ---
Current Diagnoses Lymphedema, not elsewhere classified (06/13/19) Pain in left shoulder (06/13/19) Stiffness of right shoulder, not elsewhere classified (06/13/19) Stiffness of left shoulder, not elsewhere classified (06/13/19) Abnormal posture (06/13/19) Physical Therapy Treatment Note PT-OP-A Visit Information Start: 04/03/19 13:46 Freq: Status: Active Protocol: Document 06/13/19 13:00 GGD (Rec: 06/13/19 15:18 GGD [email or web address]) Out-Patient Physical Therapy Visit Information Visit Information Visit Type Treatment Note Visit Start Time 13:00 Visit Stop Time 14:10 Total Visit Minutes 70 Visit Number 14 Number of KITCHEN UTILITY ASSOCIATE Visits 4 PT-OP-B Current Condition Start: 04/03/19 13:46 Freq: Status: Active Protocol: Document 04/03/19 13:47 SAK (Rec: 04/03/19 14:07 SAK [id number]) Current Condition History of Current Condition Onset Date 1988 Current Complaints lymphedema bilateral UE's History of Current Condition Since last seen in PT patient has had multiple medical issues including influenza December 02 diagnosed while on cruise. Polyps removed due to vaginal bleeding. Then developed pain right side diagnosed as UTI and kidney stones. Also small bowel obstruction, treated non surgically. Diagnosed with GERD and IBS. Diagnosed with initial stages of CHF. 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 During all of the above had difficulty being compliant to lymphedema home management, except for mostly wearing compression sleeve. Reports 14lb weight loss due to medical issues. Having some increased shoulder pain and reports feeling her edema has increased some in her arms. Also reporting her chest scarring feels tighter. May need to order new compression sleeves soon. Prior Functional Status Baseline Function- ADL's Independent Baseline Function- Mobility Independent Current Functional Impairments (Reported) Functional Limitations- ADL's more difficulty reaching behind her back and overhead bilateral UE's Personal Factors Other Personal Factors That May Effect multiple recent medical issues Therapy/Recovery as above including CHF. PT-OP-C Subjective Start: 04/03/19 13:46 Freq: Status: Active Protocol: Document 06/13/19 13:00 GGD (Rec: 06/13/19 15:18 GGD [email or web address]) OP-PT Subjective Patient Comments Patient Comments Pt states she feeling a little better. PT-OP-E Functional Tests Start: 04/03/19 13:46 Freq: Status: Active Protocol: Document 04/03/19 13:47 SAK (Rec: 04/05/19 17:45 SAK [id number]) Functional Tests Apley's Scratch Test Action 1- Left anterior shoulder Action 1- Right posterior shoulder Action 2- Left side of neck Action 2- Right T1 Action 3- Left T10 Action 3- Right T7 PT-OP-J Posture/Palpation/Skin Start: 04/03/19 13:46 Freq: Status: Active Protocol: Document 04/03/19 13:47 SAK (Rec: 04/05/19 17:45 SAK [id number]) Posture Evaluation Position Standing Head/C-Spine Posture Forward Head T-Spine Posture Increased Kyphosis Shoulder Posture (L) Rounded,(R) Rounded Scapula Posture (L) Protracted,(R) Protracted Arm Posture (L) Internally Rotated,(R) Internally Rotated Palpation Assessment Location left chest and subaxillary region Palpation Findings Edema,Soft Tissue Tightness, Tenderness Palpation Details from mastectomy scar 2cm long axillary cording PT-OP-K Range of Motion Start: 04/03/19 13:46 Freq: Status: Active Protocol: Document 06/05/19 11:48 GGD (Rec: 06/05/19 12:46 GGD [email or web address]) Shoulder Goniometric Range of Motion Shoulder Left Shoulder ROM WFL No Testing Position Sitting Flexion 114 Extension 20 Abduction 110 External Rotation at 45 degrees 45 Abduction Internal Rotation Behind Back (text) T9 right Shoulder ROM WFL No Testing Position Sitting Flexion 126 Extension 20 Abduction 135 External Rotation at 45 degrees 55 Abduction Internal Rotation Behind Back (text) T7 PT-OP-N Lymphedema Start: 04/03/19 13:46 Freq: Status: Active Protocol: Document 06/05/19 11:48 GGD (Rec: 06/05/19 12:46 GGD [email or web address]) Lymphedema Measurements Upper Extremity Circumference Measurements right MCP 19.9 cm Wrist 19.5 cm 5 cm From Distal Crease 21.5 cm 10 cm From Distal Crease 26.1 cm 15 cm From Distal Crease 29.9 cm 20 cm From Distal Crease 31.2 cm 25 cm From Distal Crease 30.6 cm 30 cm From Distal Crease 32.6 cm 35 cm From Distal Crease 36.1 cm 40 cm From Distal Crease 37 cm 45 cm From Distal Crease 38 cm Axilla 39 cm left MCP 20 cm Wrist 18.3 cm 5 cm From Distal Crease 20.5 cm 10 cm From Distal Crease 24.1 cm 15 cm From Distal Crease 28.1 cm 20 cm From Distal Crease 29 cm 25 cm From Distal Crease 30.4 cm 30 cm From Distal Crease 30 cm 35 cm From Distal Crease 33.9 cm 40 cm From Distal Crease 37 cm 45 cm From Distal Crease 40.2 cm Axilla 41.7 cm PT-OP-Q Treatments Start: 04/03/19 13:46 Freq: Status: Active Protocol: Document 06/13/19 13:00 GGD (Rec: 06/13/19 15:22 GGD [email or web address]) Cardio Equipment Recumbent Stepper (Sci-Fit) Duration (Minutes) 5 Resistance 1 Seat Position 7 Therapeutic Exercises Supine Exercises UT stretch Reps/Minutes 2x Comments manual serratus punch Reps/Minutes 15x Comments verbal and manual cues pec stretch Side bilateral Reps/Minutes 1 min Comments manual Sidelying Exercises external rotation Reps/Minutes 10x Sitting Exercises pulleys Sitting Exercise Name flexion and scaption Side bilateral Standing Exercises bicep stretch Reps/Minutes 2x30 Manual Therapy Treatment Soft Tissue Mobilization left chest and subaxillary region Mobilization Type Myofascial Release Intensity/Depth gentle Body Position Hooklying Comments including mastectomy scar Joint Mobilizations scapulo-thoracic Joint left Direction all planes Grade III Body Position Sidelying Taping kinesiotape Comments pt reported skin itchy, no reddness noted Lymphedema Treatment Manual Lymphatic Drainage Location left UE Comments included scar mobilization left chest region Other Other soft tissue mobilization along left bicep and pec due to tightness, proximal axillary cording PT-OP-S Aquatic Treatment Start: 04/03/19 13:46 Freq: Status: Active Protocol: Document 06/11/19 10:15 AMADOR (Rec: 06/11/19 15:10 LJ [id number]) Aquatics Treatment Pool Entry/Exit Pool Entry/Exit Method Stairs Assistance Independent Comments #2 wts Water Walking [place] October Water Level Chest Level Level of Assistance Verbal Cues Comments #2 wts october with opposite UE reach Water Level Chest Level Level of Assistance Verbal Cues Comments #2 wts sideways with shoulder ab/ad Water Level Chest Level Level of Assistance Verbal Cues Comments #2 wts backward with reverse breastroke UE's Water Level Chest Level Level of Assistance Verbal Cues Comments #2 wts forward with breastroke UE's Water Level Chest Level Level of Assistance Verbal Cues Comments #2 wts Upper Extremity Exercises wipers Body Position Standing Water Level Chest Level Equipment UE paddles Reps/Duration 15 each direction rows Body Position Standing Water Level Chest Level Equipment UE paddles Reps/Duration 15 Comments cues to adduct elbows shoulder IR/ER Body Position Standing Water Level Chest Level Equipment UE paddles Reps/Duration 2x12 shoulder flex/ext Body Position Standing Water Level Chest Level Equipment UE paddles Reps/Duration 2x12 hor ab/ad Body Position Standing Water Level Chest Level Equipment UE paddles Reps/Duration 10x circles Details CW and CCW Body Position Standing Water Level Chest Level Reps/Duration 10x bilateral Upper Extremity Stretches LUE shoulder abduction Body Position Standing Water Level Chest Level Reps/Duration 1 min Comments holding onto lift chair arm rest corner Body Position Standing Water Level Chest Level Reps/Duration 2x45 walk with pec stretch Equipment UE paddles Reps/Duration 30 m Comments cues to keep shoulders relaxed [place] Activities [place] Activities Bicycle,[place],Hip Abduction/Adduction Other Activities backwards with reverse b stroke ab/ad UEs forward with b stroke Equipment flotation belt, #2 wts PT-OP-T Assessment and Plan Start: 04/03/19 13:46 Freq: Status: Active Protocol: Document 06/13/19 13:00 GGD (Rec: 06/13/19 15:22 GGD [email or web address]) Physical Therapy Assessment Goals pain Impairment left shoulder pain Relief Docking Master Goal (LTG) Decrease pain to no greater than 1-2/10 06/05/19: 4/10 with activity LTG Duration 08/04/19 soft tissue mobility Impairment decreased soft tissue mobility left chest and subaxillary region Relief Docking Master Goal (LTG) Improve soft tissue mobility left chest and subaxillary region to WNL 06/05/19: making progress with tissue mobility. LTG Duration 08/04/19 ROM Impairment decreased shoulder ROM Relief Docking Master Goal (LTG) Improve bilateral shoulder ROM to allow her to reach overhead and behind her back for performance of ADL's and usual activities. 06/05/19: Improving IR ROM. LTG Duration 08/04/19 edema Impairment cliff UE lymphedema Assisted Goal (LTG) Decrease and stabilize UE lymphedema and make sure patient has correctly-fitting compression sleeves bilaterally. Eliminate axillary cording 06/05/19: Decrease in circumferential LTG Duration 06/04/19 Assessment Summary Assessment pt improving with shoulder ER mobility. She limited in flexion and abd. She improving with tissue mobility. Physical Therapy Plan Frequency and Duration Frequency of Treatment 2x/Week Duration of Treatment 8 wks Plan of Care Start Date 06/05/19 Plan of Care End Date 08/04/19 Therapeutic Interventions Therapeutic Interventions Aquatic Therapy,Home Exercise Program,Joint Mobilizations, Lymphedema Management,Manual Therapy,Patient/Caregiver Education,Self-Care/Home Management,Soft Tissue Mobilization,Taping, Therapeutic Activities, Therapeutic Exercises Next Visit Focus/Plan Next Note Type Treatment Note Next Visit Plan next aquatic PT session sequential lymphedema exercises, continue with postural correction, strengthening, and ROM left shoulder to decrease her pain and improve function. Continue lymphedema management .
--- NOTE | 2019-06-21 11:00 | PT.OTN ---
Current Diagnoses Lymphedema, not elsewhere classified (06/21/19) Pain in left shoulder (06/21/19) Stiffness of right shoulder, not elsewhere classified (06/21/19) Stiffness of left shoulder, not elsewhere classified (06/21/19) Abnormal posture (06/21/19) Physical Therapy Treatment Note PT-OP-A Visit Information Start: 04/03/19 13:46 Freq: Status: Active Protocol: Document 06/13/19 13:00 GGD (Rec: 06/13/19 15:18 GGD [id number]) Out-Patient Physical Therapy Visit Information Visit Information Visit Type Treatment Note Visit Start Time 13:00 Visit Stop Time 14:10 Total Visit Minutes 70 Visit Number 14 Number of MOTH PROOFER Visits 4 PT-OP-B Current Condition Start: 04/03/19 13:46 Freq: Status: Active Protocol: Document 04/03/19 13:47 SAK (Rec: 04/03/19 14:07 SAK [id number]) Current Condition History of Current Condition Onset Date 1990 Current Complaints lymphedema bilateral UE's History of Current Condition Since last seen in PT patient has had multiple medical issues including influenza December 02 diagnosed while on cruise. Polyps removed due to vaginal bleeding. Then developed pain right side diagnosed as UTI and kidney stones. Also small bowel obstruction, treated non surgically. Diagnosed with GERD and IBS. Diagnosed with initial stages of CHF. Seeing dental surgeon . During all of the above had difficulty being compliant to lymphedema home management, except for mostly wearing compression sleeve. Reports 14lb weight loss due to medical issues. Having some increased shoulder pain and reports feeling her edema has increased some in her arms. Also reporting her chest scarring feels tighter. May need to order new compression sleeves soon. Prior Functional Status Baseline Function- ADL's Independent Baseline Function- Mobility Independent Current Functional Impairments (Reported) Functional Limitations- ADL's more difficulty reaching behind her back and overhead bilateral UE's Personal Factors Other Personal Factors That May Effect multiple recent medical issues Therapy/Recovery as above including CHF. PT-OP-C Subjective Start: 04/03/19 13:46 Freq: Status: Active Protocol: Document 06/21/19 10:54 GGD (Rec: 06/21/19 11:00 GGD [email or web address]) OP-PT Subjective Patient Comments Patient Comments Pt states she was in hospital for GI issues. PT-OP-E Functional Tests Start: 04/03/19 13:46 Freq: Status: Active Protocol: Document 04/03/19 13:47 SAK (Rec: 04/05/19 17:45 SAK [id number]) Functional Tests Apley's Scratch Test Action 1- Left anterior shoulder Action 1- Right posterior shoulder Action 2- Left side of neck Action 2- Right T1 Action 3- Left T10 Action 3- Right T7 PT-OP-J Posture/Palpation/Skin Start: 04/03/19 13:46 Freq: Status: Active Protocol: Document 04/03/19 13:47 SAK (Rec: 04/05/19 17:45 SAK [id number]) Posture Evaluation Position Standing Head/C-Spine Posture Forward Head T-Spine Posture Increased Kyphosis Shoulder Posture (L) Rounded,(R) Rounded Scapula Posture (L) Protracted,(R) Protracted Arm Posture (L) Internally Rotated,(R) Internally Rotated Palpation Assessment Location left chest and subaxillary region Palpation Findings Edema,Soft Tissue Tightness, Tenderness Palpation Details from mastectomy scar 2cm long axillary cording PT-OP-K Range of Motion Start: 04/03/19 13:46 Freq: Status: Active Protocol: Document 06/05/19 11:48 GGD (Rec: 06/05/19 12:46 GGD [email or web address]) Shoulder Goniometric Range of Motion Shoulder Left Shoulder ROM WFL No Testing Position Sitting Flexion 114 Extension 20 Abduction 110 External Rotation at 45 degrees 45 Abduction Internal Rotation Behind Back (text) T9 right Shoulder ROM WFL No Testing Position Sitting Flexion 126 Extension 20 Abduction 135 External Rotation at 45 degrees 55 Abduction Internal Rotation Behind Back (text) T7 PT-OP-N Lymphedema Start: 04/03/19 13:46 Freq: Status: Active Protocol: Document 06/05/19 11:48 GGD (Rec: 06/05/19 12:46 GGD [email or web address]) Lymphedema Measurements Upper Extremity Circumference Measurements right MCP 19.9 cm Wrist 19.5 cm 5 cm From Distal Crease 21.5 cm 10 cm From Distal Crease 26.1 cm 15 cm From Distal Crease 29.9 cm 20 cm From Distal Crease 31.2 cm 25 cm From Distal Crease 30.6 cm 30 cm From Distal Crease 32.6 cm 35 cm From Distal Crease 36.1 cm 40 cm From Distal Crease 37 cm 45 cm From Distal Crease 38 cm Axilla 39 cm left MCP 20 cm Wrist 18.3 cm 5 cm From Distal Crease 20.5 cm 10 cm From Distal Crease 24.1 cm 15 cm From Distal Crease 28.1 cm 20 cm From Distal Crease 29 cm 25 cm From Distal Crease 30.4 cm 30 cm From Distal Crease 30 cm 35 cm From Distal Crease 33.9 cm 40 cm From Distal Crease 37 cm 45 cm From Distal Crease 40.2 cm Axilla 41.7 cm PT-OP-Q Treatments Start: 04/03/19 13:46 Freq: Status: Active Protocol: Document 06/21/19 10:54 GGD (Rec: 06/21/19 11:00 GGD [email or web address]) Cardio Equipment Recumbent Stepper (Sci-Fit) Duration (Minutes) 5 Resistance 1 Seat Position 7 Therapeutic Exercises Supine Exercises UT stretch Reps/Minutes 2x Comments manual serratus punch Reps/Minutes 15x Comments verbal and manual cues pec stretch Side bilateral Reps/Minutes 1 min Comments manual Sidelying Exercises external rotation Reps/Minutes 10x Sitting Exercises pulleys Sitting Exercise Name flexion and scaption Side bilateral Standing Exercises bicep stretch Reps/Minutes 2x30 Manual Therapy Treatment Soft Tissue Mobilization left chest and subaxillary region Mobilization Type Myofascial Release Intensity/Depth gentle Body Position Hooklying Comments including mastectomy scar Joint Mobilizations scapulo-thoracic Joint left Direction all planes Grade III Body Position Sidelying Lymphedema Treatment Manual Lymphatic Drainage Location left UE Comments included scar mobilization left chest region Other Other soft tissue mobilization along left bicep and pec due to tightness, proximal axillary cording PT-OP-S Aquatic Treatment Start: 04/03/19 13:46 Freq: Status: Active Protocol: Document 06/11/19 10:15 AMADOR (Rec: 06/11/19 15:10 LJ [id number]) Aquatics Treatment Pool Entry/Exit Pool Entry/Exit Method Stairs Assistance Independent Comments #2 wts Water Walking [place] October Water Level Chest Level Level of Assistance Verbal Cues Comments #2 wts march with opposite UE reach Water Level Chest Level Level of Assistance Verbal Cues Comments #2 wts sideways with shoulder ab/ad Water Level Chest Level Level of Assistance Verbal Cues Comments #2 wts backward with reverse breastroke UE's Water Level Chest Level Level of Assistance Verbal Cues Comments #2 wts forward with breastroke UE's Water Level Chest Level Level of Assistance Verbal Cues Comments #2 wts Upper Extremity Exercises wipers Body Position Standing Water Level Chest Level Equipment UE paddles Reps/Duration 15 each direction rows Body Position Standing Water Level Chest Level Equipment UE paddles Reps/Duration 15 Comments cues to adduct elbows shoulder IR/ER Body Position Standing Water Level Chest Level Equipment UE paddles Reps/Duration 2x12 shoulder flex/ext Body Position Standing Water Level Chest Level Equipment UE paddles Reps/Duration 2x12 hor ab/ad Body Position Standing Water Level Chest Level Equipment UE paddles Reps/Duration 10x circles Details CW and CCW Body Position Standing Water Level Chest Level Reps/Duration 10x bilateral Upper Extremity Stretches LUE shoulder abduction Body Position Standing Water Level Chest Level Reps/Duration 1 min Comments holding onto lift chair arm rest corner Body Position Standing Water Level Chest Level Reps/Duration 2x45 walk with pec stretch Equipment UE paddles Reps/Duration 30 m Comments cues to keep shoulders relaxed [place] Activities [place] Activities Bicycle,Cross Country,Hip Abduction/Adduction Other Activities backwards with reverse b stroke ab/ad UEs forward with b stroke Equipment flotation belt, #2 wts PT-OP-T Assessment and Plan Start: 04/03/19 13:46 Freq: Status: Active Protocol: Document 06/21/19 10:54 GGD (Rec: 06/21/19 11:00 GGD [email or web address]) Physical Therapy Assessment Goals pain Impairment left shoulder pain [facility] Goal (LTG) Decrease pain to no greater than 1-2/10 06/05/19: 4/10 with activity LTG Duration 08/04/19 soft tissue mobility Impairment decreased soft tissue mobility left chest and subaxillary region [facility] Goal (LTG) Improve soft tissue mobility left chest and subaxillary region to WNL 06/05/19: making progress with tissue mobility. LTG Duration 08/04/19 ROM Impairment decreased shoulder ROM [facility] Goal (LTG) Improve bilateral shoulder ROM to allow her to reach overhead and behind her back for performance of ADL's and usual activities. 06/05/19: Improving IR ROM. LTG Duration 08/04/19 edema Impairment cliff UE lymphedema [facility] Goal (LTG) Decrease and stabilize UE lymphedema and make sure patient has correctly-fitting compression sleeves bilaterally. Eliminate axillary cording 06/05/19: Decrease in circumferential LTG Duration 06/04/19 Assessment Summary Assessment Pt improving with tissue mobility. She had decrease in tenderness with pec stretch and STM. Physical Therapy Plan Frequency and Duration Frequency of Treatment 2x/Week Duration of Treatment 8 wks Plan of Care Start Date 06/05/19 Plan of Care End Date 08/04/19 Next Visit Focus/Plan Next Note Type Treatment Note Next Visit Plan next aquatic PT session sequential lymphedema exercises, continue with postural correction, strengthening, and ROM left shoulder to decrease her pain and improve function. Continue lymphedema management .
--- NOTE | 2019-06-28 11:52 | PT.OTN ---
Current Diagnoses Lymphedema, not elsewhere classified (06/28/19) Pain in left shoulder (06/28/19) Stiffness of right shoulder, not elsewhere classified (06/28/19) Stiffness of left shoulder, not elsewhere classified (06/28/19) Abnormal posture (06/28/19) Physical Therapy Treatment Note PT-OP-A Visit Information Start: 04/03/19 13:46 Freq: Status: Active Protocol: Document 06/28/19 11:37 IJS (Rec: 06/28/19 11:52 IJS [email or web address]) Out-Patient Physical Therapy Visit Information Visit Information Visit Type Treatment Note Visit Start Time 10:35 Visit Stop Time 11:31 Total Visit Minutes 56 Visit Number 16 Number of WELDER AND FITTER Visits 0 PT-OP-B Current Condition Start: 04/03/19 13:46 Freq: Status: Active Protocol: Document 04/03/19 13:47 SAK (Rec: 04/03/19 14:07 SAK [id number]) Current Condition History of Current Condition Onset Date 1990 Current Complaints lymphedema bilateral UE's History of Current Condition Since last seen in PT patient has had multiple medical issues including influenza December 02 diagnosed while on cruise. Polyps removed due to vaginal bleeding. Then developed pain right side diagnosed as UTI and kidney stones. Also small bowel obstruction, treated non surgically. Diagnosed with GERD and IBS. Diagnosed with initial stages of CHF. 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 During all of the above had difficulty being compliant to lymphedema home management, except for mostly wearing compression sleeve. Reports 14lb weight loss due to medical issues. Having some increased shoulder pain and reports feeling her edema has increased some in her arms. Also reporting her chest scarring feels tighter. May need to order new compression sleeves soon. Prior Functional Status Baseline Function- ADL's Independent Baseline Function- Mobility Independent Current Functional Impairments (Reported) Functional Limitations- ADL's more difficulty reaching behind her back and overhead bilateral UE's Personal Factors Other Personal Factors That May Effect multiple recent medical issues Therapy/Recovery as above including CHF. PT-OP-C Subjective Start: 04/03/19 13:46 Freq: Status: Active Protocol: Document 06/28/19 11:37 IJS (Rec: 06/28/19 11:52 IJS [email or web address]) OP-PT Subjective Patient Comments Patient Comments Still having GI problems and planning to see MD tomorrow and hopefully have surgery in the next few weeks. Patient Reported Progress Improving PT-OP-E Functional Tests Start: 04/03/19 13:46 Freq: Status: Active Protocol: Document 04/03/19 13:47 SAK (Rec: 04/05/19 17:45 SAK [id number]) Functional Tests Apley's Scratch Test Action 1- Left anterior shoulder Action 1- Right posterior shoulder Action 2- Left side of neck Action 2- Right T1 Action 3- Left T10 Action 3- Right T7 PT-OP-J Posture/Palpation/Skin Start: 04/03/19 13:46 Freq: Status: Active Protocol: Document 04/03/19 13:47 SAK (Rec: 04/05/19 17:45 SAK [id number]) Posture Evaluation Position Standing Head/C-Spine Posture Forward Head T-Spine Posture Increased Kyphosis Shoulder Posture (L) Rounded,(R) Rounded Scapula Posture (L) Protracted,(R) Protracted Arm Posture (L) Internally Rotated,(R) Internally Rotated Palpation Assessment Location left chest and subaxillary region Palpation Findings Edema,Soft Tissue Tightness, Tenderness Palpation Details from mastectomy scar 2cm long axillary cording PT-OP-K Range of Motion Start: 04/03/19 13:46 Freq: Status: Active Protocol: Document 06/05/19 11:48 GGD (Rec: 06/05/19 12:46 GGD [email or web address]) Shoulder Goniometric Range of Motion Shoulder Left Shoulder ROM WFL No Testing Position Sitting Flexion 114 Extension 20 Abduction 110 External Rotation at 45 degrees 45 Abduction Internal Rotation Behind Back (text) T9 right Shoulder ROM WFL No Testing Position Sitting Flexion 126 Extension 20 Abduction 135 External Rotation at 45 degrees 55 Abduction Internal Rotation Behind Back (text) T7 PT-OP-N Lymphedema Start: 04/03/19 13:46 Freq: Status: Active Protocol: Document 06/05/19 11:48 GGD (Rec: 06/05/19 12:46 GGD [email or web address]) Lymphedema Measurements Upper Extremity Circumference Measurements right MCP 19.9 cm Wrist 19.5 cm 5 cm From Distal Crease 21.5 cm 10 cm From Distal Crease 26.1 cm 15 cm From Distal Crease 29.9 cm 20 cm From Distal Crease 31.2 cm 25 cm From Distal Crease 30.6 cm 30 cm From Distal Crease 32.6 cm 35 cm From Distal Crease 36.1 cm 40 cm From Distal Crease 37 cm 45 cm From Distal Crease 38 cm Axilla 39 cm left MCP 20 cm Wrist 18.3 cm 5 cm From Distal Crease 20.5 cm 10 cm From Distal Crease 24.1 cm 15 cm From Distal Crease 28.1 cm 20 cm From Distal Crease 29 cm 25 cm From Distal Crease 30.4 cm 30 cm From Distal Crease 30 cm 35 cm From Distal Crease 33.9 cm 40 cm From Distal Crease 37 cm 45 cm From Distal Crease 40.2 cm Axilla 41.7 cm PT-OP-Q Treatments Start: 04/03/19 13:46 Freq: Status: Active Protocol: Document 06/28/19 11:37 IJS (Rec: 06/28/19 11:52 IJS [email or web address]) Cardio Equipment Recumbent Stepper (Sci-Fit) Duration (Minutes) 5 Seat Position 8 Therapeutic Exercises Supine Exercises UT stretch Side bilateral Resistance Gentle Equipment Used manual Reps/Minutes 1 shoulder flexion Side left Resistance Gentle Equipment Used manual Reps/Minutes 10/2 Comments pain at endrange with gentle stretch pec stretch Side left Resistance Gentle Equipment Used manual Reps/Minutes 3/1 Sidelying Exercises shoulder abd Side left Resistance none Equipment Used Active Reps/Minutes 10/3 reach and roll Side left Resistance active Reps/Minutes 10/2 Manual Therapy Treatment Soft Tissue Mobilization left chest and subaxillary region Mobilization Type Manual Lymphatic Drainage, Myofascial Release Intensity/Depth Superficial Body Position Hooklying Joint Mobilizations scapulo-thoracic Grade II Body Position Sidelying Reps/Duration 3/1 Lymphedema Treatment Manual Lymphatic Drainage Location Primarily left but did work on right arm as well Duration 55 Comments [place] better after the treatment Compression Garment Assessment Compression Garment Assessment Details Patient forgot to bring her sleeve today PT-OP-S Aquatic Treatment Start: 04/03/19 13:46 Freq: Status: Active Protocol: Document 06/11/19 10:15 LJ (Rec: 06/11/19 15:10 LJ [id number]) Aquatics Treatment Pool Entry/Exit Pool Entry/Exit Method Stairs Assistance Independent Comments #2 wts Water Walking [place] October Water Level Chest Level Level of Assistance Verbal Cues Comments #2 wts march with opposite UE reach Water Level Chest Level Level of Assistance Verbal Cues Comments #2 wts sideways with shoulder ab/ad Water Level Chest Level Level of Assistance Verbal Cues Comments #2 wts backward with reverse breastroke UE's Water Level Chest Level Level of Assistance Verbal Cues Comments #2 wts forward with breastroke UE's Water Level Chest Level Level of Assistance Verbal Cues Comments #2 wts Upper Extremity Exercises wipers Body Position Standing Water Level Chest Level Equipment UE paddles Reps/Duration 15 each direction rows Body Position Standing Water Level Chest Level Equipment UE paddles Reps/Duration 15 Comments cues to adduct elbows shoulder IR/ER Body Position Standing Water Level Chest Level Equipment UE paddles Reps/Duration 2x12 shoulder flex/ext Body Position Standing Water Level Chest Level Equipment UE paddles Reps/Duration 2x12 hor ab/ad Body Position Standing Water Level Chest Level Equipment UE paddles Reps/Duration 10x circles Details CW and CCW Body Position Standing Water Level Chest Level Reps/Duration 10x bilateral Upper Extremity Stretches LUE shoulder abduction Body Position Standing Water Level Chest Level Reps/Duration 1 min Comments holding onto lift chair arm rest corner Body Position Standing Water Level Chest Level Reps/Duration 2x45 walk with pec stretch Equipment UE paddles Reps/Duration 30 m Comments cues to keep shoulders relaxed [place] Activities [place] Activities Bicycle,Cross [place],Hip Abduction/Adduction Other Activities backwards with reverse b stroke ab/ad UEs forward with b stroke Equipment flotation belt, #2 wts PT-OP-T Assessment and Plan Start: 04/03/19 13:46 Freq: Status: Active Protocol: Document 06/28/19 11:37 IJS (Rec: 06/28/19 11:52 IJS [email or web address]) Physical Therapy Assessment Rehab Potential Rehabilitation Potential Good Impairments Impairments Pain,Posture,Soft Tissue Mobility Assessment Summary Assessment Patient tolerating the treatment well with decreased tightness and discomfort after visit. Is going to cancel her aquatic visit tomorrow so she can see her GI MD. Physical Therapy Plan Next Visit Focus/Plan Next Note Type Treatment Note Next Visit Plan Continue with manual lymphatic drainage and tissue mobilization.
--- NOTE | 2019-07-03 16:09 | PT.OTN ---
Current Diagnoses Lymphedema, not elsewhere classified (07/03/19) Pain in left shoulder (07/03/19) Stiffness of right shoulder, not elsewhere classified (07/03/19) Stiffness of left shoulder, not elsewhere classified (07/03/19) Abnormal posture (07/03/19) Physical Therapy Treatment Note PT-OP-A Visit Information Start: 04/03/19 13:46 Freq: Status: Active Protocol: Document 07/03/19 15:42 IJS (Rec: 07/03/19 16:09 IJS [email or web address]) Out-Patient Physical Therapy Visit Information Visit Information Visit Type Treatment Note Visit Start Time 14:38 Visit Stop Time 15:35 Total Visit Minutes 58 Visit Number 17 Number of BLACK TOP ROLLER Visits 0 PT-OP-B Current Condition Start: 04/03/19 13:46 Freq: Status: Active Protocol: Document 04/03/19 13:47 SAK (Rec: 04/03/19 14:07 SAK [id number]) Current Condition History of Current Condition Onset Date 1990 Current Complaints lymphedema bilateral UE's History of Current Condition Since last seen in PT patient has had multiple medical issues including influenza December 02 diagnosed [place] on cruise. Polyps removed due to vaginal bleeding. Then developed pain right side diagnosed as UTI and kidney stones. Also small bowel obstruction, treated non surgically. Diagnosed with GERD and IBS. Diagnosed with initial stages of CHF. Seeing remote medical coder . During all of the above had difficulty being compliant to lymphedema home management, except for mostly wearing compression sleeve. Reports 14lb weight loss due to medical issues. Having some increased shoulder pain and reports feeling her edema has increased some in her arms. Also reporting her chest scarring feels tighter. May need to order new compression sleeves soon. Prior Functional Status Baseline Function- ADL's Independent Baseline Function- Mobility Independent Current Functional Impairments (Reported) Functional Limitations- ADL's more difficulty reaching behind her back and overhead bilateral UE's Personal Factors Other Personal Factors That May Effect multiple recent medical issues Therapy/Recovery as above including CHF. PT-OP-C Subjective Start: 04/03/19 13:46 Freq: Status: Active Protocol: Document 07/03/19 15:42 IJS (Rec: 07/03/19 16:05 IJS [email or web address]) OP-PT Subjective Patient Comments Patient Comments Has had a little strain in her right low back since last treatment. Thinks maybe she pulled something. Only uncomfortable with certain movements like side lying Patient Reported Progress Same PT-OP-E Functional Tests Start: 04/03/19 13:46 Freq: Status: Active Protocol: Document 04/03/19 13:47 SAK (Rec: 04/05/19 17:45 SAK [id number]) Functional Tests Apley's Scratch Test Action 1- Left anterior shoulder Action 1- Right posterior shoulder Action 2- Left side of neck Action 2- Right T1 Action 3- Left T10 Action 3- Right T7 PT-OP-J Posture/Palpation/Skin Start: 04/03/19 13:46 Freq: Status: Active Protocol: Document 04/03/19 13:47 SAK (Rec: 04/05/19 17:45 SAK [id number]) Posture Evaluation Position Standing Head/C-Spine Posture Forward Head T-Spine Posture Increased Kyphosis Shoulder Posture (L) Rounded,(R) Rounded Scapula Posture (L) Protracted,(R) Protracted Arm Posture (L) Internally Rotated,(R) Internally Rotated Palpation Assessment Location left chest and subaxillary region Palpation Findings Edema,Soft Tissue Tightness, Tenderness Palpation Details from mastectomy scar 2cm long axillary cording PT-OP-K Range of Motion Start: 04/03/19 13:46 Freq: Status: Active Protocol: Document 06/05/19 11:48 GGD (Rec: 06/05/19 12:46 GGD [email or web address]) Shoulder Goniometric Range of Motion Shoulder Left Shoulder ROM WFL No Testing Position Sitting Flexion 114 Extension 20 Abduction 110 External Rotation at 45 degrees 45 Abduction Internal Rotation Behind Back (text) T9 right Shoulder ROM WFL No Testing Position Sitting Flexion 126 Extension 20 Abduction 135 External Rotation at 45 degrees 55 Abduction Internal Rotation Behind Back (text) T7 PT-OP-N Lymphedema Start: 04/03/19 13:46 Freq: Status: Active Protocol: Document 06/05/19 11:48 GGD (Rec: 06/05/19 12:46 GGD [email or web address]) Lymphedema Measurements Upper Extremity Circumference Measurements right MCP 19.9 cm Wrist 19.5 cm 5 cm From Distal Crease 21.5 cm 10 cm From Distal Crease 26.1 cm 15 cm From Distal Crease 29.9 cm 20 cm From Distal Crease 31.2 cm 25 cm From Distal Crease 30.6 cm 30 cm From Distal Crease 32.6 cm 35 cm From Distal Crease 36.1 cm 40 cm From Distal Crease 37 cm 45 cm From Distal Crease 38 cm Axilla 39 cm left MCP 20 cm Wrist 18.3 cm 5 cm From Distal Crease 20.5 cm 10 cm From Distal Crease 24.1 cm 15 cm From Distal Crease 28.1 cm 20 cm From Distal Crease 29 cm 25 cm From Distal Crease 30.4 cm 30 cm From Distal Crease 30 cm 35 cm From Distal Crease 33.9 cm 40 cm From Distal Crease 37 cm 45 cm From Distal Crease 40.2 cm Axilla 41.7 cm PT-OP-Q Treatments Start: 04/03/19 13:46 Freq: Status: Active Protocol: Document 07/03/19 15:42 IJS (Rec: 07/03/19 16:05 IJS [email or web address]) Cardio Equipment Recumbent Stepper (Sci-Fit) Duration (Minutes) 5 Resistance 40 RPM Seat Position 8 Therapeutic Exercises Supine Exercises shoulder flexion Side left Resistance gentle Equipment Used manual Reps/Minutes 10 pec stretch Side bilateral Resistance gentle Equipment Used manual Reps/Minutes 2/1 Sitting Exercises trunk extension Side bilateral Equipment Used small playground ball Reps/Minutes 5 @ upper thoracic and 5 at lower Comments Reports feeling good pulleys Sitting Exercise Name flexion Side bilateral Resistance none Reps/Minutes 10/3 Lymphedema Treatment Manual Lymphatic Drainage Location left UE Duration 43 Comments Feeling good after treatment some back relief. Scar mobilization and paraspinal mobilization gentle Compression Garment Assessment Compression Garment Assessment Details Had sleeve on today and plans to purchase a new one or two secondary to age of this current sleeve PT-OP-S Aquatic Treatment Start: 04/03/19 13:46 Freq: Status: Active Protocol: Document 06/11/19 10:15 LJ (Rec: 06/11/19 15:10 LJ [id number]) Aquatics Treatment Pool Entry/Exit Pool Entry/Exit Method Stairs Assistance Independent Comments #2 wts Water Walking [place] October Water Level Chest Level Level of Assistance Verbal Cues Comments #2 wts march with opposite UE reach Water Level Chest Level Level of Assistance Verbal Cues Comments #2 wts sideways with shoulder ab/ad Water Level Chest Level Level of Assistance Verbal Cues Comments #2 wts backward with reverse breastroke UE's Water Level Chest Level Level of Assistance Verbal Cues Comments #2 wts forward with breastroke UE's Water Level Chest Level Level of Assistance Verbal Cues Comments #2 wts Upper Extremity Exercises wipers Body Position Standing Water Level Chest Level Equipment UE paddles Reps/Duration 15 each direction rows Body Position Standing Water Level Chest Level Equipment UE paddles Reps/Duration 15 Comments cues to adduct elbows shoulder IR/ER Body Position Standing Water Level Chest Level Equipment UE paddles Reps/Duration 2x12 shoulder flex/ext Body Position Standing Water Level Chest Level Equipment UE paddles Reps/Duration 2x12 hor ab/ad Body Position Standing Water Level Chest Level Equipment UE paddles Reps/Duration 10x circles Details CW and CCW Body Position Standing Water Level Chest Level Reps/Duration 10x bilateral Upper Extremity Stretches LUE shoulder abduction Body Position Standing Water Level Chest Level Reps/Duration 1 min Comments holding onto lift chair arm rest corner Body Position Standing Water Level Chest Level Reps/Duration 2x45 walk with pec stretch Equipment UE paddles Reps/Duration 30 m Comments cues to keep shoulders relaxed [place] Activities [place] Activities Bicycle,Cross [place],Hip Abduction/Adduction Other Activities backwards with reverse b stroke ab/ad UEs forward with b stroke Equipment flotation belt, #2 wts PT-OP-T Assessment and Plan Start: 04/03/19 13:46 Freq: Status: Active Protocol: Document 07/03/19 15:42 IJS (Rec: 07/03/19 16:05 IJS [email or web address]) Physical Therapy Assessment Rehab Potential Rehabilitation Potential Good Assessment Summary Assessment Patient appears to be stable with lymphedema management. Left shoulder flexion 140 AA and right 150 AA with pullies. Left chest scar tissue was more mobile today no tenderness. Some tenderness with diaphramatic breathing secondary to GI issues. Will be in aquatic therapy tomorrow . Anticipate will be ready for discharge soon. Physical Therapy Plan Frequency and Duration Frequency of Treatment 2x/Week Next Visit Focus/Plan Next Note Type Treatment Note Next Visit Plan Acquatic and update home program for progression toward discharge.
--- NOTE | 2019-07-04 10:47 | PT-OP ANOTE ---
Patient cancelled PT appointment with less than 24 hours notice
--- NOTE | 2019-07-11 16:28 | PT.OTN ---
Current Diagnoses Lymphedema, not elsewhere classified (07/11/19) Pain in left shoulder (07/11/19) Stiffness of right shoulder, not elsewhere classified (07/11/19) Stiffness of left shoulder, not elsewhere classified (07/11/19) Abnormal posture (07/11/19) Physical Therapy Treatment Note PT-OP-A Visit Information Start: 04/03/19 13:46 Freq: Status: Active Protocol: Document 07/11/19 11:00 LJ (Rec: 07/11/19 16:28 LJ [email or web address]) Out-Patient Physical Therapy Visit Information Visit Information Visit Type Aquatic Treatment Note Visit Start Time 11:00 Visit Stop Time 11:45 Total Visit Minutes 45 Visit Number 18 Number of RAT CULTURIST Visits 1 PT-OP-B Current Condition Start: 04/03/19 13:46 Freq: Status: Active Protocol: Document 04/03/19 13:47 SAK (Rec: 04/03/19 14:07 SAK [id number]) Current Condition History of Current Condition Onset Date 1990 Current Complaints lymphedema bilateral UE's History of Current Condition Since last seen in PT patient has had multiple medical issues including influenza December 02 diagnosed while on cruise. Polyps removed due to vaginal bleeding. Then developed pain right side diagnosed as UTI and kidney stones. Also small bowel obstruction, treated non surgically. Diagnosed with GERD and IBS. Diagnosed with initial stages of CHF. Seeing route rider . During all of the above had difficulty being compliant to lymphedema home management, except for mostly wearing compression sleeve. Reports 14lb weight loss due to medical issues. Having some increased shoulder pain and reports feeling her edema has increased some in her arms. Also reporting her chest scarring feels tighter. May need to order new compression sleeves soon. Prior Functional Status Baseline Function- ADL's Independent Baseline Function- Mobility Independent Current Functional Impairments (Reported) Functional Limitations- ADL's more difficulty reaching behind her back and overhead bilateral UE's Personal Factors Other Personal Factors That May Effect multiple recent medical issues Therapy/Recovery as above including CHF. PT-OP-C Subjective Start: 04/03/19 13:46 Freq: Status: Active Protocol: Document 07/11/19 11:00 LJ (Rec: 07/11/19 16:28 LJ [email or web address]) OP-PT Subjective Patient Comments Patient Comments feels she is getting better ROM from previous therapy sessions PT-OP-E Functional Tests Start: 04/03/19 13:46 Freq: Status: Active Protocol: Document 04/03/19 13:47 SAK (Rec: 04/05/19 17:45 SAK [id number]) Functional Tests Apley's Scratch Test Action 1- Left anterior shoulder Action 1- Right posterior shoulder Action 2- Left side of neck Action 2- Right T1 Action 3- Left T10 Action 3- Right T7 PT-OP-J Posture/Palpation/Skin Start: 04/03/19 13:46 Freq: Status: Active Protocol: Document 04/03/19 13:47 SAK (Rec: 04/05/19 17:45 SAK [id number]) Posture Evaluation Position Standing Head/C-Spine Posture Forward Head T-Spine Posture Increased Kyphosis Shoulder Posture (L) Rounded,(R) Rounded Scapula Posture (L) Protracted,(R) Protracted Arm Posture (L) Internally Rotated,(R) Internally Rotated Palpation Assessment Location left chest and subaxillary region Palpation Findings Edema,Soft Tissue Tightness, Tenderness Palpation Details from mastectomy scar 2cm long axillary cording PT-OP-K Range of Motion Start: 04/03/19 13:46 Freq: Status: Active Protocol: Document 06/05/19 11:48 GGD (Rec: 06/05/19 12:46 GGD [email or web address]) Shoulder Goniometric Range of Motion Shoulder Left Shoulder ROM WFL No Testing Position Sitting Flexion 114 Extension 20 Abduction 110 External Rotation at 45 degrees 45 Abduction Internal Rotation Behind Back (text) T9 right Shoulder ROM WFL No Testing Position Sitting Flexion 126 Extension 20 Abduction 135 External Rotation at 45 degrees 55 Abduction Internal Rotation Behind Back (text) T7 PT-OP-N Lymphedema Start: 04/03/19 13:46 Freq: Status: Active Protocol: Document 06/05/19 11:48 GGD (Rec: 06/05/19 12:46 GGD [email or web address]) Lymphedema Measurements Upper Extremity Circumference Measurements right MCP 19.9 cm Wrist 19.5 cm 5 cm From Distal Crease 21.5 cm 10 cm From Distal Crease 26.1 cm 15 cm From Distal Crease 29.9 cm 20 cm From Distal Crease 31.2 cm 25 cm From Distal Crease 30.6 cm 30 cm From Distal Crease 32.6 cm 35 cm From Distal Crease 36.1 cm 40 cm From Distal Crease 37 cm 45 cm From Distal Crease 38 cm Axilla 39 cm left MCP 20 cm Wrist 18.3 cm 5 cm From Distal Crease 20.5 cm 10 cm From Distal Crease 24.1 cm 15 cm From Distal Crease 28.1 cm 20 cm From Distal Crease 29 cm 25 cm From Distal Crease 30.4 cm 30 cm From Distal Crease 30 cm 35 cm From Distal Crease 33.9 cm 40 cm From Distal Crease 37 cm 45 cm From Distal Crease 40.2 cm Axilla 41.7 cm PT-OP-Q Treatments Start: 04/03/19 13:46 Freq: Status: Active Protocol: Document 07/03/19 15:42 IJS (Rec: 07/03/19 16:05 IJS [email or web address]) Cardio Equipment Recumbent Stepper (Sci-Fit) Duration (Minutes) 5 Resistance 40 RPM Seat Position 8 Therapeutic Exercises Supine Exercises shoulder flexion Side left Resistance gentle Equipment Used manual Reps/Minutes 10 pec stretch Side bilateral Resistance gentle Equipment Used manual Reps/Minutes 2/1 Sitting Exercises trunk extension Side bilateral Equipment Used small playground ball Reps/Minutes 5 @ upper thoracic and 5 at lower Comments Reports feeling good pulleys Sitting Exercise Name flexion Side bilateral Resistance none Reps/Minutes 10/3 Lymphedema Treatment Manual Lymphatic Drainage Location left UE Duration 43 Comments Feeling good after treatment some back relief. Scar mobilization and paraspinal mobilization gentle Compression Garment Assessment Compression Garment Assessment Details Had sleeve on today and plans to purchase a new one or two secondary to age of this current sleeve PT-OP-S Aquatic Treatment Start: 04/03/19 13:46 Freq: Status: Active Protocol: Document 07/11/19 11:00 AMADOR (Rec: 07/11/19 16:28 LJ [email or web address]) Aquatics Treatment Pool Entry/Exit Pool Entry/Exit Method Stairs Assistance Independent Water Walking sideways crossover w/ Water Level Chest Level Walking Equipment Ankle Weight- 2.5# Level of Assistance Verbal Cues Comments hor abd add; cues for scap retraction [place] October Water Level Chest Level Level of Assistance Verbal Cues Comments #2 wts march with opposite UE reach Water Level Chest Level Level of Assistance Verbal Cues Comments #2 wts sideways with shoulder ab/ad Water Level Chest Level Level of Assistance Verbal Cues Comments #2 wts backward with reverse breastroke UE's Water Level Chest Level Level of Assistance Verbal Cues Comments #2 wts forward with breastroke UE's Water Level Chest Level Level of Assistance Verbal Cues Comments #2 wts Upper Extremity Exercises wipers Body Position Standing Water Level Chest Level Equipment UE paddles Reps/Duration 15 each direction Comments braced in seated postion rows Body Position Standing Water Level Chest Level Equipment UE paddles Reps/Duration 15 Comments cues to adduct elbows shoulder IR/ER Body Position Standing Water Level Chest Level Equipment UE paddles Reps/Duration 2x12 Comments braced at wall seated position shoulder flex/ext Body Position Standing Water Level Chest Level Equipment UE paddles Reps/Duration 2x12 Comments braced at wall seated position hor ab/ad Body Position Standing Water Level Chest Level Equipment UE paddles Reps/Duration 10x Comments braced at wall seated position circles Details CW and CCW Body Position Standing Water Level Chest Level Reps/Duration 10x bilateral Upper Extremity Stretches LUE shoulder abduction Body Position Standing Water Level Chest Level Reps/Duration 1 min Comments holding onto lift chair arm rest corner Body Position Standing Water Level Chest Level Reps/Duration 2x45 walk with pec stretch Equipment UE paddles Reps/Duration 30 m Comments cues to keep shoulders relaxed [place] Activities [place] Activities Bicycle Other Activities backwards with reverse b stroke ab/ad UEs forward with b stroke Equipment flotation belt, #2 wts PT-OP-T Assessment and Plan Start: 04/03/19 13:46 Freq: Status: Active Protocol: Document 07/11/19 11:00 AMADOR (Rec: 07/11/19 16:28 AMADOR [email or web address]) Physical Therapy Assessment Rehab Potential Rehabilitation Potential Good Assessment Summary Assessment Pt appears to have better ROM in UEs. Still requiring cues for scapular involvement during some UE exercises. Overall pt is increasing intensity when cues. Physical Therapy Plan Next Visit Focus/Plan Next Note Type Treatment Note Next Visit Plan Acquatic and update home program for progression toward discharge.
--- NOTE | 2019-07-20 15:17 | PT.OTN ---
Current Diagnoses Lymphedema, not elsewhere classified (07/20/19) Pain in left shoulder (07/20/19) Stiffness of right shoulder, not elsewhere classified (07/20/19) Stiffness of left shoulder, not elsewhere classified (07/20/19) Abnormal posture (07/20/19) Physical Therapy Treatment Note PT-OP-A Visit Information Start: 04/03/19 13:46 Freq: Status: Active Protocol: Document 07/20/19 11:00 LJ (Rec: 07/20/19 15:17 LJ [id number]) Out-Patient Physical Therapy Visit Information Visit Information Visit Type Aquatic Treatment Note Visit Start Time 11:00 Visit Stop Time 11:45 Total Visit Minutes 45 Visit Number 19 Number of LACING PRESSER Visits 2 PT-OP-B Current Condition Start: 04/03/19 13:46 Freq: Status: Active Protocol: Document 04/03/19 13:47 SAK (Rec: 04/03/19 14:07 SAK [id number]) Current Condition History of Current Condition Onset Date 1990 Current Complaints lymphedema bilateral UE's History of Current Condition Since last seen in PT patient has had multiple medical issues including influenza December 02 diagnosed [place] on cruise. Polyps removed due to vaginal bleeding. Then developed pain right side diagnosed as UTI and kidney stones. Also small bowel obstruction, treated non surgically. Diagnosed with GERD and IBS. Diagnosed with initial stages of CHF. Seeing pet adoption counselor . During all of the above had difficulty being compliant to lymphedema home management, except for mostly wearing compression sleeve. Reports 14lb weight loss due to medical issues. Having some increased shoulder pain and reports feeling her edema has increased some in her arms. Also reporting her chest scarring feels tighter. May need to order new compression sleeves soon. Prior Functional Status Baseline Function- ADL's Independent Baseline Function- Mobility Independent Current Functional Impairments (Reported) Functional Limitations- ADL's more difficulty reaching behind her back and overhead bilateral UE's Personal Factors Other Personal Factors That May Effect multiple recent medical issues Therapy/Recovery as above including CHF. PT-OP-C Subjective Start: 04/03/19 13:46 Freq: Status: Active Protocol: Document 07/20/19 11:00 LJ (Rec: 07/20/19 15:17 LJ [id number]) OP-PT Subjective Patient Comments Patient Comments Reports she has not been very good at keeping up with her exercises or stretches but feels things have improved. PT-OP-E Functional Tests Start: 04/03/19 13:46 Freq: Status: Active Protocol: Document 04/03/19 13:47 SAK (Rec: 04/05/19 17:45 SAK [id number]) Functional Tests Apley's Scratch Test Action 1- Left anterior shoulder Action 1- Right posterior shoulder Action 2- Left side of neck Action 2- Right T1 Action 3- Left T10 Action 3- Right T7 PT-OP-J Posture/Palpation/Skin Start: 04/03/19 13:46 Freq: Status: Active Protocol: Document 04/03/19 13:47 SAK (Rec: 04/05/19 17:45 SAK [id number]) Posture Evaluation Position Standing Head/C-Spine Posture Forward Head T-Spine Posture Increased Kyphosis Shoulder Posture (L) Rounded,(R) Rounded Scapula Posture (L) Protracted,(R) Protracted Arm Posture (L) Internally Rotated,(R) Internally Rotated Palpation Assessment Location left chest and subaxillary region Palpation Findings Edema,Soft Tissue Tightness, Tenderness Palpation Details from mastectomy scar 2cm long axillary cording PT-OP-K Range of Motion Start: 04/03/19 13:46 Freq: Status: Active Protocol: Document 06/05/19 11:48 GGD (Rec: 06/05/19 12:46 GGD [email or web address]) Shoulder Goniometric Range of Motion Shoulder Left Shoulder ROM WFL No Testing Position Sitting Flexion 114 Extension 20 Abduction 110 External Rotation at 45 degrees 45 Abduction Internal Rotation Behind Back (text) T9 right Shoulder ROM WFL No Testing Position Sitting Flexion 126 Extension 20 Abduction 135 External Rotation at 45 degrees 55 Abduction Internal Rotation Behind Back (text) T7 PT-OP-N Lymphedema Start: 04/03/19 13:46 Freq: Status: Active Protocol: Document 06/05/19 11:48 GGD (Rec: 06/05/19 12:46 GGD [email or web address]) Lymphedema Measurements Upper Extremity Circumference Measurements right MCP 19.9 cm Wrist 19.5 cm 5 cm From Distal Crease 21.5 cm 10 cm From Distal Crease 26.1 cm 15 cm From Distal Crease 29.9 cm 20 cm From Distal Crease 31.2 cm 25 cm From Distal Crease 30.6 cm 30 cm From Distal Crease 32.6 cm 35 cm From Distal Crease 36.1 cm 40 cm From Distal Crease 37 cm 45 cm From Distal Crease 38 cm Axilla 39 cm left MCP 20 cm Wrist 18.3 cm 5 cm From Distal Crease 20.5 cm 10 cm From Distal Crease 24.1 cm 15 cm From Distal Crease 28.1 cm 20 cm From Distal Crease 29 cm 25 cm From Distal Crease 30.4 cm 30 cm From Distal Crease 30 cm 35 cm From Distal Crease 33.9 cm 40 cm From Distal Crease 37 cm 45 cm From Distal Crease 40.2 cm Axilla 41.7 cm PT-OP-Q Treatments Start: 04/03/19 13:46 Freq: Status: Active Protocol: Document 07/03/19 15:42 IJS (Rec: 07/03/19 16:05 IJS [email or web address]) Cardio Equipment Recumbent Stepper (Sci-Fit) Duration (Minutes) 5 Resistance 40 RPM Seat Position 8 Therapeutic Exercises Supine Exercises shoulder flexion Side left Resistance gentle Equipment Used manual Reps/Minutes 10 pec stretch Side bilateral Resistance gentle Equipment Used manual Reps/Minutes 2/1 Sitting Exercises trunk extension Side bilateral Equipment Used small playground ball Reps/Minutes 5 @ upper thoracic and 5 at lower Comments Reports feeling good pulleys Sitting Exercise Name flexion Side bilateral Resistance none Reps/Minutes 10/3 Lymphedema Treatment Manual Lymphatic Drainage Location left UE Duration 43 Comments Feeling good after treatment some back relief. Scar mobilization and paraspinal mobilization gentle Compression Garment Assessment Compression Garment Assessment Details Had sleeve on today and plans to purchase a new one or two secondary to age of this current sleeve PT-OP-S Aquatic Treatment Start: 04/03/19 13:46 Freq: Status: Active Protocol: Document 07/20/19 11:00 LJ (Rec: 07/20/19 15:17 LJ [id number]) Aquatics Treatment Pool Entry/Exit Pool Entry/Exit Method Stairs Assistance Independent Water Walking sideways crossover w/ Water Level Chest Level Walking Equipment Ankle Weight- 2.5# Level of Assistance Verbal Cues Comments hor abd add; cues for scap retraction [place] March Level of Assistance Verbal Cues october with opposite UE reach Water Level Chest Level Level of Assistance Verbal Cues Comments #2 wts sideways with shoulder ab/ad Water Level Chest Level Level of Assistance Verbal Cues Comments #2 wts backward with reverse breastroke UE's Water Level Chest Level Level of Assistance Verbal Cues Comments #2 wts forward with breastroke UE's Water Level Chest Level Level of Assistance Verbal Cues Comments #2 wts Upper Extremity Exercises rows Body Position Standing Water Level Chest Level Equipment UE paddles Reps/Duration 15 Comments cues to adduct elbows shoulder IR/ER Body Position Standing Water Level Chest Level Equipment UE paddles Reps/Duration 2x12 Comments braced at wall seated position shoulder flex/ext Body Position Standing Water Level Chest Level Equipment UE paddles Reps/Duration 2x12 Comments braced at wall seated position hor ab/ad Body Position Standing Water Level Chest Level Equipment UE paddles Reps/Duration 10x Comments braced at wall seated position circles Details CW and CCW Body Position Standing Water Level Chest Level Reps/Duration 10x bilateral Upper Extremity Stretches postural stretching Body Position Standing Water Level Waist Level Equipment Large Noodle Reps/Duration 2 min Comments wall angels with stretching ER LUE Body Position Standing Water Level Chest Level Reps/Duration 2x45 IR LUE Body Position Standing Water Level Chest Level Reps/Duration 2x45 Comments assisted LUE shoulder abduction Body Position Standing Water Level Chest Level Reps/Duration 1 min Comments holding onto lift chair arm rest walk with pec stretch Equipment UE paddles Reps/Duration 30 m Comments cues to keep shoulders relaxed PT-OP-T Assessment and Plan Start: 04/03/19 13:46 Freq: Status: Active Protocol: Document 07/20/19 11:00 AMADOR (Rec: 07/20/19 15:17 [id number]) Physical Therapy Assessment Assessment Summary Assessment Pt required repeated cueing for improving effort and ROM. Has improved ROM in stretching and continues to need manual cueing for scapular involvement. Physical Therapy Plan Next Visit Focus/Plan Next Note Type Treatment Note Next Visit Plan Aquatic and update home program for progression toward discharge.
--- NOTE | 2019-07-23 16:36 | PT.OTN ---
Current Diagnoses Lymphedema, not elsewhere classified (07/23/19) Pain in left shoulder (07/23/19) Stiffness of right shoulder, not elsewhere classified (07/23/19) Stiffness of left shoulder, not elsewhere classified (07/23/19) Abnormal posture (07/23/19) Physical Therapy Treatment Note PT-OP-A Visit Information Start: 04/03/19 13:46 Freq: Status: Active Protocol: Document 07/23/19 15:20 SAK (Rec: 07/23/19 16:32 SAK [id number]) Out-Patient Physical Therapy Visit Information Visit Information Visit Type Progress Note Visit Start Time 15:20 Visit Stop Time 16:08 Total Visit Minutes 48 Visit Number 20 Number of [employer] Visits 3 PT-OP-B Current Condition Start: 04/03/19 13:46 Freq: Status: Active Protocol: Document 04/03/19 13:47 SAK (Rec: 04/03/19 14:07 SAK [id number]) Current Condition History of Current Condition Onset Date 1990 Current Complaints lymphedema bilateral UE's History of Current Condition Since last seen in PT patient has had multiple medical issues including influenza December 02 diagnosed while on cruise. Polyps removed due to vaginal bleeding. Then developed pain right side diagnosed as UTI and kidney stones. Also small bowel obstruction, treated non surgically. Diagnosed with GERD and IBS. Diagnosed with initial stages of CHF. 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 During all of the above had difficulty being compliant to lymphedema home management, except for mostly wearing compression sleeve. Reports 14lb weight loss due to medical issues. Having some increased shoulder pain and reports feeling her edema has increased some in her arms. Also reporting her chest scarring feels tighter. May need to order new compression sleeves soon. Prior Functional Status Baseline Function- ADL's Independent Baseline Function- Mobility Independent Current Functional Impairments (Reported) Functional Limitations- ADL's more difficulty reaching behind her back and overhead bilateral UE's Personal Factors Other Personal Factors That May Effect multiple recent medical issues Therapy/Recovery as above including CHF. PT-OP-C Subjective Start: 04/03/19 13:46 Freq: Status: Active Protocol: Document 07/23/19 15:20 SAK (Rec: 07/23/19 16:20 SAK [id number]) OP-PT Subjective Patient Comments Patient Comments Improved, but states most difficult things are reaching overhead, behind back, reaching for seatbelt, putting bra on/off. Has been going to doctor for intestinal issues and tests, not able to spend as much time on ther ex, self-massage. PT-OP-E Functional Tests Start: 04/03/19 13:46 Freq: Status: Active Protocol: Document 04/03/19 13:47 SAK (Rec: 04/05/19 17:45 SAK [id number]) Functional Tests Apley's Scratch Test Action 1- Left anterior shoulder Action 1- Right posterior shoulder Action 2- Left side of neck Action 2- Right T1 Action 3- Left T10 Action 3- Right T7 PT-OP-J Posture/Palpation/Skin Start: 04/03/19 13:46 Freq: Status: Active Protocol: Document 04/03/19 13:47 SAK (Rec: 04/05/19 17:45 [facility] [id number]) Posture Evaluation Position Standing Head/C-Spine Posture Forward Head T-Spine Posture Increased Kyphosis Shoulder Posture (L) Rounded,(R) Rounded Scapula Posture (L) Protracted,(R) Protracted Arm Posture (L) Internally Rotated,(R) Internally Rotated Palpation Assessment Location left chest and subaxillary region Palpation Findings Edema,Soft Tissue Tightness, Tenderness Palpation Details from mastectomy scar 2cm long axillary cording PT-OP-K Range of Motion Start: 04/03/19 13:46 Freq: Status: Active Protocol: Document 06/05/19 11:48 GGD (Rec: 06/05/19 12:46 GGD [id number]) Shoulder Goniometric Range of Motion Shoulder Left Shoulder ROM WFL No Testing Position Sitting Flexion 114 Extension 20 Abduction 110 External Rotation at 45 degrees 45 Abduction Internal Rotation Behind Back (text) T9 right Shoulder ROM WFL No Testing Position Sitting Flexion 126 Extension 20 Abduction 135 External Rotation at 45 degrees 55 Abduction Internal Rotation Behind Back (text) T7 PT-OP-N Lymphedema Start: 04/03/19 13:46 Freq: Status: Active Protocol: Document 06/05/19 11:48 GGD (Rec: 06/05/19 12:46 GGD [id number]) Lymphedema Measurements Upper Extremity Circumference Measurements right MCP 19.9 cm Wrist 19.5 cm 5 cm From Distal Crease 21.5 cm 10 cm From Distal Crease 26.1 cm 15 cm From Distal Crease 29.9 cm 20 cm From Distal Crease 31.2 cm 25 cm From Distal Crease 30.6 cm 30 cm From Distal Crease 32.6 cm 35 cm From Distal Crease 36.1 cm 40 cm From Distal Crease 37 cm 45 cm From Distal Crease 38 cm Axilla 39 cm left MCP 20 cm Wrist 18.3 cm 5 cm From Distal Crease 20.5 cm 10 cm From Distal Crease 24.1 cm 15 cm From Distal Crease 28.1 cm 20 cm From Distal Crease 29 cm 25 cm From Distal Crease 30.4 cm 30 cm From Distal Crease 30 cm 35 cm From Distal Crease 33.9 cm 40 cm From Distal Crease 37 cm 45 cm From Distal Crease 40.2 cm Axilla 41.7 cm PT-OP-Q Treatments Start: 04/03/19 13:46 Freq: Status: Active Protocol: Document 07/23/19 15:20 SAK (Rec: 07/23/19 16:32 SAK [id number]) Cardio Equipment Recumbent Stepper (Sci-Fit) Duration (Minutes) 5 Resistance 40 RPM Seat Position 8 Therapeutic Exercises Supine Exercises shoulder IR/ER Equipment Used manual Reps/Minutes 10x Comments manual stretch, gentle contract/relax, active; towel roll at thoracic spine shoulder flexion Side left Resistance gentle Equipment Used manual Reps/Minutes 10 Comments towel roll along thoracic spine Sitting Exercises pulleys Sitting Exercise Name flexion Side bilateral Resistance none Reps/Minutes 10/3 Lymphedema Treatment Manual Lymphatic Drainage Location left UE Duration 40 PT-OP-S Aquatic Treatment Start: 04/03/19 13:46 Freq: Status: Active Protocol: Document 07/20/19 11:00 AMADOR (Rec: 07/20/19 15:17 LJ [id number]) Aquatics Treatment Pool Entry/Exit Pool Entry/Exit Method Stairs Assistance Independent Water Walking sideways crossover w/ Water Level Chest Level Walking Equipment Ankle Weight- 2.5# Level of Assistance Verbal Cues Comments hor abd add; cues for scap retraction Dalton March Level of Assistance Verbal Cues october with opposite UE reach Water Level Chest Level Level of Assistance Verbal Cues Comments #2 wts sideways with shoulder ab/ad Water Level Chest Level Level of Assistance Verbal Cues Comments #2 wts backward with reverse breastroke UE's Water Level Chest Level Level of Assistance Verbal Cues Comments #2 wts forward with breastroke UE's Water Level Chest Level Level of Assistance Verbal Cues Comments #2 wts Upper Extremity Exercises rows Body Position Standing Water Level Chest Level Equipment UE paddles Reps/Duration 15 Comments cues to adduct elbows shoulder IR/ER Body Position Standing Water Level Chest Level Equipment UE paddles Reps/Duration 2x12 Comments braced at wall seated position shoulder flex/ext Body Position Standing Water Level Chest Level Equipment UE paddles Reps/Duration 2x12 Comments braced at wall seated position hor ab/ad Body Position Standing Water Level Chest Level Equipment UE paddles Reps/Duration 10x Comments braced at wall seated position circles Details CW and CCW Body Position Standing Water Level Chest Level Reps/Duration 10x bilateral Upper Extremity Stretches postural stretching Body Position Standing Water Level Waist Level Equipment Large Noodle Reps/Duration 2 min Comments wall angels with stretching ER LUE Body Position Standing Water Level Chest Level Reps/Duration 2x45 IR LUE Body Position Standing Water Level Chest Level Reps/Duration 2x45 Comments assisted LUE shoulder abduction Body Position Standing Water Level Chest Level Reps/Duration 1 min Comments holding onto lift chair arm rest walk with pec stretch Equipment UE paddles Reps/Duration 30 m Comments cues to keep shoulders relaxed PT-OP-T Assessment and Plan Start: 04/03/19 13:46 Freq: Status: Active Protocol: Document 07/23/19 15:20 [facility] (Rec: 07/23/19 16:20 [facility] [id number]) Physical Therapy Assessment Goals pain Impairment left shoulder pain Intermediate Goal (LTG) Decrease pain to no greater than 1-2/10 06/05/19: 4/10 with activity LTG Duration 08/04/19 soft tissue mobility Impairment decreased soft tissue mobility left chest and subaxillary region Chiropractor Assistant Goal (LTG) Improve soft tissue mobility left chest and subaxillary region to WNL 06/05/19: making progress with tissue mobility. LTG Duration 08/04/19 ROM Impairment decreased shoulder ROM Intermediate Goal (LTG) Improve bilateral shoulder ROM to allow her to reach overhead and behind her back for performance of ADL's and usual activities. 06/05/19: Improving IR ROM. LTG Duration 08/04/19 edema Impairment cliff UE lymphedema Intermediate Goal (LTG) Decrease and stabilize UE lymphedema and make sure patient has correctly-fitting compression sleeves bilaterally. Eliminate axillary cording 06/05/19: Decrease in circumferential LTG Duration 06/04/19 Assessment Summary Assessment Due to intestinal issues less time with ex. Still with some limitations in left shoulder function due to pain and soft tissue restrictions with signs and symptoms of impingement, though ROM some improved. Discussed 2 further visits, then reassess in 1 month to determine need for further PT after approx 1 month of self- care. Will need updated written HEP and aquatic ex program handouts. Physical Therapy Plan Next Visit Focus/Plan Next Note Type Re-Evaluation Next Visit Plan full reassessment of ROM and all goals. Patient to fill out questionnaires for pain, lymphedema life impact, and UE function.
--- NOTE | 2019-07-26 17:07 | PT.OTRE ---
Current Diagnoses Lymphedema, not elsewhere classified (07/26/19) Pain in left shoulder (07/26/19) Stiffness of right shoulder, not elsewhere classified (07/26/19) Stiffness of left shoulder, not elsewhere classified (07/26/19) Abnormal posture (07/26/19) Past Medical History (Last Reviewed 07/02/19 @ 09:09 by Janay Blackwell DO) Breast cancer (Resolved 1990) Cataract (Chronic 2016) Chicken pox (Resolved ~1950) Diverticulitis (Resolved 2014) Essential hypertension (Chronic 05/10/17) Gout (Inactive) Hayfever (Chronic) History of heavy periods (Resolved) Hyperlipidemia (Chronic 05/10/17) IBS (irritable bowel syndrome) (Chronic) Lymphedema (Chronic 05/10/17) Malignant neoplasm of breast (Inactive 09/13/17) Measles (Resolved ~1950) Morbid obesity (Chronic 09/13/17) Mumps (Resolved 1960) Neutropenia (Resolved 2013) Osteopenia (Chronic) Primary osteoarthritis of both knees (Chronic 09/13/17) Rosacea (Resolved) Shoulder pain (Chronic 2014) Skin cancer (Resolved 02/2017) Thyroid nodule (Resolved 2013) Tinnitus (Chronic) Surgical History (Last Reviewed 07/02/19 @ 09:09 by Janay Blackwell DO) Anesthesia (Resolved) History of eye surgery (Inactive ~1950) History of toe surgery (Inactive 1994) History of tonsillectomy (Inactive ~1961) Status post delivery (Inactive 01/01/83) Status post partial mastectomy (Inactive 11/05/13) Status post partial mastectomy (Inactive 09/07/90) Visit Care Team Role Provider Type Janay Blackwell DO Attending Provider Physician Primary Care Provider Specialty: [facility] Address: [address] [place] [address], [facility] Email: [email or web address] Physical Therapy Re-Evaluation PT-OP-A Visit Information Start: 04/03/19 13:46 Freq: Status: Active Protocol: Document 07/26/19 16:43 SAK (Rec: 07/26/19 17:06 JHONATHAN [id number]) Out-Patient Physical Therapy Visit Information Visit Information Visit Type Progress Note Visit Start Time 11:15 Visit Stop Time 12:13 Total Visit Minutes 58 Visit Number 21 Number of [employer] Visits 3 PT-OP-B Current Condition Start: 04/03/19 13:46 Freq: Status: Active Protocol: Document 04/03/19 13:47 SAK (Rec: 04/03/19 14:07 [facility] [id number]) Current Condition History of Current Condition Onset Date 1990 Current Complaints lymphedema bilateral UE's History of Current Condition Since last seen in PT patient has had multiple medical issues including influenza December 02 diagnosed while on cruise. Polyps removed due to vaginal bleeding. Then developed pain right side diagnosed as UTI and kidney stones. Also small bowel obstruction, treated non surgically. Diagnosed with GERD and IBS. Diagnosed with initial stages of CHF. 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 During all of the above had difficulty being compliant to lymphedema home management, except for mostly wearing compression sleeve. Reports 14lb weight loss due to medical issues. Having some increased shoulder pain and reports feeling her edema has increased some in her arms. Also reporting her chest scarring feels tighter. May need to order new compression sleeves soon. Prior Functional Status Baseline Function- ADL's Independent Baseline Function- Mobility Independent Current Functional Impairments (Reported) Functional Limitations- ADL's more difficulty reaching behind her back and overhead bilateral UE's Personal Factors Other Personal Factors That May Effect multiple recent medical issues Therapy/Recovery as above including CHF. PT-OP-C Subjective Start: 04/03/19 13:46 Freq: Status: Active Protocol: Document 07/26/19 16:43 SAK (Rec: 07/26/19 17:06 [facility] [id number]) OP-PT Subjective Patient Comments Patient Comments Agreeable to continue with land-based PT, have 1 more aquatic PT session then continue aquatic exercise on her own. States she is frustrated by continued difficulty with left UE function including reaching overhead, behind her back, donning/doffing bra, reaching for seatbelt. She is concerned today over test showing thickening in her intestines and she will be having further testing August 22. After last aquatic PT visit would like to put PT on hold until after that test and follow-up with physician. PT-OP-E Functional Tests Start: 04/03/19 13:46 Freq: Status: Active Protocol: Document 04/03/19 13:47 SAK (Rec: 04/05/19 17:45 [facility] [id number]) Functional Tests Apley's Scratch Test Action 1: The subject is instructed to touch the opposite shoulder with his/her hand. This motion checks Glenohumeral adduction, internal rotation , horizontal adduction and scapular protraction Action 2: The subject is instructed to place his/her arm overhead and reach behind the neck to touch his/her upper back. This motion checks Glenohumeral abduction, external rotation and scapular upward rotation and elevation. Action 3: The subject puts his/her hand on the lower back and reaches upward as far as possible. This motion checks glenohumeral adduction, internal rotation and scapular retraction with downward rotation Action 1- Left anterior shoulder Action 1- Right posterior shoulder Action 2- Left side of neck Action 2- Right T1 Action 3- Left T10 Action 3- Right T7 PT-OP-J Posture/Palpation/Skin Start: 04/03/19 13:46 Freq: Status: Active Protocol: Document 04/03/19 13:47 [facility] (Rec: 04/05/19 17:45 [facility] [id number]) Posture Evaluation Position Standing Head/C-Spine Posture Forward Head T-Spine Posture Increased Kyphosis Shoulder Posture (L) Rounded,(R) Rounded Scapula Posture (L) Protracted,(R) Protracted Arm Posture (L) Internally Rotated,(R) Internally Rotated Palpation Assessment Location left chest and subaxillary region Palpation Findings Edema,Soft Tissue Tightness, Tenderness Palpation Details from mastectomy scar 2cm long axillary cording PT-OP-K Range of Motion Start: 04/03/19 13:46 Freq: Status: Active Protocol: Document 06/05/19 11:48 GGD (Rec: 06/05/19 12:46 GGD [id number]) Shoulder Goniometric Range of Motion Shoulder Measured in Degrees Left Shoulder ROM WFL No Testing Position Sitting Flexion 114 Extension 20 Abduction 110 External Rotation at 45 degrees 45 Abduction Internal Rotation Behind Back (text) T9 right Shoulder ROM WFL No Testing Position Sitting Flexion 126 Extension 20 Abduction 135 External Rotation at 45 degrees 55 Abduction Internal Rotation Behind Back (text) T7 PT-OP-N Lymphedema Start: 04/03/19 13:46 Freq: Status: Active Protocol: Document 06/05/19 11:48 GGD (Rec: 06/05/19 12:46 GGD [id number]) Lymphedema Measurements Upper Extremity Circumference Measurements right MCP 19.9 cm Wrist 19.5 cm 5 cm From Distal Crease 21.5 cm 10 cm From Distal Crease 26.1 cm 15 cm From Distal Crease 29.9 cm 20 cm From Distal Crease 31.2 cm 25 cm From Distal Crease 30.6 cm 30 cm From Distal Crease 32.6 cm 35 cm From Distal Crease 36.1 cm 40 cm From Distal Crease 37 cm 45 cm From Distal Crease 38 cm Axilla 39 cm left MCP 20 cm Wrist 18.3 cm 5 cm From Distal Crease 20.5 cm 10 cm From Distal Crease 24.1 cm 15 cm From Distal Crease 28.1 cm 20 cm From Distal Crease 29 cm 25 cm From Distal Crease 30.4 cm 30 cm From Distal Crease 30 cm 35 cm From Distal Crease 33.9 cm 40 cm From Distal Crease 37 cm 45 cm From Distal Crease 40.2 cm Axilla 41.7 cm PT-OP-Q Treatments Start: 04/03/19 13:46 Freq: Status: Active Protocol: Document 07/26/19 16:43 [facility] (Rec: 07/26/19 17:06 [facility] [id number]) Manual Therapy Treatment Soft Tissue Mobilization bilateral thoracic paraspinals, periscapular mm Mobilization Type Myofascial Release,Strumming Intensity/Depth gentle Body Position prone over prone pillow Comments to improve soft tissue mobility for improved shoulder function Taping for pain management left shoulder Body Location left shoulder Treatment Focus pain management Type of Tape kinesiotape Skin Inspection intact Comments 1 Y strip: base at deltoid insertion, strips around deltoid with 25% stretch for postural correction Body Location between scapulae Treatment Focus postural correction Type of Tape kinesiotape Skin Inspection intact Comments 2 I strips Manual Techniques 1 Type PA's Body Location upper thoracic spine Body Position prone over prone pillow Reps/Duration 5 min Comments for increased thoracic mobility to facilitate improvement in left shoulder function Lymphedema Treatment Other Other circumferential measurements; see paper chart PT-OP-T Assessment and Plan Start: 04/03/19 13:46 Freq: Status: Active Protocol: Document 07/26/19 16:43 SAK (Rec: 07/26/19 17:06 [facility] [id number]) Physical Therapy Assessment Goals pain Impairment left shoulder pain Lcac Operator Goal (LTG) Decrease pain to no greater than 1-206/05/19: 4/10 with activity 07/26/19: 3/10 LTG Duration 09/26/19 soft tissue mobility Impairment decreased soft tissue mobility left chest and subaxillary region Lcac Operator Goal (LTG) Improve soft tissue mobility left chest and subaxillary region to WNL 06/05/19: making progress with tissue mobility. 07/26/19:Minimal progress recently with patient not able to be as compliant with self- massage LTG Duration 09/26/19 ROM Impairment decreased shoulder ROM Lcac Operator Goal (LTG) Improve bilateral shoulder ROM to allow her to reach overhead and behind her back for performance of ADL's and usual activities. 06/05/19: Improving IR ROM. 07/26/19: Had appeared to be plateauing though after trial prone manual techniques patient able to reach her bra, further treatment of this type appears indicated. Impingement symptoms have limited progress LTG Duration 09/26/19 edema Impairment cliff UE lymphedema Lcac Operator Goal (LTG) Decrease and stabilize UE lymphedema and make sure patient has correctly-fitting compression sleeves bilaterally. Eliminate axillary cording 06/05/19: Decrease in circumferential 08/02/19: Some increases noted bilateral UE's today indicating need for further monitoring and treatment. Patient instructed to wear compression sleeves more frequently LTG Duration 09/26/19 Assessment Summary Assessment Patient demonstrated improvement in ability to reach behind her back after trial of prone manual techniques. Feel she would benefit from further PT with additional emphasis on manual techniques and ther ex for decreasing left shoulder pain and improving ROM and function . Her medical issues are a factor at this time so we will see her one further time for aquatic therapy to transition her to [facility] aquatic exercise program then plan to resume land-based therapy after she has further testing and follow-up with physician regarding her intestinal issues and new CT finding. Physical Therapy Plan Frequency and Duration Frequency of Treatment 2x/Week Duration of Treatment 8 wks Plan of Care Start Date 07/26/19 Plan of Care End Date 09/26/19 Next Visit Focus/Plan Next Note Type Treatment Note Next Visit Plan last aquatic PT session, then patient on hold for PT until after testing and follow-up with physician.
--- NOTE | 2019-07-26 17:07 | PT.OPPOC ---
Current Diagnoses Lymphedema, not elsewhere classified (07/26/19) Pain in left shoulder (07/26/19) Stiffness of right shoulder, not elsewhere classified (07/26/19) Stiffness of left shoulder, not elsewhere classified (07/26/19) Abnormal posture (07/26/19) Visit Care Team Role Provider Type Janay Blackwell DO Attending Provider Physician Primary Care Provider Specialty: Family Practice Address: [address] [place] [address], [place], [address] Email: [email or web address] Plan Of Care PT-OP-T Assessment and Plan Start: 04/03/19 13:46 Freq: Status: Active Protocol: Document 07/26/19 16:43 SAK (Rec: 07/26/19 17:06 SAK [id number]) Physical Therapy Assessment Goals pain Impairment left shoulder pain 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 07/26/19:Minimal progress recently with patient not able to be as compliant with self- massage LTG Duration 09/26/19 ROM Impairment decreased shoulder ROM Residential Goal (LTG) Improve bilateral shoulder ROM to allow her to reach overhead and behind her back for performance of ADL's and usual activities. 06/05/19: Improving IR ROM. 07/26/19: Had appeared to be plateauing though after trial prone manual techniques patient able to reach her bra, further treatment of this type appears indicated. 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 Eliminate axillary cording 06/05/19: Decrease in circumferential 08/02/19: Some increases noted bilateral UE's today indicating need for further monitoring and treatment. Patient instructed to wear compression sleeves more frequently LTG Duration 09/26/19 Assessment Summary Assessment Patient demonstrated improvement in ability to reach behind her back after trial of prone manual techniques. Feel she would benefit from further PT with additional emphasis on manual techniques and ther ex for decreasing left shoulder pain and improving ROM and function . Her medical issues are a factor at this time so we will see her one further time for aquatic therapy to transition her to [facility] aquatic exercise program then plan to resume land-based therapy after she has further testing and follow-up with physician regarding her intestinal issues and new CT finding. Physical Therapy Plan Frequency and Duration Frequency of Treatment 2x/Week Duration of Treatment 8 wks Plan of Care Start Date 07/26/19 Plan of Care End Date 09/26/19 Next Visit Focus/Plan Next Note Type Treatment Note Next Visit Plan last aquatic PT session, then patient on hold for PT until after testing and follow-up with physician. Plan of Care Dates Plan of Care Start Date 07/26/19 Plan of Care End Date 09/26/19
--- NOTE | 2019-08-02 11:41 | PT.OPDS ---
Current Diagnoses Lymphedema, not elsewhere classified (07/26/19) Pain in left shoulder (07/26/19) Stiffness of right shoulder, not elsewhere classified (07/26/19) Stiffness of left shoulder, not elsewhere classified (07/26/19) Abnormal posture (07/26/19) Visit Care Team Role Provider Type Janay Blackwell DO Attending Provider Physician Primary Care Provider Specialty: Family Practice Address: [address] [place] [address], [facility] Email: [email or web address] Visit Number Visit Number [id number] Discharge Summary PT-OP-B Current Condition Start: 04/03/19 13:46 Freq: Status: Active Protocol: Document 04/03/19 13:47 SAK (Rec: 04/03/19 14:07 SAK [id number]) Current Condition History of Current Condition Onset Date 1990 Current Complaints lymphedema bilateral UE's History of Current Condition Since last seen in PT patient has had multiple medical issues including influenza December 02 diagnosed while on cruise. Polyps removed due to vaginal bleeding. Then developed pain right side diagnosed as UTI and kidney stones. Also small bowel obstruction, treated non surgically. Diagnosed with GERD and IBS. Diagnosed with initial stages of CHF. Seeing back office medical assistant . During all of the above had difficulty being compliant to lymphedema home management, except for mostly wearing compression sleeve. Reports 14lb weight loss due to medical issues. Having some increased shoulder pain and reports feeling her edema has increased some in her arms. Also reporting her chest scarring feels tighter. May need to order new compression sleeves soon. Prior Functional Status Baseline Function- ADL's Independent Baseline Function- Mobility Independent Current Functional Impairments (Reported) Functional Limitations- ADL's more difficulty reaching behind her back and overhead bilateral UE's Personal Factors Other Personal Factors That May Effect multiple recent medical issues Therapy/Recovery as above including CHF. PT-OP-C Subjective Start: 04/03/19 13:46 Freq: Status: Active Protocol: Document 07/26/19 16:43 SAK (Rec: 07/26/19 17:06 SAK [id number]) OP-PT Subjective Patient Comments Patient Comments Agreeable to continue with land-based PT, have 1 more aquatic PT session then continue aquatic exercise on her own. States she is frustrated by continued difficulty with left UE function including reaching overhead, behind her back, donning/doffing bra, reaching for seatbelt. She is concerned today over test showing thickening in her intestines and she will be having further testing August 22. After last aquatic PT visit would like to put PT on hold until after that test and follow-up with physician. PT-OP-E Functional Tests Start: 04/03/19 13:46 Freq: Status: Active Protocol: Document 04/03/19 13:47 SAK (Rec: 04/05/19 17:45 SAK [id number]) Functional Tests Apley's Scratch Test Action 1- Left anterior shoulder Action 1- Right posterior shoulder Action 2- Left side of neck Action 2- Right T1 Action 3- Left T10 Action 3- Right T7 PT-OP-J Posture/Palpation/Skin Start: 04/03/19 13:46 Freq: Status: Active Protocol: Document 04/03/19 13:47 SAK (Rec: 04/05/19 17:45 [facility] [id number]) Posture Evaluation Position Standing Head/C-Spine Posture Forward Head T-Spine Posture Increased Kyphosis Shoulder Posture (L) Rounded,(R) Rounded Scapula Posture (L) Protracted,(R) Protracted Arm Posture (L) Internally Rotated,(R) Internally Rotated Palpation Assessment Location left chest and subaxillary region Palpation Findings Edema,Soft Tissue Tightness, Tenderness Palpation Details from mastectomy scar 2cm long axillary cording PT-OP-K Range of Motion Start: 04/03/19 13:46 Freq: Status: Active Protocol: Document 06/05/19 11:48 GGD (Rec: 06/05/19 12:46 GGD [id number]) Shoulder Goniometric Range of Motion Shoulder Left Shoulder ROM WFL No Testing Position Sitting Flexion 114 Extension 20 Abduction 110 External Rotation at 45 degrees 45 Abduction Internal Rotation Behind Back (text) T9 right Shoulder ROM WFL No Testing Position Sitting Flexion 126 Extension 20 Abduction 135 External Rotation at 45 degrees 55 Abduction Internal Rotation Behind Back (text) T7 PT-OP-N Lymphedema Start: 04/03/19 13:46 Freq: Status: Active Protocol: Document 06/05/19 11:48 GGD (Rec: 06/05/19 12:46 GGD [id number]) Lymphedema Measurements Upper Extremity Circumference Measurements right MCP 19.9 cm Wrist 19.5 cm 5 cm From Distal Crease 21.5 cm 10 cm From Distal Crease 26.1 cm 15 cm From Distal Crease 29.9 cm 20 cm From Distal Crease 31.2 cm 25 cm From Distal Crease 30.6 cm 30 cm From Distal Crease 32.6 cm 35 cm From Distal Crease 36.1 cm 40 cm From Distal Crease 37 cm 45 cm From Distal Crease 38 cm Axilla 39 cm left MCP 20 cm Wrist 18.3 cm 5 cm From Distal Crease 20.5 cm 10 cm From Distal Crease 24.1 cm 15 cm From Distal Crease 28.1 cm 20 cm From Distal Crease 29 cm 25 cm From Distal Crease 30.4 cm 30 cm From Distal Crease 30 cm 35 cm From Distal Crease 33.9 cm 40 cm From Distal Crease 37 cm 45 cm From Distal Crease 40.2 cm Axilla 41.7 cm PT-OP-T Assessment and Plan Start: 04/03/19 13:46 Freq: Status: Active Protocol: Document 08/02/19 11:40 JHONATHAN (Rec: 08/02/19 11:41 JHONATHAN [id number]) Physical Therapy Plan Discharge Physical Therapy Discharge Reasons Change in Medical Status Discharge Comments as above
== END 2019-07-26 12:15 ==
LOC: PHYS 11:15
PROVIDERS: PCP Family Medicine; Visit Provider Family Medicine
DX: I89.0 Lymphedema, not elsewhere classified (principal); M25.512 Pain in left shoulder; R29.3 Abnormal posture; M25.612 Stiffness of left shoulder, not elsewhere classified; M25.611 Stiffness of right shoulder, not elsewhere classified
CPT/HCPCS: 97110; 97113; 97140; 97162; 97535

== ENCOUNTER 2019-07-28 23:23 | Inpatient (IN) | payer MEDICARE, BC, SELFPAY ==
[2019-06-15 11:06] VITALS: BMI 37.8
[2019-07-28 23:53] VITALS: BP 169/94; PULSE 77; RESP 16; TEMP 36.9; O2SAT 100; BMI 37.8
[2019-07-29] VITALS (24 sets, daily range): BP systolic 121–155; BP diastolic 65–95; PULSE 69–113; RESP 8–20; TEMP 36.2–37.1; O2SAT 89–100; BMI 38.1
--- NOTE | 2019-07-29 | PATH_ITS ---
[facility] Accession Number: [id number] . 01 Material submitted: . PART A: gastrointestinal site - GASTRIC BIOPSY PART B: jejunum - JEJUNUM SEGMENT WITH TUMOR . 01 Clinical history: . SUSPECTED BOWEL OBSTRUCTION . 02 Diagnosis: A. Stomach, Biopsy: Invasive lobular breast carcinoma infiltrating smooth muscle. . B. Segment of Jegunum with Tumor, Resection: Metastatic lobular breast carcinoma involving a segment of small bowel forming a 3.2 cm mural mass. Carcinoma is present at the radial/mesenteric margin; no evidence of carcinoma at proximal or distal margins. . BREAST PROGNOSTIC MARKERS: Estrogen Receptor (ER) Status: Positive, 90%. Average intensity of staining: Strong. Progesterone Receptor (PgR) Status: Negative. Average intensity of staining: N/A. HER2 (by immunohistochemistry): Negative (1+). . Testing performed on block B4. [facility] 08/03/2019 1638 Local . 02 Comment: As part of routine quality process auditor, Dr. Bingham has reviewed block B4 and the preliminary (non-prognostic) immunohistochemical stains and agrees with the diagnosis of metastatic lobular breast carcinoma. The finding of lobular breast carcinoma was reported to Dr. Morocho via his RN, Estelita, by Dr. Harvey on 08/02/2019. . 02 Electronically signed: . Gaston Harvey MD, PhD, Pathologist NPI- [id number] . 01 Gross description: . (A) Received in formalin, labeled gastric biopsy, is a piece of muñoz-white, semi-translucent, rubbery tissue (0.9 x 0.6 x 0.2 cm). The apparent resection margin is inked blue. Trisected and entirely submitted in cassette A1. (B) Received in formalin, labeled jejunum seg. w/tumor, is an unoriented segment of small bowel (length-6.9 cm, resection margin #1 diameter-3.1 cm, resection margin #2 diameter-4.2 cm) with attached adipose tissue (up to 1.7 cm in depth). The resection margins are received stapled. The serosa is chaudhry, smooth and shiny. The mucosa is chaudhry with normal folds containing a firm area with compact distorted folds (3.2 x 3.2 cm) located 2.0 cm from resection margin #1, 1.8 cm from resection margin #2, and 1.5 cm from the radial resection margin. The cut surface of this area appears to be a mass which extends through the wall into the adipose tissue. This area appears to be 0.2 cm from the closest serosa. No other nodules, masses or lesions are identified. The resection margins are inked black and the serosa is blue. Section code: (B1) resection margin #1, sales representative consultant longitudinal sections; (B2) resection margin #2, sales representative consultant longitudinal sections; (B3-B7) sales representative consultant serial sections; (B8) adipose tissue with no mass. ([id number]) /MRV 07/31/2019 1411 Local . 02 Microscopic: . B. Sections are of small bowel with expansion of the submucosa, muscularis propria and mesentery by proliferation of small epithelioid cells with a diffuse and single-file growth pattern. To further classify the malignant cells, a panel of immunohistochemical stains is performed (each with an appropriately positive control). The malignant cells are strongly and diffusely positive for CONSTANCE, cytokeratin 7, DEISY-3, mammaglobin and estrogen receptor immunoreactivity. The malignant cells are negative for cytokeratin 20, E. cadherin, CDX2, villin, and progesterone receptor immunoreactivity. The carcinoma cells are negative (1+) for HER-2 overexpression. The morphology and immunoprofile are consistent with metastatic lobular breast carcinoma. . * This test was developed and its performance characteristics determined by [employer]. It has not been cleared or approved by the U.S. Food and Drug Administration. The FDA has determined that such clearance or approval is not necessary. This test is used for clinical purposes. It should not be regarded as investigational or for research. . 02 Pathologist provided ICD-10: C79.89 . 02 CPT . 453678, B42107, B69748 Performed at: 01 [facility] [address] [place] [address], [place], [place] [id number] MD Pavel Villa MD Phone: [phone] Performed at: [facility] [address] [place], [place] [id number] MD Trish Bingham MD Phone: [phone]
--- NOTE | 2019-07-29 00:38 | ED.ABDPAIN ---
HPI - Abdominal Pain General Chief Complaint: Abdominal Pain Stated Complaint: suspected bowel obstruction Time Seen by Provider: 07/29/19 00:38 Source: patient Mode of arrival: Ambulatory Limitations: no limitations History of Present Illness HPI narrative: This is a 73-year-old female comes to the emergency department with complaint of vomiting and diarrhea. Patient states he has had increasing abdominal pain over the last several days. Patient states she has had bowel obstructions she suspect this may be 1. She has had 2 in the past most recently on June 15. She states the 1 they did an NG tube and sounds like conservative management. On the sound like she did not require an NG tube had conservative management and improved. Patient has not had fevers. She has been having nausea and vomiting particularly tonight. She denies any black or bloody stool in her diarrhea. She denies any back or flank pain. She denies any frequency, dysuria urgency. Patient states she had a about 30 years ago but denies any other abdominal surgeries. She has seen a bow maker machine tender who ordered CT imaging which she had on Tuesday. And she is scheduled for an EGD and colonoscopy in August. Related Data Home Medications Medication Instructions Recorded Confirmed anastrozole 1 mg PO DAILY #0 12/27/16 06/15/19 aspirin 81 mg PO DAILY #0 12/27/16 06/15/19 cholecalciferol (vitamin D3) 2,000 unit PO DAILY #0 12/27/16 06/15/19 [Vitamin D3] multivitamin [Multiple Vitamins] 1 tab PO DAILY #0 12/27/16 06/15/19 estradiol [Vagifem] 10 mcg VG DIRECTED #0 05/10/17 06/15/19 furosemide 20 mg PO DAILY 06/15/19 06/15/19 Previous Rx's Medication Instructions Recorded albuterol sulfate [Ventolin HFA] 2 puff INH QIDP PRN #1 inh 12/27/16 citalopram 20 mg tablet 20 mg PO DAILY #90 tab 07/10/19 olmesartan 20 mg tablet 20 mg PO DAILY #90 tab 07/10/19 rosuvastatin 5 mg tablet 5 mg PO DAILY #90 tab 07/10/19 Allergies Allergy/AdvReac Type Severity Reaction Status Date / Time Penicillins [PENICILLINS] Allergy Unknown Verified 07/28/19 23:53 shellfish derived Allergy Unknown Verified 07/28/19 23:53 [SHELLFISH DERIVED] vancomycin [VANCOMYCIN] Allergy Unknown Verified 07/28/19 23:53 Review of Systems Review of Systems ROS Unobtainable: All systems reviewed & are unremarkable except as noted in HPI and below Patient History Medical History Breast cancer (Resolved 1990) Cataract (Chronic 2016) Chicken pox (Resolved ~1950) Diverticulitis (Resolved 2014) Essential hypertension (Chronic 05/10/17) Gout (Inactive) Hayfever (Chronic) History of heavy periods (Resolved) Hyperlipidemia (Chronic 05/10/17) IBS (irritable bowel syndrome) (Chronic) Lymphedema (Chronic 05/10/17) Malignant neoplasm of breast (Inactive 09/13/17) Measles (Resolved ~1949) Morbid obesity (Chronic 09/13/17) Mumps (Resolved 1960) Neutropenia (Resolved 2013) Osteopenia (Chronic) Primary osteoarthritis of both knees (Chronic 09/13/17) Rosacea (Resolved) Shoulder pain (Chronic 2014) Skin cancer (Resolved 02/2017) Thyroid nodule (Resolved 2013) Tinnitus (Chronic) Surgical History Anesthesia (Resolved) History of eye surgery (Inactive ~1950) History of toe surgery (Inactive 1994) History of tonsillectomy (Inactive ~1961) Status post delivery (Inactive 01/01/83) Status post partial mastectomy (Inactive 11/05/13) Status post partial mastectomy (Inactive 09/07/90) Social History household members: spouse Smoking Status: Never smoker alcohol intake: current substance use type: does not use Smoking Status: Never smoker alcohol intake frequency: a few times a month Alcohol type: wine Substance Use Type: does not use Exam Narrative Exam Narrative: GENERAL: Alert and oriented x three, obese female in moderate distress. HEENT: Head normocephalic, atraumatic, EOMI, pupils reactive, face symmetric, moist mucous membranes NECK: Supple, full range of motion CARDIOVASCULAR: Regular rate and rhythm without murmurs, rubs or gallops. RESPIRATORY: Breath sounds equal bilaterally, no wheezes rales or rhonchi. ABDOMEN: Soft, moderate generalized tenderness. Mildly distended. Normoactive bowel sounds all 4 quadrants. No guarding or rebound, rigidity, no mass : No CVA tenderness EXTREMITIES: Normal range of motion, no clubbing or edema. Neurovascularly intact NEUROLOGICAL: Cranial nerves II through XII grossly intact. Moving all extremities SKIN: Warm, dry, no petechiae, no rashes or lesions. Initial Vital Signs Initial Vital Signs: Vital Signs Temperature 98.4 F 07/28/19 23:53 Pulse Rate 77 07/28/19 23:53 Respiratory Rate 16 07/28/19 23:53 Blood Pressure 169/94 H 07/28/19 23:53 Pulse Oximetry 100 07/28/19 23:53 Course Orders Ordered: ED Orders 07/29/19 00:50 CT abdomen pelvis w con Stat 07/29/19 01:40 Complete Blood Count AUTO DIFF Stat Comprehensive Metabolic Panel Stat Lipase Stat Discontinued Medications Sodium Chloride (Normal Saline 0.9%) 1,000 mls @ 1,000 mls/hr IV BOLUS ONE Stop: 07/29/19 01:49 Last Admin: 07/29/19 01:13 Dose: 1,000 mls/hr Documented by: KENDRA Ketorolac Tromethamine (Toradol) 15 mg IV NOW ONE Stop: 07/29/19 00:52 Last Admin: 07/29/19 01:13 Dose: 15 mg Documented by: KENDRA Lidocaine HCl (Xylocaine 1%) 10 ml INJ NOW ONE Stop: 07/29/19 00:55 Last Admin: 07/29/19 03:27 Dose: Not Given Documented by: MOUSTAPHA Ondansetron HCl (Zofran) 4 mg IV NOW ONE Stop: 07/29/19 00:52 Last Admin: 07/29/19 01:13 Dose: 4 mg Documented by: KENDRA Ondansetron HCl (Zofran) 4 mg IV NOW ONE Stop: 07/29/19 04:49 Last Admin: 07/29/19 05:43 Dose: Not Given Documented by: DEREK Vital Signs Vital signs: Vital Signs - 8 hr 07/28/19 23:53 07/29/19 01:30 07/29/19 02:30 Temperature 98.4 F Pulse Rate 77 69 74 Respiratory Rate 16 13 17 Blood Pressure 169/94 H Blood Pressure [Right Wrist] 125/75 128/69 Pulse Oximetry 100 99 97 MDM - Abdominal Pain Lab Data Attestation: I reviewed the patient's lab results. Result diagrams: 07/29/19 01:40 07/29/19 01:40 Labs: Lab Results 07/29/19 07/29/19 Range/Units 01:40 01:40 WBC 7.7 (4.5-11.0) X10^3/uL RBC 4.39 (4.0-5.2) X10^6/uL Hgb 13.0 (12.0-16.0) g/dL Hct 37.8 (36-46) % MCV 86.1 (80-100) fL MCH 29.6 (26-34) PG MCHC 34.4 (30-36) % RDW 12.9 (11.6-14.8) % Plt Count 166 (150-400) X10^3/uL Neut % (Auto) 87.2 H (50-75) % Lymph % (Auto) 6.2 L (25-40) % [place] % (Auto) 5.6 (3-14) % Eos % (Auto) 0.6 L (2-4) % Baso % (Auto) 0.4 (0-2) % Neut # (Auto) 6700 (9777-5250) /uL Lymph # (Auto) 500 L (1580-1769) /uL [place] # (Auto) 400 (0-900) /uL Eos # (Auto) 0 (0-450) /uL Baso # (Auto) 0 (0-100) /uL Sodium 140 (137-145) mmol/L Potassium 4.0 (3.4-5.1) mmol/L Chloride 103 (98-107) mmol/L Carbon Dioxide 27 (22-32) mmol/L BUN 20 H (7-17) mg/dL Creatinine 0.80 (0.52-1.04) mg/dL Estimated GFR > 60.0 (>60) mL/min BUN/Creatinine Ratio 25.0 H (6-22) Glucose 126 H (80-110) mg/dL Calcium 9.7 (8.4-10.2) mg/dL Total Bilirubin 0.8 (0.2-1.3) mg/dL AST 32 (14-36) IU/L ALT 20 (<35) IU/L Alkaline Phosphatase 94 (38-126) U/L Total Protein 7.0 (6.3-8.2) g/dL Albumin 4.7 (3.5-5.0) g/dL Globulin 2.3 (1.7-4.1) g/dL Albumin/Globulin Ratio 2.0 (1.0-2.8) Lipase 1597 H (23-300) U/L Imaging Data CT scan - abdomen: Radiologist's impression: Gastric thickening and adjacent stranding again noted suspicious a malignant process as previously described. Distended proximal small bowel, transition slightly left of midline anterior mid abdomen not seen on 07/25/2019 compatible with mechanical bowel obstruction. Small bowel mesenteric and mild retroperitoneal standing probably edema. Inflammatory/infectious process not excluded. Slight nodular thickening left adrenal gland. Tiny right intrarenal calculus. Fatty liver. MDM Narrative Medical decision making narrative: Patient comes in with what she states feels like her prior small-bowel obstructions. Lab work does show a mild pancreatitis although not as elevated a lipases in the past. It is 1500 today. Patient does not have an elevated white count, she has been afebrile. She has some gastric thickening which is concerning for malignant process. She also has of a bowel obstruction on her CT although I would suspect this is partial is she is still having a diarrhea like stools. She has not had any vomiting in the department, she initially did have some dry heaves but no emesis. Patient was given Zofran with improvement of the majority of her symptoms. She has been given gentle fluids and has maintained her blood pressure. She was hypertensive initially upon arrival. CT findings, labs were discussed with Dr. Gama and patient is accepted. I did discuss with Dr. Vazquez and plan for consultation. Also shared all of findings with patient and she is aware. I did speak with Dr. Vazquez prior to Dr. Gama, we did not have CT results back yet. He is available to see the patient in the morning. Discharge Plan Departure Patient Disposition: Admitted As Inpatient Clinical Impression: Pancreatitis, Partial bowel obstruction Referrals: Janay Blackwell DO [Primary Care Provider] - Admit Date/Time: 07/29/19 04:11 Admit Provider: Rosa Elena Gama
--- NOTE | 2019-07-29 00:50 | DI.CT.S_ITS ---
PROCEDURE: CT ABDOMEN PELVIS W CON INDICATIONS: concern for bowel obstruction, may be partial. v/d, pain TECHNIQUE: After the administration of intravenous contrast, 5 mm thick sections acquired from the diaphragm to the symphysis. 5 mm coronal and sagittal reformats were acquired. For radiation dose reduction, the following was used: automated exposure control, adjustment of mA and/or kV according to patient size. COMPARISON: [facility], CT, CT ABDOMEN PELVIS W CON, 06/15/2019, 7:55. [facility], CT, CT ABDOMEN PELVIS W CON, 07/25/2019, 12:23. FINDINGS: Image quality: Excellent. ABDOMEN: Lung bases: There is mild dependent atelectasis. Heart size is normal. There is a small hiatal hernia. Solid organs: Evaluation of the liver demonstrates no focal hepatic lesions. The gallbladder demonstrates a small calcified gallstone without wall thickening or pericholecystic fluid Biliary system is non-dilated. Pancreas enhances normally. No peripancreatic fat stranding or fluid collections. No pancreatic duct dilatation. The spleen is normal in size. No adrenal nodules. Kidneys demonstrate no hydronephrosis. There is a small nonobstructing stone within the inferior pole of the right kidney redemonstrated measuring approximately 3 mm. Peritoneum and bowel: There is moderate distention of the stomach with prominent concentric wall thickening centered in the region of the gastric antrum redemonstrated. The findings are again suspicious for an infiltrative neoplastic process. There is dilatation of proximal small bowel loops which measure up to 4.2 cm with multiple air fluid levels. There is a transition point in the left upper quadrant on series 2 image 45 associated with concentric wall thickening of the small bowel. More distal loops of small bowel are nondistended. Findings are consistent with a relatively high-grade small bowel obstruction. The colon is nondistended. There is colonic diverticulosis without acute diverticulitis. There is persistent fat stranding within the mesentery and minimal free fluid. Nodes and vessels: No retroperitoneal or mesenteric adenopathy by size criteria. Aorta and inferior vena cava are normal in size. Miscellaneous: No ventral hernias. PELVIS: Genitourinary: Bladder wall thickness is normal. Miscellaneous: No inguinal hernias or adenopathy. Bones: No suspicious bony lesions. No vertebral body compression fractures. IMPRESSION: 1. Findings compatible with a high-grade proximal small bowel obstruction with a transition point in the jejunum as described. Associated mild concentric bowel wall thickening at the transition point may reflect an enteritis or possible mass lesion. 2. Persistent prominent gastric wall thickening in the gastric antrum again suspicious for an infiltrative neoplastic process. 3. Persistent stranding and edema within the small bowel mesentery. Differential includes an infectious or inflammatory process, reactive edema, or possible neoplastic infiltration. 4. Cholelithiasis and nephrolithiasis redemonstrated. Dictated by: Pavel Woody M.D. on 07/29/2019 at 8:05 Approved by: Pavel Woody M.D. on 07/29/2019 at 8:14
[2019-07-29] MEDS: SODIUM CHLORIDE 0.9% 1,000 ML 1000 ML IV (01:13)
[2019-07-29] MEDS: LIDOCAINE 1% (PF) 2 ML (01:13)
[2019-07-29] MEDS: ONDANSETRON 4 MG/2 ML INJ IV ×2 (01:13→20:03)
[2019-07-29] MEDS: KETOROLAC 60 MG/2 ML VIAL 15 MG IV (01:13)
--- NOTE | 2019-07-29 01:19 | PC.NURSE ---
one attempt to access port failed to draw or flush. Positive feedback for proper placment, felt needle pop through and bottom out, further pushing did not cause pain. Patient attempted to move right arm around to allow for the port to draw or flush with no success.
[2019-07-29 01:50] LABS: Add Manual Diff / Slide Review NO; Basophils Absolute Auto 0 /uL (0-100); Basophils Percent Auto 0.4 % (0-2); Eosinophils Absolute Auto 0 /uL (0-450); Eosinophils Percent Auto 0.6 % (2-4); Hematocrit 37.8 % (36-46); Lymphocytes Absolute Auto 500 /uL (1100-4500); Lymphocytes Percent Auto 6.2 % (25-40); Mean Corpuscular HGB Conc 34.4 % (30-36); Mean Corpuscular Hemoglobin 29.6 PG (26-34); Mean Corpuscular Volume 86.1 fL (80-100); Monocytes Absolute Auto 400 /uL (0-900); Monocytes Percent Auto 5.6 % (3-14); Neutrophils Absolute Auto 6700 /uL (1500-7000); Neutrophils Percent Auto 87.2 % (50-75); Platelet Count 166 X10^3/uL (150-400); Red Blood Cell Count 4.39 X10^6/uL (4.0-5.2); Red Cell Distribution Width 12.9 % (11.6-14.8); White Blood Cell Count 7.7 X10^3/uL (4.5-11.0)
--- NOTE | 2019-07-29 01:58 | PC.NURSE ---
port accessed by Misti RN with this nurse assisting. Infusion and draw is very slow and positional through port. NS infusing on a pressure bag with a very slow drip rate. Provider aware.
[2019-07-29 02:00] LABS: Alanine Aminotransferase 20 IU/L (<35); Albumin 4.7 g/dL (3.5-5.0); Alkaline Phosphatase 94 U/L (38-126); Aspartate Aminotransferase 32 IU/L (14-36); Bilirubin Total 0.8 mg/dL (0.2-1.3); Blood Urea Nitrogen 20 mg/dL (7-17); Calcium 9.7 mg/dL (8.4-10.2); Carbon Dioxide 27 mmol/L (22-32); Chloride 103 mmol/L (98-107); Estimated Glomerular Filt Rate > 60.0 mL/min (>60); Globulin 2.3 g/dL (1.7-4.1); Glucose 126 mg/dL (80-110); HEMOLYSIS < 15 (0-50); Lipase 1597 U/L (23-300); Sodium 140 mmol/L (137-145)
[2019-07-29] MEDS: ONDANSETRON 4 MG/2 ML INJ (04:55)
--- NOTE | 2019-07-29 06:07 | PC.ADMIT ---
Addendum entered by Becky Beck R.N. 07/29/19 06:40: Dr Gama will put in orders, requested day shift nurse to attempt to make port work better, notified coordinator of request. Original Note: [email or web address] Admission Note: The patient,Davina Barrett,73 y/o, was given written information regarding hospital policies, unit procedures and contact persons. Patient's smoking status: Never smoker. Vital Signs - 8 hr 07/28/19 23:53 07/29/19 01:30 07/29/19 02:30 Temperature 98.4 F Pulse Rate 77 69 74 Respiratory Rate 16 13 17 Blood Pressure 169/94 H Blood Pressure [Right Wrist] 125/75 128/69 Pulse Oximetry 100 99 97 07/29/19 04:30 07/29/19 05:21 Temperature 97.7 F Pulse Rate 81 83 Respiratory Rate 17 20 Blood Pressure 155/81 H Blood Pressure [Right Wrist] 136/84 Pulse Oximetry 97 98 Arrived via stretcher from ED accompanied by DIANETIC COUNSELOR, transferred herself safely to bed, oriented to room and call light. Patient reports recent bouts of fecal incontinence with nausea, vomiting, belching and reflux, has non-pitting edema to bilateral arms, all other systems WNL. Patient is a moderate fall risk but demonstrates steady gate and safety awareness. Patient is NPO and without orders, will place page to Dr Gama to receive orders and to notify that chest port is not functioning well.
[2019-07-29] MEDS: ONDANSETRON 4 MG ODT SL (07:28)
[2019-07-29] MEDS: LIDOCAINE 1% 20 ML (08:30)
--- NOTE | 2019-07-29 08:42 | PM.HP.1 ---
History of Present Illness History of Present Illness Date Patient Seen: 07/29/19 Time Patient Seen: 08:42 Chief complaint: suspected bowel obstruction Narrative: Patient is a 73 yo female who presented for acute onset of vomiting and diarrhea similar to her 2 prior partial bowel obstructions. CT showing transition point about the same place that it has been on previous 2 admissions. She tells me that she has not had any short this of breath or chest pain, fever. Has not had a recent respiratory illness. Has plans for EGD and colonoscopy outpatient in August in [place]. On arrival at the floor her port was unable to be accessed so I reviewed prior breast cancer history to assess for appropriateness of peripheral of IV placement her upper extremities. She has a history of significant lymph node dissection from both axilla. Fortunately we were able to access her port. Patient History Medical History Breast cancer (Resolved 1990) Cataract (Chronic 2016) Chicken pox (Resolved ~1950) Diverticulitis (Resolved 2014) Essential hypertension (Chronic 05/10/17) Gout (Inactive) Hayfever (Chronic) History of heavy periods (Resolved) Hyperlipidemia (Chronic 05/10/17) IBS (irritable bowel syndrome) (Chronic) Lymphedema (Chronic 05/10/17) Malignant neoplasm of breast (Inactive 09/13/17) Measles (Resolved ~1949) Morbid obesity (Chronic 09/13/17) Mumps (Resolved 1960) Neutropenia (Resolved 2013) Osteopenia (Chronic) Primary osteoarthritis of both knees (Chronic 09/13/17) Rosacea (Resolved) Shoulder pain (Chronic 2014) Skin cancer (Resolved 02/2017) Thyroid nodule (Resolved 2013) Tinnitus (Chronic) Surgical History Anesthesia (Resolved) History of eye surgery (Inactive ~1950) History of toe surgery (Inactive 1994) History of tonsillectomy (Inactive ~1961) Status post delivery (Inactive 01/01/83) Status post partial mastectomy (Inactive 11/05/13) Status post partial mastectomy (Inactive 09/07/90) Family & Social History Social History: household members spouse Prior Living Arrangements House Safety & Behavioral: Feels Safe in Current Yes Environment Been Physically Hurt or No Threatened By a Person Suicidal Ideation Description None Suicide Plan Description No Plan Tobacco & Substance use: Smoking Status Never smoker alcohol intake current alcohol intake frequency a few times a month Substance Use Type does not use Meds Home Medications and Allergies Home Medications Medication Instructions Recorded Confirmed Type albuterol sulfate [Ventolin HFA] 2 puff INH QIDP PRN #1 inh 12/27/16 06/15/19 Rx anastrozole 1 mg PO DAILY #0 12/27/16 06/15/19 History aspirin 81 mg PO DAILY #0 12/27/16 06/15/19 History cholecalciferol (vitamin D3) 2,000 unit PO DAILY #0 12/27/16 06/15/19 History [Vitamin D3] multivitamin [Multiple Vitamins] 1 tab PO DAILY #0 12/27/16 06/15/19 History estradiol [Vagifem] 10 mcg VG DIRECTED #0 05/10/17 06/15/19 History furosemide 20 mg PO DAILY 06/15/19 06/15/19 History citalopram 20 mg tablet 20 mg PO DAILY #90 tab 07/10/19 Rx olmesartan 20 mg tablet 20 mg PO DAILY #90 tab 07/10/19 Rx rosuvastatin 5 mg tablet 5 mg PO DAILY #90 tab 07/10/19 Rx Allergies Allergy/AdvReac Type Severity Reaction Status Date / Time Penicillins [PENICILLINS] Allergy Unknown Verified 07/28/19 23:53 shellfish derived Allergy Unknown Verified 07/28/19 23:53 [SHELLFISH DERIVED] vancomycin [VANCOMYCIN] Allergy Unknown Verified 07/28/19 23:53 Review of Systems Review of Systems Narrative: A complete review of systems was negative except for the elements described in the HPI. Exam Vital Signs (past 8 hours): - 07/29/19 01:30 07/29/19 02:30 07/29/19 04:30 Temperature Pulse Rate 69 74 81 Respiratory Rate 13 17 17 Blood Pressure Blood Pressure [Right Wrist] 125/75 128/69 136/84 Pulse Oximetry 99 97 97 07/29/19 05:21 07/29/19 08:00 Temperature 97.7 F 97.9 F Pulse Rate 83 89 Respiratory Rate 20 18 Blood Pressure 155/81 H 139/87 Blood Pressure [Right Wrist] Pulse Oximetry 98 98 Oxygen Delivery Method Room Air Oxygen Flow Rate 0 Narrative Exam Narrative: General: Well-developed, well-nourished, female, no acute distress. Heart: Regular rate and rhythm, no murmurs appreciated Lungs: Clear to auscultation bilaterally, no wheezes, rales or rhonchi Abd: BS+, soft, diffusely tender, nondistended, no rebound, no guarding Objective Labs Result Diagrams: 07/29/19 01:40 07/29/19 01:40 Labs: Laboratory Results - last 24 hr 07/29/19 07/29/19 01:40 01:40 WBC 7.7 RBC 4.39 Hgb 13.0 Hct 37.8 MCV 86.1 MCH 29.6 MCHC 34.4 RDW 12.9 Plt Count 166 Neut % (Auto) 87.2 H Lymph % (Auto) 6.2 L [place] % (Auto) 5.6 Eos % (Auto) 0.6 L Baso % (Auto) 0.4 Neut # (Auto) 6700 Lymph # (Auto) 500 L [place] # (Auto) 400 Eos # (Auto) 0 Baso # (Auto) 0 Sodium 140 Potassium 4.0 Chloride 103 Carbon Dioxide 27 BUN 20 H Creatinine 0.80 Estimated GFR > 60.0 BUN/Creatinine Ratio 25.0 H Glucose 126 H Calcium 9.7 Total Bilirubin 0.8 AST 32 ALT 20 Alkaline Phosphatase 94 Total Protein 7.0 Albumin 4.7 Globulin 2.3 Albumin/Globulin Ratio 2.0 Lipase 1597 H Assessment & Plan Assessment & Plan narrative: 73 yo female with recurrent partial small bowel obstruction and pancreatitis. Gastric wall thickening persists and concerning for malignant process. Partial small bowel obstruction. Conservative management for now. Hopefully we can get this calmed down without surgical intervention. Have discussed case with Dr. Vazquez and he will consult. Gastric wall thickening. Needs biopsy. This has been scheduled for August. Should this be done now? Hypertension. Has been taking benecar and furosemide at home. Will monitor pressures. She may be able to tolerate her benecar. Anxiety. Continue citalopram. DVT prophylaxis: lovenox? will wait and see if surgical procedure planned Code status: full code Patient's expected length of stay is greater than 2 midnights. Patient is under inpatient status due to severity of presenting symptoms of persistent vomiting and diarrhea with obstruction, complexity of treatment plan, and risk of adverse events. Quality VTE Deep Vein Thrombosis/Pulmonary Embolism Present on Admission: No
[2019-07-29] MEDS: PANTOPRAZOLE 40 MG VIAL IV ×2 (08:59→20:03)
[2019-07-29] MEDS: ENOXAPARIN 40 MG/0.4 ML SYRINGE SUBCUT (09:26)
[2019-07-29] MEDS: KCL 20 MEQ IN NS 1,000 ML 125 MEQ IV (09:26)
[2019-07-29] MEDS: KETOROLAC 15 MG/ML VIAL IV (09:26)
[2019-07-29] MEDS: OLMESARTAN 20 MG TABLET PO (09:43)
--- NOTE | 2019-07-29 10:56 | PC.NURSE ---
0835 Erlin cath not accessable, [facility] cath site re accessed by ED RN.. Pt shadi well, line now flushes easily,
[2019-07-29] MEDS: LACTATED RINGERS 1,000 ML 42 ML IV ×2 (11:25→12:52)
[2019-07-29] MEDS: CEFTRIAXONE 2 GM/50 ML FROZ.PIGGY IV (11:38)
--- NOTE | 2019-07-29 11:51 | PC.NURSE ---
1100 Pt gone to OR via bed, spouse at bedside.
--- NOTE | 2019-07-29 12:08 | SUR.OPER ---
Supine on padded OR bed, head on pillow, arms secured on padded arm boards at <90 degrees abduction, legs uncrossed, safety belt at thigh, tape over blanket over lower legs.
[2019-07-29] MEDS: BUPIVACAINE 0.5% W/ EPI (PF) 10 ML VIAL 30 ML INJ (12:26)
[2019-07-29] MEDS: SODIUM CHLORIDE IRRIG SOLUTION 1,000 ML, BACITRACIN 50,000 UNIT IRR (12:27)
[2019-07-29] MEDS: HYDROMORPHONE 2 MG INJ 0.5 MG IV ×4 (13:39→13:59)
--- NOTE | 2019-07-29 13:43 | PM.OP.1 ---
Operative Date/Time/Diagnoses Date of procedure: 07/29/19 Time of procedure: 13:43 Pre-op diagnosis: Small-bowel obstruction secondary to tumor Post-op diagnosis: same Procedure & Clinicians Procedure: Exploratory laparotomy biopsy of gastric wall and resection of small bowel containing tumor with primary small bowel anastomosis Same procedure as scheduled: Yes Surgeon: Kaleb Vazquez Click Yes if Unassisted: Yes Anesthesia Type: General Operative Notes Findings: Patient has an infiltrative process involving the entire stomach wall with marked thickening and rigidity of the gastric pouch itself. There is also a tumor obstructing the proximal jejunum. No palpated or observed liver tumor Closure Type: primary Specimen(s): other (Biopsy of gastric wall resection of small bowel containing tumor) Estimated Blood Loss (mL): 300 Blood products transfused: none Procedure in detail: The patient was properly identified during surgical pause. She was given a general endotracheal anesthetic and prepped and draped in sterile fashion exposure of the mid abdomen. Midline incision was made the abdomen explored patient had marked rigidity in thickening of the entire stomach wall. No observed liver tumor. The proximal jejunum is obstructed with the tumor. This jejunal tumor appeared to come up from the mesentery itself. I biopsied the anterior wall of the stomach near the antrum. I did not enter the gastric lumen. I reinforced the biopsy site with interrupted silk sutures. This was submitted separately. Examining the entire small bowel from ligament of Treitz to the ileocecal valve revealed a stricture from tumor in the proximal jejunum. I resected this between 2 lines of GLORIA manuel. These were placed proximal and distal to the tumor. The intervening mesentery was taken down and the vessels suture ligated with 2 0 Vicryl. There was excellent hemostasis. A [id number] functional and and jejunal-jejunal anastomosis was then made with the GLORIA stapler inspecting the anastomosis from the inside it was hemostatic I did suture a portion of it with silk to ensure hemostasis. This was within the lumen of the bowel. Finally the enterotomies employed for the GLORIA anastomosis were closed with a TX 60. This entire area was then reinforced with seromuscular silk sutures. The mesenteric defect was closed with 3 0 Vicryl sutures. Bowel was returned to its anatomic position. Abdominal cavity irrigated with a L of bacitracin saline aspirated dry there was no bleeding. Fascia in the midline closed with 1. PDS. Subcu irrigated and closed with 2 0 Vicryl. Skin stapled and sterile dressings applied. Patient tolerated this procedure well. Complications: none Post-operative Condition: stable Disposition: PACU
--- NOTE | 2019-07-29 14:16 | SUR.PHASEI ---
Report called to Sharon
--- NOTE | 2019-07-29 14:24 | SUR.PHASEI ---
Two runs of approx 4 beats of sinus tach noted. Resolved spontaneously.
[2019-07-29] MEDS: BENZOCAINE/MENTHOL 1 LOZ PKT 1 EACH PO (14:30)
--- NOTE | 2019-07-29 14:31 | CM.DANOTE ---
Discharge Planning/Care Management DCP: assessment: initiated: Case received, EMR reviewd. Discussed in Team Rounds. Pt is a 73 year old female who admitted early this morning 0411 to care of [facility] physician team: PCP is Dr. Blackwell. Surgeon Dr. Vazquez consulted and took pt urgently to surgery: exploratory laparotomy with biopsy and small bowel resection of area containing tumor. DX: Small bowel obtrution secondary to tumor. Payer: Medicare and [facility] Admission status: INPT: Confirmed by UR ARVIND Rae. Pt is currently in surgery and thus need to defer rest of the assessment process. P: DCP team to follow up after surgery as POC unfolds to assist with d/c issues and options. Advanced directive, confirm from FAMILY Start: 07/29/19 05:32 Freq: Q24H Status: Active Protocol: Document 07/29/19 09:00 JACQUELINE (Rec: 07/29/19 11:50 JACQUELINE [id number]) Advance Directive, confirm on record Time 08:00 Person contacted The Pt. Copy received No CM Discharge Assessment Start: 07/29/19 14:29 Freq: Status: Active Protocol: Document 07/29/19 14:30 ITV (Rec: 07/29/19 14:31 ITV [id number]) Discharge Planning Assessment Advance Directives? Yes History Provided By Medical Record Has Patient been admitted in last 30 No days? Comment recent admission to 06/15- 06/17/19 with d/c to home setting. Prior Living Arrangements House Household Members spouse Review Status In Process
--- NOTE | 2019-07-29 14:54 | PC.NURSE ---
1440 Pt returned to room via bed from PACU. Pt is awake, OX3, spouse at bedside. VS wnl, ivf infusing via margoth cath. Pt denies nausea or pain at this time.
--- NOTE | 2019-07-29 14:57 | SUR.PHASEI ---
Patient transferred to the floor on o2 monitor. Report given to Sharon. VS stable. O2 sat in mid 90s on 2lnc. Abd dressing unchanged, binder in place. Yanes patent.
[2019-07-29] MEDS: LACTATED RINGERS 1,000 ML 125 ML IV ×2 (15:02→21:20)
[2019-07-29] MEDS: METOCLOPRAMIDE 10 MG/2 ML INJ IV ×2 (15:38→21:31)
[2019-07-29] MEDS: MORPHINE 2 MG/ML INJ IV ×2 (15:38→21:31)
[2019-07-29] MEDS: OXYCODONE/ACETAMINOPHEN 5/325 TABLET 1 TAB PO (18:22)
[2019-07-29] MEDS: GABAPENTIN 300 MG CAPSULE PO (20:03)
[2019-07-29] MEDS: ACETAMINOPHEN 325 MG TABLET 650 MG PO (23:55)
[2019-07-30] VITALS (13 sets, daily range): BP systolic 108–148; BP diastolic 60–80; PULSE 90–112; RESP 16–18; TEMP 36.2–38.1; O2SAT 90–96
[2019-07-30] MEDS: MORPHINE 2 MG/ML INJ IV ×3 (01:13→12:08)
[2019-07-30] MEDS: ONDANSETRON 4 MG/2 ML INJ IV ×5 (03:33→21:12)
[2019-07-30] MEDS: METOCLOPRAMIDE 10 MG/2 ML INJ IV ×3 (05:03→21:12)
[2019-07-30] MEDS: LACTATED RINGERS 1,000 ML 125 ML IV ×2 (05:05→12:04)
[2019-07-30 06:12] LABS: Add Manual Diff / Slide Review NO; Basophils Absolute Auto 0 /uL (0-100); Basophils Percent Auto 0.1 % (0-2); Eosinophils Absolute Auto 0 /uL (0-450); Hemoglobin 10.8 g/dL (12.0-16.0); Lymphocytes Absolute Auto 200 /uL (1100-4500); Lymphocytes Percent Auto 2.3 % (25-40); Mean Corpuscular HGB Conc 34.8 % (30-36); Mean Corpuscular Hemoglobin 30.1 PG (26-34); Mean Corpuscular Volume 86.7 fL (80-100); Monocytes Absolute Auto 900 /uL (0-900); Neutrophils Absolute Auto 9300 /uL (1500-7000); Neutrophils Percent Auto 88.6 % (50-75); Platelet Count 182 X10^3/uL (150-400); Red Blood Cell Count 3.57 X10^6/uL (4.0-5.2); Red Cell Distribution Width 12.8 % (11.6-14.8); White Blood Cell Count 10.5 X10^3/uL (4.5-11.0)
[2019-07-30 06:22] LABS: Alanine Aminotransferase 17 IU/L (<35); Albumin 3.8 g/dL (3.5-5.0); Albumin Globulin Ratio 1.8 (1.0-2.8); Alkaline Phosphatase 57 U/L (38-126); Aspartate Aminotransferase 28 IU/L (14-36); BUN Creatinine Ratio 28.8 (6-22); Bilirubin Total 0.9 mg/dL (0.2-1.3); Blood Urea Nitrogen 23 mg/dL (7-17); Calcium 8.8 mg/dL (8.4-10.2); Carbon Dioxide 29 mmol/L (22-32); Chloride 103 mmol/L (98-107); Estimated Glomerular Filt Rate > 60.0 mL/min (>60); Globulin 2.1 g/dL (1.7-4.1); Glucose 153 mg/dL (80-110); HEMOLYSIS < 15 (0-50); Potassium 4.1 mmol/L (3.4-5.1); Sodium 138 mmol/L (137-145); Total Protein 5.9 g/dL (6.3-8.2)
--- NOTE | 2019-07-30 08:00 | PC.NURSE ---
Dr. Vazquez called at 0400. Pt having persistant brown, gelatinous expectorant, size 1inch round every 5-15mins. No blood noted. Pt states this is coming from her stomach and not lungs. No respiratory distress noted. Dr. Vazquez stated NG not needed at this time due to reanastomis. OK for reglan to be given early. VS stable. Provider made aware of low UOP via little 225cc. Abdomen firm, tender on POD 1. Pt informed of conversation with provider. Monitoring for change in expectoration, increased/uncontrolled pain. Pt had no further questions or repoerts of unmet needs.
[2019-07-30] MEDS: GABAPENTIN 300 MG CAPSULE PO (08:14)
[2019-07-30] MEDS: PANTOPRAZOLE 40 MG VIAL IV ×2 (08:14→21:12)
[2019-07-30] MEDS: ENOXAPARIN 40 MG/0.4 ML SYRINGE SUBCUT (08:14)
--- NOTE | 2019-07-30 08:22 | P.PN_ITS ---
Subjective Subjective Date Patient Seen: 07/30/19 Time Patient Seen: 07:30 Interval history: Patient is quite upset and sad that her surgery yesterday showed cancer. She is eager to know the next steps and wants to make sure that her oncologist, Dr. Johnston, is aware. She has had some nausea and vomiting this morning but pain is well controlled. She has not been able to sleep very well in the hospital. Not yet passing flatus. Exam Vital Signs (past 8 hours): - 07/30/19 04:16 Temperature 98.3 F Pulse Rate 90 Respiratory Rate 18 Blood Pressure 108/60 Pulse Oximetry 93 Oxygen Delivery Method Nasal Cannula Oxygen Flow Rate 1 Narrative Exam Narrative: General: Awake and alert, no acute distress. Small amount of emesis during the visit. HEENT: NCAT, EOMI, moist oral mucosa CV: Regular rate and rhythm, no murmurs, rubs or gallops Lungs: CTAB anteriorly, no wheezes, rales, or rhonchi Abdomen: Abdominal binder in place, did not remove Extremities: SCDs in place. Warm, no edema, 2+ pedal pulses bilaterally Objective Labs Result Diagrams: 07/30/19 06:00 07/30/19 06:00 Labs: Laboratory Results - last 24 hr 07/30/19 07/30/19 06:00 06:00 WBC 10.5 RBC 3.57 L Hgb 10.8 L Hct 31.0 L MCV 86.7 MCH 30.1 MCHC 34.8 RDW 12.8 Plt Count 182 Neut % (Auto) 88.6 H Lymph % (Auto) 2.3 L [place] % (Auto) 9.0 Eos % (Auto) 0.0 L Baso % (Auto) 0.1 Neut # (Auto) 9300 H Lymph # (Auto) 200 L [place] # (Auto) 900 Eos # (Auto) 0 Baso # (Auto) 0 Sodium 138 Potassium 4.1 Chloride 103 Carbon Dioxide 29 BUN 23 H Creatinine 0.80 Estimated GFR > 60.0 BUN/Creatinine Ratio 28.8 H Glucose 153 H Calcium 8.8 Total Bilirubin 0.9 AST 28 ALT 17 Alkaline Phosphatase 57 Total Protein 5.9 L Albumin 3.8 Globulin 2.1 Albumin/Globulin Ratio 1.8 Assessment & Plan Assessment and plan (1) Partial bowel obstruction: Current visit: Yes Status: Acute (2) Gastric wall thickening: Current visit: Yes Status: Acute (3) Small bowel tumor: Current visit: Yes Status: Acute (4) Essential hypertension: Current visit: No Status: Chronic (5) Hyperlipidemia: Current visit: No Status: Chronic Assessment & Plan narrative: 73-year-old female with history of 2 separate breast cancers, hypertension, hyperlipidemia admitted with her third small-bowel obstruction since February. Postop day 1 after exploratory laparotomy yesterday which revealed a small bowel tumor as well as gastric wall thickening, both of which were biopsied. Postop day 1 after exploratory laparotomy for small-bowel obstruction, found tumor on small bowel and gastric wall thickening, biopsies pending - Appreciate consultation and management with General Surgery, awaiting biopsy results - Spoke with patient's oncologist, Dr. Johnston, in [place]. He appreciates the information and will see her when she has recovered from surgery for further workup. Will send him the pathology results once we have them. Hypertension - Holding blood pressure medications, restart if needed. Hyperlipidemia - Rosuvastatin Anxiety - Citalopram DVT prophylaxis: SCDs Code status: Full code Disposition: I expect patient to remain in the hospital several more days recovering from abdominal surgery and awaiting return of bowel function as well as biopsy results. Quality VTE Deep Vein Thrombosis/Pulmonary Embolism Present on Admission: No
[2019-07-30] MEDS: LORazepam 0.5 MG TABLET PO (09:32)
[2019-07-30 11:36] LABS: Lipase 3817 U/L (23-300)
[2019-07-30] MEDS: LIDOCAINE JELLY 2% 5 ML 1 APPLIC TOP (12:55)
--- NOTE | 2019-07-30 13:00 | P.PN_ITS ---
Subjective Subjective Date Patient Seen: 07/30/19 Time Patient Seen: 13:01 Interval history: Several episodes of bilious emesis overnight. No flatus. Feels bloated. Pain adequately controlled. Exam Vital Signs (past 8 hours): - 07/30/19 08:00 07/30/19 08:26 07/30/19 12:00 Temperature 97.8 F 99.5 F Pulse Rate 95 H 96 H Respiratory Rate 18 17 Blood Pressure 136/77 132/71 Pulse Oximetry 95 95 90 L Oxygen Delivery Method Room Air,Nasal Cannula Oxygen Flow Rate 1 Narrative Exam Narrative: * General Adult female alert oriented no acute distress * Abdomen Compressible. Dressings with minimal amount of strike through. Distended. Appropriately tender to palpation * Extremities warm well perfused Objective Labs Result Diagrams: 07/30/19 06:00 07/30/19 06:00 Labs: Laboratory Results - last 24 hr 07/30/19 07/30/19 07/30/19 06:00 06:00 06:00 WBC 10.5 RBC 3.57 L Hgb 10.8 L Hct 31.0 L MCV 86.7 MCH 30.1 MCHC 34.8 RDW 12.8 Plt Count 182 Neut % (Auto) 88.6 H Lymph % (Auto) 2.3 L [place] % (Auto) 9.0 Eos % (Auto) 0.0 L Baso % (Auto) 0.1 Neut # (Auto) 9300 H Lymph # (Auto) 200 L [place] # (Auto) 900 Eos # (Auto) 0 Baso # (Auto) 0 Sodium 138 Potassium 4.1 Chloride 103 Carbon Dioxide 29 BUN 23 H Creatinine 0.80 Estimated GFR > 60.0 BUN/Creatinine Ratio 28.8 H Glucose 153 H Calcium 8.8 Total Bilirubin 0.9 AST 28 ALT 17 Alkaline Phosphatase 57 Total Protein 5.9 L Albumin 3.8 Globulin 2.1 Albumin/Globulin Ratio 1.8 Lipase 3817 H D Assessment & Plan Post-op Postoperative Procedures: Procedures Operation Date: 07/29/19 11:30 Actual Procedures Side Surgeon p Exploratory Laparotomy GEN Small Bowel Resection Kaleb Vazquez MD Postoperative status narrative: 73-year-old female postoperative day 1 status post exploratory laparotomy small-bowel resection for small-bowel obstruction. # postoperative ileus-place nasogastric tube to intermittent low wall suction. NPO IV fluids. Await return of bowel function. Out of bed, ambulate. # VTE prophylaxis-continue prophylactic Lovenox and SCDs. # acute pain continue morphine and okay for p.o. meds per NG tube Quality VTE Deep Vein Thrombosis/Pulmonary Embolism Present on Admission: No
[2019-07-30] MEDS: LORazepam 2 MG/ML INJ 0.5 MG IV (13:28)
--- NOTE | 2019-07-30 14:31 | DI.RAD.S_ITS ---
PROCEDURE: XR CHEST 1V INDICATIONS: Assess NG tube placement TECHNIQUE: One view of the chest was acquired. COMPARISON: [facility], CT, CT ABDOMEN PELVIS W CON, 07/29/2019, 2:18. [facility], CR, XR CHEST 2V, 12/29/2018, 11:41. FINDINGS: Surgical changes and devices: Port-A-Cath from right sided approach extends into the distal SVC and possibly into the right atrium. Esophago-gastric tube tip extends to the gastric cardia/body junction.. Lungs and pleura: Lungs are abnormal with alveolar consolidation just above the left hemidiaphragm, a new finding from prior plain film and CT scanning 07/29/19. No pleural effusions or pneumothorax. Mediastinum: Mediastinal contours appear normal. Heart size is normal. Bones and chest wall: No suspicious bony lesions. Overlying soft tissues appear unremarkable. IMPRESSION: Port-A-Cath appears to extend into the upper right atrium. Esophagogastric tube extends below the gastric cardia. Suspect atelectasis or aspiration at the retrocardiac left lung base. Dictated by: Jaime Masters M.D. on 07/30/2019 at 15:26 Approved by: Jaime Masters M.D. on 07/30/2019 at 15:29
[2019-07-31] VITALS (10 sets, daily range): BP systolic 119–150; BP diastolic 62–94; PULSE 94–108; RESP 16–20; TEMP 36.7–38.7; O2SAT 88–98
[2019-07-31] MEDS: LORazepam 2 MG/ML INJ 0.5 MG IV (00:06)
[2019-07-31] MEDS: ONDANSETRON 4 MG/2 ML INJ IV ×6 (00:54→21:31)
[2019-07-31] MEDS: LACTATED RINGERS 1,000 ML 125 ML IV ×3 (02:31→19:32)
[2019-07-31] MEDS: METOCLOPRAMIDE 10 MG/2 ML INJ IV ×3 (05:28→21:31)
[2019-07-31 06:46] LABS: Add Manual Diff / Slide Review NO; Basophils Absolute Auto 0 /uL (0-100); Basophils Percent Auto 0.1 % (0-2); Eosinophils Absolute Auto 0 /uL (0-450); Eosinophils Percent Auto 0.1 % (2-4); Hematocrit 27.1 % (36-46); Hemoglobin 9.3 g/dL (12.0-16.0); Lymphocytes Absolute Auto 400 /uL (1100-4500); Lymphocytes Percent Auto 6.4 % (25-40); Mean Corpuscular HGB Conc 34.2 % (30-36); Mean Corpuscular Volume 87.6 fL (80-100); Monocytes Absolute Auto 600 /uL (0-900); Monocytes Percent Auto 9.7 % (3-14); Neutrophils Absolute Auto 5500 /uL (1500-7000); Neutrophils Percent Auto 83.7 % (50-75); Platelet Count 147 X10^3/uL (150-400); Red Blood Cell Count 3.09 X10^6/uL (4.0-5.2); Red Cell Distribution Width 12.8 % (11.6-14.8); White Blood Cell Count 6.5 X10^3/uL (4.5-11.0)
[2019-07-31 06:54] LABS: BUN Creatinine Ratio 26.3 (6-22); Blood Urea Nitrogen 21 mg/dL (7-17); Calcium 8.8 mg/dL (8.4-10.2); Carbon Dioxide 30 mmol/L (22-32); Chloride 102 mmol/L (98-107); Estimated Glomerular Filt Rate > 60.0 mL/min (>60); Glucose 111 mg/dL (80-110); HEMOLYSIS < 15 (0-50); Lipase 286 U/L (23-300); Sodium 136 mmol/L (137-145)
[2019-07-31] MEDS: ENOXAPARIN 40 MG/0.4 ML SYRINGE SUBCUT (08:22)
[2019-07-31] MEDS: PANTOPRAZOLE 40 MG VIAL IV ×2 (08:22→21:30)
--- NOTE | 2019-07-31 08:31 | PM.PN.1 ---
Subjective Subjective Date Patient Seen: 07/31/19 Time Patient Seen: 07:40 Interval history: Patient is doing ok today. She has used lorazepam for sleep and it has helped. Pain is 2/10. Not yet passing flatus. Bothered by NG tube and wondering how long she will need it. Would like to try to eat soon and wants to get out of bed. Exam Vital Signs (past 8 hours): - 07/31/19 06:00 Temperature 98.2 F Pulse Rate 108 H Respiratory Rate 16 Blood Pressure 130/74 Pulse Oximetry 96 Oxygen Delivery Method Room Air Oxygen Flow Rate 1 Narrative Exam Narrative: Gen: Awake and alert, no acute distress. HEENT: NG tube in place and draining. Dry lips. CV: Regular rate and rhythm, no murmurs, rubs or gallops Lungs: CTAB anteriorly, no wheezes, rales, or rhonchi Abdomen: Abdominal dressing intact with minimal drainage. Bowel tones absent. Extremities: SCDs in place. Warm, no edema, 2+ pedal pulses bilaterally. Objective Labs Result Diagrams: 07/31/19 06:30 07/31/19 06:30 Labs: Laboratory Results - last 24 hr 07/30/19 07/31/19 07/31/19 06:00 06:30 06:30 WBC 6.5 RBC 3.09 L Hgb 9.3 L Hct 27.1 L MCV 87.6 MCH 30.0 MCHC 34.2 RDW 12.8 Plt Count 147 L Neut % (Auto) 83.7 H Lymph % (Auto) 6.4 L [place] % (Auto) 9.7 Eos % (Auto) 0.1 L Baso % (Auto) 0.1 Neut # (Auto) 5500 Lymph # (Auto) 400 L [place] # (Auto) 600 Eos # (Auto) 0 Baso # (Auto) 0 Sodium Potassium Chloride Carbon Dioxide BUN Creatinine Estimated GFR BUN/Creatinine Ratio Glucose Calcium Lipase 3817 H D 286 D 07/31/19 06:30 WBC RBC Hgb Hct MCV MCH MCHC RDW Plt Count Neut % (Auto) Lymph % (Auto) [place] % (Auto) Eos % (Auto) Baso % (Auto) Neut # (Auto) Lymph # (Auto) [place] # (Auto) Eos # (Auto) Baso # (Auto) Sodium 136 L Potassium 4.0 Chloride 102 Carbon Dioxide 30 BUN 21 H Creatinine 0.80 Estimated GFR > 60.0 BUN/Creatinine Ratio 26.3 H Glucose 111 H Calcium 8.8 Lipase Assessment & Plan Assessment and plan (1) Partial bowel obstruction: Current visit: Yes Status: Acute (2) Gastric wall thickening: Current visit: Yes Status: Acute (3) Small bowel tumor: Current visit: Yes Status: Acute (4) Essential hypertension: Current visit: No Status: Chronic (5) Hyperlipidemia: Current visit: No Status: Chronic Assessment & Plan narrative: 73-year-old female with history of 2 separate breast cancers, hypertension, hyperlipidemia admitted with her third small-bowel obstruction since February. Postop day 2 after exploratory laparotomy which revealed a small bowel tumor as well as gastric wall thickening, both of which were biopsied. Postop day 2 after exploratory laparotomy and small bowel resection for small-bowel obstruction, found tumor on small bowel and gastric wall thickening, biopsies pending - Appreciate post-op management with surgery, awaiting return of bowel function Hypertension - Holding blood pressure medications, restart if needed Hyperlipidemia - Rosuvastatin Anxiety - Citalopram DVT prophylaxis: SCDs, lovenox Code status: Full code Disposition: Pending return of bowel function, will be here several more days I suspect. Quality VTE Deep Vein Thrombosis/Pulmonary Embolism Present on Admission: No
--- NOTE | 2019-07-31 09:10 | P.PN_ITS ---
Subjective Subjective Date Patient Seen: 07/31/19 Time Patient Seen: 09:10 Interval history: Nasogastric tube placed with bilious output. No flatus no acute overnight events. abdominal pain controlled with current medications Exam Vital Signs (past 8 hours): - 07/31/19 06:00 07/31/19 08:00 Temperature 98.2 F 98.1 F Pulse Rate 108 H 107 H Respiratory Rate 16 16 Blood Pressure 130/74 150/94 H Pulse Oximetry 96 92 Oxygen Delivery Method Room Air Oxygen Flow Rate 0 Narrative Exam Narrative: General adult female alert oriented no acute distress Abdomen soft incision dressing removed clean dry intact manuel no drainage or erythema. Appropriately tender to palpation. Mildly distended. Objective Labs Result Diagrams: 07/31/19 06:30 07/31/19 06:30 Labs: Laboratory Results - last 24 hr 07/30/19 07/31/19 07/31/19 06:00 06:30 06:30 WBC 6.5 RBC 3.09 L Hgb 9.3 L Hct 27.1 L MCV 87.6 MCH 30.0 MCHC 34.2 RDW 12.8 Plt Count 147 L Neut % (Auto) 83.7 H Lymph % (Auto) 6.4 L [place] % (Auto) 9.7 Eos % (Auto) 0.1 L Baso % (Auto) 0.1 Neut # (Auto) 5500 Lymph # (Auto) 400 L [place] # (Auto) 600 Eos # (Auto) 0 Baso # (Auto) 0 Sodium Potassium Chloride Carbon Dioxide BUN Creatinine Estimated GFR BUN/Creatinine Ratio Glucose Calcium Lipase 3817 H D 286 D 07/31/19 06:30 WBC RBC Hgb Hct MCV MCH MCHC RDW Plt Count Neut % (Auto) Lymph % (Auto) [place] % (Auto) Eos % (Auto) Baso % (Auto) Neut # (Auto) Lymph # (Auto) [place] # (Auto) Eos # (Auto) Baso # (Auto) Sodium 136 L Potassium 4.0 Chloride 102 Carbon Dioxide 30 BUN 21 H Creatinine 0.80 Estimated GFR > 60.0 BUN/Creatinine Ratio 26.3 H Glucose 111 H Calcium 8.8 Lipase Assessment & Plan Post-op Postoperative Procedures: Procedures Operation Date: 07/29/19 11:30 Actual Procedures Side Surgeon p Exploratory Laparotomy GEN Small Bowel Resection Kaleb Vazquez MD Postoperative status narrative: 73-year-old female postoperative day 2 status post ex lap small-bowel resection for small-bowel obstruction. Recovering from the operation appropriately. Postoperative ileus-nasogastric tube with bilious output no flatus mildly distended. Continue NG tube to intermittent wall suction. NPO okay for ice chips, chewing gum. Ambulation, physical therapy consult placed. Continue Protonix -VTE prophylaxis-continue SCDs and Lovenox -DC Yanes catheter Time Spent With Patient Time with patient: 15-24 minutes Quality VTE Deep Vein Thrombosis/Pulmonary Embolism Present on Admission: No
--- NOTE | 2019-07-31 10:01 | PT.IIE ---
Current Diagnoses Neoplasm of unspecified behavior of digestive system (07/29/19) Hyperlipidemia, unspecified (07/29/19) Essential (primary) hypertension (07/29/19) Other diseases of stomach and duodenum (07/29/19) Partial intestinal obstruction, unspecified as to cause (07/29/19) Surgery Performed Operation Date: 07/29/19 11:30 Actual Procedures p Exploratory Laparotomy GEN Small Bowel Resection - Kaleb Vazquez MD Surgical History (Last Reviewed 07/29/19 @ 00:54 by Linda Hobbs DO) Anesthesia (Resolved) History of eye surgery (Inactive ~1950) History of toe surgery (Inactive 1994) History of tonsillectomy (Inactive ~1961) Status post delivery (Inactive 01/01/83) Status post partial mastectomy (Inactive 11/05/13) Status post partial mastectomy (Inactive 09/07/90) Medical History (Last Reviewed 07/29/19 @ 00:54 by Linda Hobbs DO) Breast cancer (Resolved 1990) Cataract (Chronic 2016) Chicken pox (Resolved ~1949) Diverticulitis (Resolved 2014) Essential hypertension (Chronic 05/10/17) Gout (Inactive) Hayfever (Chronic) History of heavy periods (Resolved) Hyperlipidemia (Chronic 05/10/17) IBS (irritable bowel syndrome) (Chronic) Lymphedema (Chronic 05/10/17) Malignant neoplasm of breast (Inactive 09/13/17) Measles (Resolved ~1950) Morbid obesity (Chronic 09/13/17) Mumps (Resolved 1960) Neutropenia (Resolved 2013) Osteopenia (Chronic) Primary osteoarthritis of both knees (Chronic 09/13/17) Rosacea (Resolved) Shoulder pain (Chronic 2014) Skin cancer (Resolved 02/2017) Thyroid nodule (Resolved 2013) Tinnitus (Chronic) Physical Therapy Inpatient Evaluation/Re-Eval M1 PT/OT-IP Prior Functional Status Start: 07/31/19 12:35 Freq: NEEDED Status: Active Protocol: Document 07/31/19 10:01 AB (Rec: 07/31/19 12:49 AB [id number]) Medical Review Prior Functional Status Medical History Reviewed Yes Communication able to make needs known Mobility and Gait pt stated that she is independent with all mobilities and ambulation without AD Social History Household Members spouse Living Arrangements House Number of Floors (Floors) One Floor Number of Stairs To Enter/Railing? no steps to enter Home Environment Standard Height Toilet,Walk in Shower Home Equipment Hand Held Shower Additional Social History Comment pt stated that she has a high bed and has to step up a stool to get into the bed. M2 PT-IP Current Condition Start: 07/31/19 12:35 Freq: NEEDED Status: Active Protocol: Document 07/31/19 10:01 AB (Rec: 07/31/19 12:49 AB [id number]) Physical Therapy Current Condition Current Condition Evaluation Date 07/31/19 Treatment Diagnosis SBO s/p ex-lap; generalized weakness Onset Date 07/29/19 Precautions Abdominal Surgery Precautions Log Roll,Lifting Restrictions, Gait Belt above Incisional Area Other Precautions NG tube, O2 sat M3 PT-IP Subjective Start: 07/31/19 12:35 Freq: NEEDED Status: Active Protocol: Document 07/31/19 10:01 AB (Rec: 07/31/19 12:49 AB [id number]) Subjective Physical Therapy Visit Type Type Initial Evaluation Visit Start Time 10:01 Visit Stop Time 10:32 Total Visit Minutes 31 Number of MAINTENANCE WORKER Visits 0 Physical Therapy Visit Comments Patient Comments pt agreeable to do PT Therapy Pain Assessment Pain When Pain Assessed At Rest Pain Present Pain Present Pain Reported Location Abdomen Intensity 3 Scale Used Numeric (1 - 10) Pain Management Techniques Re-positioning,Timing of Activity with Medications M4 PT-IP Mobility and Gait Start: 07/31/19 12:35 Freq: NEEDED Status: Active Protocol: Document 07/31/19 10:01 AB (Rec: 07/31/19 12:49 AB [id number]) PT-Bed Mobility Assessment Supine to Sit Supine to Sit Maximum Assistance,1 Person Assistance Sit to Supine Sit to Supine Maximum Assistance,1 Person Assistance PT-Transfer Assessment Sit to and From Stand Sit to and from Stand Minimal Assistance,1 Person Assistance,Use of Upper Extremities Equipment Transfer Assistive Device Gait Belt,Front Wheeled Walker Orthotic/Prosthetic Devices or Brace: No Transfers Transfer Destination Bed,Chair Transfer Technique Stand Step Pivot Transfer Ability Level of Assist Minimal Assistance,1 Person Assistance,Use of Upper Extremities Comments Mobility Comments pt completed sit to stand from chair min A and cues and ambulated using FWW min A ~ 20 ft. completed bed mobility supine <>sit max A and cues. completed stand step transfer to chair using FWW min A and cues. Gait Assessment Gait Gait Assistance Required: Minimum Assistance Distance (Feet) 20 Able to Maintain Weight Bearing Status Yes During Gait Assistive Devices Assistive Device Gait Belt,Front Wheeled Walker Orthotic/Prosthetic Devices or Brace: No Gait Deviations General Gait Pattern Decreased Stride Length, Decreased Feet Clearance,Wide Based Gait Factors Limiting Gait Function Factors Limiting Gait Function Decreased Activity Tolerance, Decreased Strength,Limited Range of Motion,Pain,Poor Balance,Poor Safety Awareness Comments Gait Comments pt presents with decrease LE elevation during ambulation PT-Balance Assessment Sitting Balance and Reactions Static Sitting Balance Ability Good Dynamic Sitting Balance Ability Good Standing Balance and Reactions Static Standing Balance Ability Fair Dynamic Standing Balance Ability Fair Device Used FWW M5 PT-IP Objective Assessments Start: 07/31/19 12:35 Freq: NEEDED Status: Active Protocol: Document 07/31/19 10:01 AB (Rec: 07/31/19 12:49 AB [id number]) Orientation Orientation/Cognition Level of Alertness Alert Orientation Name,Place,Situation Language Function Ability No Deficits Noted Gross Range of Motion Lower Extremity ROM Assessment Within Functional Limits Strength Lower Extremity Strength Assessment Within Functional Limits Sensation Assessment Sensation Gross Sensation WNL Muscle Tone Muscle Tone WNL Yes M6 PT-IP Treatment Start: 07/31/19 12:35 Freq: NEEDED Status: Active Protocol: Document 07/31/19 10:01 AB (Rec: 07/31/19 12:49 AB [id number]) Physical Therapy Treatment Education Education Provided Precautions,Post-Op Packet, Safety M7 PT-IP Assessment and Plan Start: 07/31/19 12:35 Freq: NEEDED Status: Active Protocol: Document 07/31/19 10:01 AB (Rec: 07/31/19 12:49 AB [id number]) PT Summary Assessment and Plan Potential Rehabilitation Potential Good Status of Condition at Evaluation Evolving Summary Impairments Pain,ROM,Strength,Balance, Coordination,Sensation,Tone, Cognition,Bed Mobility, Transfers,Gait,Activity Tolerance Assessment Summary pt requires max A with bed mobility and min A for transfers and ambulation using FWW. pt unable to tolerate much activity and c/o feeling weak. d/c plan depending on progress and if spouse will be able to safely assist pt at home. pt may require SNF rehab at this time for strengthening and increase mobility independence prior to d/c home. Goals Bed Mobility Goal Standby Assistance Transfer Goal Standby Assistance,Front Wheeled Walker Gait Goal Standby Assistance,Front Wheel Walker Gait Distance 200 Other Goals improve ambulation without AD/ SPC SBA up to 150 ft Days to Meet Goals 10 Frequency of Treatment Frequency Of Treatment Once a Day Treatment Plan Physical Therapy Treatment Plan Bed Mobility Training,Transfer Training,Gait Training, Therapeutic Exercise,Balance Retraining,Post Op Education, Discharge Planning,Hot or Cold Pack,Neuromuscular Re-ed, Coordination Retraining,Manual Therapy Recommendations To Nursing Amount of Assist Needed 1 Person Assist Discharge Recommendations PT Discharge Recommendations Home with 07/03 Assist,Home Health,SNF Rehab Other Discharge Recommendations depending on progress: SNF vs home with 24/7/ homehealth Equipment Needed for Home Before FWW if not safe without AD/ Discharge SPC
--- NOTE | 2019-07-31 11:40 | PC.NURSE ---
AM NOTE - drowsy, awakens easily for vitals, pt states she would like to get oob this am, ng with dark brown sediment in tubing, lis, bt are hypo, no flatus yet, abd binder was adjusted prior to mobilizing pt, w/assist by RN and FLAT DRIER, pt slowly positioned dangle, denied dizziness, general feeling weakness, able to stand w/ assist fww and slowly tsf to chair, given 2mg iv morphine for discomfort, RA trial 90-92% when awake, desat to 89-90% when drowsy, discomfort w/deep breathing, did enc pt use IS and demonstrated use to 500, replaced NC 1L and sat maintained 94%, bs clear, hr tachy 106, per Dr. Morocho ice chips and gum ok, later am, phys therapy in, pt stood from chair, steps in room, did have an onset nausea, reflux, ng tubing placed to improve drainage, discussed ellen little and plan after pt recovers from mobilizing.
--- NOTE | 2019-07-31 14:11 | CM.DPC ---
DCP Cont: Met with patient and , Agustín. Introduced self and role. Patient had small bowel surgery Tuesday, and has NG tube. She was up in chair, alert and oriented. She is working with P.T. as well. Discussed discharge planning, and some options. Mentioned home health option, which patient and stated, might be a good idea. P: DCP will continue to follow closely. Will need to be able to have bowel function, and tolerate food before discharge. Collaborate with P.T. team as well. Leola Desir RN/[employer]
[2019-07-31] MEDS: ACETAMINOPHEN 325 MG TABLET 650 MG PO (16:47)
--- NOTE | 2019-07-31 16:54 | PC.NURSE ---
Addendum entered by Pavan Mancia R.N. 07/31/19 18:37: UPDATED ABOUT PATIENTS TEMP.TMAX 101.6 NOW 100.3,NO NEW ORDERS Original Note: PATIENTS TEMP UP 101.6, SEVERAL WARM BLANKETS IN PLACE AND ROOM TERM.TURNED UP HIGH,THIS WAS DECREASED AND TYLENOL GIVEN.DENIES NAUSEA,MUCH MORE AWAKE TODAY.NG TO LIS, WITH DARK BROWN OUTPUT MINIMAL
[2019-08-01] VITALS (12 sets, daily range): BP systolic 94–148; BP diastolic 52–73; PULSE 87–99; RESP 16–18; TEMP 36.3–37.1; O2SAT 91–97
[2019-08-01] MEDS: ONDANSETRON 4 MG/2 ML INJ IV ×6 (01:19→21:07)
[2019-08-01] MEDS: LORazepam 2 MG/ML INJ 0.5 MG IV ×2 (01:44→22:31)
--- NOTE | 2019-08-01 02:14 | PC.NURSE ---
Addendum entered by Beatriz Mae R.N. 08/01/19 05:50: Up to [facility] and was able to urinate 300cc clear, dark yellow urine. States abdominal pain is currently 2/10 but declines offer of Tylenol at this time. Addendum entered by Beatriz Mae R.N. 08/01/19 04:51: Earlier up to BSC and only able to void 20cc. Now up to BSC and unable to void. Bladder scan shows 268cc and denies bladder tenderness at this time so will continue to monitor. Original Note: Patient is alert and oriented. Breath sounds diminished but CTA with sat of 97% on oxygen at 1L/min per NC; tried to remove oxygen but when asleep patient desats below 90% so oxygen replaced. HRR; BP elevated at 148/64. Denies nausea. NG patent to LIS. BT present but has not yet passed flatus. Abdominal incision is PADMINI; manuel are intact, incision is well approximated and there is no redness or drainage. Wearing an abdominal binder. Catheter removed yesterday; patient denies dysuria, frequency or urgency. Able to move self in bed but due to weakness uses walker and 1 assist when out of bed. Denies pain. Wearing bilateral calf SCD's. Fall risk score is high and bed alarm is activated. Medicated with Ativan for anxiety/sleep.
[2019-08-01] MEDS: LACTATED RINGERS 1,000 ML 125 ML IV ×3 (03:51→21:06)
[2019-08-01] MEDS: METOCLOPRAMIDE 10 MG/2 ML INJ IV ×3 (05:19→21:07)
[2019-08-01 05:59] LABS: Add Manual Diff / Slide Review NO; Basophils Absolute Auto 0 /uL (0-100); Basophils Percent Auto 0.3 % (0-2); Eosinophils Absolute Auto 100 /uL (0-450); Eosinophils Percent Auto 1.6 % (2-4); Hematocrit 24.3 % (36-46); Hemoglobin 8.2 g/dL (12.0-16.0); Lymphocytes Absolute Auto 400 /uL (1100-4500); Lymphocytes Percent Auto 8.5 % (25-40); Mean Corpuscular Hemoglobin 29.8 PG (26-34); Mean Corpuscular Volume 87.5 fL (80-100); Monocytes Absolute Auto 400 /uL (0-900); Neutrophils Absolute Auto 3500 /uL (1500-7000); Neutrophils Percent Auto 80.6 % (50-75); Platelet Count 126 X10^3/uL (150-400); Red Blood Cell Count 2.77 X10^6/uL (4.0-5.2); Red Cell Distribution Width 12.5 % (11.6-14.8); White Blood Cell Count 4.3 X10^3/uL (4.5-11.0)
[2019-08-01 06:10] LABS: BUN Creatinine Ratio 22.5 (6-22); Blood Urea Nitrogen 18 mg/dL (7-17); Calcium 8.5 mg/dL (8.4-10.2); Carbon Dioxide 30 mmol/L (22-32); Chloride 101 mmol/L (98-107); Estimated Glomerular Filt Rate > 60.0 mL/min (>60); Glucose 91 mg/dL (80-110); HEMOLYSIS < 15 (0-50); Potassium 3.8 mmol/L (3.4-5.1); Sodium 136 mmol/L (137-145)
--- NOTE | 2019-08-01 08:44 | P.PN_ITS ---
Subjective Subjective Date Patient Seen: 08/01/19 Time Patient Seen: 08:10 Interval history: Patient had a fever yesterday that improved with Tylenol and has not returned. Rates abdominal pain as 3/10. Denies cough or SOB. Aware of incentive spirometer but can't always reach it. She has edema in her arms and hands and is requesting to use her compression sleeves from home. Not yet passing flatus. Was up yesterday to the chair and has been getting up to void. Exam Vital Signs (past 8 hours): - 08/01/19 01:34 08/01/19 01:51 08/01/19 05:38 Temperature 97.4 F L 97.6 F Pulse Rate 95 H 92 H Respiratory Rate 18 16 Blood Pressure 148/64 H 128/73 Pulse Oximetry 97 97 94 08/01/19 06:52 Temperature Pulse Rate Respiratory Rate Blood Pressure Pulse Oximetry 94 Oxygen Delivery Method Nasal Cannula Oxygen Flow Rate 1 Narrative Exam Narrative: Gen: Awake and alert, more talkative today. HEENT: NG tube in place with dark drainage. CV: Regular rate and rhythm, no murmurs, rubs or gallops Lungs: CTAB, no wheezes, rales, or rhonchi Abdomen: Abdominal incision without erythema or drainage. Few bowel tones but present. Extremities: SCDs in place. Warm, no edema, 2+ pedal pulses bilaterally. Objective Labs Result Diagrams: 08/01/19 05:23 08/01/19 05:23 Labs: Laboratory Results - last 24 hr 08/01/19 08/01/19 05:23 05:23 WBC 4.3 L RBC 2.77 L Hgb 8.2 L Hct 24.3 L MCV 87.5 MCH 29.8 MCHC 34.0 RDW 12.5 Plt Count 126 L Neut % (Auto) 80.6 H Lymph % (Auto) 8.5 L [place] % (Auto) 9.0 Eos % (Auto) 1.6 L Baso % (Auto) 0.3 Neut # (Auto) 3500 Lymph # (Auto) 400 L [place] # (Auto) 400 Eos # (Auto) 100 Baso # (Auto) 0 Sodium 136 L Potassium 3.8 Chloride 101 Carbon Dioxide 30 BUN 18 H Creatinine 0.80 Estimated GFR > 60.0 BUN/Creatinine Ratio 22.5 H Glucose 91 Calcium 8.5 Assessment & Plan Assessment and plan (1) Partial bowel obstruction: Current visit: Yes Status: Acute (2) Gastric wall thickening: Current visit: Yes Status: Acute (3) Small bowel tumor: Current visit: Yes Status: Acute (4) Essential hypertension: Current visit: No Status: Chronic (5) Hyperlipidemia: Current visit: No Status: Chronic Assessment & Plan narrative: 73-year-old female with history of 2 separate breast cancers, hypertension, hyperlipidemia admitted with her third small-bowel obstruction since February. Postop day 3 after exploratory laparotomy with small bowel resection due to tumor and gastric biopsy. Postop care - Appreciate post-op management with surgery, awaiting return of bowel function Anemia - Slowly downtrending, no sign of active bleeding, appears dilutional due to low WBC, Hgb and Plt Hypertension - Holding blood pressure medications, one BP elevated, the rest normal so will wait to restart olmesartan Hyperlipidemia - Rosuvastatin Anxiety - Citalopram - Lorazepam prn DVT prophylaxis: SCDs, lovenox Code status: Full code Disposition: Pending return of bowel function and pathology results, will be here a few more days. Quality VTE Deep Vein Thrombosis/Pulmonary Embolism Present on Admission: No
--- NOTE | 2019-08-01 09:27 | PM.PNPO.1 ---
Subjective Subjective Date Patient Seen: 08/01/19 Time Patient Seen: 09:28 Interval history: Ambulating with assistance. voiding spontaneously. 1 episode of fever to 101 currently afebrile. Exam Vital Signs (past 8 hours): - 08/01/19 01:34 08/01/19 01:51 08/01/19 05:38 Temperature 97.4 F L 97.6 F Pulse Rate 95 H 92 H Respiratory Rate 18 16 Blood Pressure 148/64 H 128/73 Pulse Oximetry 97 97 94 08/01/19 06:52 08/01/19 07:45 Temperature 98.8 F Pulse Rate 99 H Respiratory Rate 18 Blood Pressure 139/70 Pulse Oximetry 94 96 Oxygen Delivery Method Nasal Cannula Oxygen Flow Rate 0 Narrative Exam Narrative: General adult female alert oriented no acute distress Abdomen soft incision clean dry intact mildly distended nasogastric tube with bilious content. Objective Labs Result Diagrams: 08/01/19 05:23 08/01/19 05:23 Labs: Laboratory Results - last 24 hr 08/01/19 08/01/19 05:23 05:23 WBC 4.3 L RBC 2.77 L Hgb 8.2 L Hct 24.3 L MCV 87.5 MCH 29.8 MCHC 34.0 RDW 12.5 Plt Count 126 L Neut % (Auto) 80.6 H Lymph % (Auto) 8.[address] [place] % (Auto) 9.0 Eos % (Auto) 1.6 L Baso % (Auto) 0.3 Neut # (Auto) 3500 Lymph # (Auto) [address] [place] # (Auto) 400 Eos # (Auto) 100 Baso # (Auto) 0 Sodium 136 L Potassium 3.8 Chloride 101 Carbon Dioxide 30 BUN 18 H Creatinine 0.80 Estimated GFR > 60.0 BUN/Creatinine Ratio 22.5 H Glucose 91 Calcium 8.5 Assessment & Plan Post-op Postoperative Procedures: Procedures Operation Date: 07/29/19 11:30 Actual Procedures Side Surgeon p Exploratory Laparotomy GEN Small Bowel Resection Kaleb Vazquez MD Postoperative status narrative: 73-year-old female postoperative day 3 status post exploratory laparotomy small-bowel resection for small-bowel obstruction. Postoperative ileus-continue nasogastric tube to intermittent suction. Ambulation, okay for chewing gum and ice chips await return of bowel function. Quality VTE Deep Vein Thrombosis/Pulmonary Embolism Present on Admission: No
--- NOTE | 2019-08-01 09:42 | PT.IPTN ---
Current Diagnoses Neoplasm of unspecified behavior of digestive system (07/29/19) Hyperlipidemia, unspecified (07/29/19) Essential (primary) hypertension (07/29/19) Other diseases of stomach and duodenum (07/29/19) Partial intestinal obstruction, unspecified as to cause (07/29/19) Surgery Performed Operation Date: 07/29/19 11:30 Actual Procedures p Exploratory Laparotomy GEN Small Bowel Resection - Kaleb Vazquez MD Physical Therapy Treatment Note M2 PT-IP Current Condition Start: 07/31/19 12:35 Freq: NEEDED Status: Active Protocol: Document 07/31/19 10:01 AB (Rec: 07/31/19 12:49 AB [id number]) Physical Therapy Current Condition Current Condition Evaluation Date 07/31/19 Treatment Diagnosis SBO s/p ex-lap; generalized weakness Onset Date 07/29/19 Precautions Abdominal Surgery Precautions Log Roll,Lifting Restrictions, Gait Belt above Incisional Area Other Precautions NG tube, O2 sat M3 PT-IP Subjective Start: 07/31/19 12:35 Freq: NEEDED Status: Active Protocol: Document 08/01/19 08:54 LJ (Rec: 08/01/19 09:42 LJ [id number]) Subjective Physical Therapy Visit Type Type Treatment Note Visit Start Time 08:54 Visit Stop Time 09:16 Total Visit Minutes 22 Physical Therapy Visit Comments Patient Comments pt agreeable to do PT M4 PT-IP Mobility and Gait Start: 07/31/19 12:35 Freq: NEEDED Status: Active Protocol: Document 08/01/19 08:54 LJ (Rec: 08/01/19 09:42 LJ [id number]) PT-Transfer Assessment Sit to and From Stand Sit to and from Stand Contact Guard Assistance,Use of Upper Extremities Equipment Transfer Assistive Device Gait Belt,Front Wheeled Walker Orthotic/Prosthetic Devices or Brace: No Transfers Transfer Destination Chair Transfer Ability Level of Assist Contact Guard Assistance,1 Person Assistance,Use of Upper Extremities Comments Mobility Comments Pt completed sit<>stand from chair with CGA. Gait Assessment Gait Gait Assistance Required: Contact Guard Assist Distance (Feet) 40 Assistive Devices Assistive Device Gait Belt,Front Wheeled Walker Orthotic/Prosthetic Devices or Brace: No Gait Deviations General Gait Pattern Decreased Stride Length, Decreased Feet Clearance,Wide Based Gait Factors Limiting Gait Function Factors Limiting Gait Function Decreased Activity Tolerance, Decreased Strength,Limited Range of Motion,Pain,Poor Balance,Poor Safety Awareness Comments Gait Comments pt presents with decrease LE elevation during ambulation. Cueing for standing upright. M5 PT-IP Objective Assessments Start: 07/31/19 12:35 Freq: NEEDED Status: Active Protocol: Document 07/31/19 10:01 AB (Rec: 07/31/19 12:49 AB [id number]) Orientation Orientation/Cognition Level of Alertness Alert Orientation Name,Place,Situation Language Function Ability No Deficits Noted Gross Range of Motion Lower Extremity ROM Assessment Within Functional Limits Strength Lower Extremity Strength Assessment Within Functional Limits Sensation Assessment Sensation Gross Sensation WNL Muscle Tone Muscle Tone WNL Yes M6 PT-IP Treatment Start: 07/31/19 12:35 Freq: NEEDED Status: Active Protocol: Document 08/01/19 08:54 LJ (Rec: 08/01/19 09:42 LJ [id number]) Physical Therapy Treatment Education Education Provided Safety Other Treatments Other Treatment Performed Discussed equipment she will need if discharging home. M7 PT-IP Assessment and Plan Start: 07/31/19 12:35 Freq: NEEDED Status: Active Protocol: Document 08/01/19 08:54 LJ (Rec: 08/01/19 09:42 LJ [id number]) PT Summary Assessment and Plan Potential Rehabilitation Potential Good Status of Condition at Evaluation Evolving Summary Impairments Pain,ROM,Strength,Balance, Coordination,Sensation,Tone, Cognition,Bed Mobility, Transfers,Gait,Activity Tolerance Assessment Summary Pt requiring CGA for transfering from/to chair and CGA for ambulation in room x 2 laps around room. Pt moving slowly with decreased steps but exercising caution and careful stepping with slow pace. Goals Bed Mobility Goal Standby Assistance Transfer Goal Standby Assistance,Front Wheeled Walker Gait Goal Standby Assistance,Front Wheel Walker Gait Distance 200 Other Goals improve ambulation without AD/ SPC SBA up to 150 ft Days to Meet Goals 10 Frequency of Treatment Frequency Of Treatment Once a Day Treatment Plan Physical Therapy Treatment Plan Bed Mobility Training,Transfer Training,Gait Training, Therapeutic Exercise,Balance Retraining,Post Op Education, Discharge Planning,Hot or Cold Pack,Neuromuscular Re-ed, Coordination Retraining,Manual Therapy Recommendations To Nursing Amount of Assist Needed 1 Person Assist Discharge Recommendations PT Discharge Recommendations Home with 24/7 Assist,Home Health,SNF Rehab Other Discharge Recommendations depending on progress: SNF vs home with 24/7/ homehealth Equipment Needed for Home Before FWW if not safe without AD/ Discharge SPC
[2019-08-01] MEDS: ENOXAPARIN 40 MG/0.4 ML SYRINGE SUBCUT (10:15)
[2019-08-01] MEDS: MORPHINE 2 MG/ML INJ IV ×3 (10:15→22:30)
[2019-08-01] MEDS: PANTOPRAZOLE 40 MG VIAL IV ×2 (10:16→21:07)
[2019-08-01] MEDS: GABAPENTIN 300 MG CAPSULE PO ×2 (10:16→21:07)
[2019-08-01] MEDS: ROSUVASTATIN 10 MG TABLET 5 MG PO (10:16)
--- NOTE | 2019-08-01 12:06 | DIET.PN ---
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 This RD has seen pt inpatient as well as outpatient in the past, OP note attached below this note. Pt is currently NPO except ice chips awaiting return of bowel function and results of biopsies. RD will stand by to give appropriate nutrition information and nourishments when appropriate. HT: 154.9cm WT: 95.4kg BMI: 39.7 Diet Order: NPO except ice chips Monitoring/Evaluations: diet advancement Outpatient Note from April 2019: Assessment: 73y F pt always has had sensitive stomach-spicy foods do irritate, br ca x2. Had Influenza A in November on cruise, then developed GERD, dx c IBS, had SBO. Reports mother likely had digestive issues, didn't eat a lot, and didn't talk openly about health conditions. foods which cause issue: fatty fried foods, not sure of others. Pt has handouts on GERD, IBS, and other dietary patterns but feeling confused on what she can actually eat. Started using almond milk and almond yogurt to reduce dairy intake. Not so sure she can tolerate many beans or large amounts of dairy (milk and ice cream). WT: 210# Usual Intake: 7am wakes up has lemon water (occasionally wakes c D) 8am black tea c sugar, baybel cheese 11am packet oatmeal c craisins, almond milk, brown sugar, sometimes sprinkle of walnuts/almonds, water or more tea 2pm half can chicken noodle or chicken wild rice soup, or fruit, or leftovers Dinner 7pm: WW style meals-fish, chicken, some beef, salad and veg 1030 yogurt, slice toast, fruit if hungry GERD Sx:burping, repetitive burping, fullness and px in breastbone, not necessarily burning, but passes. not so much at night. sometimes spits up but is instantaneous. Feels like prilosec does seem to help. IBS sx: waking c diarrhea in am, some urgency during day, occasional constipation. Pt does use immodium type products and carries change of clothes. Nutrition Diagnosis: Nutrition related knowledge deficit r/t foods which cause GI upset aeb pt has multiple nutrition handouts but feels advice contradicts, pt has diarrhea almost daily, fullness in breastbone even with small meals. Interventions: Discussed foods which tend to aggravate GERD, to only avoid those which actively cause symptoms. Pt will trial tomato soup to see if cooked tomato products cause problems. Discussed moderating fiber consumption at each meal as a high fiber load likely triggers diarrhea. Pt will use fiber handout to learn high fiber foods and use trial and error to see how much she can tolerate at one time. 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 Pt will continue eating yogurt daily (dairy based or other) as probiotic supp. Pt will stick to oatmeal, pb and toast, or hard boiled egg for breakfasts, Protein on salad c light dressing and/or cup of broth based soup for lunch, and focus on lean PRO c veggies for dinner while on vacation next week. Monitoring/Evaluations: Pt will come to f/u after GI appt and endo to further refine reccs. Consider low FODMAP diet if pt has not found considerable relief.
--- NOTE | 2019-08-01 15:35 | CM.DPC ---
DCP continued: EMR reviewed: Dr. Philippe came by and signed a face to face for the patient to get HH services. CM/RN spoke with patient and patients Agustín at the bedside and explained role. CM/Rn gave patient the medicare certified facilities list for HH providers and patient chose [facility] from the list of providers. CM/RN contacted [facility] and faxed clinicals and Face to face for them to review. CM/RN will contact [facility] tomorrow 08/02/2019 to check on referral. Patients asked CM/RN if he could have some caregiver training on helping his with ambulation and using DME. CM/RN will let PT department know. Sofia Harrison RN
--- NOTE | 2019-08-01 15:42 | PC.NURSE ---
Post-op: Pt got up and walked in the hallways. Has active bt's, did pass some flatus this afternoon. NGT patent and has had minimal output. Morphine given and was effective for pain relief. Receives scheduled zofran and reglan and denies any nausea or problems. Also sat in the chair for 1/2 hr. Pt feels she is slowly improving. Cont w/poc.
[2019-08-02] VITALS (10 sets, daily range): BP systolic 103–147; BP diastolic 48–69; PULSE 79–103; RESP 16–18; TEMP 36.3–37; O2SAT 92–97
--- NOTE | 2019-08-02 00:19 | PC.NURSE ---
02 2L NC applied since pt's sats decreased to 88-89% when she dozes off.
[2019-08-02] MEDS: ONDANSETRON 4 MG/2 ML INJ IV ×3 (01:14→09:46)
[2019-08-02] MEDS: LORazepam 2 MG/ML INJ 0.5 MG IV (05:34)
[2019-08-02] MEDS: METOCLOPRAMIDE 10 MG/2 ML INJ IV ×2 (05:34→21:05)
[2019-08-02] MEDS: LACTATED RINGERS 1,000 ML 125 ML IV (05:38)
[2019-08-02 06:21] LABS: BUN Creatinine Ratio 21.4 (6-22); Blood Urea Nitrogen 15 mg/dL (7-17); Calcium 8.2 mg/dL (8.4-10.2); Carbon Dioxide 29 mmol/L (22-32); Chloride 99 mmol/L (98-107); Estimated Glomerular Filt Rate > 60.0 mL/min (>60); Glucose 77 mg/dL (80-110); HEMOLYSIS < 15 (0-50); Potassium 3.7 mmol/L (3.4-5.1); Sodium 134 mmol/L (137-145)
[2019-08-02 06:35] LABS: Add Manual Diff / Slide Review NO; Basophils Absolute Auto 0 /uL (0-100); Basophils Percent Auto 0.4 % (0-2); Eosinophils Absolute Auto 100 /uL (0-450); Eosinophils Percent Auto 4.2 % (2-4); Hemoglobin 7.7 g/dL (12.0-16.0); Lymphocytes Absolute Auto 300 /uL (1100-4500); Lymphocytes Percent Auto 9.3 % (25-40); Mean Corpuscular HGB Conc 34.5 % (30-36); Mean Corpuscular Hemoglobin 29.9 PG (26-34); Mean Corpuscular Volume 86.7 fL (80-100); Monocytes Absolute Auto 300 /uL (0-900); Monocytes Percent Auto 9.7 % (3-14); Neutrophils Absolute Auto 2400 /uL (1500-7000); Neutrophils Percent Auto 76.4 % (50-75); Platelet Count 127 X10^3/uL (150-400); Red Blood Cell Count 2.57 X10^6/uL (4.0-5.2); Red Cell Distribution Width 12.4 % (11.6-14.8); White Blood Cell Count 3.1 X10^3/uL (4.5-11.0)
[2019-08-02 06:51] LABS: Hematocrit 22.3 % (36-46)
[2019-08-02] MEDS: GABAPENTIN 300 MG CAPSULE PO ×2 (09:45→21:05)
[2019-08-02] MEDS: ROSUVASTATIN 10 MG TABLET 5 MG PO (09:45)
[2019-08-02] MEDS: ENOXAPARIN 40 MG/0.4 ML SYRINGE SUBCUT (09:45)
[2019-08-02] MEDS: PANTOPRAZOLE 40 MG VIAL IV ×2 (09:46→21:05)
--- NOTE | 2019-08-02 10:42 | PT.IPTN ---
This is to certify that I have reviewed this documentation and is involved with this pt's care. Current Diagnoses Neoplasm of unspecified behavior of digestive system (07/29/19) Hyperlipidemia, unspecified (07/29/19) Essential (primary) hypertension (07/29/19) Other diseases of stomach and duodenum (07/29/19) Partial intestinal obstruction, unspecified as to cause (07/29/19) Surgery Performed Operation Date: 07/29/19 11:30 Actual Procedures p Exploratory Laparotomy GEN Small Bowel Resection - Kaleb Vazquez MD Physical Therapy Treatment Note M2 PT-IP Current Condition Start: 07/31/19 12:35 Freq: NEEDED Status: Active Protocol: Document 07/31/19 10:01 AB (Rec: 07/31/19 12:49 AB [id number]) Physical Therapy Current Condition Current Condition Evaluation Date 07/31/19 Treatment Diagnosis SBO s/p ex-lap; generalized weakness Onset Date 07/29/19 Precautions Abdominal Surgery Precautions Log Roll,Lifting Restrictions, Gait Belt above Incisional Area Other Precautions NG tube, O2 sat M3 PT-IP Subjective Start: 07/31/19 12:35 Freq: NEEDED Status: Active Protocol: Document 08/02/19 10:42 MT (Rec: 08/02/19 13:48 MT [email or web address]) Subjective Physical Therapy Visit Type Type Treatment Note Visit Start Time 10:42 Visit Stop Time 11:07 Total Visit Minutes 25 Number of APPLIED RESEARCHER Visits 0 Physical Therapy Visit Comments Patient Comments pt agreeable to do PT M4 PT-IP Mobility and Gait Start: 07/31/19 12:35 Freq: NEEDED Status: Active Protocol: Document 08/02/19 10:42 MT (Rec: 08/02/19 13:48 MT [email or web address]) PT-Bed Mobility Assessment Sit to Supine Sit to Supine Contact Guard Assistance,1 Person Assistance Scooting Scooting to Edge of Bed Standby Assistance PT-Transfer Assessment Sit to and From Stand Sit to and from Stand Contact Guard Assistance,1 Person Assistance,Use of Upper Extremities Equipment Transfer Assistive Device Gait Belt,Front Wheeled Walker Orthotic/Prosthetic Devices or Brace: No Transfers Transfer Destination Bed Transfer Technique Stand Step Pivot Transfer Ability Level of Assist Contact Guard Assistance,1 Person Assistance,Use of Upper Extremities Comments Mobility Comments Pt was found on bedside commode at start of treatment. She Performed sit to stand CGA to perform her pericare. Pt was able to maintain her standing balance while performing her pericare, but required some assistance for pericare due/to inability to reach fully. pt performed stand tep pivot to bed CGA using 2WW. BP was assessed for pt in sitting and found to be 139/72 , O2 was 95%, and she had no symptoms of dizziness or lightheadedness. Pt performed sit to stand CGA with 2WW and BP was assessed in standing and found to be: 136/77. Pt initiated ambulation from this position. FOllowing ambulation, pt performed stand to sit CGA with 2WW. Pt performed sit to supine w/ CGA, but did not use log roll technique and had to be reminded about her precautions and to use the log roll technique in order to follow abdominal precautions. Pt's BP was assessed and found to be 125/78. She reported no symptoms of dizziness or lightheadedness. She was positioned with her table and call light within reach. informed the nurse of how the pt did and that vitals stayed stable. Gait Assessment Gait Gait Assistance Required: Contact Guard Assist Distance (Feet) 30 Able to Maintain Weight Bearing Status Yes During Gait Assistive Devices Assistive Device Gait Belt,Front Wheeled Walker Orthotic/Prosthetic Devices or Brace: No Gait Deviations General Gait Pattern Decreased Stride Length, Decreased Feet Clearance,Wide Based Gait Factors Limiting Gait Function Factors Limiting Gait Function Decreased Activity Tolerance, Decreased Strength,Limited Range of Motion,Pain,Poor Balance,Poor Safety Awareness Comments Gait Comments Pt ambulated 30ft with 2WW and CGA. She has some unsteadiness, and did not give a lot of clearance for the 2WW with maneuvering around obstacles within the room. She has decreased stride length and step clearance. M5 PT-IP Objective Assessments Start: 07/31/19 12:35 Freq: NEEDED Status: Active Protocol: Document 07/31/19 10:01 AB (Rec: 07/31/19 12:49 AB [id number]) Orientation Orientation/Cognition Level of Alertness Alert Orientation Name,Place,Situation Language Function Ability No Deficits Noted Gross Range of Motion Lower Extremity ROM Assessment Within Functional Limits Strength Lower Extremity Strength Assessment Within Functional Limits Sensation Assessment Sensation Gross Sensation WNL Muscle Tone Muscle Tone WNL Yes M6 PT-IP Treatment Start: 07/31/19 12:35 Freq: NEEDED Status: Active Protocol: Document 08/02/19 10:42 MT (Rec: 08/02/19 13:48 MT [id number]) Physical Therapy Treatment Education Education Provided Precautions,Safety M7 PT-IP Assessment and Plan Start: 07/31/19 12:35 Freq: NEEDED Status: Active Protocol: Document 08/02/19 10:42 MT (Rec: 08/02/19 13:48 MT [id number]) PT Summary Assessment and Plan Potential Rehabilitation Potential Good Status of Condition at Evaluation Evolving Summary Impairments Pain,ROM,Strength,Balance, Coordination,Sensation,Tone, Cognition,Bed Mobility, Transfers,Gait,Activity Tolerance Progress Towards Goals Slow Progress due to Medical Issues Assessment Summary Pt's lab values prior to treatment showed 7.7Hgb and 22 .3% HCT, so discussed with nurse about proceding with treatment, which the doctor okayed. Also pt's BP and symptoms were monitored closely during treatment. Pt was able to perform all activities without significant drop in BP. She required cueing for her precautions and log rolling technique. She requires CGA-SBA for safety with her mobility. Depending on level of assist that spouse is able to provide, which will be assessed with caregiver training, pt may be safe to discharge home with assistance from . If this is not the case, pt may benefit from discharge to a SNF to imrpvoe her strength and safety until she is more independent and safe with her mobiltiy to return home. Goals Bed Mobility Goal Standby Assistance Transfer Goal Standby Assistance,Front Wheeled Walker Gait Goal Standby Assistance,Front Wheel Walker Gait Distance 200 Other Goals improve ambulation without AD/ SPC SBA up to 150 ft Days to Meet Goals 10 Frequency of Treatment Frequency Of Treatment Once a Day Treatment Plan Physical Therapy Treatment Plan Bed Mobility Training,Transfer Training,Gait Training, Therapeutic Exercise,Balance Retraining,Post Op Education, Discharge Planning,Hot or Cold Pack,Neuromuscular Re-ed, Coordination Retraining,Manual Therapy Recommendations To Nursing Amount of Assist Needed 1 Person Assist Discharge Recommendations PT Discharge Recommendations Home with 24/7 Assist,Home Health,SNF Rehab Other Discharge Recommendations depending on progress: SNF vs home with 24/7/ homehealth Equipment Needed for Home Before FWW if not safe without AD/ Discharge SPC
--- NOTE | 2019-08-02 12:26 | PM.PNPO.1 ---
Subjective Subjective Date Patient Seen: 08/02/19 Time Patient Seen: 12:26 Interval history: Ambulating. Passing flatus. Less distended than yesterday. No acute overnight events Exam Vital Signs (past 8 hours): - 08/02/19 04:28 08/02/19 07:22 08/02/19 07:50 Temperature 98.6 F 97.3 F L Pulse Rate 83 90 84 Respiratory Rate 16 18 Blood Pressure 135/61 103/48 L Pulse Oximetry 97 92 94 08/02/19 11:44 Temperature 97.9 F Pulse Rate 79 Respiratory Rate 18 Blood Pressure 133/59 L Pulse Oximetry 93 Oxygen Delivery Method Room Air Oxygen Flow Rate 0 Narrative Exam Narrative: General adult female alert oriented no acute distress Abdomen soft less distended than yesterday incision clean dry intact Objective Labs Result Diagrams: 08/02/19 05:50 08/02/19 05:50 Labs: Laboratory Results - last 24 hr 08/02/19 08/02/19 05:50 05:50 WBC 3.1 L RBC 2.57 L Hgb 7.7 L Hct 22.3 L MCV 86.7 MCH 29.9 MCHC 34.5 RDW 12.4 Plt Count 127 L Neut % (Auto) 76.4 H Lymph % (Auto) 9.3 L [place] % (Auto) 9.7 Eos % (Auto) 4.2 H Baso % (Auto) 0.4 Neut # (Auto) 2400 Lymph # (Auto) 300 L [place] # (Auto) 300 Eos # (Auto) 100 Baso # (Auto) 0 Sodium 134 L Potassium 3.7 Chloride 99 Carbon Dioxide 29 BUN 15 Creatinine 0.70 Estimated GFR > 60.0 BUN/Creatinine Ratio 21.4 Glucose 77 L Calcium 8.2 L Assessment & Plan Post-op Postoperative Procedures: Procedures Operation Date: 07/29/19 11:30 Actual Procedures Side Surgeon p Exploratory Laparotomy GEN Small Bowel Resection Kaleb Vazquez MD Postoperative status narrative: 73-year-old female postoperative day 4 status post exploratory laparotomy small-bowel resection doing well. Has return of bowel function. -DC nasogastric tube start clear liquid diet advanced as tolerated -DC IV fluids once tolerating clear liquid diet. Would benefit from Lasix given her baseline lymphedema. Quality VTE Deep Vein Thrombosis/Pulmonary Embolism Present on Admission: No
--- NOTE | 2019-08-02 13:00 | P.PN_ITS ---
Subjective Subjective Date Patient Seen: 08/02/19 Time Patient Seen: 13:00 Interval history: Feeling much better since having her NG tube removed this morning. She is passing flatus, denies nausea vomiting. Has tolerated Jell-O broth and water so far today. Pain is minimal. She required some oxygen overnight and states her mold breaker has been concerned about possible sleep apnea. She said she is a shallow breather. Exam Vital Signs (past 8 hours): - 08/02/19 07:22 08/02/19 07:50 08/02/19 11:44 Temperature 97.3 F L 97.9 F Pulse Rate 90 84 79 Respiratory Rate 18 18 Blood Pressure 103/48 L 133/59 L Pulse Oximetry 92 94 93 Oxygen Delivery Method Room Air Oxygen Flow Rate 0 Narrative Exam Narrative: Gen: Awake and alert sitting up in bed. CV: Regular rate and rhythm, no murmurs, rubs or gallops Lungs: CTAB, no wheezes, rales, or rhonchi Abdomen: Abdominal incision without erythema or drainage. bowel tones active. Extremities: SCDs in place. Warm, no LE edema, 2+ pedal pulses bilaterally. Significant edema of bilateral upper extremities with compression sleeves in place. Objective Labs Result Diagrams: 08/02/19 05:50 08/02/19 05:50 Labs: Laboratory Results - last 24 hr 08/02/19 08/02/19 05:50 05:50 WBC 3.1 L RBC 2.57 L Hgb 7.7 L Hct 22.3 L MCV 86.7 MCH 29.9 MCHC 34.5 RDW 12.4 Plt Count 127 L Neut % (Auto) 76.4 H Lymph % (Auto) 9.3 L [place] % (Auto) 9.7 Eos % (Auto) 4.2 H Baso % (Auto) 0.4 Neut # (Auto) 2400 Lymph # (Auto) 300 L [place] # (Auto) 300 Eos # (Auto) 100 Baso # (Auto) 0 Sodium 134 L Potassium 3.7 Chloride 99 Carbon Dioxide 29 BUN 15 Creatinine 0.70 Estimated GFR > 60.0 BUN/Creatinine Ratio 21.4 Glucose 77 L Calcium 8.2 L Assessment & Plan Assessment and plan (1) Partial bowel obstruction: Current visit: Yes Status: Acute (2) Gastric wall thickening: Current visit: Yes Status: Acute (3) Small bowel tumor: Current visit: Yes Status: Acute (4) Essential hypertension: Current visit: No Status: Chronic (5) Hyperlipidemia: Current visit: No Status: Chronic Assessment & Plan narrative: Postop care after exploratory laparotomy with small bowel resection - Appreciate post-op management with surgery, progressing nicely with removal of NG tube this morning . Anemia - No sign of active bleeding, appears dilutional, will stop checking Hypertension - Holding blood pressure medications, one BP elevated, the rest normal so will wait to restart olmesartan Hypoxia - Noted primarily at night, was being worked up as an outpatient for sleep apnea - Continue to monitor while in house DVT prophylaxis: SCDs, lovenox Code status: Full code Disposition: Pending return of bowel function and pathology results, will be here a few more days. Quality VTE Deep Vein Thrombosis/Pulmonary Embolism Present on Admission: No
[2019-08-02] MEDS: FUROSEMIDE 20 MG/2 ML VIAL IV (14:18)
[2019-08-02] MEDS: OXYCODONE/ACETAMINOPHEN 5/325 TABLET 1 TAB PO (21:08)
[2019-08-03] VITALS (9 sets, daily range): BP systolic 122–143; BP diastolic 69–83; PULSE 59–88; RESP 16–18; TEMP 36.3–36.8; O2SAT 94–96
[2019-08-03] MEDS: LORazepam 2 MG/ML INJ 0.5 MG IV (04:12)
[2019-08-03] MEDS: METOCLOPRAMIDE 10 MG/2 ML INJ IV ×3 (06:02→21:04)
[2019-08-03] MEDS: CITALOPRAM 20 MG TABLET PO (08:07)
[2019-08-03] MEDS: GABAPENTIN 300 MG CAPSULE PO ×2 (08:08→21:04)
[2019-08-03] MEDS: ROSUVASTATIN 10 MG TABLET 5 MG PO (08:09)
[2019-08-03] MEDS: ENOXAPARIN 40 MG/0.4 ML SYRINGE SUBCUT (08:10)
[2019-08-03] MEDS: PANTOPRAZOLE 40 MG VIAL IV ×2 (08:13→21:04)
--- NOTE | 2019-08-03 10:03 | PT.IPTN ---
Current Diagnoses Neoplasm of unspecified behavior of digestive system (07/29/19) Hyperlipidemia, unspecified (07/29/19) Essential (primary) hypertension (07/29/19) Other diseases of stomach and duodenum (07/29/19) Partial intestinal obstruction, unspecified as to cause (07/29/19) Surgery Performed Operation Date: 07/29/19 11:30 Actual Procedures p Exploratory Laparotomy GEN Small Bowel Resection - Kaleb Vazquez MD Physical Therapy Treatment Note M2 PT-IP Current Condition Start: 07/31/19 12:35 Freq: NEEDED Status: Active Protocol: Document 07/31/19 10:01 AB (Rec: 07/31/19 12:49 AB [id number]) Physical Therapy Current Condition Current Condition Evaluation Date 07/31/19 Treatment Diagnosis SBO s/p ex-lap; generalized weakness Onset Date 07/29/19 Precautions Abdominal Surgery Precautions Log Roll,Lifting Restrictions, Gait Belt above Incisional Area Other Precautions NG tube, O2 sat M3 PT-IP Subjective Start: 07/31/19 12:35 Freq: NEEDED Status: Active Protocol: Document 08/03/19 10:03 AB (Rec: 08/03/19 11:38 AB [id number]) Subjective Physical Therapy Visit Type Type Treatment Note Visit Start Time 10:03 Visit Stop Time 10:35 Total Visit Minutes 32 Number of REGISTERED PUBLIC HEALTH NURSE Visits 0 Physical Therapy Visit Comments Patient Comments pt agreeable to do PT Therapy Pain Assessment Pain When Pain Assessed At Rest Pain Present Pain Present Pain Reported Location Abdomen Intensity 3 Scale Used Numeric (1 - 10) Pain Management Techniques Re-positioning,Timing of Activity with Medications M4 PT-IP Mobility and Gait Start: 07/31/19 12:35 Freq: NEEDED Status: Active Protocol: Document 08/03/19 10:03 AB (Rec: 08/03/19 11:38 AB [id number]) PT-Bed Mobility Assessment Rolling Type of Rolling Log Rolling Level of Assist Standby Assistance Supine to Sit Supine to Sit Standby Assistance Sit to Supine Sit to Supine Moderate Assistance,1 Person Assistance PT-Transfer Assessment Sit to and From Stand Sit to and from Stand Standby Assistance,1 Person Assistance Equipment Transfer Assistive Device Gait Belt,Front Wheeled Walker Orthotic/Prosthetic Devices or Brace: No Transfers Transfer Destination Bed,Chair Transfer Technique Stand Step Pivot Transfer Ability Level of Assist Standby Assistance Comments Mobility Comments pt stated that she is feeling better today. pt completed sit to stand from chair SBA. required assistance with hygiene care and brief management with nurse assisting and PT providing CGA to maintain standing balance using FWW. pt ambulated in the hallway. completed bed mobility training. reviewed precautions and log roll bed mobility. pt completed sit to supine mod A with BLE elevation but completed supine to sit SBA with cues. pt requested to rest in bed and completed sit to supine again mod A and cues. positioned pt in bed. Call light and table placed within reach. Gait Assessment Gait Gait Assistance Required: Standby Assistance,Contact Guard Assist Distance (Feet) 150 Able to Maintain Weight Bearing Status Yes During Gait Assistive Devices Assistive Device Gait Belt,Front Wheeled Walker Orthotic/Prosthetic Devices or Brace: No Gait Deviations General Gait Pattern Decreased Stride Length, Decreased Feet Clearance Factors Limiting Gait Function Factors Limiting Gait Function Decreased Activity Tolerance, Decreased Strength,Limited Range of Motion,Pain,Poor Balance,Poor Safety Awareness Comments Gait Comments pt tolerating more today and ambulated in the hallway ~ 150 ft using FWW SBA to CGA. shows improvement with BLE elevation compared to yesterday's but still has difficulty and has still has decrease stride length. M5 PT-IP Objective Assessments Start: 07/31/19 12:35 Freq: NEEDED Status: Active Protocol: Document 07/31/19 10:01 AB (Rec: 07/31/19 12:49 AB [id number]) Orientation Orientation/Cognition Level of Alertness Alert Orientation Name,Place,Situation Language Function Ability No Deficits Noted Gross Range of Motion Lower Extremity ROM Assessment Within Functional Limits Strength Lower Extremity Strength Assessment Within Functional Limits Sensation Assessment Sensation Gross Sensation WNL Muscle Tone Muscle Tone WNL Yes M6 PT-IP Treatment Start: 07/31/19 12:35 Freq: NEEDED Status: Active Protocol: Document 08/03/19 10:03 AB (Rec: 08/03/19 11:38 AB [id number]) Physical Therapy Treatment Education Education Provided Precautions,Safety M7 PT-IP Assessment and Plan Start: 07/31/19 12:35 Freq: NEEDED Status: Active Protocol: Document 08/03/19 10:03 AB (Rec: 08/03/19 11:38 AB [id number]) PT Summary Assessment and Plan Potential Rehabilitation Potential Good Summary Impairments Pain,ROM,Strength,Balance, Coordination,Sensation,Bed Mobility,Transfers,Gait, Activity Tolerance Progress Towards Goals Progressing Toward Goals Assessment Summary pt progress with mobility and pt plans to go home and spouse can assist her. will conduct caregiver training when appropriate. will continue to work towards goals and assess progress. spouse stated that he will go to the [employer] to borrow a walker. Goals Bed Mobility Goal Standby Assistance Transfer Goal Standby Assistance,Front Wheeled Walker Gait Goal Standby Assistance,Front Wheel Walker Gait Distance 200 Other Goals improve ambulation without AD/ SPC SBA up to 150 ft Days to Meet Goals 10 Frequency of Treatment Frequency Of Treatment Once a Day Treatment Plan Physical Therapy Treatment Plan Bed Mobility Training,Transfer Training,Gait Training, Therapeutic Exercise,Balance Retraining,Post Op Education, Discharge Planning,Hot or Cold Pack,Neuromuscular Re-ed, Coordination Retraining,Manual Therapy Recommendations To Nursing Amount of Assist Needed 1 Person Assist Discharge Recommendations PT Discharge Recommendations Home with 07/03 Assist,Home Health,Outpatient PT
[2019-08-03] MEDS: OXYCODONE/ACETAMINOPHEN 5/325 TABLET 1 TAB PO (10:11)
--- NOTE | 2019-08-03 11:39 | PM.PN.1 ---
Subjective <Janay Blackwell DO - Last Filed: 08/03/19 13:17> Subjective Date Patient Seen: 08/03/19 Time Patient Seen: 07:40 Interval history: Patient continues to feel better each day. Passing flatus, no BM yet. Denies nausea or vomiting. Tolerated liquid dinner last night. Eager to hear the pathology results. Exam <Janay Blackwell DO - Last Filed: 08/03/19 13:17> Vital Signs (past 8 hours): - 08/03/19 05:40 08/03/19 08:00 Pulse Rate 83 Blood Pressure 123/75 Pulse Oximetry 96 95 Oxygen Delivery Method Room Air Oxygen Flow Rate 0 Narrative Exam Narrative: Gen: Resting comfortably in bed. CV: Regular rate and rhythm, no murmurs, rubs or gallops Lungs: CTAB, no wheezes, rales, or rhonchi Abdomen: Abdominal incision without erythema or drainage. Bowel tones active. Extremities: SCDs in place. Warm, trace LE edema, 2+ pedal pulses bilaterally. Trace edema of bilateral upper extremities with compression sleeves in place. Objective <Janay Blackwell DO - Last Filed: 08/03/19 13:17> Labs Result Diagrams: 08/02/19 05:50 08/02/19 05:50 Assessment & Plan <Janay Blackwell DO - Last Filed: 08/03/19 13:17> Assessment and plan (1) Partial bowel obstruction: Current visit: Yes Status: Acute (2) Gastric wall thickening: Current visit: Yes Status: Acute (3) Small bowel tumor: Current visit: Yes Status: Acute (4) Essential hypertension: Current visit: No Status: Chronic (5) Hyperlipidemia: Current visit: No Status: Chronic Assessment & Plan narrative: Postop care after exploratory laparotomy with small bowel resection - Appreciate management per surgery - Awaiting pathology results, will send to her oncologist Dr. Johnston once received. Hypertension - Holding blood pressure medications, restart if indicated Hypoxia - Noted primarily at night, was being worked up as an outpatient for sleep apnea - No hypoxia noted last night DVT prophylaxis: SCDs, lovenox Code status: Full code Disposition: Hopefully home in the next day or two if tolerating a diet and pain well-controlled. Quality <Janay Blackwell DO - Last Filed: 12/20/19 13:17> VTE Deep Vein Thrombosis/Pulmonary Embolism Present on Admission: No
--- NOTE | 2019-08-03 12:18 | PM.PN.1 ---
Subjective Subjective Date Patient Seen: 08/03/19 Time Patient Seen: 10:00 Interval history: No acute events overnight. Tolerating clears. Passing flatus. Denies nausea. Would like to know path result. Exam Vital Signs (past 8 hours): - 08/03/19 05:40 08/03/19 08:00 Pulse Rate 83 Blood Pressure 123/75 Pulse Oximetry 96 95 Oxygen Delivery Method Room Air Oxygen Flow Rate 0 Narrative Exam Narrative: Alert oriented, comfortable Ambulating in the room with PT Abdomen moderately distended, incision c/d/i Objective Labs Result Diagrams: 08/02/19 05:50 08/02/19 05:50 Assessment & Plan Assessment and plan (1) Gastric wall thickening: Current visit: Yes Status: Acute (2) Small bowel tumor: Current visit: Yes Status: Acute Assessment & Plan narrative: 73 yo woman POD#5 s/p laparotomy, SB resection, gastric biopsy. Tolerating clears. Ambulating, passing gas. Denies passing stool. Pain well controlled. Plan: Advance to full liquids Ambulate TID 20 minutes Dispo pending pt tolerates diet and pain is controlled with PO pain med Quality VTE Deep Vein Thrombosis/Pulmonary Embolism Present on Admission: No
[2019-08-04] VITALS: BP 112/79; PULSE 90; RESP 16; TEMP 36.9; O2SAT 94
[2019-08-04] MEDS: OXYCODONE/ACETAMINOPHEN 5/325 TABLET 1 TAB PO ×2 (00:14→05:35)
[2019-08-04] MEDS: LORazepam 0.5 MG TABLET PO (00:14)
[2019-08-04 05:58] VITALS: BP 118/62; PULSE 89; RESP 18; TEMP 36.3; O2SAT 97
[2019-08-04 08:00] VITALS: BP 137/88; PULSE 83; RESP 18; TEMP 36.4; O2SAT 95
[2019-08-04] MEDS: ENOXAPARIN 40 MG/0.4 ML SYRINGE SUBCUT (08:01)
[2019-08-04] MEDS: SODIUM CHLORIDE 0.9% FLUSH 10 ML IV (08:01)
[2019-08-04] MEDS: ROSUVASTATIN 10 MG TABLET 5 MG PO (08:02)
[2019-08-04] MEDS: CITALOPRAM 20 MG TABLET PO (08:02)
[2019-08-04] MEDS: PANTOPRAZOLE 40 MG VIAL IV (08:02)
[2019-08-04] MEDS: GABAPENTIN 300 MG CAPSULE PO (08:02)
--- NOTE | 2019-08-04 09:41 | P.PN_ITS ---
Subjective Subjective Date Patient Seen: 08/04/19 Time Patient Seen: 09:41 Interval history: Metastatic breast cancer. Patient feeling reasonably well passing gas. Having bowel movements. Believes that the stools look relatively dark perhaps ?black?. Urinating normally ambulating. No nausea. Tolerating full liquids well anticipating being discharged sometime today especially since tomorrow is her birthday Exam Vital Signs (past 8 hours): - 08/04/19 05:58 08/04/19 08:00 Temperature 97.4 F L 97.6 F Pulse Rate 89 83 Respiratory Rate 18 18 Blood Pressure 118/62 137/88 Pulse Oximetry 97 95 Oxygen Delivery Method Room Air Oxygen Flow Rate 0 Narrative Exam Narrative: She looks well and does not look anemic as pink let us. Abdominal exam decreased bowel sounds. Minimal discomfort generally no rebound no masses. Objective Labs Result Diagrams: 08/02/19 05:50 08/02/19 05:50 Labs: No recent lab Assessment & Plan Assessment & Plan narrative: Patient is status post exploratory lap with apparent partial bowel obstruction with resolution of that. Had abnormal findings and stomach biopsies consistent with the metastatic breast cancer more details forthcoming. Patient has a hemoglobin did drop significantly on Tuesday may be having black stools. Will get an updated hemoglobin hematocrit stat this morning if hemog lobin hematocrit has dropped from then will consider at but blood transfusion. Patient does not appear to be typically symptomatic from him and hemoglobin hematocrit that she had on cell yet to be determined hopefully day CBC will be unchanged or improved which case she will be di scharged sooner than later. Discussed with Dr. Morocho who agrees Quality VTE Deep Vein Thrombosis/Pulmonary Embolism Present on Admission: No
--- NOTE | 2019-08-04 10:15 | PT.IPTN ---
Current Diagnoses Neoplasm of unspecified behavior of digestive system (07/29/19) Hyperlipidemia, unspecified (07/29/19) Essential (primary) hypertension (07/29/19) Other diseases of stomach and duodenum (07/29/19) Partial intestinal obstruction, unspecified as to cause (07/29/19) Surgery Performed Operation Date: 07/29/19 11:30 Actual Procedures p Exploratory Laparotomy GEN Small Bowel Resection - Kaleb Vazquez MD Physical Therapy Treatment Note M2 PT-IP Current Condition Start: 07/31/19 12:35 Freq: NEEDED Status: Active Protocol: Document 07/31/19 10:01 AB (Rec: 07/31/19 12:49 AB [id number]) Physical Therapy Current Condition Current Condition Evaluation Date 07/31/19 Treatment Diagnosis SBO s/p ex-lap; generalized weakness Onset Date 07/29/19 Precautions Abdominal Surgery Precautions Log Roll,Lifting Restrictions, Gait Belt above Incisional Area Other Precautions NG tube, O2 sat M3 PT-IP Subjective Start: 07/31/19 12:35 Freq: NEEDED Status: Active Protocol: Document 08/04/19 10:15 AB (Rec: 08/04/19 12:49 AB [id number]) Subjective Physical Therapy Visit Type Type Treatment Note Visit Start Time 10:15 Visit Stop Time 11:07 Total Visit Minutes 52 Number of HEAD CLEANING PORTER Visits 0 Physical Therapy Visit Comments Patient Comments pt agreeable to do PT Therapy Pain Assessment Pain When Pain Assessed At Rest Location Abdomen Intensity 2 Scale Used Numeric (1 - 10) M4 PT-IP Mobility and Gait Start: 07/31/19 12:35 Freq: NEEDED Status: Active Protocol: Document 08/04/19 10:15 AB (Rec: 08/04/19 12:49 AB [id number]) PT-Bed Mobility Assessment Rolling Level of Assist Standby Assistance Supine to Sit Supine to Sit Standby Assistance Sit to Supine Sit to Supine Standby Assistance Scooting Scooting to Edge of Bed Standby Assistance PT-Transfer Assessment Sit to and From Stand Sit to and from Stand Standby Assistance Equipment Transfer Assistive Device Gait Belt,Front Wheeled Walker Orthotic/Prosthetic Devices or Brace: No Transfers Transfer Technique ambulated Transfer Ability Level of Assist Standby Assistance Comments Mobility Comments pt completed supine <>sit x 2 sets SBA. ambulated in the hallway. spouse stated that pt has a step to get up to get into the bed. recommended pt to go backwards using FWw for support. completed in room with step stool up to bed x 2 sets and pt required initial min A and then CGA on 2nd set. pt's spouse will assist her and spouse also stated that he got a FWW for pt. educated pt and spouse on how to adjust FWW. Left pt sitting on chair. call light and table placed within reach. Gait Assessment Gait Gait Assistance Required: Standby Assistance Distance (Feet) 200 Able to Maintain Weight Bearing Status Yes During Gait Assistive Devices Assistive Device Gait Belt,Front Wheeled Walker Orthotic/Prosthetic Devices or Brace: No Gait Deviations General Gait Pattern Decreased Stride Length, Decreased Feet Clearance Factors Limiting Gait Function Factors Limiting Gait Function Decreased Activity Tolerance, Decreased Strength,Limited Range of Motion,Pain,Poor Balance Stair Climbing Assessment Evaluation Level of Assist On Stairs Contact Guard Assistance, Minimal Assistance Devices Stair Climbing Assistive Devices Front Wheel Walker Technique/Endurance Stair Climbing Direction Ascend and Descend Stair Climbing Technique Step to Step Number of Steps Climbed 1 Stair Climbing Set # Repetitions (reps) 2 Comments Stair Climbing Comments pls refer to mobility section for details M5 PT-IP Objective Assessments Start: 07/31/19 12:35 Freq: NEEDED Status: Active Protocol: Document 07/31/19 10:01 AB (Rec: 07/31/19 12:49 AB [id number]) Orientation Orientation/Cognition Level of Alertness Alert Orientation Name,Place,Situation Language Function Ability No Deficits Noted Gross Range of Motion Lower Extremity ROM Assessment Within Functional Limits Strength Lower Extremity Strength Assessment Within Functional Limits Sensation Assessment Sensation Gross Sensation WNL Muscle Tone Muscle Tone WNL Yes M6 PT-IP Treatment Start: 07/31/19 12:35 Freq: NEEDED Status: Active Protocol: Document 08/04/19 10:15 AB (Rec: 08/04/19 12:49 AB [id number]) Physical Therapy Treatment Education Education Provided Precautions,Safety M7 PT-IP Assessment and Plan Start: 07/31/19 12:35 Freq: NEEDED Status: Active Protocol: Document 08/04/19 10:15 AB (Rec: 08/04/19 12:49 AB [id number]) PT Summary Assessment and Plan Potential Rehabilitation Potential Good Summary Impairments Pain,ROM,Strength,Balance, Coordination,Sensation,Tone, Cognition,Bed Mobility, Transfers,Gait,Activity Tolerance Progress Towards Goals Progressing Toward Goals Assessment Summary pt progressing well with mobility. pt plans to go home and spouse to assist her. pt may go home when medically stable. Goals Bed Mobility Goal Independent Transfer Goal Independent,Front Wheeled Walker Gait Goal Standby Assistance,Front Wheel Walker Gait Distance 250 Other Goals improve ambulation without AD/ SPC SBA up to 150 ft Days to Meet Goals 10 Frequency of Treatment Frequency Of Treatment Once a Day Treatment Plan Physical Therapy Treatment Plan Bed Mobility Training,Transfer Training,Gait Training, Therapeutic Exercise,Balance Retraining,Post Op Education, Discharge Planning,Hot or Cold Pack,Neuromuscular Re-ed, Coordination Retraining,Manual Therapy Recommendations To Nursing Amount of Assist Needed 1 Person Assist Discharge Recommendations PT Discharge Recommendations Home with Assistance
[2019-08-04 10:34] LABS: Add Manual Diff / Slide Review NO; Basophils Absolute Auto 0 /uL (0-100); Basophils Percent Auto 0.3 % (0-2); Eosinophils Absolute Auto 200 /uL (0-450); Eosinophils Percent Auto 5.1 % (2-4); Hematocrit 24.1 % (36-46); Hemoglobin 8.2 g/dL (12.0-16.0); Lymphocytes Absolute Auto 500 /uL (1100-4500); Lymphocytes Percent Auto 12.3 % (25-40); Mean Corpuscular Hemoglobin 29.6 PG (26-34); Monocytes Absolute Auto 400 /uL (0-900); Monocytes Percent Auto 9.9 % (3-14); Neutrophils Absolute Auto 2700 /uL (1500-7000); Neutrophils Percent Auto 72.4 % (50-75); Platelet Count 187 X10^3/uL (150-400); Red Blood Cell Count 2.77 X10^6/uL (4.0-5.2); Red Cell Distribution Width 12.5 % (11.6-14.8); White Blood Cell Count 3.8 X10^3/uL (4.5-11.0)
--- NOTE | 2019-08-04 11:13 | PM.DS.1 ---
History of Present Illness History of Present Illness Chief complaint: suspected bowel obstruction Discharge Providers Provider Date of admission: 07/29/19 04:11 Discharge Date: 08/04/19 Primary care physician: Janay Blackwell DO Consults: 07/29/19 05:31 Consult to Dietitian, Adult Routine Comment: Reason For Exam: Patient reports weight loss from GI difficulties 07/29/19 08:48 Consult to General Surgery Routine Comment: Consulting Provider: Kaleb Vazquez Reason for consultation: partial small bowel obstruction Has provider been notified: Yes 07/29/19 14:36 Consult to Discharge Planning Routine Comment: 07/31/19 09:06 Consult to Physical Therapy Evaluate & Treat Comment: Physician Instructions: Evaluate and Treat Discharge provider: Jose Hamilton MD Summary Hospital Course Discharge Diagnosis: 1. Partial small-bowel obstruction. 2. Malignant lesions small bowel. Presumably metastatic breast cancer final pathology pending. 3. Gastric abnormality mass biopsied consistent with metastatic breast cancer final pathology pending. 4. Blood loss anemia stable. 5. Depression stable 6. History of hyperlipidemia stable Hospital Course: Patient underwent abdominal surgery for a presumed small-bowel obstruction. Found to have a mass. Which was biopsied and removed. Additionally had abnormality on her stomach underwent EGD that also found a mass. Pathology results returned PET preliminarily being metastatic breast cancer. Postoperatively patient did well with normal urination ambulating well tolerating full liquids. Was having dark stools. Initially her hemoglobin hematocrit had dropped on follow-up today and had increased therefore she was discharged without a blood transfusion which had been considered Status at Discharge Cognitive/behavioral status at discharge: at baseline, oriented Functional status at discharge: uses cane/walker Overall status at discharge: patient is progressing back to baseline Exam Vital Signs (past 8 hours): - 08/04/19 05:58 08/04/19 08:00 Temperature 97.4 F L 97.6 F Pulse Rate 89 83 Respiratory Rate 18 18 Blood Pressure 118/62 137/88 Pulse Oximetry 97 95 Oxygen Delivery Method Room Air Oxygen Flow Rate 0 Objective Labs Result Diagrams: 08/04/19 10:25 08/02/19 05:50 Labs: Laboratory Results - last 24 hr 08/04/19 08/04/19 10:25 10:25 WBC 3.8 L RBC 2.77 L Hgb 8.2 L Hct 24.1 L MCV 87.0 MCH 29.6 MCHC 34.0 RDW 12.5 Plt Count 187 Neut % (Auto) 72.4 Lymph % (Auto) 12.3 L [place] % (Auto) 9.9 Eos % (Auto) 5.1 H Baso % (Auto) 0.3 Neut # (Auto) 2700 Lymph # (Auto) 500 L [place] # (Auto) 400 Eos # (Auto) 200 Baso # (Auto) 0 Blood Type B Positive Antibody Screen Negative Discharge Plan Discharge Plan Patient Disposition: Home Discharge comment: appt w surg 2 weeks appt w oncologist [address] Blackwell 2 weeks Discharge orders & Medications Prescriptions: Continued anastrozole 1 MG tablet 1 mg PO DAILY Qty: 0 RF: 0 multivitamin [Multiple Vitamins] 1 EACH tablet 1 tab PO DAILY Qty: 0 RF: 0 aspirin 81 MG tablet,chewable 81 mg PO DAILY Qty: 0 RF: 0 cholecalciferol (vitamin D3) [Vitamin D3] 2,000 UNIT capsule 2,000 unit PO DAILY Qty: 0 RF: 0 albuterol sulfate [Ventolin HFA] 90 MCG/PUFF HFA aerosol inhaler 2 puff INH QIDP PRNQty: 1 RF: 1 estradiol [Vagifem] 10 MCG tablet 10 mcg VG DIRECTED Qty: 0 RF: 0 rosuvastatin 5 mg tablet 5 mg PO DAILY Qty: 90 RF: 3 olmesartan 20 mg tablet 20 mg PO DAILY Qty: 90 RF: 3 citalopram 20 mg tablet 20 mg PO DAILY Qty: 90 RF: 3 furosemide 20 mg tablet 20 mg PO DAILY RF: 0 Follow up/Referrals: Janay Blackwell DO [Primary Care Provider] - Discharge Health Status Multidrug resistant organism: No MDRO Diet/Activity/Treatments Diet: Diet as Tolerated Skin/Wound/Dressing Care Report to your healthcare provider any signs of infection, such as:: chills, fever, night sweats, increased pain, unusual drainage and unusual redness Visit Report/Discharge Packet Instructions: DI for Small Bowel Resection Discharge Data Primary Care Provider: Janay Blackwell VTE Deep Vein Thrombosis/Pulmonary Embolism Present on Admission: No
[2019-08-04 12:00] VITALS: BP 130/72; PULSE 80; RESP 18; TEMP 36.6; O2SAT 96
--- NOTE | 2019-08-04 13:03 | CM.DPC ---
DCP Cont: Received discharge orders today from Dr. Hamilton. Called [facility], spoke to Joan, and gave her update. Faxed over orders, face to face, discharge summary, and face sheet to Catherine. Joan is not sure if they can see her tomorrow, perhaps Tuesday. P: Patient is to be discharged today with [facility]. Leola Desir RN/Contact [employer] C[employer]
--- NOTE | 2019-08-04 14:13 | PC.NURSE ---
Discharge instructions and home care reviewed with patient, she states understanding and has no further qustions on concerns at this time. Port a cath deaccessed and patient tolerated well. Patient plans to call Tuesday to oncologist, and [facility] to schedule her follow up appointments. Incision is PADMINI with manuel in place, moderate bruising, well approximated without signs of infection. escorted out via wheelchair by [employer] to home with her .
== END 2019-08-04 14:16 | disposition home or self-care (01) | DRG 326 ==
LOC: ED 07-29 04:08 → AC 07-29 04:12
PROVIDERS: Family Medicine; Surgery; Admitting Provider Family Medicine; Emergency Provider Emergency Medicine; Family Provider Internal Medicine; PCP Family Medicine; Visit Provider Family Medicine
PROC: 0DBA0ZZ Excision of Jejunum, Open Approach (ICD-10-PCS; CPT 49000; principal; 2019-07-29 11:30)
DX: C78.4 Secondary malignant neoplasm of small intestine (principal); K85.90 Acute pancreatitis without necrosis or infection, unspecified; K56.7 Ileus, unspecified; D62 Acute posthemorrhagic anemia; C79.81 Secondary malignant neoplasm of breast; C78.89 Secondary malignant neoplasm of other digestive organs; E66.9 Obesity, unspecified; Z68.38 Body mass index [BMI] 38.0-38.9, adult; I10 Essential (primary) hypertension; E78.5 Hyperlipidemia, unspecified; F41.9 Anxiety disorder, unspecified; R50.9 Fever, unspecified
CPT/HCPCS: 36415; 36591; 71045; 74177; 80048; 80053; 83690; 85025; 86850; 86900; 86901; 94760; 96374; 96375; 96376; 97116; 97140; 97162; 97530; 97535; 99223; 99232; 99233; 99238; 99284; C9113; J0330; J0696; J1100; J1170; J1642; J1650; J1885; J1940; J2060; J2270; J2405; J2704; J2765; J3010; Q9967

== ENCOUNTER → 2019-09-05 11:38 | Outpatient (CLI) | payer MEDICARE, BC, SELFPAY ==
[2019-07-29 05:05] VITALS: BMI 38.1
[2019-09-05 12:46] LABS: Appearance Urine UA CLEAR; Bilirubin Urine UA NEGATIVE (NEGATIVE); Color Urine UA YELLOW; Glucose Urine UA NEGATIVE (Negative); Ketones Urine UA NEGATIVE (NEGATIVE); Leukocyte Esterase Urine UA TRACE (NEGATIVE); Nitrite Urine UA NEGATIVE (Negative); Occult Blood Urine UA TRACE-LYSED (Negative); Protein Urine UA NEGATIVE (Negative); Specific Gravity Urine UA 1.025 (1.000-1.035); Urobilinogen Urine UA 0.2 E.U./dL (0.2)
[2019-09-05 13:13] LABS: pH Urine UA 5.5 (4.5-8.0)
[2019-09-05 13:14] LABS: RBC Urine 0-1/HPF (0-5/HPF); Squamous Epithelial Cell Urine 1-5 /HPF (0-5/HPF); WBC Urine 5-10/HPF (0-5/HPF)
[2019-09-05 13:15] LABS: Amorphous Sediment Urine 1+; Bacteria Urine Few (2-10); Culture Indicated Urine Specimen Cultured; Mucus Urine 1+ (Negative)
== END ==
PROVIDERS: Family Provider Internal Medicine; PCP Family Medicine; Visit Provider Family Medicine
DX: R30.0 Dysuria (principal)
CPT/HCPCS: 81001; 87086

== ENCOUNTER 2020-01-07 15:48 | Emergency (ER) | payer MEDICARE, BC, SELFPAY ==
[2019-07-29 05:05] VITALS: BMI 38.1
[2020-01-07 15:59] VITALS: BP 179/83; PULSE 94; RESP 16; TEMP 36.8; O2SAT 97
--- NOTE | 2020-01-07 16:16 | ED_ITS ---
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 Patient also has bilateral nephrostomy to due to recent bladder surgery meds were found in ureters. Presents emergency department for constipation for the past week and feeling like there is a lump in her stomach. Patient reports she last had a very small bowel movement yesterday, she states ?it was only 3 small turds after taking MiraLax, senna, and Colace. Patient states her last full bowel movement was 1 week ago. Patient states she has had nausea vomiting, she states ?every time I take a sip of water it comes right back up. She was told to discontinue Zofran as this can cause constipation. Patient sees Dr. Colleen Odom in [place] for oncology. Patient states she has had multiple bowel obstructions, last obstruction was in July, she had surgery with Dr. Parr--states this procedure discovered or cancer. Patient denies any other symptoms such as headaches, head trauma, chest pain, shortness of breath, fevers, chills, abdominal pain, flank pain, or any other concerns. Related Data Home Medications Medication Instructions Recorded Confirmed cholecalciferol (vitamin D3) 2,000 unit PO DAILY #0 12/27/16 08/23/19 [Vitamin D3] multivitamin [Multiple Vitamins] 1 tab PO DAILY #0 12/27/16 08/23/19 Previous Rx's Medication Instructions Recorded rosuvastatin 5 mg tablet 5 mg PO DAILY #90 tab 07/10/19 citalopram 20 mg tablet 40 mg PO DAILY #180 tab 01/04/20 Allergies Allergy/AdvReac Type Severity Reaction Status Date / Time Penicillins [PENICILLINS] Allergy Unknown Verified 01/07/20 16:05 shellfish derived Allergy Unknown Verified 01/07/20 16:05 [SHELLFISH DERIVED] vancomycin [VANCOMYCIN] Allergy Unknown Verified 01/07/20 16:05 Review of Systems <TRAVIS Angel - Last Filed: 01/07/20 23:10> Review of Systems Narrative: REVIEW OF SYSTEMS: GENERAL: Denies fever or chills. HENT: No head trauma. EYES: No vision changes. CARDIOVASCULAR: No chest pain. RESPIRATORY: No shortness of breath or cough. GASTROINTESTINAL: Complains of constipation and nausea, see HPI GENITOURINARY: No flank pain. MUSCULOSKELETAL: No pain, weakness, or trauma. INTEGUMENTARY: No rash, lesions, or pruritus. NEURO: No numbness or tingling Patient History <TRAVIS Angel - Last Filed: 01/07/20 23:10> Medical History Breast cancer (Resolved 1990) Cataract (Chronic 2016) Chicken pox (Resolved ~1949) Diverticulitis (Resolved 2014) Essential hypertension (Chronic 05/10/17) Gout (Inactive) Hayfever (Chronic) History of heavy periods (Resolved) Hyperlipidemia (Chronic 05/10/17) IBS (irritable bowel syndrome) (Chronic) Lymphedema (Chronic 05/10/17) Malignant neoplasm of breast (Inactive 09/13/17) Measles (Resolved ~1949) Morbid obesity (Chronic 09/13/17) Mumps (Resolved 1960) Neutropenia (Resolved 2013) Osteopenia (Chronic) Primary osteoarthritis of both knees (Chronic 09/13/17) Rosacea (Resolved) Shoulder pain (Chronic 2014) Skin cancer (Resolved 02/2017) Thyroid nodule (Resolved 2013) Tinnitus (Chronic) Surgical History Anesthesia (Resolved) History of eye surgery (Inactive ~1950) History of toe surgery (Inactive 1994) History of tonsillectomy (Inactive ~1961) Status post delivery (Inactive 01/01/83) Status post partial mastectomy (Inactive 11/05/13) Status post partial mastectomy (Inactive 09/07/90) Family History Father Heart disease Hypertension High cholesterol Stroke Grandfather Heart disease Grandmother Heart disease Diabetes mellitus Pneumonia CAD (coronary artery disease) Mother Cancer Heart disease Head and neck cancer Grandmother Heart disease Heart attack Grandfather Lung cancer Social History household members: spouse Smoking Status: Never smoker alcohol intake: current substance use type: does not use Smoking Status: Never smoker alcohol intake frequency: a few times a month Alcohol type: wine Substance Use Type: does not use Exam <TRAVIS Angel - Last Filed: 01/07/20 23:10> Initial Vital Signs Initial Vital Signs: Vital Signs Temperature 98.2 F 01/07/20 15:59 Pulse Rate 94 H 01/07/20 15:59 Respiratory Rate 16 01/07/20 15:59 Blood Pressure 179/83 H 01/07/20 15:59 Pulse Oximetry 97 01/07/20 15:59 PHYSICAL EXAMINATION: GENERAL: Well groomed, alert, and cooperative. Answers questions promptly and appropriately. Vital signs noted. HENT: Normocephalic, atraumatic. Oral mucous is pink and moist. EYES: Conjunctiva pink, sclera white, no periorbital swelling. CARDIOVASCULAR: S1 and S2 sounds normal. Regular rate and rhythm, no murmurs, clicks, or bruits. . RESPIRATORY: Normal respiratory rate, trachea midline, airway patent. No stridor, nasal flaring or accessory muscle use. Lungs are clear in all mullins without wheeze, rhonchi, or crackles. GASTROINTESTINAL: Bowel sounds active. Abdomen soft, nontender. Possible hard lump palpated and epigastric area. GENITALURINARY: Bilateral nephrostomy due to draining yellow clear urine RECTAL: No hemorrhoids, no bleeding. Small amount of hard brown stool removed with rectal the decompaction. MUSCULOSKELETAL: Normal gait and coordination. Equal tone and mass bilaterally. EXTREMITIES: CMS intact, no pedal edema. SKIN: Warm, dry, soft, appropriate color for ethnicity. No lesions, rashes, or wounds to visualized areas. NEURO: Alert and Oriented X 3. Good coordination. No ataxia, or sensory deficits, or cognitive issues. PSYCH: Appropriate affect and mood. <Peggy Gutierrez MD - Last Filed: 01/08/20 06:13> Initial Vital Signs Initial Vital Signs: Vital Signs Temperature 98.2 F 01/07/20 15:59 Pulse Rate 94 H 01/07/20 15:59 Respiratory Rate 16 01/07/20 15:59 Blood Pressure 179/83 H 01/07/20 15:59 Pulse Oximetry 97 01/07/20 15:59 Course <Vanessa Arce, [employer] - Last Filed: 01/07/20 23:10> Course Course Narrative: 1829: Patient updated on plan of care, patient is impacted with RN at bedside, reports some relief. Continues to have intermittent dry heaves, Zofran. 1856: I spoke with Dr. Patel from oncology at [facility] in [place], discussed CT results. He reported patient would benefit from a EGD and possible stent. He states admit to medicine if she prefers to be admitted to [facility] in [place]. 1919: I spoke with Dr. Morocho who discussed that EKG can be performed however stent cannot be placed at this facility. Suggested speaking with patient about preference. 2039: Discussed options with family, patient requested transfer to [facility]. Patient to remain NPO. 2211: I spoke with Dr. Soto discussed patient's history, tests and test results, who accepts, recommends NG tube. Orders Ordered: ED Orders 01/07/20 22:35 Lactate (Lactic Acid) Stat Discontinued Medications Sodium Chloride (Normal Saline 0.9%) 1,000 mls @ 150 mls/hr IV CONT PADMINI Last Infusion: 01/07/20 23:00 Dose: 0 mls/hr Documented by: Admin: 01/07/20 16:36 Dose: 150 mls/hr Documented by: SHONNA Metoclopramide HCl (Reglan) 10 mg IV NOW ONE Stop: 01/07/20 17:04 Last Admin: 01/07/20 17:07 Dose: 10 mg Documented by: SHONNA Ondansetron HCl (Zofran) 4 mg IV NOW ONE Stop: 01/07/20 18:36 Last Admin: 01/07/20 18:38 Dose: 4 mg Documented by: SHONNA Ondansetron HCl (Zofran) 4 mg IV NOW ONE Stop: 01/07/20 22:50 Last Admin: 01/07/20 23:00 Dose: 4 mg Documented by: TRAVIS Pantoprazole Sodium (Protonix) 40 mg IV NOW ONE Stop: 01/07/20 18:03 Last Admin: 01/07/20 18:14 Dose: 40 mg Documented by: SHONNA Consultations Consultation #1: Patient staffed with Dr. Gutierrez discussed test, test results, and plan of care. Vital Signs Vital signs: Vital Signs - 8 hr 01/07/20 22:14 01/08/20 00:21 Pulse Rate 91 H 92 H Respiratory Rate 21 16 Blood Pressure 151/81 H Blood Pressure [Left Arm] 151/67 H Pulse Oximetry 98 97 <Peggy Gutierrez MD - Last Filed: 01/08/20 06:13> Orders Ordered: ED Orders 01/07/20 22:35 Lactate (Lactic Acid) Stat Discontinued Medications Sodium Chloride (Normal Saline 0.9%) 1,000 mls @ 150 mls/hr IV CONT PADMINI Last Infusion: 01/07/20 23:00 Dose: 0 mls/hr Documented by: Admin: 01/07/20 16:36 Dose: 150 mls/hr Documented by: SHONNA Metoclopramide HCl (Reglan) 10 mg IV NOW ONE Stop: 01/07/20 17:04 Last Admin: 01/07/20 17:07 Dose: 10 mg Documented by: SHONNA Ondansetron HCl (Zofran) 4 mg IV NOW ONE Stop: 01/07/20 18:36 Last Admin: 01/07/20 18:38 Dose: 4 mg Documented by: SHONNA Ondansetron HCl (Zofran) 4 mg IV NOW ONE Stop: 01/07/20 22:50 Last Admin: 01/07/20 23:00 Dose: 4 mg Documented by: TRAVIS Pantoprazole Sodium (Protonix) 40 mg IV NOW ONE Stop: 01/07/20 18:03 Last Admin: 01/07/20 18:14 Dose: 40 mg Documented by: SHONNA Vital Signs Vital signs: Vital Signs - 8 hr 01/07/20 22:14 01/08/20 00:21 Pulse Rate 91 H 92 H Respiratory Rate 21 16 Blood Pressure 151/81 H Blood Pressure [Left Arm] 151/67 H Pulse Oximetry 98 97 MDM - Abdominal Pain <TRAVIS Angel - Last Filed: 01/07/20 23:10> Medical Records Attestation: I reviewed the patient's medical records. Lab Data Attestation: I reviewed the patient's lab results. Result diagrams: 01/07/20 16:29 01/07/20 16:29 Labs: Lab Results 01/07/20 01/07/20 01/07/20 Range/Units 16:29 16:29 17:16 WBC 4.1 L (4.5-11.0) X10^3/uL RBC 3.00 L (4.0-5.2) X10^6/uL Hgb 9.3 L (12.0-16.0) g/dL Hct 26.6 L (36-46) % MCV 88.7 (80-100) fL MCH 31.2 (26-34) PG MCHC 35.2 (30-36) % RDW 17.6 H (11.6-14.8) % Plt Count 194 (150-400) X10^3/uL Neut % (Auto) 83.3 H (50-75) % Lymph % (Auto) 9.3 L (25-40) % [place] % (Auto) 5.1 (3-14) % Eos % (Auto) 1.3 L (2-4) % Baso % (Auto) 1.0 (0-2) % Neut # (Auto) 3400 (9542-8530) /uL Lymph # (Auto) 400 L (2619-1414) /uL [place] # (Auto) 200 (0-900) /uL Eos # (Auto) 100 (0-450) /uL Baso # (Auto) 0 (0-100) /uL Sodium 134 L (137-145) mmol/L Potassium 3.8 (3.4-5.1) mmol/L Chloride 98 (98-107) mmol/L Carbon Dioxide 27 (22-32) mmol/L BUN 15 (7-17) mg/dL Creatinine 0.84 (0.52-1.04) mg/dL Estimated GFR > 60.0 (>60) mL/min BUN/Creatinine Ratio 17.9 (6-22) Glucose 93 (80-110) mg/dL Lactate (0.7-2.1) mmol/L Calcium 9.5 (8.4-10.2) mg/dL Total Bilirubin 0.6 (0.2-1.3) mg/dL AST 41 H (14-36) IU/L ALT 55 H (<35) IU/L Alkaline Phosphatase 236 H (38-126) U/L Total Protein 6.6 (6.3-8.2) g/dL Albumin 3.9 (3.5-5.0) g/dL Globulin 2.7 (1.7-4.1) g/dL Albumin/Globulin Ratio 1.4 (1.0-2.8) Lipase 508 H (23-300) U/L Urine RBC 1-5/hpf (0-5/HPF) Urine WBC 5-10/hpf H (0-5/HPF) Ur Squamous Epith Cells 0-1 /hpf (0-5/HPF) Amorphous Sediment 1+ Urine Bacteria Few (2-10) H (None) Urine Mucus 1+ H (Negative) Ur Culture Indicated? Specimen cultured 01/07/20 Range/Units 22:35 WBC (4.5-11.0) X10^3/uL RBC (4.0-5.2) X10^6/uL Hgb (12.0-16.0) g/dL Hct (36-46) % MCV (80-100) fL MCH (26-34) PG MCHC (30-36) % RDW (11.6-14.8) % Plt Count (150-400) X10^3/uL Neut % (Auto) (50-75) % Lymph % (Auto) (25-40) % [place] % (Auto) (3-14) % Eos % (Auto) (2-4) % Baso % (Auto) (0-2) % Neut # (Auto) (1800-7865) /uL Lymph # (Auto) (2771-6602) /uL [place] # (Auto) (0-900) /uL Eos # (Auto) (0-450) /uL Baso # (Auto) (0-100) /uL Sodium (137-145) mmol/L Potassium (3.4-5.1) mmol/L Chloride (98-107) mmol/L Carbon Dioxide (22-32) mmol/L BUN (7-17) mg/dL Creatinine (0.52-1.04) mg/dL Estimated GFR (>60) mL/min BUN/Creatinine Ratio (6-22) Glucose (80-110) mg/dL Lactate 0.9 (0.7-2.1) mmol/L Calcium (8.4-10.2) mg/dL Total Bilirubin (0.2-1.3) mg/dL AST (14-36) IU/L ALT (<35) IU/L Alkaline Phosphatase (38-126) U/L Total Protein (6.3-8.2) g/dL Albumin (3.5-5.0) g/dL Globulin (1.7-4.1) g/dL Albumin/Globulin Ratio (1.0-2.8) Lipase (23-300) U/L Urine RBC (0-5/HPF) Urine WBC (0-5/HPF) Ur Squamous Epith Cells (0-5/HPF) Amorphous Sediment Urine Bacteria (None) Urine Mucus (Negative) Ur Culture Indicated? Point of care testing: Urine Dip Bedside Urine Glucose Negative Bedside Urine Bilirubin - Negative Bedside Urine Ketone ++ 40 Urine Specific [place] 1.015 Bedside Urine Occult Blood + Bedside Urine pH 7.5 Bedside Urine Protein + 30 Bedside Urine Urobilinogen +/- 1mg Bedside Urine Nitrite - Negative Bedside Urine Leukocytes ++ [address] scan - abdomen/pelvis: Radiologist's Impression: [address] [address] [address] Scan Report Signed Patient: Davina Barrett CMR#: [id number] : 7Acct:[id number] Age/Sex: 74 / FDate of Service: 01/07/20 Loc: ED Accession Number: [id number] Procedure: CT abdomen pelvis w con Ordering Provider: Vanessa Arce PROCEDURE: CT ABDOMEN PELVIS W CON INDICATIONS: Abdominal pain, rule out follow obstruction TECHNIQUE: After the administration of intravenous contrast, 5 mm thick sections acquired from the diaphragm to the symphysis. 5 mm coronal and sagittal reformats were acquired. For radiation dose reduction, the following was used: automated exposure control, adjustment of mA and/or kV according to patient size. COMPARISON: [facility], CT, CT ABDOMEN PELVIS W CON, 07/29/2019, 2:18. FINDINGS: Image quality: Excellent. ABDOMEN: Lung bases: Lung bases are clear. Heart size is normal. Solid organs: Liver is normal in size and enhancement. Gallbladder is unremarkable. Previous gallstone not identified. Biliary system is non dilated. Pancreas enhances normally. Ill-defined peripancreatic inflammatory change, as before. Spleen is normal in size and enhancement. No adrenal nodules. Interval placement of bilateral nephrostomy tubes. Previously and currently there is no hydronephrosis. Again noted is a tiny nonobstructing right lower pole renal stone. Peritoneum and bowel: Significant interval progression of diffuse wall thickening of the distal body and antrum of the stomach with development of proximal stomach gastric distention. There is significant debris present within the stomach. Interval development of marked diffuse thickening of the ascending colon and hepatic flexure, extending minimally into the proximal transverse colon. No dilated small bowel loops. Interval partial small bowel resection since the prior study, which had demonstrated a high grade proximal small bowel obstruction. Moderate rectal fecal impaction. Minimal free fluid in the pelvis. Nodes and vessels: No retroperitoneal or mesenteric adenopathy by size criteria. Aorta and inferior vena cava are normal in size. Miscellaneous: No ventral hernias. PELVIS: Genitourinary: Bladder wall thickness is normal. Miscellaneous: No inguinal hernias or adenopathy. Bones: 2 small sclerotic metastatic lesions have developed in the L5 vertebral body. No acute vertebral body compression fractures. IMPRESSION: 1. Interval progression of diffuse thickening of the distal body and antrum of the stomach, in a pattern suggesting progression of an infiltrative neoplastic process. 2. Interval increase in gastric distention, consistent with a degree of gastric outlet obstruction. 3. Interval development of significant diffuse thickening of the wall of the ascending colon and hepatic flexure and proximal transverse colon. Consider infiltrative neoplastic process versus ischemic versus infectious versus inflammatory colitis. 4. Ill-defined inflammation surrounding the pancreas, but uncertain etiology, stable. 5. Interval placement of bilateral nephrostomy tubes. No hydronephrosis. 6. No bowel obstruction. Moderate fecal impaction. 7. Blastic bony metastatic disease is now present. Dictated by: Hector Echavarria M.D. on 01/07/2020 at 16:40 Approved by: Hector Echavarria M.D. on 01/07/2020 at 16:54 MDM Narrative Medical decision making narrative: 74-year-old female with a history of breast cancer with mets to stomach, bowel, and bladder, presents emergency department for nausea, vomiting, and constipation. CT shows probable gastric obstruction which is most likely the cause of nausea vomiting, images are concerning for worsening malignancy. I spoke with oncology from [facility] in [place], Dr. Patel, who states an EDG is most likely next step with possible placement of stent. He states patient could be admitted for observation here or transfer and admitted to Medicine in [place]. I then spoke with Dr. Morocho who stated patient would have to undergo to procedure as since cannot be placed at this time. I spoke with patient and has been about friends between being monitored and later transferred or transfer at this time possibly undergoing 1 or 2 procedures. Patient and requested transfer to [facility]. NG tube placed prior to of transfer. Less likely infection due to lack of elevated white blood cell count, severe abdominal pain, high fevers, or sustained tachycardia. I suspect patient's inflammatory changes seen in bowel on CT most likely due to ongoing malignancy due to increased cement since last scan. Patient was accepted for transfer by Dr. Yong Soto at [facility] in [place]. Report given to Dr. Gutierrez at 2310 as patient is awaiting transfer. <Peggy Gutierrez MD - Last Filed: 01/08/20 06:13> Lab Data Labs: Lab Results 01/07/20 01/07/20 01/07/20 Range/Units 16:29 16:29 17:16 WBC 4.1 L (4.5-11.0) X10^3/uL RBC 3.00 L (4.0-5.2) X10^6/uL Hgb 9.3 L (12.0-16.0) g/dL Hct 26.6 L (36-46) % MCV 88.7 (80-100) fL MCH 31.2 (26-34) PG MCHC 35.2 (30-36) % RDW 17.6 H (11.6-14.8) % Plt Count 194 (150-400) X10^3/uL Neut % (Auto) 83.3 H (50-75) % Lymph % (Auto) 9.3 L (25-40) % [place] % (Auto) 5.1 (3-14) % Eos % (Auto) 1.3 L (2-4) % Baso % (Auto) 1.0 (0-2) % Neut # (Auto) 3400 (1099-0543) /uL Lymph # (Auto) 400 L (9408-6645) /uL [place] # (Auto) 200 (0-900) /uL Eos # (Auto) 100 (0-450) /uL Baso # (Auto) 0 (0-100) /uL Sodium 134 L (137-145) mmol/L Potassium 3.8 (3.4-5.1) mmol/L Chloride 98 (98-107) mmol/L Carbon Dioxide 27 (22-32) mmol/L BUN 15 (7-17) mg/dL Creatinine 0.84 (0.52-1.04) mg/dL Estimated GFR > 60.0 (>60) mL/min BUN/Creatinine Ratio 17.9 (6-22) Glucose 93 (80-110) mg/dL Lactate (0.7-2.1) mmol/L Calcium 9.5 (8.4-10.2) mg/dL Total Bilirubin 0.6 (0.2-1.3) mg/dL AST 41 H (14-36) IU/L ALT 55 H (<35) IU/L Alkaline Phosphatase 236 H (38-126) U/L Total Protein 6.6 (6.3-8.2) g/dL Albumin 3.9 (3.5-5.0) g/dL Globulin 2.7 (1.7-4.1) g/dL Albumin/Globulin Ratio 1.4 (1.0-2.8) Lipase 508 H (23-300) U/L Urine RBC 1-5/hpf (0-5/HPF) Urine WBC 5-10/hpf H (0-5/HPF) Ur Squamous Epith Cells 0-1 /hpf (0-5/HPF) Amorphous Sediment 1+ Urine Bacteria Few (2-10) H (None) Urine Mucus 1+ H (Negative) Ur Culture Indicated? Specimen cultured 01/07/20 Range/Units 22:35 WBC (4.5-11.0) X10^3/uL RBC (4.0-5.2) X10^6/uL Hgb (12.0-16.0) g/dL Hct (36-46) % MCV (80-100) fL MCH (26-34) PG MCHC (30-36) % RDW (11.6-14.8) % Plt Count (150-400) X10^3/uL Neut % (Auto) (50-75) % Lymph % (Auto) (25-40) % [place] % (Auto) (3-14) % Eos % (Auto) (2-4) % Baso % (Auto) (0-2) % Neut # (Auto) (4547-4312) /uL Lymph # (Auto) (9822-6920) /uL [place] # (Auto) (0-900) /uL Eos # (Auto) (0-450) /uL Baso # (Auto) (0-100) /uL Sodium (137-145) mmol/L Potassium (3.4-5.1) mmol/L Chloride (98-107) mmol/L Carbon Dioxide (22-32) mmol/L BUN (7-17) mg/dL Creatinine (0.52-1.04) mg/dL Estimated GFR (>60) mL/min BUN/Creatinine Ratio (6-22) Glucose (80-110) mg/dL Lactate 0.9 (0.7-2.1) mmol/L Calcium (8.4-10.2) mg/dL Total Bilirubin (0.2-1.3) mg/dL AST (14-36) IU/L ALT (<35) IU/L Alkaline Phosphatase (38-126) U/L Total Protein (6.3-8.2) g/dL Albumin (3.5-5.0) g/dL Globulin (1.7-4.1) g/dL Albumin/Globulin Ratio (1.0-2.8) Lipase (23-300) U/L Urine RBC (0-5/HPF) Urine WBC (0-5/HPF) Ur Squamous Epith Cells (0-5/HPF) Amorphous Sediment Urine Bacteria (None) Urine Mucus (Negative) Ur Culture Indicated? Point of care testing: Urine Dip Bedside Urine Glucose Negative Bedside Urine Bilirubin - Negative Bedside Urine Ketone ++ 40 Urine Specific [place] 1.015 Bedside Urine Occult Blood + Bedside Urine pH 7.5 Bedside Urine Protein + 30 Bedside Urine Urobilinogen +/- 1mg Bedside Urine Nitrite - Negative Bedside Urine Leukocytes ++ 125 Esterase Discharge Plan Departure Patient Disposition: [facility] Clinical Impression: Partial gastric outlet obstruction Breast cancer metastasized to multiple sites Qualifiers: Laterality: unspecified laterality Qualified Code(s): C50.919 - Malignant neoplasm of unspecified site of unspecified female breast Discharge Date/Time: 01/08/20 00:29 Prescriptions: No Action citalopram 20 mg tablet 40 mg PO DAILY Qty: 180 RF: 3 multivitamin [Multiple Vitamins] 1 EACH tablet 1 tab PO DAILY Qty: 0 RF: 0 cholecalciferol (vitamin D3) [Vitamin D3] 2,000 UNIT capsule 2,000 unit PO DAILY Qty: 0 RF: 0 rosuvastatin 5 mg tablet 5 mg PO DAILY Qty: 90 RF: 3 Referrals: Janay Blackwell DO [Primary Care Provider] - <Peggy Gutierrez MD - Last Filed: 01/08/20 06:13> Cosign ED Attending Cosignature Attestation: I was immediately available in the department for consultation throughout this patient's visit. I agree with documentation as above. Peggy Gutierrez MD
[2020-01-07] MEDS: SODIUM CHLORIDE 0.9% 1,000 ML 150 ML IV (16:36)
[2020-01-07 16:37] LABS: Add Manual Diff / Slide Review NO; Basophils Absolute Auto 0 /uL (0-100); Eosinophils Absolute Auto 100 /uL (0-450); Eosinophils Percent Auto 1.3 % (2-4); Hemoglobin 9.3 g/dL (12.0-16.0); Lymphocytes Absolute Auto 400 /uL (1100-4500); Lymphocytes Percent Auto 9.3 % (25-40); Mean Corpuscular HGB Conc 35.2 % (30-36); Mean Corpuscular Hemoglobin 31.2 PG (26-34); Mean Corpuscular Volume 88.7 fL (80-100); Monocytes Absolute Auto 200 /uL (0-900); Monocytes Percent Auto 5.1 % (3-14); Neutrophils Absolute Auto 3400 /uL (1500-7000); Neutrophils Percent Auto 83.3 % (50-75); Platelet Count 194 X10^3/uL (150-400); Red Cell Distribution Width 17.6 % (11.6-14.8); White Blood Cell Count 4.1 X10^3/uL (4.5-11.0)
[2020-01-07 16:46] LABS: Hematocrit 26.6 % (36-46)
[2020-01-07 16:52] LABS: Alanine Aminotransferase 55 IU/L (<35); Albumin 3.9 g/dL (3.5-5.0); Albumin Globulin Ratio 1.4 (1.0-2.8); Alkaline Phosphatase 236 U/L (38-126); Aspartate Aminotransferase 41 IU/L (14-36); BUN Creatinine Ratio 17.9 (6-22); Bilirubin Total 0.6 mg/dL (0.2-1.3); Blood Urea Nitrogen 15 mg/dL (7-17); Calcium 9.5 mg/dL (8.4-10.2); Carbon Dioxide 27 mmol/L (22-32); Chloride 98 mmol/L (98-107); Estimated Glomerular Filt Rate > 60.0 mL/min (>60); Globulin 2.7 g/dL (1.7-4.1); Glucose 93 mg/dL (80-110); HEMOLYSIS < 15 (0-50); Lipase 508 U/L (23-300); Potassium 3.8 mmol/L (3.4-5.1); Sodium 134 mmol/L (137-145); Total Protein 6.6 g/dL (6.3-8.2)
[2020-01-07] MEDS: METOCLOPRAMIDE 10 MG/2 ML INJ IV (17:07)
[2020-01-07 17:40] LABS: RBC Urine 1-5/HPF (0-5/HPF)
[2020-01-07 17:41] LABS: Amorphous Sediment Urine 1+; Bacteria Urine Few (2-10); Culture Indicated Urine Specimen Cultured; Mucus Urine 1+ (Negative); Squamous Epithelial Cell Urine 0-1 /HPF (0-5/HPF); WBC Urine 5-10/HPF (0-5/HPF)
[2020-01-07] MEDS: PANTOPRAZOLE 40 MG VIAL IV (18:14)
[2020-01-07] MEDS: ONDANSETRON 4 MG/2 ML INJ IV ×2 (18:38→23:00)
[2020-01-07 18:51] VITALS: BP 160/77; PULSE 77; RESP 21; O2SAT 99
[2020-01-07 19:27] VITALS: BP 153/83; PULSE 78; RESP 16; O2SAT 94
[2020-01-07 20:25] VITALS: BP 142/74; PULSE 84; RESP 14; O2SAT 99
[2020-01-07 20:56] VITALS: BP 150/77; PULSE 71; RESP 15; O2SAT 95
[2020-01-07 22:14] VITALS: BP 151/67; PULSE 91; RESP 21; O2SAT 98
[2020-01-07 22:50] LABS: Lactate (Lactic Acid) 0.9 mmol/L (0.7-2.1)
[2020-01-08 00:21] VITALS: BP 151/81; PULSE 92; RESP 16; O2SAT 97
== END 2020-01-08 00:29 | disposition short-term general hospital (02) ==
PROVIDERS: Emergency Provider Nurse Practitioner; Family Provider Internal Medicine; PCP Family Medicine
DX: K31.1 Adult hypertrophic pyloric stenosis (principal); C50.919 Malignant neoplasm of unspecified site of unspecified female breast; R11.2 Nausea with vomiting, unspecified
CPT/HCPCS: 36415; 74177; 80053; 81003; 81015; 83605; 83690; 85025; 87086; 96361; 96374; 96375; 96376; 99285; C9113; J2405; J2765; Q9967

== ENCOUNTER 2020-01-29 12:16 | Emergency (ER) | payer MEDICARE, BC, SELFPAY ==
[2019-07-29 05:05] VITALS: BMI 38.1
[2020-01-29] VITALS (7 sets, daily range): BP systolic 108–151; BP diastolic 70–85; PULSE 77–85; RESP 15–20; TEMP 36.5; O2SAT 95–98; BMI 29.8
--- NOTE | 2020-01-29 12:38 | ED_ITS ---
HPI - General Adult General Chief complaint: Weakness Stated complaint: reaction to infusion Time Seen by Provider: 01/29/20 12:21 Source: patient Mode of arrival: Wheelchair Limitations: no limitations History of Present Illness HPI narrative: 74-year-old female. History of breast cancer. Currently undergoing chemotherapy her last infusion was 4 days ago. She states that was the 1st time that she received this particular type of medicine which was Adriamycin. She states that since she had the infusion she has progressively become weak. She normally walks around with a walker however she states that over the past 4 days she is had less coordination issues. She states that she is walking in a straight line she does okay but if she tries to turn she has a difficult time doing this. No headache. She describes it is more for coordination issue rather than weakness issue. No headache. No shortness of breath. She feels that it is more an issue with her lower extremities with her upper extremities. She states she is constipated this is not particularly new. She is having some urinary incontinence but this is also not new. She does have a nephrostomy tube secondary to prior issues with her kidneys however she states she still does produce a small amount a urine which she does have problems controlling. Again this started before any of the issues over the past couple days. Related Data Home Medications Medication Instructions Recorded Confirmed cholecalciferol (vitamin D3) 2,000 unit PO DAILY #0 12/27/16 08/23/19 [Vitamin D3] multivitamin [Multiple Vitamins] 1 tab PO DAILY #0 12/27/16 08/23/19 Previous Rx's Medication Instructions Recorded rosuvastatin 5 mg tablet 5 mg PO DAILY #90 tab 07/10/19 citalopram 20 mg tablet 40 mg PO DAILY #180 tab 01/04/20 lorazepam 0.5 mg tablet 0.5 mg PO BID PRN #30 tab 01/10/20 ondansetron HCl 4 mg tablet 4 mg PO Q8H PRN #30 tab 01/10/20 prochlorperazine maleate 10 mg 10 mg PO BID PRN #30 tab 01/10/20 tablet Allergies Allergy/AdvReac Type Severity Reaction Status Date / Time Penicillins [PENICILLINS] Allergy Unknown Verified 01/29/20 12:26 shellfish derived Allergy Unknown Verified 01/29/20 12:26 [SHELLFISH DERIVED] vancomycin [VANCOMYCIN] Allergy Unknown Verified 01/29/20 12:26 Review of Systems Constitutional Constitutional: Denies fever(s) and Denies headache(s) Eyes Eyes: Denies change in vision ENT Ears, Nose, Mouth, and Throat: Denies vertigo, Denies dizziness, Denies headache(s), Denies neck pain, Reports disequilibrium and Denies sore throat Cardiovascular Cardiovascular: Denies chest pain and Denies dyspnea Respiratory Respiratory: Denies dyspnea Gastrointestinal Gastrointestinal: Denies abdominal pain and Denies vomiting Musculoskeletal Musculoskeletal: Denies arthralgias, Denies muscle cramps, Denies myalgias, Denies neck pain and Denies tingling Integumentary/Breasts Skin/Breast: Denies lesions and Denies rash Neurologic Neurologic: Denies behavioral changes, Denies confusion, Denies vertigo, Denies dizziness, Denies headache(s), Denies tingling and Reports disequilibrium Psychiatric Psychiatric: Denies behavioral changes and Denies confusion Hematologic/Lymphatic Hematologic/Lymphatic: Denies easy bleeding and Denies easy bruising Patient History Medical History Breast cancer (Resolved 1990) Cataract (Chronic 2016) Chicken pox (Resolved ~1949) Diverticulitis (Resolved 2014) Essential hypertension (Chronic 05/10/17) Gout (Inactive) Hayfever (Chronic) History of heavy periods (Resolved) Hyperlipidemia (Chronic 05/10/17) IBS (irritable bowel syndrome) (Chronic) Lymphedema (Chronic 05/10/17) Malignant neoplasm of breast (Inactive 09/13/17) Measles (Resolved ~1949) Morbid obesity (Chronic 09/13/17) Mumps (Resolved 1960) Neutropenia (Resolved 2013) Osteopenia (Chronic) Primary osteoarthritis of both knees (Chronic 09/13/17) Rosacea (Resolved) Shoulder pain (Chronic 2014) Skin cancer (Resolved 02/2017) Thyroid nodule (Resolved 2013) Tinnitus (Chronic) Surgical History Anesthesia (Resolved) History of eye surgery (Inactive ~1950) History of toe surgery (Inactive 1994) History of tonsillectomy (Inactive ~1961) Status post delivery (Inactive 01/01/83) Status post partial mastectomy (Inactive 11/05/13) Status post partial mastectomy (Inactive 09/07/90) Family History Father Heart disease Hypertension High cholesterol Stroke Grandfather Heart disease Grandmother Heart disease Diabetes mellitus Pneumonia CAD (coronary artery disease) Mother Cancer Heart disease Head and neck cancer Grandmother Heart disease Heart attack Grandfather Lung cancer Social History household members: spouse Smoking Status: Never smoker alcohol intake: current substance use type: does not use Smoking Status: Never smoker alcohol intake frequency: holidays/special occasions only Alcohol type: wine Substance Use Type: does not use Exam Initial Vital Signs Initial Vital Signs: Vital Signs Temperature 97.7 F 01/29/20 12:20 Pulse Rate 85 01/29/20 12:20 Respiratory Rate 15 01/29/20 12:20 Blood Pressure 142/72 H 01/29/20 12:20 Pulse Oximetry 98 01/29/20 12:20 Const General: cooperative, comfortable and well developed Limitations: mental status not altered HENMT Head: normal to inspection and normocephalic Resp Effort & Inspection: normal respiratory effort Cardio Rate: regular rate Skin Lesions: no lesions Rashes: no rashes Neuro General: patient alert, patient awake and patient oriented x3 Cognition: normal cognition Speech: speech normal Other: 5/5 strength bilateral upper extremities. 3/5 strength bilateral lower extremities Extrem General: normal to inspection and capillary refill normal Psych Appearance: grossly normal and well kempt Scores GCS Dina coma scale eye opening: Spontaneous [place] coma scale verbal response: Orientated [place] coma scale motor response: Obey commands Dina coma scale total score: 15 Course Orders Ordered: ED Orders 01/29/20 12:50 MR head/brain wo/w con Stat 01/29/20 13:10 Basic Metabolic Panel Stat Complete Blood Count MAN DIFF Stat Discontinued Medications Diazepam (Valium) 5 mg PO NOW ONE Stop: 01/29/20 15:52 Last Admin: 01/29/20 15:53 Dose: 5 mg Documented by: JERI Diltiazem HCl (Cardizem) 10 mg IV NOW ONE Stop: 01/29/20 12:22 Last Admin: 01/29/20 12:25 Dose: Not Given Documented by: ANGELA Vital Signs Vital signs: Vital Signs - 8 hr 01/29/20 12:20 01/29/20 13:10 01/29/20 13:52 Temperature 97.7 F Pulse Rate 85 80 77 Respiratory Rate 15 20 18 Blood Pressure 142/72 H Blood Pressure [Right Arm] 142/75 H 135/79 Pulse Oximetry 98 97 97 01/29/20 14:48 01/29/20 16:43 01/29/20 18:11 Temperature Pulse Rate 81 84 79 Respiratory Rate 16 16 16 Blood Pressure Blood Pressure [Right Arm] 144/70 H 151/79 H 135/73 Pulse Oximetry 95 96 Medical Decision Making Medical Records Medical records reviewed: Yes I reviewed the patient's medical records. Lab Data Lab results reviewed: Yes I reviewed the patient's lab results. Result diagrams: 01/29/20 13:10 01/29/20 13:10 Labs: Lab Results 01/29/20 01/29/20 Range/Units 13:10 13:10 WBC 3.3 L (4.5-11.0) X10^3/uL RBC 3.31 L (4.0-5.2) X10^6/uL Hgb 10.4 L (12.0-16.0) g/dL Hct 30.2 L (36-46) % MCV 91.2 (80-100) fL MCH 31.5 (26-34) PG MCHC 34.6 (30-36) % RDW 16.4 H (11.6-14.8) % Plt Count 194 (150-400) X10^3/uL Total Counted 100 Seg Neutrophils % 76.0 H (38-70) % Lymphocytes % (Manual) 14.0 L (25-45) % Atypical Lymphs % 1.0 H ( - 0) % Monocytes % (Manual) 8.0 (2-11) % Eosinophils % (Manual) 1.0 L (2-4) % Neutrophils # (Manual) 2508 L (5340-0344) /uL RBC Morphology Not Reportable Anisocytosis 2+ H Sodium 135 L (137-145) mmol/L Potassium 3.8 (3.4-5.1) mmol/L Chloride 100 (98-107) mmol/L Carbon Dioxide 29 (22-32) mmol/L BUN 16 (7-17) mg/dL Creatinine 0.76 (0.52-1.04) mg/dL Estimated GFR > 60.0 (>60) mL/min BUN/Creatinine Ratio 21.1 (6-22) Glucose 105 (80-110) mg/dL Calcium 9.3 (8.4-10.2) mg/dL Imaging Data MRI brain: Radiologist's Impression: [address] [address] Magnetic Resonance Report Signed Patient: Davina Barrett CMR#: [id number] : 7Acct:[id number] Age/Sex: 74 / FDate of Service: 01/29/20 Loc: ED Accession Number: [id number] Procedure: MR head/brain wo/w con Ordering Provider: Michel Simpson D.O. PROCEDURE: MR HEAD/BRAIN WO/W CON INDICATIONS: hx of breast CA with LE weakness TECHNIQUE: Noncontrast axial T1 spin echo, axial T2 fast spin echo, sagittal and axial FLAIR, coronal T2 fast spin echo, axial gradient echo, axial diffusion and ADC through the brain. After the administration of contrast, axial and coronal T1 spin echo with fat saturation through the brain. COMPARISON: None. FINDINGS: Image quality: Excellent. CSF spaces: Ventricles are prominent in relation general sulcal atrophy. No priors are available for comparison. Brain: No midline shift. There is a 20 weight millimeter AP by 21 mm transverse focus of hypointense T1 and hyperintense T2 signal to the left of midline in the posterior left parietal lobe. It is nonenhancing. There is no surrounding edema it has well-circumscribed margins. There is a rounded focus of hypointensity on gradient sequence also hypointense on T2. This could represent a cavernous angioma. There is periventricular white matter chronic small vessel ischemic change. The brainstem appears normal. Diffusion-weighted images demonstrate no acute ischemic insults. No chronic ischemic insults. Normal intravascular flow voids are present. Skull and face: Calvarial marrow is normal in signal. Orbits appear normal. Minimal fluid is noted within the right mastoid air cells. IMPRESSION: 1. Mild increased prominence of the ventricular system in relation general sulcal atrophy. This could represent a central atrophy pattern. However, as clinically appropriate, normal pressure hydrocephalus should be considered and further evaluation is indicated. 2. Left para-midline focus of nonenhancing predominantly hypointense T1 and hyperintense T2 signal as described above. This likely represents encephalomalacia or potentially arachnoid cyst. Dictated by: Luisa Odell M.D. on 01/29/2020 at 16:36 Approved by: Luisa Odell M.D. on 01/29/2020 at 17:04 [facility] Narrative Medical decision making narrative: I did discuss the case with the patient's oncologist was Dr. Odom at the [facility]. She recommended an MRI of the brain. This was performed. Shows no acute pathology. I did discuss the case with Dr. Prabhakar who was on-call for Neurology at the [facility]. She was able to evaluate the MRI and was also able to evaluate her prior MRIs and stated that today's study is unchanged. There are still some concern about potential metastasis to the spine. Had a long discussion with the patient regarding her symptoms. We did discuss potentially transferring her for admission secondary to her mobility issues however she states she does have occupational therapy and home health and physical therapy coming to her house. I feel we can hold on further workup for now. However contact her oncologist tomorrow for follow-up. She was given return precautions. We did discuss importance of avoiding falling. She expressed understanding and agreement. Discharge Plan Departure Patient Disposition: Home Clinical Impression: Disequilibrium Breast cancer Qualifiers: Breast location: unspecified site of breast Estrogen receptor status: unspecified Patient sex: female Laterality: unspecified laterality Qualified Code(s): C50.919 - Malignant neoplasm of unspecified site of unspecified female breast Instructions: Exercises to Help Prevent Falls, How to Prevent Falls Activity Restrictions/Additional Instructions: Recommend that tomorrow you contact your oncologist office for a follow-up. Continue all of your medications as directed. Use your walker at home. Is important that you avoid falling. Return to the emergency department for any new or worsening symptoms Prescriptions: No Action citalopram 20 mg tablet 40 mg PO DAILY Qty: 180 RF: 3 prochlorperazine maleate [Compazine] 10 mg tablet 10 mg PO BID PRN (Reason: nausea and vomiting) Qty: 30 RF: 0 lorazepam 0.5 mg tablet 0.5 mg PO BID PRN (Reason: anxiety) Qty: 30 RF: 0 ondansetron HCl 4 mg tablet 4 mg PO Q8H PRN (Reason: nausea and vomiting) Qty: 30 RF: 0 multivitamin [Multiple Vitamins] 1 EACH tablet 1 tab PO DAILY Qty: 0 RF: 0 cholecalciferol (vitamin D3) [Vitamin D3] 2,000 UNIT capsule 2,000 unit PO DAILY Qty: 0 RF: 0 rosuvastatin 5 mg tablet 5 mg PO DAILY Qty: 90 RF: 3 Referrals: Janay Blackwell DO [Primary Care Provider] -
--- NOTE | 2020-01-29 12:50 | DI.MRI.S_ITS ---
PROCEDURE: MR HEAD/BRAIN WO/W CON INDICATIONS: hx of breast CA with LE weakness TECHNIQUE: Noncontrast axial T1 spin echo, axial T2 fast spin echo, sagittal and axial FLAIR, coronal T2 fast spin echo, axial gradient echo, axial diffusion and ADC through the brain. After the administration of contrast, axial and coronal T1 spin echo with fat saturation through the brain. COMPARISON: None. FINDINGS: Image quality: Excellent. CSF spaces: Ventricles are prominent in relation general sulcal atrophy. No priors are available for comparison. Brain: No midline shift. There is a 20 weight millimeter AP by 21 mm transverse focus of hypointense T1 and hyperintense T2 signal to the left of midline in the posterior left parietal lobe. It is nonenhancing. There is no surrounding edema it has well-circumscribed margins. There is a rounded focus of hypointensity on gradient sequence also hypointense on T2. This could represent a cavernous angioma. There is periventricular white matter chronic small vessel ischemic change. The brainstem appears normal. Diffusion-weighted images demonstrate no acute ischemic insults. No chronic ischemic insults. Normal intravascular flow voids are present. Skull and face: Calvarial marrow is normal in signal. Orbits appear normal. Minimal fluid is noted within the right mastoid air cells. IMPRESSION: 1. Mild increased prominence of the ventricular system in relation general sulcal atrophy. This could represent a central atrophy pattern. However, as clinically appropriate, normal pressure hydrocephalus should be considered and further evaluation is indicated. 2. Left para-midline focus of nonenhancing predominantly hypointense T1 and hyperintense T2 signal as described above. This likely represents encephalomalacia or potentially arachnoid cyst. Dictated by: Luisa Odell M.D. on 01/29/2020 at 16:36 Approved by: Luisa Odell M.D. on 01/29/2020 at 17:04
[2020-01-29 13:23] LABS: Hematocrit 30.2 % (36-46); Hemoglobin 10.4 g/dL (12.0-16.0); Mean Corpuscular HGB Conc 34.6 % (30-36); Mean Corpuscular Hemoglobin 31.5 PG (26-34); Mean Corpuscular Volume 91.2 fL (80-100); Platelet Count 194 X10^3/uL (150-400); Red Blood Cell Count 3.31 X10^6/uL (4.0-5.2); Red Cell Distribution Width 16.4 % (11.6-14.8); White Blood Cell Count 3.3 X10^3/uL (4.5-11.0)
[2020-01-29 13:35] LABS: BUN Creatinine Ratio 21.1 (6-22); Blood Urea Nitrogen 16 mg/dL (7-17); Calcium 9.3 mg/dL (8.4-10.2); Carbon Dioxide 29 mmol/L (22-32); Chloride 100 mmol/L (98-107); Estimated Glomerular Filt Rate > 60.0 mL/min (>60); Glucose 105 mg/dL (80-110); HEMOLYSIS < 15 (0-50); Potassium 3.8 mmol/L (3.4-5.1); Sodium 135 mmol/L (137-145)
[2020-01-29 13:38] LABS: Anisocytosis 2+; Neutrophils Absolute Manual 2508 /uL (3000-5900); Total Cells Counted 100
--- NOTE | 2020-01-29 13:48 | PC.NURSE ---
Pt states she was started on a new chemo medication that has made her weak and her legs buckle. She states that she has started to use a walker
[2020-01-29] MEDS: diazePAM 5 MG TABLET PO (15:53)
--- NOTE | 2020-01-29 16:07 | PC.NURSE ---
Pt to MRI
== END 2020-01-29 18:47 | disposition home or self-care (01) ==
PROVIDERS: Emergency Provider Emergency Medicine; Family Provider Internal Medicine; PCP Family Medicine
DX: R42 Dizziness and giddiness (principal); C50.919 Malignant neoplasm of unspecified site of unspecified female breast; R32 Unspecified urinary incontinence; Z93.6 Other artificial openings of urinary tract status
CPT/HCPCS: 36415; 51798; 70553; 80048; 85025; 99284; J1642

== ENCOUNTER 2020-01-31 18:08 | Emergency (ER) | payer MEDICARE, BC, SELFPAY ==
[2019-07-29 05:05] VITALS: BMI 38.1
--- NOTE | 2020-01-31 18:18 | ED.ABDPAIN ---
HPI - Abdominal Pain General Chief Complaint: Abdominal Pain Stated Complaint: constipated due to chemo Time Seen by Provider: 01/31/20 18:10 Source: patient and family Mode of arrival: Ambulatory Limitations: no limitations History of Present Illness HPI narrative: 74-year-old female nonsmoker with history of breast cancer, receiving chemotherapy weekly presents with her and a chief complaint constipation and no bowel movement for upwards of 1 week. She has abdominal fullness but no significant pain. She does take multiple stool softeners and laxatives but has been unable to have much more than small ?asif? for the past few days. She denies dizziness, weakness or lightheadedness. She denies dysuria, frequency or urgency. MD complaint: abdominal pain Onset (ago): day(s) Pain Consistency: constant Location: diffuse Severity: mild Quality: cramping Radiation: none Migration to: no migration Relieving factors: nothing Exacerbating factors: nothing Related Data Patient : No Home Medications Medication Instructions Recorded Confirmed cholecalciferol (vitamin D3) 2,000 unit PO DAILY #0 12/27/16 08/23/19 [Vitamin D3] multivitamin [Multiple Vitamins] 1 tab PO DAILY #0 12/27/16 08/23/19 Previous Rx's Medication Instructions Recorded rosuvastatin 5 mg tablet 5 mg PO DAILY #90 tab 07/10/19 citalopram 20 mg tablet 40 mg PO DAILY #180 tab 01/04/20 lorazepam 0.5 mg tablet 0.5 mg PO BID PRN #30 tab 01/10/20 ondansetron HCl 4 mg tablet 4 mg PO Q8H PRN #30 tab 01/10/20 prochlorperazine maleate 10 mg 10 mg PO BID PRN #30 tab 01/10/20 tablet Allergies Allergy/AdvReac Type Severity Reaction Status Date / Time Penicillins [PENICILLINS] Allergy Unknown Verified 01/31/20 18:26 shellfish derived Allergy Unknown Verified 01/31/20 18:26 [SHELLFISH DERIVED] vancomycin [VANCOMYCIN] Allergy Unknown Verified 01/31/20 18:26 Review of Systems Constitutional Constitutional: Denies chills, Denies fatigue, Denies fever(s), Denies frequent falls, Denies lethargy and Denies weakness Eyes Eyes: Denies change in vision, Denies eye discharge, Denies irritation and Denies loss of vision ENT Ears, Nose, Mouth, and Throat: Denies change in voice, Denies dizziness, Denies neck pain, Denies sore throat and Denies throat swelling Cardiovascular Cardiovascular: Denies chest pain, Denies irregular heart rhythm, Denies lightheadedness, Denies palpitations, Denies dyspnea, Denies dyspnea on exertion and Denies orthopnea Respiratory Respiratory: Denies cough, Denies dyspnea, Denies dyspnea on exertion and Denies wheezing Gastrointestinal Gastrointestinal: Denies abdominal pain, Denies change in bowel habits, Reports constipation, Reports cramping, Denies diarrhea, Denies nausea and Denies vomiting Musculoskeletal Musculoskeletal: Denies neck pain and Denies numbness Integumentary/Breasts Skin/Breast: Denies pruritus, Denies erythema, Denies rash and Denies wounds Neurologic Neurologic: Denies behavioral changes, Denies confusion, Denies dizziness, Denies frequent falls, Denies loss of vision, Denies numbness and Denies weakness Psychiatric Psychiatric: Denies anxiety, Denies behavioral changes, Denies confusion, Denies depression, Denies homicidal ideation and Denies suicidal ideation Endocrine Endocrine: Denies fatigue, Denies flushing and Denies palpitations Hematologic/Lymphatic Hematologic/Lymphatic: Denies easy bruising Allergic/Immunologic Allergic/Immunologic: Denies urticaria, Denies throat swelling and Denies wheezing Patient History Medical History Breast cancer (Resolved 1990) Cataract (Chronic 2016) Chicken pox (Resolved ~1950) Diverticulitis (Resolved 2014) Essential hypertension (Chronic 05/10/17) Gout (Inactive) Hayfever (Chronic) History of heavy periods (Resolved) Hyperlipidemia (Chronic 05/10/17) IBS (irritable bowel syndrome) (Chronic) Lymphedema (Chronic 05/10/17) Malignant neoplasm of breast (Inactive 09/13/17) Measles (Resolved ~1950) Morbid obesity (Chronic 09/13/17) Mumps (Resolved 1960) Neutropenia (Resolved 2013) Osteopenia (Chronic) Primary osteoarthritis of both knees (Chronic 09/13/17) Rosacea (Resolved) Shoulder pain (Chronic 2014) Skin cancer (Resolved 02/2017) Thyroid nodule (Resolved 2013) Tinnitus (Chronic) Surgical History Anesthesia (Resolved) History of eye surgery (Inactive ~195) History of toe surgery (Inactive 1994) History of tonsillectomy (Inactive ~1961) Status post delivery (Inactive 01/01/83) Status post partial mastectomy (Inactive 11/05/13) Status post partial mastectomy (Inactive 09/07/90) Family History Father Heart disease Hypertension High cholesterol Stroke Grandfather Heart disease Grandmother Heart disease Diabetes mellitus Pneumonia CAD (coronary artery disease) Mother Cancer Heart disease Head and neck cancer Grandmother Heart disease Heart attack Grandfather Lung cancer Social History household members: spouse Smoking Status: Never smoker alcohol intake: current substance use type: does not use Smoking Status: Never smoker alcohol intake frequency: holidays/special occasions only Alcohol type: wine Substance Use Type: does not use Exam Narrative Exam Narrative: GEN: AOx3 and in mild distress EYES: Pupils are equal, round, and reactive to light and accommodation. Extraoccular muscles are intact bilaterally. There is no subconjunctival hemorrhage or exudate. CHEST: Lungs are clear to auscultation bilaterally and free of wheezes, rales, or rhonchi. Heart rate is regular rhythm, there are no murmurs, clicks, rubs, or gallops. There is no chest wall tenderness. ABD: Abdomen is soft and nontender. There is no guarding or rebound. Bowel sounds are normal in all 4 quadrants. There is no mass or organomegaly. EXT: Full painless ROM of all extremities with no loss of sensation or strength. SKIN: Warm, pink, and dry. No erythema or rash Initial Vital Signs Initial Vital Signs: Vital Signs Temperature 98.1 F 01/31/20 18:21 Pulse Rate 107 H 01/31/20 18:21 Respiratory Rate 17 01/31/20 18:21 Blood Pressure 129/94 H 01/31/20 18:21 Pulse Oximetry 98 01/31/20 18:21 Course Course Course Narrative: Soon after arrival patient ambulates to the restroom and has a very large bowel movement which resulted in near complete resolution of symptoms Orders Ordered: ED Orders 01/31/20 18:20 XR acute abdomen series Stat Vital Signs Vital signs: Vital Signs - 8 hr 06/18/20 18:21 Temperature 98.1 F Pulse Rate 107 H Respiratory Rate 17 Blood Pressure 129/94 H Pulse Oximetry 98 MDM - Abdominal Pain Imaging Data Abdominal x-ray: My Impression: No obstruction Radiologist's Impression: [address] [address] XRay Report Signed Patient: Davina Barrett CMR#: [id number] : 7Acct:[id number] Age/Sex: 74 / FDate of Service: 01/31/20 Loc: ED Accession Number: [id number] Procedure: XR acute abdomen series Ordering Provider: Chinedu Addison D.O. PROCEDURE: XR ACUTE ABDOMEN SERIES INDICATIONS: Abdominal pain, constipation TECHNIQUE: One view chest and two views of the abdomen were acquired. COMPARISON: [facility], CR, XR ACUTE ABDOMEN SERIES, 06/03/2019, 11:15. FINDINGS: Surgical changes and devices: Right Port-A-Cath is unchanged. Chest: Lungs are clear. Heart size is normal. No pleural effusions. No pneumoperitoneum. Abdomen: Bowel gas pattern is normal. No suspicious calcifications. Visualized solid organ contours appear normal. Bones: No suspicious bony lesions. IMPRESSION: No acute cardiopulmonary findings. Dictated by: Jaye Enriquez M.D. on 01/31/2020 at 18:53 Approved by: Jaye Enriquez M.D. on 01/31/2020 at 18:55 Discharge Plan Departure Patient Disposition: Home Clinical Impression: Constipation Qualifiers: Constipation type: unspecified constipation type Qualified Code(s): K59.00 - Constipation, unspecified Discharge Date/Time: 01/31/20 20:08 Instructions: DI for Constipation Activity Restrictions/Additional Instructions: *You have been diagnosed with [ abdominal pain due to constipation ] *What to do: *Take over the counter medications as directed: 1. Metamucil - bulk forming laxative adds fiber 2. Colace - softens your stool 3. Dulcolax Suppository - stimulates your bowels from the bottom *Follow up with your primary care provider in 2-3 days, call for appointment *Return to ER if you should have any new, worsening or concerning symptoms *Drink plenty of water and eat foods high in fiber *Try to be as active as possible, consider walking your dog daily Prescriptions: No Action citalopram 20 mg tablet 40 mg PO DAILY Qty: 180 RF: 3 prochlorperazine maleate [Compazine] 10 mg tablet 10 mg PO BID PRN (Reason: nausea and vomiting) Qty: 30 RF: 0 lorazepam 0.5 mg tablet 0.5 mg PO BID PRN (Reason: anxiety) Qty: 30 RF: 0 ondansetron HCl 4 mg tablet 4 mg PO Q8H PRN (Reason: nausea and vomiting) Qty: 30 RF: 0 multivitamin [Multiple Vitamins] 1 EACH tablet 1 tab PO DAILY Qty: 0 RF: 0 cholecalciferol (vitamin D3) [Vitamin D3] 2,000 UNIT capsule 2,000 unit PO DAILY Qty: 0 RF: 0 rosuvastatin 5 mg tablet 5 mg PO DAILY Qty: 90 RF: 3 Referrals: Janay Blackwell DO [Primary Care Provider] -
[2020-01-31 18:21] VITALS: BP 129/94; PULSE 107; RESP 17; TEMP 36.7; O2SAT 98
== END 2020-01-31 20:08 | disposition home or self-care (01) ==
PROVIDERS: Emergency Provider Emergency Medicine; Family Provider Internal Medicine; PCP Family Medicine
DX: K59.00 Constipation, unspecified (principal); R10.9 Unspecified abdominal pain
CPT/HCPCS: 74022; 99283

== ENCOUNTER → 2020-03-10 15:34 | Outpatient (CLI) | payer MEDICARE, BC, SELFPAY ==
[2019-07-29 05:05] VITALS: BMI 38.1
[2020-03-10 16:28] LABS: Appearance Urine UA CLEAR; Bilirubin Urine UA NEGATIVE (NEGATIVE); Color Urine UA YELLOW; Glucose Urine UA NEGATIVE (Negative); Ketones Urine UA NEGATIVE (NEGATIVE); Leukocyte Esterase Urine UA 2+ (NEGATIVE); Nitrite Urine UA NEGATIVE (Negative); Occult Blood Urine UA 3+ (Negative); Protein Urine UA 1+ (Negative); Specific Gravity Urine UA <=1.005 (1.000-1.035); Urobilinogen Urine UA 0.2 E.U./dL (0.2)
[2020-03-10 16:38] LABS: Bacteria Urine Occasional (0-1); Culture Indicated Urine Specimen Cultured; RBC Urine 5-10/HPF (0-5/HPF); Squamous Epithelial Cell Urine 0-1 /HPF (0-5/HPF); WBC Urine 5-10/HPF (0-5/HPF)
== END ==
PROVIDERS: Family Provider Internal Medicine; PCP Family Medicine; Referring Provider Family Medicine; Visit Provider Family Medicine
DX: R30.0 Dysuria (principal)
CPT/HCPCS: 81003; 81015; 87086

== ENCOUNTER → 2020-04-17 15:00 | Oncology outpatient (ONC) | payer MEDICARE, BC, SELFPAY ==
--- NOTE | 2019-01-03 09:26 | ONC.SCHED ---
called and left message for her to return my call to schedule labs for Dr. Jauregui
[2019-01-03 16:08] LABS: Add Manual Diff / Slide Review NO; Basophils Absolute Auto 0 /uL (0-100); Basophils Percent Auto 0.9 % (0-2); Eosinophils Absolute Auto 100 /uL (0-450); Eosinophils Percent Auto 2.6 % (2-4); Hematocrit 38.4 % (36-46); Hemoglobin 12.7 g/dL (12.0-16.0); Lymphocytes Absolute Auto 700 /uL (1100-4500); Lymphocytes Percent Auto 15.4 % (25-40); Mean Corpuscular HGB Conc 33.1 % (30-36); Mean Corpuscular Hemoglobin 29.5 PG (26-34); Mean Corpuscular Volume 89.1 fL (80-100); Monocytes Absolute Auto 600 /uL (0-900); Monocytes Percent Auto 12.5 % (3-14); Neutrophils Absolute Auto 3100 /uL (1500-7000); Neutrophils Percent Auto 68.6 % (50-75); Platelet Count 168 X10^3/uL (150-400); Red Cell Distribution Width 12.7 % (11.6-14.8); White Blood Cell Count 4.5 X10^3/uL (4.5-11.0)
[2019-01-03 16:23] LABS: Alanine Aminotransferase 36 IU/L (9-52); Albumin 4.4 g/dL (3.5-5.0); Albumin Globulin Ratio 1.8 (1.0-2.8); Alkaline Phosphatase 81 U/L (38-126); Aspartate Aminotransferase 26 IU/L (14-36); BUN Creatinine Ratio 22.9 (6-22); Bilirubin Total 0.5 mg/dL (0.2-1.3); Blood Urea Nitrogen 16 mg/dL (7-17); Calcium 9.4 mg/dL (8.4-10.2); Carbon Dioxide 29 mmol/L (22-32); Chloride 103 mmol/L (98-107); Estimated Glomerular Filt Rate > 60.0 mL/min (>60); Globulin 2.5 g/dL (1.7-4.1); Glucose 84 mg/dL (80-110); HEMOLYSIS < 15 (0-50); Potassium 4.1 mmol/L (3.4-5.1); Sodium 138 mmol/L (137-145); Total Protein 6.9 g/dL (6.3-8.2)
[2019-01-03 16:27] LABS: B Type Natriuretic Peptide 261 (<100)
[2019-04-11 10:56] LABS: Add Manual Diff / Slide Review NO; Basophils Absolute Auto 0 /uL (0-100); Basophils Percent Auto 1.1 % (0-2); Eosinophils Absolute Auto 100 /uL (0-450); Eosinophils Percent Auto 3.5 % (2-4); Hematocrit 39.4 % (36-46); Hemoglobin 13.1 g/dL (12.0-16.0); Lymphocytes Absolute Auto 600 /uL (1100-4500); Lymphocytes Percent Auto 14.6 % (25-40); Mean Corpuscular HGB Conc 33.2 % (30-36); Mean Corpuscular Hemoglobin 29.3 PG (26-34); Mean Corpuscular Volume 88.4 fL (80-100); Monocytes Absolute Auto 400 /uL (0-900); Monocytes Percent Auto 10.8 % (3-14); Neutrophils Absolute Auto 2800 /uL (1500-7000); Platelet Count 179 X10^3/uL (150-400); Red Blood Cell Count 4.46 X10^6/uL (4.0-5.2); Red Cell Distribution Width 12.9 % (11.6-14.8)
[2019-04-11 11:08] LABS: Alanine Aminotransferase 19 IU/L (9-52); Albumin 4.5 g/dL (3.5-5.0); Albumin Globulin Ratio 1.8 (1.0-2.8); Alkaline Phosphatase 105 U/L (38-126); Aspartate Aminotransferase 25 IU/L (14-36); BUN Creatinine Ratio 27.1 (6-22); Bilirubin Total 0.6 mg/dL (0.2-1.3); Blood Urea Nitrogen 19 mg/dL (7-17); Calcium 9.5 mg/dL (8.4-10.2); Carbon Dioxide 28 mmol/L (22-32); Chloride 104 mmol/L (98-107); Estimated Glomerular Filt Rate > 60.0 mL/min (>60); Globulin 2.5 g/dL (1.7-4.1); Glucose 99 mg/dL (80-110); HEMOLYSIS < 15 (0-50); Potassium 4.4 mmol/L (3.4-5.1); Sodium 141 mmol/L (137-145)
[2019-04-11 18:33] LABS: Hep C Virus Ab w/Reflex Quant NEGATIVE s/c (NEGATIVE)
[2019-04-26 11:39] LABS: BUN Creatinine Ratio 28.8 (6-22); Blood Urea Nitrogen 23 mg/dL (7-17); Calcium 9.7 mg/dL (8.4-10.2); Carbon Dioxide 30 mmol/L (22-32); Chloride 102 mmol/L (98-107); Estimated Glomerular Filt Rate > 60.0 mL/min (>60); Glucose 96 mg/dL (80-110); HEMOLYSIS < 15 (0-50); Potassium 4.4 mmol/L (3.4-5.1); Sodium 139 mmol/L (137-145)
[2019-04-26 11:45] LABS: B Type Natriuretic Peptide < 100 (<100)
[2019-06-11 17:51] LABS: Thyroid Stimulating Hormone 2.12 uIU/mL (0.47-4.68)
[2019-06-13 15:16] LABS: Immunoglobulin A 76 mg/dL (20-320)
[2019-07-16 11:50] LABS: BUN Creatinine Ratio 21.3 (6-22); Blood Urea Nitrogen 17 mg/dL (7-17); Estimated Glomerular Filt Rate > 60.0 mL/min (>60)
[2020-04-17 15:40] LABS: Add Manual Diff / Slide Review NO; Basophils Absolute Auto 0 /uL (0-100); Basophils Percent Auto 1.1 % (0-2); Eosinophils Absolute Auto 300 /uL (0-450); Eosinophils Percent Auto 7.7 % (2-4); Hematocrit 26.6 % (36-46); Hemoglobin 8.9 g/dL (12.0-16.0); Lymphocytes Absolute Auto 500 /uL (1100-4500); Lymphocytes Percent Auto 11.8 % (25-40); Mean Corpuscular HGB Conc 33.4 % (30-36); Mean Corpuscular Hemoglobin 28.6 PG (26-34); Mean Corpuscular Volume 85.7 fL (80-100); Monocytes Absolute Auto 600 /uL (0-900); Monocytes Percent Auto 14.1 % (3-14); Neutrophils Absolute Auto 2600 /uL (1500-7000); Neutrophils Percent Auto 65.3 % (50-75); Platelet Count 231 X10^3/uL (150-400); Red Cell Distribution Width 15.7 % (11.6-14.8)
[2020-04-17 15:51] LABS: BUN Creatinine Ratio 13.5 (6-22); Blood Urea Nitrogen 20 mg/dL (7-17); Calcium 8.6 mg/dL (8.4-10.2); Carbon Dioxide 31 mmol/L (22-32); Chloride 101 mmol/L (98-107); Estimated Glomerular Filt Rate 34.7 mL/min (>60); Glucose 104 mg/dL (80-110); HEMOLYSIS < 15 (0-50); Sodium 136 mmol/L (137-145)
--- NOTE | 2020-04-17 16:03 | PC.NURSE ---
LABS FAXED Lab results faxed per order to [facility] [place], Dr. Dorota Odom ([phone]).
== END ==
PROVIDERS: Hospitalist; Family Provider Family Medicine; PCP Family Medicine; Visit Provider Internal Medicine
DX: C50.919 Malignant neoplasm of unspecified site of unspecified female breast
CPT/HCPCS: 36591; 80048; 80053; 82565; 82784; 83516; 83880; 84443; 84520; 85025; 86803; 87086; 96523; J0330; J1100; J2405; J2704; J3010

== ENCOUNTER 2020-04-22 20:58 | Emergency (ER) | payer MEDICARE, BC, SELFPAY ==
[2019-07-29 05:05] VITALS: BMI 38.1
[2020-04-22] VITALS (8 sets, daily range): BP systolic 145–179; BP diastolic 85–90; PULSE 100–108; RESP 18; TEMP 36.9; O2SAT 94–98; BMI 34.0
--- NOTE | 2020-04-22 21:20 | ED_ITS ---
HPI - Female Genitourinary General Chief complaint: Urogenital-Female Stated complaint: urology issues Time Seen by Provider: 04/22/20 21:00 Source: patient and family Mode of arrival: Ambulatory Limitations: no limitations History of Present Illness HPI Narrative: 74-year-old female nonsmoker with history of primary breast cancer and ongoing chemotherapy for treatment bladder cancer presents with her in the chief complaint of severe lower abdominal pain and also complains of no urine output in the bag attached to her left nephrostomy tube. She initially had bilateral nephrostomy tubes placed about 5 months again and then had the tubes capped and ureteral stents placed a month ago, they decided to le ave nephrostomy tubes in place in case she didn't tolerate the stents. Patient had been feeling generally unwell and after phone conference between her oncology and urology team they decided to get patient back to [place] to reconnect the hardware. There had been some difficulty getting her down to [place] so was given instructions for hooking the bags back up today (about 4 hours prior to arrival). Since then she has drained significant urine from right bag, but zero from the left. She began developing lower pelvic discomfort at that time. She's had no fever or chills. She denies chest pain, SOB, or headache. She does feel nauseated. Related Data Home Medications Medication Instructions Recorded Confirmed cholecalciferol (vitamin D3) 2,000 unit PO DAILY #0 12/27/16 08/23/19 [Vitamin D3] multivitamin [Multiple Vitamins] 1 tab PO DAILY #0 12/27/16 08/23/19 Previous Rx's Medication Instructions Recorded rosuvastatin 5 mg tablet 5 mg PO DAILY #90 tab 07/10/19 citalopram 20 mg tablet 40 mg PO DAILY #180 tab 01/04/20 lorazepam 0.5 mg tablet 0.5 mg PO BID PRN #30 tab 01/10/20 ondansetron HCl 4 mg tablet 4 mg PO Q8H PRN #30 tab 01/10/20 prochlorperazine maleate 10 mg 10 mg PO BID PRN #30 tab 01/10/20 tablet Allergies Allergy/AdvReac Type Severity Reaction Status Date / Time Penicillins [PENICILLINS] Allergy Unknown Verified 01/31/20 18:26 shellfish derived Allergy Unknown Verified 01/31/20 18:26 [SHELLFISH DERIVED] vancomycin [VANCOMYCIN] Allergy Unknown Verified 01/31/20 18:26 Review of Systems Constitutional Constitutional: Denies chills, Denies fatigue, Denies fever(s), Denies frequent falls, Denies lethargy and Reports weakness Eyes Eyes: Denies change in vision, Denies eye discharge, Denies irritation and Denies loss of vision ENT Ears, Nose, Mouth, and Throat: Denies change in voice, Denies dizziness, Denies neck pain, Denies sore throat and Denies throat swelling Cardiovascular Cardiovascular: Denies chest pain, Denies irregular heart rhythm, Denies lightheadedness, Denies palpitations, Denies dyspnea, Denies dyspnea on exertion and Denies orthopnea Respiratory Respiratory: Denies cough, Denies dyspnea, Denies dyspnea on exertion and Denies wheezing Gastrointestinal Gastrointestinal: Reports abdominal pain, Denies change in bowel habits, Denies diarrhea, Denies nausea and Denies vomiting Musculoskeletal Musculoskeletal: Denies neck pain and Denies numbness Integumentary/Breasts Skin/Breast: Denies pruritus, Denies erythema, Denies rash and Denies wounds Neurologic Neurologic: Denies behavioral changes, Denies confusion, Denies dizziness, Denies frequent falls, Denies loss of vision, Denies numbness and Reports weakness Psychiatric Psychiatric: Denies anxiety, Denies behavioral changes, Denies confusion, Denies depression, Denies homicidal ideation and Denies suicidal ideation Endocrine Endocrine: Denies fatigue, Denies flushing and Denies palpitations Hematologic/Lymphatic Hematologic/Lymphatic: Denies easy bruising Allergic/Immunologic Allergic/Immunologic: Denies urticaria, Denies throat swelling and Denies wheezing Patient History Medical History (Updated 04/23/20 @ 01:37 by Chinedu Addison DO) Breast cancer (Resolved 1990) Cataract (Chronic 2016) Chicken pox (Resolved ~1950) Diverticulitis (Resolved 2014) Essential hypertension (Chronic 05/10/17) Gout (Inactive) Hayfever (Chronic) History of heavy periods (Resolved) Hyperlipidemia (Chronic 05/10/17) IBS (irritable bowel syndrome) (Chronic) Lymphedema (Chronic 05/10/17) Malignant neoplasm of breast (Inactive 09/13/17) Measles (Resolved ~1950) Morbid obesity (Chronic 09/13/17) Mumps (Resolved 1960) Neutropenia (Resolved 2013) Osteopenia (Chronic) Primary osteoarthritis of both knees (Chronic 09/13/17) Rosacea (Resolved) Shoulder pain (Chronic 2014) Skin cancer (Resolved 02/2017) Thyroid nodule (Resolved 2013) Tinnitus (Chronic) Surgical History Anesthesia (Resolved) History of eye surgery (Inactive ~195) History of toe surgery (Inactive 1994) History of tonsillectomy (Inactive ~1961) Status post delivery (Inactive 01/01/83) Status post partial mastectomy (Inactive 11/05/13) Status post partial mastectomy (Inactive 09/07/90) Family History Father Heart disease Hypertension High cholesterol Stroke Grandfather Heart disease Grandmother Heart disease Diabetes mellitus Pneumonia CAD (coronary artery disease) Mother Cancer Heart disease Head and neck cancer Grandmother Heart disease Heart attack Grandfather Lung cancer alcohol intake frequency: holidays/special occasions only Alcohol type: wine Substance Use Type: does not use Exam Narrative Exam Narrative: GENERAL: [74] year old patient appears stated age. Well- nourished, well-developed patient, in mild distress. HEAD: Atraumatic. Normocephalic. EYES: Pupils equal round and reactive. Extraocular motions intact. No scleral icterus. No injection or drainage. ENT: Nose without bleeding, purulent drainage. Throat without erythema, tonsillar hypertrophy or exudate. Airway patent. NECK: Trachea midline. Non tender CARDIOVASCULAR: Regular rate and rhythm without murmurs, gallops, or rubs. RESPIRATORY: Clear to auscultation. Breath sounds equal bilaterally. No wheezes, rales, or rhonchi. GASTROINTESTINAL: Abdomen soft, tender in the suprapubic region, no rebound nond istended. EXTREMITIES: No edema or joint tenderness. BACK: Nontender without deformity or crepitance. No flank tenderness. Urine within right-sided to and bag, no urine and left-sided to or back NEURO: AOx3. SKIN: No rash or erythema of visible areas Initial Vital Signs Initial Vital Signs: Vital Signs Temperature 98.5 F 04/22/20 21:18 Pulse Rate 106 H 04/22/20 21:18 Respiratory Rate 18 04/22/20 21:18 Blood Pressure 179/90 H 04/22/20 21:18 Pulse Oximetry 97 04/22/20 21:18 Scores ABCD2 Citation: Lancet. 2006Sep 10;369(2381):283-92. Validation and refinement of scores to predict very early stroke risk after transient ischaemic attack. Shannon SC1, Chichi PM, Jax MN, Shan MF, Mata JS, Lela AL, Curt S. Course Course Course Narrative: patient is feeling better now, but still having difficulty and discomfort when trying to urinate. Her left nephrostomy has been flushed and drained slightly but not like previously Orders Ordered: ED Orders 04/22/20 22:23 Blood Culture Stat Complete Blood Count AUTO DIFF Stat Comprehensive Metabolic Panel Stat 04/22/20 22:39 US renal complete Stat 04/22/20 23:01 Urinalysis and Microscopic Stat Urine Culture Stat 04/22/20 23:16 CT abdomen pelvis w con Stat 04/23/20 00:17 Lipase Stat 04/23/20 02:07 COVID19 -ED/INPAT/OR/L&D Stat Sodium Chloride (Normal Saline 0.9%) 1,000 mls @ 125 mls/hr IV CONT PADMINI Last Admin: 04/22/20 22:40 Dose: 125 mls/hr Documented by: JORDAN Ondansetron HCl (Zofran) 4 mg IV Q4HR PRN PRN Reason: Nausea And Vomiting Last Admin: 04/22/20 22:40 Dose: 4 mg Documented by: JORDAN Discontinued Medications Hydromorphone HCl (Dilaudid) 0.5 mg IV NOW ONE Stop: 04/22/20 22:08 Last Admin: 04/22/20 22:40 Dose: 0.5 mg Documented by: JORDAN Hydromorphone HCl (Dilaudid) 0.5 mg IV NOW ONE Stop: 04/23/20 00:28 Last Admin: 04/23/20 00:30 Dose: 0.5 mg Documented by: JORDAN Consultations Consultation #1[place] difficulty with [place], nephrostomy, in the setting of weakness and new ADAL and he recommends she be transferred down for definitive care to include urolog y, interventional radiolgy etc. Time: 01:02 Consultation #2: Dr. Suarez happy to accept at [facility] service. Vital Signs Vital signs: Vital Signs - 8 hr 04/22/20 21:18 04/22/20 21:23 04/22/20 21:30 Temperature 98.5 F Pulse Rate 106 H 108 H 100 H Respiratory Rate 18 Blood Pressure 179/90 H Pulse Oximetry 97 98 96 04/22/20 22:00 04/22/20 22:30 04/22/20 23:00 Temperature Pulse Rate 102 H 100 H 102 H Respiratory Rate Blood Pressure Pulse Oximetry 96 96 94 04/22/20 23:28 04/22/20 23:30 04/23/20 00:30 Temperature Pulse Rate 102 H 103 H 104 H Respiratory Rate Blood Pressure 145/85 H Pulse Oximetry 95 95 96 04/23/20 01:00 04/23/20 01:21 04/23/20 01:30 Temperature Pulse Rate 107 H 109 H 115 H Respiratory Rate Blood Pressure 122/74 Pulse Oximetry 95 93 95 04/23/20 01:31 04/23/20 02:00 04/23/20 02:30 Temperature Pulse Rate 119 H 110 H 114 H Respiratory Rate 18 16 Blood Pressure 178/89 H 143/92 H 124/76 Pulse Oximetry 95 93 MDM - Female Genitourinary Lab Data Result diagrams: 04/22/20 22:23 04/22/20 22:23 Labs: Lab Results 04/22/20 04/22/20 04/22/20 Range/Units 22:23 22:23 22:23 WBC 7.7 (4.5-11.0) X10^3/uL RBC 3.30 L (4.0-5.2) X10^6/uL Hgb 9.4 L (12.0-16.0) g/dL Hct 28.1 L (36-46) % MCV 85.2 (80-100) fL MCH 28.6 (26-34) PG MCHC 33.6 (30-36) % RDW 15.8 H (11.6-14.8) % Plt Count 237 (150-400) X10^3/uL Neut % (Auto) 82.7 H (50-75) % Lymph % (Auto) 5.6 L (25-40) % [place] % (Auto) 8.3 (3-14) % Eos % (Auto) 2.6 (2-4) % Baso % (Auto) 0.8 (0-2) % Neut # (Auto) 6400 (7191-4006) /uL Lymph # (Auto) 400 L (8510-3387) /uL [place] # (Auto) 600 (0-900) /uL Eos # (Auto) 200 (0-450) /uL Baso # (Auto) 100 (0-100) /uL Sodium 135 L (137-145) mmol/L Potassium 3.3 L (3.4-5.1) mmol/L Chloride 99 (98-107) mmol/L Carbon Dioxide 33 H (22-32) mmol/L BUN 16 (7-17) mg/dL Creatinine 1.45 H (0.52-1.04) mg/dL Estimated GFR 35.5 L (>60) mL/min BUN/Creatinine Ratio 11.0 (6-22) Glucose 106 (80-110) mg/dL Calcium 8.9 (8.4-10.2) mg/dL Total Bilirubin 0.5 (0.2-1.3) mg/dL AST 27 (14-36) IU/L ALT 9 (<35) IU/L Alkaline Phosphatase 82 (38-126) U/L Total Protein 6.1 L (6.3-8.2) g/dL Albumin 3.5 (3.5-5.0) g/dL Globulin 2.6 (1.7-4.1) g/dL Albumin/Globulin Ratio 1.3 (1.0-2.8) Lipase 280 (23-300) U/L Urine Color Urine Appearance Urine pH (4.5-8.0) Ur Specific [place] (1.000-1.035) Urine Protein (Negative) Urine Glucose (UA) (Negative) g/dL Urine Ketones (NEGATIVE) Urine Occult Blood (Negative) Urine Nitrate (Negative) Urine Bilirubin (NEGATIVE) Urine Urobilinogen (0.2) E.U./dL Ur Leukocyte Esterase (NEGATIVE) Urine RBC (0-5/HPF) Urine WBC (0-5/HPF) Urine Bacteria (None) Ur Culture Indicated? COVID-19 PCR (Negative) 04/22/20 04/23/20 Range/Units 23:01 02:07 WBC (4.5-11.0) X10^3/uL RBC (4.0-5.2) X10^6/uL Hgb (12.0-16.0) g/dL Hct (36-46) % MCV (80-100) fL MCH (26-34) PG MCHC (30-36) % RDW (11.6-14.8) % Plt Count (150-400) X10^3/uL Neut % (Auto) (50-75) % Lymph % (Auto) (25-40) % [place] % (Auto) (3-14) % Eos % (Auto) (2-4) % Baso % (Auto) (0-2) % Neut # (Auto) (8736-1418) /uL Lymph # (Auto) (1778-5217) /uL [place] # (Auto) (0-900) /uL Eos # (Auto) (0-450) /uL Baso # (Auto) (0-100) /uL Sodium (137-145) mmol/L Potassium (3.4-5.1) mmol/L Chloride (98-107) mmol/L Carbon Dioxide (22-32) mmol/L BUN (7-17) mg/dL Creatinine (0.52-1.04) mg/dL Estimated GFR (>60) mL/min BUN/Creatinine Ratio (6-22) Glucose (80-110) mg/dL Calcium (8.4-10.2) mg/dL Total Bilirubin (0.2-1.3) mg/dL AST (14-36) IU/L ALT (<35) IU/L Alkaline Phosphatase (38-126) U/L Total Protein (6.3-8.2) g/dL Albumin (3.5-5.0) g/dL Globulin (1.7-4.1) g/dL Albumin/Globulin Ratio (1.0-2.8) Lipase (23-300) U/L Urine Color Red Urine Appearance Sl cloudy Urine pH 7.5 (4.5-8.0) Ur Specific [place] 1.015 (1.000-1.035) Urine Protein 3+ H (Negative) Urine Glucose (UA) Trace H (Negative) g/dL Urine Ketones Negative (NEGATIVE) Urine Occult Blood 2+ H (Negative) Urine Nitrate Positive H (Negative) Urine Bilirubin Negative (NEGATIVE) Urine Urobilinogen 0.2 (0.2) E.U./dL Ur Leukocyte Esterase Trace H (NEGATIVE) Urine RBC 30-100/hpf H (0-5/HPF) Urine WBC 0-1/hpf (0-5/HPF) Urine Bacteria Few (2-10) H (None) Ur Culture Indicated? Specimen cultured COVID-19 PCR Negative (Negative) Imaging Data Renal US: Radiologist's Impression: No Dwight, stents in place CT scan - abdomen/pelvis: Radiologist's Impression: Nephrostomy tubes in place ureteral stents in place. No hydronephrosis Bladder thickening, stomach thickening, widespread bowel thickening. Critical Care Time Critical Care Time Critical Care Time: Yes Total Critical Care Time: 40 Attestation: The high probability of a clinically significant, sudden or life threatening deterioration of the [/CV] system(s) required my full and direct attention, intervention and personal management. The aggregate critical care time was [40] minutes. This time is in addition to time spent performing reported procedures but includes the following: [x] Data Review and interpretation [x] Patient assessment and monitoring of vital signs [x] Documentation [x] Medication orders and management Discharge Plan Departure [facility] Clinical Impression: Acute kidney injury, Nephrostomy complication Prescriptions: No Action citalopram 20 mg tablet 40 mg PO DAILY Qty: 180 RF: 3 prochlorperazine maleate [Compazine] 10 mg tablet 10 mg PO BID PRN (Reason: nausea and vomiting) Qty: 30 RF: 0 lorazepam 0.5 mg tablet 0.5 mg PO BID PRN (Reason: anxiety) Qty: 30 RF: 0 ondansetron HCl 4 mg tablet 4 mg PO Q8H PRN (Reason: nausea and vomiting) Qty: 30 RF: 0 multivitamin [Multiple Vitamins] 1 EACH tablet 1 tab PO DAILY Qty: 0 RF: 0 cholecalciferol (vitamin D3) [Vitamin D3] 2,000 UNIT capsule 2,000 unit PO DAILY Qty: 0 RF: 0 rosuvastatin 5 mg tablet 5 mg PO DAILY Qty: 90 RF: 3 Referrals: Janay Blackwell DO [Primary Care Provider] -
--- NOTE | 2020-04-22 21:20 | PC.NURSE ---
Addendum entered by Chloé Jc R.N. 04/22/20 21:25: Per patient nephrostomy tubes placed today. Original Note: Patient comes to ED with spouse c/o recently placed nephrostomy tubes not draining. Patient reports has metastatic breast cancer that has spread to kidneys and bladder. Recently had nephrostomy tubes placed, and as of today L tube is not draining. Denies trying any irrigation at home. Reports pelvic/lower abdominal pain as 9/10 and states feels like its all full. Bladder scan 99ml.
[2020-04-22 22:32] LABS: Add Manual Diff / Slide Review NO; Basophils Absolute Auto 100 /uL (0-100); Basophils Percent Auto 0.8 % (0-2); Eosinophils Absolute Auto 200 /uL (0-450); Eosinophils Percent Auto 2.6 % (2-4); Hematocrit 28.1 % (36-46); Hemoglobin 9.4 g/dL (12.0-16.0); Lymphocytes Absolute Auto 400 /uL (1100-4500); Lymphocytes Percent Auto 5.6 % (25-40); Mean Corpuscular HGB Conc 33.6 % (30-36); Mean Corpuscular Hemoglobin 28.6 PG (26-34); Mean Corpuscular Volume 85.2 fL (80-100); Monocytes Absolute Auto 600 /uL (0-900); Monocytes Percent Auto 8.3 % (3-14); Neutrophils Absolute Auto 6400 /uL (1500-7000); Neutrophils Percent Auto 82.7 % (50-75); Platelet Count 237 X10^3/uL (150-400); Red Cell Distribution Width 15.8 % (11.6-14.8); White Blood Cell Count 7.7 X10^3/uL (4.5-11.0)
--- NOTE | 2020-04-22 22:39 | DI.US.S_ITS ---
PROCEDURE: US RENAL COMPLETE INDICATIONS: NO DRAINAGE FROM LEFT UROSTOMY TECHNIQUE: Real-time scanning was performed of the kidneys and bladder, with image documentation. COMPARISON: None. FINDINGS: Kidneys: Kidneys are normal in size. Right kidney measures 11.0 cm long; left kidney measures 10.9 cm long. Right renal cortical thickness is 1.4 cm; left renal cortical thickness is 1.9 cm. Renal cortical echotexture is normal. No hydronephrosis or nephrolithiasis. No suspicious solid mass lesions. There are bilateral nephrostomy stents in place noted within the renal pelvis. Bladder: Pre-void bladder volume was not measured as the bladder appeared decompressed. The bilateral ureteral jets were not noted with color Doppler interrogation during time of the exam. Miscellaneous: No free pelvic fluid. IMPRESSION: Bilateral nephrostomy tubes in place without evidence for obstructive uropathy. Unremarkable sonographic appearance of the bilateral kidneys. No significant discrepancy with the change of address clerk radiology preliminary report. Dictated by: Santana De La Rosa M.D. on 04/23/2020 at 7:38 Approved by: Santana De La Rosa M.D. on 04/23/2020 at 7:42
[2020-04-22] MEDS: ONDANSETRON 4 MG/2 ML INJ IV (22:40)
[2020-04-22] MEDS: HYDROMORPHONE 0.5 MG INJ IV (22:40)
[2020-04-22] MEDS: SODIUM CHLORIDE 0.9% 1,000 ML 125 ML IV (22:40)
[2020-04-22 22:43] LABS: Alanine Aminotransferase 9 IU/L (<35); Albumin 3.5 g/dL (3.5-5.0); Albumin Globulin Ratio 1.3 (1.0-2.8); Alkaline Phosphatase 82 U/L (38-126); Aspartate Aminotransferase 27 IU/L (14-36); Bilirubin Total 0.5 mg/dL (0.2-1.3); Blood Urea Nitrogen 16 mg/dL (7-17); Calcium 8.9 mg/dL (8.4-10.2); Carbon Dioxide 33 mmol/L (22-32); Chloride 99 mmol/L (98-107); Estimated Glomerular Filt Rate 35.5 mL/min (>60); Globulin 2.6 g/dL (1.7-4.1); Glucose 106 mg/dL (80-110); HEMOLYSIS < 15 (0-50); Potassium 3.3 mmol/L (3.4-5.1); Sodium 135 mmol/L (137-145); Total Protein 6.1 g/dL (6.3-8.2)
--- NOTE | 2020-04-22 23:16 | DI.CT.S_ITS ---
PROCEDURE: CT ABDOMEN PELVIS W CON INDICATIONS: severe pelvic pain, nephrostomy not draining on left TECHNIQUE: After the administration of intravenous contrast, 5 mm thick sections acquired from the diaphragm to the symphysis. 5 mm coronal and sagittal reformats were acquired. For radiation dose reduction, the following was used: automated exposure control, adjustment of mA and/or kV according to patient size. COMPARISON: , CT, CT ABDOMEN PELVIS W CON, 01/07/2020, 17:01. FINDINGS: Image quality: Excellent. ABDOMEN: Lung bases: Visualized lung bases demonstrate mild bibasilar dependent atelectasis. Trace bilateral pleural effusions. Heart size is mildly enlarged. Scattered atherosclerotic calcifications of the coronary arteries are noted. Solid organs: Liver is normal in size and enhancement. Gallbladder is unremarkable. Biliary system is non dilated. Spleen is normal in size and enhancement. No adrenal nodules. Bilateral nephrostomy tubes are noted and appears stable in positioning compared to prior CT. Bilateral nephrostomy tubes appear intact along their visualized course. No adjacent fluid collections. Bilateral ureteral stents are present. They appear appropriately positioned. No perinephric inflammatory stranding. No hydronephrosis. Kidneys demonstrate normal size and enhancement. Redemonstration of peripancreatic inflammatory stranding. This appears more pronounced than on comparison study. Pancreas otherwise demonstrates homogeneous enhancement. Adjacent vasculature without internal filling defects. Peritoneum and bowel: Redemonstration of moderate wall thickening of the gastric antrum and pylorus, mildly more pronounced than comparison study. There is associated marked gastric distention proximally into the gastric body and cardia. There is moderate circumferential bowel wall thickening of the majority of the ascending colon and the proximal transverse colon. This also appears more prominent compared to prior study. Interval increase in now mild-moderate amount of scattered ascites measuring near fluid attenuation. Ascites is predominantly perihepatic in location with extension along the bilateral pericolic gutters and into the pelvis. No peritoneal enhancement. No evidence for free air or organized fluid collections within the peritoneal cavity. Redemonstration of postsurgical changes from partial bowel resection with anastomotic suture line in the left lower quadrant. No evidence for bowel obstruction. Nodes and vessels: No retroperitoneal or mesenteric adenopathy by size criteria. Aorta and inferior vena cava are normal in size. Scattered atherosclerotic calcifications of the abdominal aorta and iliac vessels without aneurysmal dilatation. Miscellaneous: Stable postsurgical changes of the ventral abdomen. New rim enhancing fluid collection over the lower anterolateral left chest wall measuring approximately 2.5 x 5.8 cm in size. There is no adjacent inflammatory stranding. Diffusely scattered, minimal subcutaneous fat stranding possibly representing early anasarca. PELVIS: Genitourinary: Bladder wall thickness is diffusely thickened. Urinary bladder is partially decompressed. Bilateral ureteral stents are also noted and appear appropriately positioned. Miscellaneous: No inguinal hernias or adenopathy. Bones: No suspicious bony lesions. No acute vertebral body compression fractures. IMPRESSION: 1. Bilateral percutaneous nephrostomy tubes appear stable in position and intact. 2. Interval placement of bilateral ureteral stents. 3. No hydronephrosis. 4. Redemonstration of moderate wall thickening of the gastric antrum and pylorus with marked proximal gastric distension. This has slightly progressed compared to the prior study of January 07, 2020. Findings are again suspicious for possible neoplastic process. 5. Redemonstration of moderate wall thickening of the ascending colon and proximal transverse colon. This has also progressed compared to the prior study and again may represent nonspecific colitis versus possible neoplastic process. 6. Interval increase in now mild-moderate amount of ascites. 7. Interval increase in peripancreatic stranding. Concurrent pancreatitis not excluded. Recommend clinical and laboratory correlation. 8. Diffuse urinary bladder wall thickening which may in part be related to incomplete distension versus cystitis versus neoplastic process. 9. Possible 2.5 x 5.8 cm anterolateral inferior left chest wall abscess. This is new compared to prior studies. 10. Trace bilateral pleural effusions. No significant discrepancy with the shift supervisor rn radiology preliminary report. Dictated by: Santana De La Rosa M.D. on 04/23/2020 at 8:10 Approved by: Santana De La Rosa M.D. on 04/23/2020 at 8:34
[2020-04-22 23:20] LABS: Appearance Urine UA SL CLOUDY; Bilirubin Urine UA NEGATIVE (NEGATIVE); Color Urine UA RED; Glucose Urine UA TRACE g/dL (Negative); Ketones Urine UA NEGATIVE (NEGATIVE); Leukocyte Esterase Urine UA TRACE (NEGATIVE); Nitrite Urine UA POSITIVE (Negative); Occult Blood Urine UA 2+ (Negative); Protein Urine UA 3+ (Negative); Specific Gravity Urine UA 1.015 (1.000-1.035); Urobilinogen Urine UA 0.2 E.U./dL (0.2)
[2020-04-22 23:21] LABS: pH Urine UA 7.5 (4.5-8.0)
[2020-04-22 23:22] LABS: RBC Urine 30-100/HPF (0-5/HPF); WBC Urine 0-1/HPF (0-5/HPF)
[2020-04-22 23:23] LABS: Bacteria Urine Few (2-10); Culture Indicated Urine Specimen Cultured
[2020-04-23] VITALS (10 sets, daily range): BP systolic 122–178; BP diastolic 74–92; PULSE 104–119; RESP 14–18; O2SAT 91–96
[2020-04-23] MEDS: HYDROMORPHONE 0.5 MG INJ IV ×2 (00:30→04:03)
[2020-04-23 00:33] LABS: Lipase 280 U/L (23-300)
--- NOTE | 2020-04-23 00:49 | PC.NURSE ---
Left nephrostomy bag irrigated by myself and Misti SAMUELS. Patient tolerated well. Urine now draining into left nephrostomy bag.
[2020-04-23 02:28] LABS: COVID19 -Nasal RAPID Negative (Negative)
== END 2020-04-23 04:40 | disposition short-term general hospital (02) ==
PROVIDERS: Emergency Provider Emergency Medicine; Family Provider Internal Medicine; PCP Family Medicine
DX: N17.9 Acute kidney failure, unspecified (principal); N99.528 Other complication of incontinent external stoma of urinary tract; R10.2 Pelvic and perineal pain; R11.0 Nausea
CPT/HCPCS: 51798; 74177; 76770; 80053; 81001; 83690; 85025; 87040; 87086; 87635; 96361; 96374; 96375; 96376; 99284; J1170; J1642; J2405; Q9967

== ENCOUNTER 2020-04-29 04:42 | Emergency (ER) | payer MEDICARE, BC, SELFPAY ==
[2019-07-29 05:05] VITALS: BMI 38.1
[2020-04-29] VITALS (11 sets, daily range): BP systolic 144–174; BP diastolic 73–89; PULSE 90–115; RESP 18–25; TEMP 37.3; O2SAT 87–98; BMI 34.0
--- NOTE | 2020-04-29 05:04 | ED_ITS ---
HPI - General Adult <Michel Simpson DO - Last Filed: 04/29/20 17:58> General Chief complaint: Abdominal Pain Stated complaint: no bowel movement in 6 days/vomited dark stuff Time Seen by Provider: 04/29/20 04:46 Source: patient and family Mode of arrival: Wheelchair Limitations: no limitations History of Present Illness HPI narrative: Patient is a 74-year-old female with a complicated medical history. Was seen here in the emergency department approximately 1 week ago for issues with her nephrostomy tubes. Was transferred to [facility] for further evaluation and treatment. She states that they were able to get the nephrostomy tubes working without having to replace them. She is not currently undergoing chemotherapy for her breast cancer. Has not received a dose in the past month. She states that it has been delayed secondary to how she is feeling and other medical issues that she is having. She is here because she states that she thinks that she is constipated and she also had 1 episode of vomiting a dark substance this evening. Patient's is at bedside. Patient states that she thinks that her last bowel movement was about 1 week ago. At that time she did have several episodes of diarrhea. She took some Imodium and has not had a bowel movement since then. She states that she feels like that she needs to have a bowel movement. She states that she passed a small amount of flatus. She is having some abdominal pain. She has bladder spasms however this seems to be improving with some medications that she was given. She has had a bowel obstruction in the past. She did take 2 doses of lactulose last evening without any resolution of her symptoms. Related Data Home Medications Medication Instructions Recorded Confirmed cholecalciferol (vitamin D3) 2,000 unit PO DAILY #0 12/27/16 08/23/19 [Vitamin D3] multivitamin [Multiple Vitamins] 1 tab PO DAILY #0 12/27/16 08/23/19 Previous Rx's Medication Instructions Recorded rosuvastatin 5 mg tablet 5 mg PO DAILY #90 tab 07/10/19 citalopram 20 mg tablet 40 mg PO DAILY #180 tab 01/04/20 lorazepam 0.5 mg tablet 0.5 mg PO BID PRN #30 tab 01/10/20 ondansetron HCl 4 mg tablet 4 mg PO Q8H PRN #30 tab 01/10/20 prochlorperazine maleate 10 mg 10 mg PO BID PRN #30 tab 01/10/20 tablet Magic Mouthwash 5 - 10 ml PO QID #240 ml 04/28/20 Allergies Allergy/AdvReac Type Severity Reaction Status Date / Time Penicillins [PENICILLINS] Allergy Unknown Verified 01/31/20 18:26 shellfish derived Allergy Unknown Verified 01/31/20 18:26 [SHELLFISH DERIVED] vancomycin [VANCOMYCIN] Allergy Unknown Verified 01/31/20 18:26 Review of Systems <Michel Simpson DO - Last Filed: 04/29/20 17:58> Constitutional Constitutional: Denies fever(s) Cardiovascular Cardiovascular: Denies chest pain and Denies dyspnea Respiratory Respiratory: Denies dyspnea Gastrointestinal Gastrointestinal: Reports abdominal pain, Reports constipation, Reports nausea and Reports vomiting Genitourinary Comments: Bladder spasm Integumentary/Breasts Skin/Breast: Denies rash Neurologic Neurologic: Denies behavioral changes Psychiatric Psychiatric: Denies behavioral changes Hematologic/Lymphatic Hematologic/Lymphatic: Denies easy bleeding and Denies easy bruising Allergic/Immunologic Allergic/Immunologic: Denies urticaria Patient History <Michel Simpson DO - Last Filed: 04/29/20 17:58> Medical History (Updated 04/29/20 @ 13:03 by Janay Blackwell DO) Breast cancer (Resolved 1990) Cataract (Chronic 2016) Chicken pox (Resolved ~1949) Diverticulitis (Resolved 2014) Essential hypertension (Chronic 05/10/17) Gout (Inactive) Hayfever (Chronic) History of heavy periods (Resolved) Hyperlipidemia (Chronic 05/10/17) IBS (irritable bowel syndrome) (Chronic) Lymphedema (Chronic 05/10/17) Malignant neoplasm of breast (Inactive 09/13/17) Measles (Resolved ~1949) Morbid obesity (Chronic 09/13/17) Mumps (Resolved 1960) Neutropenia (Resolved 2013) Osteopenia (Chronic) Primary osteoarthritis of both knees (Chronic 09/13/17) Rosacea (Resolved) Shoulder pain (Chronic 2014) Skin cancer (Resolved 02/2017) Thyroid nodule (Resolved 2013) Tinnitus (Chronic) Surgical History Anesthesia (Resolved) History of eye surgery (Inactive ~1950) History of toe surgery (Inactive 1994) History of tonsillectomy (Inactive ~1961) Status post delivery (Inactive 01/01/83) Status post partial mastectomy (Inactive 11/05/13) Status post partial mastectomy (Inactive 09/07/90) Family History Father Heart disease Hypertension High cholesterol Stroke Grandfather Heart disease Grandmother Heart disease Diabetes mellitus Pneumonia CAD (coronary artery disease) Mother Cancer Heart disease Head and neck cancer Grandmother Heart disease Heart attack Grandfather Lung cancer Social History household members: spouse Smoking Status: Never smoker alcohol intake: current substance use type: does not use Smoking Status: Never smoker alcohol intake frequency: holidays/special occasions only Alcohol type: wine Substance Use Type: does not use Exam <DO Eloise Valencia Last Filed: 04/29/20 17:58> Initial Vital Signs Initial Vital Signs: Vital Signs Temperature 99.2 F 04/29/20 04:45 Pulse Rate 99 H 04/29/20 04:45 Respiratory Rate 18 04/29/20 04:45 Blood Pressure 166/89 H 04/29/20 04:45 Pulse Oximetry 95 04/29/20 04:45 Const General: cooperative and comfortable Limitations: mental status not altered HENMT Head: normal to inspection and normocephalic Resp Effort & Inspection: normal respiratory effort Auscultation: clear to auscultation bilaterally Cardio Rate: regular rate Rhythm: regular rhythm GI Inspection: distended Palpation: soft, No firm, No guarding and tender Other: Nephrostomy tubes in place and draining Skin Lesions: no lesions Rashes: no rashes Neuro General: patient alert, patient awake and patient oriented x3 Cognition: normal cognition Speech: speech normal Extrem General: capillary refill normal Psych Appearance: grossly normal and well kempt <Peggy Gutierrez MD - Last Filed: 04/30/20 18:24> Initial Vital Signs Initial Vital Signs: Vital Signs Temperature 99.2 F 04/29/20 04:45 Pulse Rate 99 H 04/29/20 04:45 Respiratory Rate 18 04/29/20 04:45 Blood Pressure 166/89 H 04/29/20 04:45 Pulse Oximetry 95 04/29/20 04:45 Course <DO Eloise Valencia Filed: 04/29/20 17:58> Orders Ordered: Discontinued Medications Hydromorphone HCl (Dilaudid) 0.5 mg IV NOW ONE Stop: 04/29/20 07:37 Last Admin: 04/29/20 07:42 Dose: 0.5 mg Documented by: SHONNA Sodium Chloride (Normal Saline 0.9%) 1,000 mls @ 500 mls/hr IV BOLUS ONE Stop: 04/29/20 07:01 Last Infusion: 04/29/20 07:30 Dose: 0 mls/hr Documented by: Admin: 04/29/20 05:29 Dose: 500 mls/hr Documented by: JORDAN Lorazepam (Ativan) 0.5 mg IV NOW ONE Stop: 04/29/20 07:37 Last Admin: 04/29/20 07:42 Dose: 0.5 mg Documented by: SHONNA Ondansetron HCl (Zofran) 4 mg IV NOW ONE Stop: 04/29/20 05:39 Last Admin: 04/29/20 05:47 Dose: 4 mg Documented by: KENDRA Vital Signs Vital signs: Vital Signs - 8 hr 04/29/20 04:45 04/29/20 05:37 04/29/20 06:00 Temperature 99.2 F Pulse Rate 99 H 95 H 90 Respiratory Rate 18 22 18 Blood Pressure 166/89 H 144/76 H Pulse Oximetry 95 94 91 04/29/20 06:25 04/29/20 06:28 04/29/20 06:30 Temperature Pulse Rate 94 H Respiratory Rate 20 Blood Pressure 157/73 H Pulse Oximetry 87 L 96 95 04/29/20 07:00 04/29/20 07:30 04/29/20 08:00 Temperature Pulse Rate 98 H 108 H 107 H Respiratory Rate 25 H 19 Blood Pressure 156/76 H 174/88 H 153/80 H Pulse Oximetry 98 97 98 04/29/20 08:30 Temperature Pulse Rate 115 H Respiratory Rate Blood Pressure 149/74 H Pulse Oximetry 95 <Peggy Gutierrez MD - Last Filed: 04/30/20 18:24> Orders Ordered: Discontinued Medications Hydromorphone HCl (Dilaudid) 0.5 mg IV NOW ONE Stop: 04/29/20 07:37 Last Admin: 04/29/20 07:42 Dose: 0.5 mg Documented by: SHONNA Sodium Chloride (Normal Saline 0.9%) 1,000 mls @ 500 mls/hr IV BOLUS ONE Stop: 04/29/20 07:01 Last Infusion: 04/29/20 07:30 Dose: 0 mls/hr Documented by: Admin: 04/29/20 05:29 Dose: 500 mls/hr Documented by: JORDAN Lorazepam (Ativan) 0.5 mg IV NOW ONE Stop: 04/29/20 07:37 Last Admin: 04/29/20 07:42 Dose: 0.5 mg Documented by: SHONNA Ondansetron HCl (Zofran) 4 mg IV NOW ONE Stop: 04/29/20 05:39 Last Admin: 04/29/20 05:47 Dose: 4 mg Documented by: KENDRA Vital Signs Vital signs: Vital Signs - 8 hr 04/29/20 04:45 04/29/20 05:37 04/29/20 06:00 Temperature 99.2 F Pulse Rate 99 H 95 H 90 Respiratory Rate 18 22 18 Blood Pressure 166/89 H 144/76 H Pulse Oximetry 95 94 91 04/29/20 06:25 04/29/20 06:28 04/29/20 06:30 Temperature Pulse Rate 94 H Respiratory Rate 20 Blood Pressure 157/73 H Pulse Oximetry 87 L 96 95 04/29/20 07:00 04/29/20 07:30 04/29/20 08:00 Temperature Pulse Rate 98 H 108 H 107 H Respiratory Rate 25 H 19 Blood Pressure 156/76 H 174/88 H 153/80 H Pulse Oximetry 98 97 98 04/29/20 08:30 Temperature Pulse Rate 115 H Respiratory Rate Blood Pressure 149/74 H Pulse Oximetry 95 Medical Decision Making <Michel Simpson DO - Last Filed: 04/29/20 17:58> Lab Data Result diagrams: 04/29/20 05:30 04/29/20 05:30 Labs: Lab Results 04/29/20 04/29/20 04/29/20 Range/Units 05:30 05:30 05:30 WBC 4.9 (4.5-11.0) X10^3/uL RBC 2.95 L (4.0-5.2) X10^6/uL Hgb 8.3 L (12.0-16.0) g/dL Hct 24.9 L (36-46) % MCV 84.5 (80-100) fL MCH 28.1 (26-34) PG MCHC 33.2 (30-36) % RDW 15.6 H (11.6-14.8) % Plt Count 230 (150-400) X10^3/uL Neut % (Auto) 77.1 H (50-75) % Lymph % (Auto) 6.5 L (25-40) % Davison % (Auto) 8.6 (3-14) % Eos % (Auto) 6.1 H (2-4) % Baso % (Auto) 1.7 (0-2) % Neut # (Auto) 3800 (9157-4650) /uL Lymph # (Auto) 300 L (3268-9634) /uL Davison # (Auto) 400 (0-900) /uL Eos # (Auto) 300 (0-450) /uL Baso # (Auto) 100 (0-100) /uL PT 13.2 H (10.1-12.7) SECONDS INR 1.2 (0.9-1.3) APTT 37 H D (26.4-36.2) SECONDS Sodium 135 L (137-145) mmol/L Potassium 3.5 (3.4-5.1) mmol/L Chloride 99 (98-107) mmol/L Carbon Dioxide 31 (22-32) mmol/L BUN 14 (7-17) mg/dL Creatinine 1.00 (0.52-1.04) mg/dL Estimated GFR 54.5 L (>60) mL/min BUN/Creatinine Ratio 14.0 (6-22) Glucose 97 (80-110) mg/dL Lactate (0.7-2.1) mmol/L Calcium 8.8 (8.4-10.2) mg/dL Total Bilirubin 0.5 (0.2-1.3) mg/dL AST 34 (14-36) IU/L ALT 11 (<35) IU/L Alkaline Phosphatase 70 (38-126) U/L Total Protein 5.8 L (6.3-8.2) g/dL Albumin 3.3 L (3.5-5.0) g/dL Globulin 2.5 (1.7-4.1) g/dL Albumin/Globulin Ratio 1.3 (1.0-2.8) Lipase 96 D (23-300) U/L COVID-19 PCR (Negative) 04/29/20 04/29/20 Range/Units 05:30 08:57 WBC (4.5-11.0) X10^3/uL RBC (4.0-5.2) X10^6/uL Hgb (12.0-16.0) g/dL Hct (36-46) % MCV (80-100) fL MCH (26-34) PG MCHC (30-36) % RDW (11.6-14.8) % Plt Count (150-400) X10^3/uL Neut % (Auto) (50-75) % Lymph % (Auto) (25-40) % Davison % (Auto) (3-14) % Eos % (Auto) (2-4) % Baso % (Auto) (0-2) % Neut # (Auto) (1252-0324) /uL Lymph # (Auto) (0493-1537) /uL Davison # (Auto) (0-900) /uL Eos # (Auto) (0-450) /uL Baso # (Auto) (0-100) /uL PT (10.1-12.7) SECONDS INR (0.9-1.3) APTT (26.4-36.2) SECONDS Sodium (137-145) mmol/L Potassium (3.4-5.1) mmol/L Chloride (98-107) mmol/L Carbon Dioxide (22-32) mmol/L BUN (7-17) mg/dL Creatinine (0.52-1.04) mg/dL Estimated GFR (>60) mL/min BUN/Creatinine Ratio (6-22) Glucose (80-110) mg/dL Lactate < 0.5 L (0.7-2.1) mmol/L Calcium (8.4-10.2) mg/dL Total Bilirubin (0.2-1.3) mg/dL AST (14-36) IU/L ALT (<35) IU/L Alkaline Phosphatase (38-126) U/L Total Protein (6.3-8.2) g/dL Albumin (3.5-5.0) g/dL Globulin (1.7-4.1) g/dL Albumin/Globulin Ratio (1.0-2.8) Lipase (23-300) U/L COVID-19 PCR Negative (Negative) MDM Narrative Medical decision making narrative: Has not had a bowel movement in 1 week, vomiting, distended abdomen, CT scan and labs ordered. Turned over to Dr. Gutierrez at change of shift follow-up on CT scan. <Peggy Gutierrez MD - Last Filed: 04/30/20 18:24> Medical Records Medical records reviewed: Yes I reviewed the patient's medical records. Lab Data Lab results reviewed: Yes I reviewed the patient's lab results. Labs: Lab Results 04/29/20 04/29/20 04/29/20 Range/Units 05:30 05:30 05:30 WBC 4.9 (4.5-11.0) X10^3/uL RBC 2.95 L (4.0-5.2) X10^6/uL Hgb 8.3 L (12.0-16.0) g/dL Hct 24.9 L (36-46) % MCV 84.5 (80-100) fL MCH 28.1 (26-34) PG MCHC 33.2 (30-36) % RDW 15.6 H (11.6-14.8) % Plt Count 230 (150-400) X10^3/uL Neut % (Auto) 77.1 H (50-75) % Lymph % (Auto) 6.5 L (25-40) % Davison % (Auto) 8.6 (3-14) % Eos % (Auto) 6.1 H (2-4) % Baso % (Auto) 1.7 (0-2) % Neut # (Auto) 3800 (3044-9103) /uL Lymph # (Auto) 300 L (9898-2575) /uL Davison # (Auto) 400 (0-900) /uL Eos # (Auto) 300 (0-450) /uL Baso # (Auto) 100 (0-100) /uL PT 13.2 H (10.1-12.7) SECONDS INR 1.2 (0.9-1.3) APTT 37 H D (26.4-36.2) SECONDS Sodium 135 L (137-145) mmol/L Potassium 3.5 (3.4-5.1) mmol/L Chloride 99 (98-107) mmol/L Carbon Dioxide 31 (22-32) mmol/L BUN 14 (7-17) mg/dL Creatinine 1.00 (0.52-1.04) mg/dL Estimated GFR 54.5 L (>60) mL/min BUN/Creatinine Ratio 14.0 (6-22) Glucose 97 (80-110) mg/dL Lactate (0.7-2.1) mmol/L Calcium 8.8 (8.4-10.2) mg/dL Total Bilirubin 0.5 (0.2-1.3) mg/dL AST 34 (14-36) IU/L ALT 11 (<35) IU/L Alkaline Phosphatase 70 (38-126) U/L Total Protein 5.8 L (6.3-8.2) g/dL Albumin 3.3 L (3.5-5.0) g/dL Globulin 2.5 (1.7-4.1) g/dL Albumin/Globulin Ratio 1.3 (1.0-2.8) Lipase 96 D (23-300) U/L COVID-19 PCR (Negative) 04/29/20 04/29/20 Range/Units 05:30 08:57 WBC (4.5-11.0) X10^3/uL RBC (4.0-5.2) X10^6/uL Hgb (12.0-16.0) g/dL Hct (36-46) % MCV (80-100) fL MCH (26-34) PG MCHC (30-36) % RDW (11.6-14.8) % Plt Count (150-400) X10^3/uL Neut % (Auto) (50-75) % Lymph % (Auto) (25-40) % Davison % (Auto) (3-14) % Eos % (Auto) (2-4) % Baso % (Auto) (0-2) % Neut # (Auto) (7219-0386) /uL Lymph # (Auto) (2831-0179) /uL Davison # (Auto) (0-900) /uL Eos # (Auto) (0-450) /uL Baso # (Auto) (0-100) /uL PT (10.1-12.7) SECONDS INR (0.9-1.3) APTT (26.4-36.2) SECONDS Sodium (137-145) mmol/L Potassium (3.4-5.1) mmol/L Chloride (98-107) mmol/L Carbon Dioxide (22-32) mmol/L BUN (7-17) mg/dL Creatinine (0.52-1.04) mg/dL Estimated GFR (>60) mL/min BUN/Creatinine Ratio (6-22) Glucose (80-110) mg/dL Lactate < 0.5 L (0.7-2.1) mmol/L Calcium (8.4-10.2) mg/dL Total Bilirubin (0.2-1.3) mg/dL AST (14-36) IU/L ALT (<35) IU/L Alkaline Phosphatase (38-126) U/L Total Protein (6.3-8.2) g/dL Albumin (3.5-5.0) g/dL Globulin (1.7-4.1) g/dL Albumin/Globulin Ratio (1.0-2.8) Lipase (23-300) U/L COVID-19 PCR Negative (Negative) Imaging Data CT scan - abdomen/pelvis: Radiologist's Impression: Night Read: Partial gastric outlet obstruction secondary to bowel wall thickening within the gastric antrum and duodenal bulb, concerning for underlying neoplastic process Dilation of the thoracic esophagus Large amount of stool within the cecum and ascending colon secondary to circumferential bowel wall thickening within the ascending colon with abrupt caliber change at the hepatic flexure-focal ileus from inflammation versus underlying colonic neoplastic process Endometrial hyperplasia Ascites Small bilateral pleural effusions Rim enhancing collections in the left chest wall likely represents abscess (Dr Gutierrez: clinical correlation, this is likely lymphedema rather than abscess) 04/29/2020 Dr Hermelindo Fraser MD Day overread: [address] [id number] [address] Scan Report Signed Patient: Davina Barrett CMR#: [id number] : 7Acct:[id number] Age/Sex: 74 / FDate of Service: 04/29/20 Loc: ED Accession Number: [id number] Procedure: CT abdomen pelvis w con Ordering Provider: Michel Simpson D.O. PROCEDURE: CT ABDOMEN PELVIS W CON INDICATIONS: Constipation/vomiting, history of obstructions TECHNIQUE: After the administration of intravenous contrast, 5 mm thick sections acquired from the diaphragm to the symphysis. 5 mm coronal and sagittal reformats were acquired. For radiation dose reduction, the following was used: automated exposure control, adjustment of mA and/or kV according to patient size. COMPARISON: [facility], CT, CT ABDOMEN PELVIS W CON, 04/22/2020, 23:39. FINDINGS: Image quality: Excellent. ABDOMEN: Lung bases: Small right pleural effusion and trace associated atelectasis. The heart is mildly enlarged and there is moderate mitral annular calcification. The esophagus contains fluid and an air-fluid level in the midportion. There is a partially imaged peripherally enhancing fluid collection along the anterolateral aspect of the left chest wall subcutaneous tissues, similar compared to the prior study. Solid organs: Liver is normal in size and enhancement. Gallbladder is grossly normal . Biliary system is mildly dilated, stable. Pancreas is indistinct and there is moderate peripancreatic inflammation to similar degree.. Spleen is normal in size and enhancement. No adrenal nodules. Kidneys contain bilateral percutaneous nephrostomy tubes and nephroureteral stents. No new hydronephrosis or perinephric inflammation. Peritoneum and bowel: The stomach is distended and the wall of the distal stomach is diffusely thickened and edematous suggesting gastric outlet obstruction, similar morphology compared to the prior study. There is perihepatic and perisplenic ascites and moderate thickening of the retroperitoneal fascia. Large amount of retained solid stool in the cecum, increased compared to prior, and diffuse wall thickening of the proximal colon through the hepatic flexure. Generalized mesenteric inflammatory changes to stable degree. No small bowel obstruction. No free air. Nodes and vessels: No retroperitoneal or mesenteric adenopathy by size criteria. Aorta and inferior vena cava are normal in size. Miscellaneous: No ventral hernias. PELVIS: Genitourinary: The urinary bladder wall is diffusely thickened as before. The uterine endometrium is distended, irregular, and hypodense. Hypodensity extends to the fundal myometrium. Ovarian tissue is not well seen. Miscellaneous: No inguinal hernias or adenopathy. Bones: There are two rounded sclerotic foci in the L5 vertebral body, and one in the T11 vertebral body suspicious for metastatic disease. No vertebral body compression fractures. IMPRESSION: 1. Persistent findings concerning for gastric outlet obstruction and gastritis. There is also fluid distending the esophagus. 2. Stable findings of diffuse wall thickening of the proximal colon which may indicate colitis, infectious, inflammatory, or reactive. 3. Indistinct pancreas and generalized inflammatory and peritoneal changes suggesting pancreatitis. Correlate clinically. 4. Concerning morphology of the uterine endometrium suspicious for neoplastic process. 5. Stable position of bilateral nephroureteral and percutaneous nephrostomy tubes. 6. No change to the left chest wall subcutaneous abscess. 7. Slight increase in size of small right pleural effusion. 8. T11 and L5 bone lesions suspicious for metastatic disease. 9. Concordant with preliminary report. Dictated by: Brissa Palmer M.D. on 04/29/2020 at 8:12 Chest x-ray: Attestation: I personally reviewed and interpreted this imaging study as follows: My Impression: NG tip in stomach MDM Narrative Medical decision making narrative: 74-year-old woman with breast cancer status post mastectomy with chemo restarting. [facility], recent nephrectomy tubes ureteral stents) with discharge from [facility] approximately 4 days ago with an admission related to the ureteral stents. Informed her today of the CT scan findings and need for hospital admission. With her primary care physician in [place] and help from [facility], she is planning to transfer all of her care back of to this area with Dr. Noland as her oncologist. She presents today with absence of bowel movement for 7 days, increasing nausea vomiting and abdominal distention. CT scan is concerning for underlying neoplastic infiltration causing gastric outlet obstruction and possibly hepatic flexure obstruction and ascites. Patient will need to be admitted. She and her would both for for [facility] rather than going all the way back to [facility]. Beds currently are available at [facility]. Have just spoken with Dr. Raul Gregory, general surgeon who has reviewed the CT scan as well. In looking at the CT scan her goals of care are likely going to shift to pale eat of rather than beginning any additional chemo and he is willing to certainly consult if she were to be admitted to the medicine service. Will contact Dr. Noland regarding transfer prior to reviewing with the hospitalists. 827am approximately 750 cc of bilious/black gastric fluid returns from NG tube. Concern for placement still in the esophagus and x-ray is pending. Reviewed plans to go to [facility] and questions were answered. Patient and her had questions about transferring to palliative/hospice type care and were fairly nabeel listic about findings noted on CT. Waiting for bed/nurse to call for transport. Page to Dr Donohue/or medical office receptionist assistant oncology. Discharge Plan Departure Patient Disposition: [facility] Clinical Impression: Bowel obstruction Qualifiers: Intestinal obstruction type: other intestinal obstruction Intestinal obstruction extent: partial Qualified Code(s): K56.690 - Other partial intestinal obstruction Breast cancer metastasized to multiple sites Qualifiers: Laterality: left Qualified Code(s): C50.912 - Malignant neoplasm of unspecified site of left female breast Discharge Date/Time: 04/29/20 09:53 Prescriptions: No Action citalopram 20 mg tablet 40 mg PO DAILY Qty: 180 RF: 3 prochlorperazine maleate [Compazine] 10 mg tablet 10 mg PO BID PRN (Reason: nausea and vomiting) Qty: 30 RF: 0 lorazepam 0.5 mg tablet 0.5 mg PO BID PRN (Reason: anxiety) Qty: 30 RF: 0 ondansetron HCl 4 mg tablet 4 mg PO Q8H PRN (Reason: nausea and vomiting) Qty: 30 RF: 0 multivitamin [Multiple Vitamins] 1 EACH tablet 1 tab PO DAILY Qty: 0 RF: 0 cholecalciferol (vitamin D3) [Vitamin D3] 2,000 UNIT capsule 2,000 unit PO DAILY Qty: 0 RF: 0 rosuvastatin 5 mg tablet 5 mg PO DAILY Qty: 90 RF: 3 Magic Mouthwash 5 - 10 ml PO QID Qty: 240 RF: 0 Referrals: Janay Blackwell DO [Primary Care Provider] - <Peggy Gutierrez MD - Last Filed: 04/30/20 18:24> Cosign ED Attending Cosignature Attestation: I was immediately available in the department for consultation throughout this patient's visit. I agree with documentation as above. Peggy Gutierrez MD
[2020-04-29] MEDS: SODIUM CHLORIDE 0.9% 1,000 ML 500 ML IV (05:29)
[2020-04-29 05:42] LABS: Add Manual Diff / Slide Review NO; Basophils Absolute Auto 100 /uL (0-100); Basophils Percent Auto 1.7 % (0-2); Eosinophils Absolute Auto 300 /uL (0-450); Eosinophils Percent Auto 6.1 % (2-4); Hematocrit 24.9 % (36-46); Hemoglobin 8.3 g/dL (12.0-16.0); Lymphocytes Absolute Auto 300 /uL (1100-4500); Lymphocytes Percent Auto 6.5 % (25-40); Mean Corpuscular HGB Conc 33.2 % (30-36); Mean Corpuscular Hemoglobin 28.1 PG (26-34); Mean Corpuscular Volume 84.5 fL (80-100); Monocytes Absolute Auto 400 /uL (0-900); Monocytes Percent Auto 8.6 % (3-14); Neutrophils Absolute Auto 3800 /uL (1500-7000); Neutrophils Percent Auto 77.1 % (50-75); Platelet Count 230 X10^3/uL (150-400); Red Blood Cell Count 2.95 X10^6/uL (4.0-5.2); Red Cell Distribution Width 15.6 % (11.6-14.8); White Blood Cell Count 4.9 X10^3/uL (4.5-11.0)
[2020-04-29 05:46] LABS: INR 1.2 (0.9-1.3); Prothrombin Time 13.2 SECONDS (10.1-12.7)
[2020-04-29] MEDS: ONDANSETRON 4 MG/2 ML INJ IV (05:47)
[2020-04-29 05:48] LABS: PTT Partial Thromboplastin Tim 37 SECONDS (26.4-36.2)
[2020-04-29 05:49] LABS: Alanine Aminotransferase 11 IU/L (<35); Albumin 3.3 g/dL (3.5-5.0); Albumin Globulin Ratio 1.3 (1.0-2.8); Alkaline Phosphatase 70 U/L (38-126); Aspartate Aminotransferase 34 IU/L (14-36); Bilirubin Total 0.5 mg/dL (0.2-1.3); Blood Urea Nitrogen 14 mg/dL (7-17); Calcium 8.8 mg/dL (8.4-10.2); Carbon Dioxide 31 mmol/L (22-32); Chloride 99 mmol/L (98-107); Estimated Glomerular Filt Rate 54.5 mL/min (>60); Globulin 2.5 g/dL (1.7-4.1); Glucose 97 mg/dL (80-110); HEMOLYSIS < 15 (0-50); Lactate (Lactic Acid) < 0.5 mmol/L (0.7-2.1); Lipase 96 U/L (23-300); Potassium 3.5 mmol/L (3.4-5.1); Sodium 135 mmol/L (137-145); Total Protein 5.8 g/dL (6.3-8.2)
[2020-04-29] MEDS: LORazepam 2 MG/ML INJ 0.5 MG IV (07:42)
[2020-04-29] MEDS: HYDROMORPHONE 0.5 MG INJ IV (07:42)
--- NOTE | 2020-04-29 08:21 | DI.RAD.S_ITS ---
PATIENT NAME: [facility] GUERRA : 1945 EXAM DATE: 04/29/2020 8:21 ORD. : REFUGIO CADE M.D. CC: MODALITY: CR PATIENT TYPE: ER CONTRAST MEDIA: STATION ID: [id number] FLUORO TIME: This report includes an Addendum and supersedes previous reports for this exam. PROCEDURE: XR CHEST 1V INDICATIONS: NG tube placement TECHNIQUE: One view of the chest was acquired. COMPARISON: [facility], CR, XR CHEST 2V, 12/29/2018, 11:41. [facility], CT, CT ABDOMEN PELVIS W CON, 04/29/2020, 5:20. [facility], CR, XR CHEST 1V, 07/30/2019, 14:34. FINDINGS: Surgical changes and devices: The gastric tube is seen, with the tip overlying the mid stomach. The side hole is seen just above the level of the diaphragm. Percutaneous nephrostomy drains are partially seen. There is a stable right-sided chest port. Lungs and pleura: On this semiupright portable chest examination, no large pneumothorax or large pleural effusions are seen. No focal infiltrates are seen. Low lung volumes are noted. This causes a crowded appearance to the lung markings and limits evaluation. Mediastinum: The cardiac contours are within normal limits. The aorta demonstrates calcification and tortuosity. Bones and chest wall: No suspicious bony lesions. Overlying soft tissues appear unremarkable. Age-appropriate bony degenerative changes are seen. IMPRESSION: The tip of the gastric tube is seen overlying the mid stomach, with the side hole just above the level of the diaphragm. Please consider advancement. Dictated by: Jamie Henning on 04/29/2020 at 8:01 Approved by: Jamie eHnning on 04/29/2020 at 8:03 Continued Report - Page 2 of 2 PATIENT NAME: LUC GUERRA : 1945 EXAM DATE: 04/29/2020 8:21 ORD. : REFUGIO CADE M.D. CC: MODALITY: CR PATIENT TYPE: ER CONTRAST MEDIA: STATION ID: [id number] FLUORO TIME: ADDENDUM: This case was dictated and approved by Dr. Guzman Esteban, and not Jamie Henning. Dictated by: Guzman Esteban M.D. on 04/29/2020 at 13:13 Approved by: Guzman Esteban M.D. on 04/29/2020 at 13:13
--- NOTE | 2020-04-29 08:37 | PC.NURSE ---
NG tube advanced to resistance. 750 mL brown liquid out, but unable to auscaltate proper placement. Dr Gutierrez informed, new orders.
[2020-04-29 09:17] LABS: COVID19 -Nasal RAPID Negative (Negative)
== END 2020-04-29 09:53 | disposition short-term general hospital (02) ==
PROVIDERS: Emergency Medicine; Emergency Provider Emergency Medicine; Family Provider Internal Medicine; PCP Family Medicine
DX: K56.690 Other partial intestinal obstruction (principal); R11.2 Nausea with vomiting, unspecified; R10.9 Unspecified abdominal pain; C50.912 Malignant neoplasm of unspecified site of left female breast; Z79.899 Other long term (current) drug therapy
CPT/HCPCS: 36415; 71045; 74177; 80053; 83605; 83690; 85025; 85610; 85730; 87635; 96361; 96374; 96375; 99285; J1170; J2060; J2405; Q9967